=== PATIENT | female | born 1970 | race Caucasian/White ===

== ENCOUNTER 2020-07-22 07:33 | Outpatient (REF) | payer OTHER, SELFPAY ==
[2020-07-22 08:40] LABS: Alanine Aminotransferase 15 U/L (0-31); Albumin Level 3.9 g/dL (3.5-5.0); Alkaline Phosphatase 68 U/L (39-117); Anion Gap 10 (12-20); Aspartate Amino Transferase 12 U/L (5-31); Bilirubin Total 0.4 mg/dL (0.0-1.0); Blood Urea Nitrogen 12 mg/dL (9-16); Calcium 8.7 mg/dL (8.4-10.2); Carbon Dioxide 26 mmol/L (22-29); Chloride 106 mmol/L (96-108); Cholesterol 203 mg/dL; Estimated Glomerular Filt Rate > 60; Glucose Fasting 106 mg/dL (60-99); HDL Cholesterol 54 mg/dL; LDL Cholesterol Calculated 134 mg/dl; Sodium 138 mmol/L (135-145); Total Protein 7.1 g/dL (6.5-8.0); Triglycerides 78 mg/dL
== END 2020-07-22 07:34 | disposition home or self-care (01) ==
LOC: HO.LAB 07:33
PROVIDERS: PCP Internal Medicine; Visit Provider Internal Medicine
DX: E78.00 Pure hypercholesterolemia, unspecified (principal)
CPT/HCPCS: 80053; 80061

== ENCOUNTER → 2020-08-26 10:34 | Outpatient (BNVA) | payer OTHER, SELFPAY | PROVIDERS: PCP Internal Medicine; Referring Provider Internal Medicine; Visit Provider Physician Assistant | DX: Z01.818 Encounter for other preprocedural examination (principal) | CPT/HCPCS: 99212 ==

== ENCOUNTER 2020-09-03 16:17 | Outpatient (REF) | payer OTHER, SELFPAY ==
--- NOTE | 2020-09-03 | MM_ITS ---
EXAMINATION: MM SCREENING DIGITAL BREAST TOMOSYNTHESIS, BILATERAL CLINICAL INFORMATION: Screening. Asymptomatic. The lifetime risk of breast cancer based on the Tyrer-Cuzick Model is 14%. COMPARISON: Mammography: 02/18/2019, 02/14/2018, 01/27/2017 TECHNIQUE: Digital breast tomosynthesis is performed in both the craniocaudal and mediolateral oblique views along with computer-aided detection (CAD). Synthesized 2D images are generated from the tomosynthesis. FINDINGS: There are scattered areas of fibroglandular density (ACR BI-RADS breast composition Category b). There are no significant masses, abnormal calcifications, or other abnormalities. The axilla and skin contours are unremarkable. MM/MM tomosynthesis screening BI IMPRESSION: No mammographic evidence of malignancy. ASSESSMENT: BI-RADS 1: Negative RECOMMENDATION: Routine annual mammography screening. This patient's information was entered into a reminder system with a target due date for their next mammogram.
== END 2020-09-03 16:18 | disposition home or self-care (01) ==
LOC: HO.MAMMO 16:17
PROVIDERS: PCP Internal Medicine; Visit Provider Internal Medicine
DX: Z12.31 Encounter for screening mammogram for malignant neoplasm of breast (principal)
CPT/HCPCS: 77063; 77067

== ENCOUNTER 2020-12-29 09:05 | Day surgery (SDC) | payer OTHER, SELFPAY ==
[2020-12-23 10:14] VITALS: BMI 49.4
--- NOTE | 2020-12-28 09:57 | HO.ANESPROP2 ---
Documented by User: Arti Armenta 12/28/20 09:58 HPI - Anesthesia Eval Consult details Narrative: 50yo F for Colonoscopy PMFSH Active Problems Active Problems: All Active Problems (Updated 12/23/20 @ 10:17 by Es Lambert) Encounter for screening colonoscopy (Acute) Anxiety (Acute) Osteoarthritis of knees, bilateral (Acute) Insomnia (Acute) Constipation by delayed colonic transit (Acute) Dyslipidemia (Acute) Back ache (Acute) Chronic back pain (Acute) Past Medical History Medical History Anxiety Back ache Chronic back pain Constipation by delayed colonic transit Dyslipidemia Hx of heartburn Insomnia Obesity JAKE (obstructive sleep apnea) Osteoarthritis of knees, bilateral Family History Family History Father Medical history unknown Mother Hypertension Daughter In good health Son In good health Brother No problems noted. Sister No problems noted. Surgical History Surgical History History of lumbar discectomy History of tubal ligation Social History Social History Alcohol intake: never Smoking Status: Former smoker Smoking Quit Date: 2016 Use of substances other than those prescribed or required for medical reasons: No Advance Directives: No Advance Directives Information Provided: No Advance Directives on File: No Meds Allergies Allergy/AdvReac Type Severity Reaction Status Date / Time Iodinated Contrast Media Allergy Intermediate RASH,HIVES Verified 12/23/20 10:10 [CONTRAST, IV] varenicline [From CHANTIX] Allergy Intermediate RASH, Verified 12/23/20 10:10 pruritus iopromide [From Ultravist] Allergy Mild HIVES Verified 12/23/20 10:10 barium sulfate Allergy Unknown pruritus Verified 12/23/20 10:10 Exam Exam Date and Time: December 28, 2020 0957 Height,Weight and Vital Signs: Height 5 ft 5 in Weight 134.717 kg Assessment and Plan Assessment Anesthesia Assessment: Chart Reviewed Documented by User: Sujata Moore 12/29/20 10:19 PMFSH Past Medical History Medical History Anxiety Back ache Chronic back pain Constipation by delayed colonic transit Dyslipidemia Hx of heartburn Insomnia Obesity JAKE (obstructive sleep apnea) Osteoarthritis of knees, bilateral Family History Family History Father Medical history unknown Mother Hypertension Daughter In good health Son In good health Brother No problems noted. Sister No problems noted. Surgical History Surgical History History of lumbar discectomy History of tubal ligation Social History Social History Alcohol intake: never Smoking Status: Former smoker Smoking Quit Date: 2016 Use of substances other than those prescribed or required for medical reasons: No Advance Directives: No Advance Directives Information Provided: No Advance Directives on File: No Meds Allergies Allergy/AdvReac Type Severity Reaction Status Date / Time Iodinated Contrast Media Allergy Intermediate RASH,HIVES Verified 12/23/20 10:10 [CONTRAST, IV] varenicline [From CHANTIX] Allergy Intermediate RASH, Verified 12/23/20 10:10 pruritus iopromide [From Ultravist] Allergy Mild HIVES Verified 12/23/20 10:10 barium sulfate Allergy Unknown pruritus Verified 12/23/20 10:10 Exam Airway Mallampati Class: II TM Dist: >3cm Heart: RRR Lungs: CTA
[2020-12-29 10:09] VITALS: BP 145/84; PULSE 65; RESP 18; TEMP 36.5; O2SAT 97
--- NOTE | 2020-12-29 10:23 | PM.OP ---
Brief Operative Note Date of Service: 12/29/20 Pre-op diagnosis: Colon cancer screening + fam hx second degree relative Morbid obesity Harley Post-op diagnosis: other (Polyp, Internal hemorrhoids) Procedure: COLONOSCOPY WITH EXCISIONAL POLYPECTOMY C BX FORCEPS Implants: NON Surgeon: Renata Haile MD Anesthesia: MAC () Estimated blood loss (mL): 5 Pathology: other (TRANSVERSE COLON POLYPS) Condition: stable Disposition: PACU
--- NOTE | 2020-12-29 10:24 | MHC.SHP ---
Pre-Procedural Eval Section B Chief Complaint: screening Details of Present Illness: colon cancer screening No clinical changes from August, + hx in MOTHER's brother Relevant Family History (Specify if Yes): Yes Relevant Social History: None Present Medications: see Short Stay Collaborative assessment Medical History: Significant History (MORBID OBESITY, JAKE--CPAP) History of Previous Operations: Relevant previous surgery/procedure and date(s) (bACK SURGERY--LUMBAR) Allergies: Allergies Allergy/AdvReac Type Severity Reaction Status Date / Time Iodinated Contrast Media Allergy Intermediate RASH,HIVES Verified 12/23/20 10:10 [CONTRAST, IV] varenicline [From CHANTIX] Allergy Intermediate RASH, Verified 12/23/20 10:10 pruritus iopromide [From Ultravist] Allergy Mild HIVES Verified 12/23/20 10:10 barium sulfate Allergy Unknown pruritus Verified 12/23/20 10:10 Review of Systems Sugical H&P ROS: Negative: Constitution, Cardiovascular, Allergic/Immunologic and Gastrointestinal and Yes, Specify: Respiratory (JAKE) Exam Surgical H&P Exam: Normal: HEENT, Normal: Heart, Normal: Lungs and Normal: Abdomen Exam Comment: MORBID OBESITY Plan Diagnosis/Plan: Unchanged I have reviewed the history and physical and performed a pertinent physical examination on my patient. No changes have occurred unless specified.YES
[2020-12-29 10:56] VITALS: BP 106/67; PULSE 80; RESP 16; TEMP 36.9; O2SAT 95
[2020-12-29] MEDS: ondansetron HCL 4 MG/2 ML VIAL IVPUSH (11:06)
[2020-12-29 11:11] VITALS: BP 130/80; PULSE 76; RESP 20; O2SAT 97
--- NOTE | 2020-12-29 12:46 | HO.POSTANES ---
Post Anesthesia Evaluation Post Anesthesia Evaluation Vital Signs: Vital Signs Temp Pulse Resp BP Pulse Ox 12/29/20 11:11 76 20 130/80 97 12/29/20 10:56 98.4 F 80 16 106/67 95 12/29/20 10:09 97.7 F 65 18 145/84 H 97 Anesthesia: Monitored Mental Status: Awake Pain Control: Satisfactory Nausea/Vomiting: None Hydration: Adequate Anesthesia-Related Issues: No Anes. Related Issues
--- NOTE | 2021-01-03 13:30 | W.PM.OPN ---
Operative Note Operative Note Date of Service: 12/29/20 Narrative: Pre-op diagnosis: Colon cancer screening + Fam hx second degree relative(Maternal brother) Morbid obesity Harley Post-op diagnosis: Colon polyp 2-3mm, 1-2+ Internal Hemorrhoids) Procedure: COLONOSCOPY WITH EXCISIONAL POLYPECTOMY COLD BX FORCEPS Implants: NONE Surgeon: Renata Haile MD Anesthesia: MAC () FINDINGS: JAYNA:Sphincter tone adequate. Adult slim scope was introduced with no difficulty advanced thru sigmoid, descending, transverse ascending colon into the cecum. Mild extrinsic pressure was applied to facilitate movement into cecal cap. Appendiceal orifice, ileocecal valve were well seen. PREP: GOOD. Slow withdrawal of scope good rotational views. Area of concern in the transverse colon was endhanced with NBI imaging. Polyp identified and removed with cold biopsy forceps. No additional lesions seen. ARV was clear. 1-2+ Internal Hemorrhoids were noted. Estimated blood loss (mL): 5 Pathology: TRANSVERSE COLON POLYP--Path:Tubular adenoma. Condition: stable Disposition: PAC PLAN: Repeat colon cancer screening in 5 years.
== END 2020-12-29 11:51 | disposition home or self-care (01) ==
PROVIDERS: PCP Internal Medicine; Visit Provider Internal Medicine Gastroenterology
PROC: 0DJD8ZZ Inspection of Lower Intestinal Tract, Via Natural or Artificial Opening Endoscopic (ICD-10-PCS; CPT 45378; principal; 2020-12-29 10:10)
DX: Z12.11 Encounter for screening for malignant neoplasm of colon (principal); D12.3 Benign neoplasm of transverse colon; K64.8 Other hemorrhoids; K59.01 Slow transit constipation; E66.01 Morbid (severe) obesity due to excess calories; Z68.42 Body mass index [BMI] 45.0-49.9, adult; G47.33 Obstructive sleep apnea (adult) (pediatric); F41.9 Anxiety disorder, unspecified; R12 Heartburn; Z79.899 Other long term (current) drug therapy; Z91.041 Radiographic dye allergy status; Z88.8 Allergy status to other drugs, medicaments and biological substances; Z87.891 Personal history of nicotine dependence
CPT/HCPCS: 45380; 88305; J2405

== ENCOUNTER → 2021-01-20 13:31 | Outpatient (BNVA) | payer OTHER, SELFPAY | PROVIDERS: PCP Internal Medicine; Visit Provider Physician Assistant ==

== ENCOUNTER → 2021-02-11 11:28 | Outpatient (BNVA) | payer OTHER, SELFPAY | PROVIDERS: PCP Internal Medicine; Visit Provider Anesthesiology | DX: M17.0 Bilateral primary osteoarthritis of knee (principal); M25.561 Pain in right knee; M25.562 Pain in left knee; G89.29 Other chronic pain; E66.01 Morbid (severe) obesity due to excess calories | CPT/HCPCS: 99202 ==

== ENCOUNTER 2021-04-06 06:08 | Outpatient (REF) | payer OTHER, SELFPAY ==
--- NOTE | ~2021-04-06 | FL_ITS ---
EXAMINATION: XR FLUOROSCOPY WITH IMAGES CLINICAL INFORMATION: Bilateral primary osteoarthritis. COMPARISON: None. TECHNIQUE: Fluoroscopy performed by Kristel Muñoz NP. Fluoroscopy time: 0.4 minutes DAP: 5.76 Gycm2 Images: 4 FINDINGS: There are needles positioned along the medial and lateral cortex of distal femur and medial cortex of tibia for pain management. The tricompartment joint space is maintained normal. There is mild periarticular spurring. The medial and patellofemoral compartment joint space is normal. FL/FL guidance in treatment room IMPRESSION: Mild degenerative changes medial and patellofemoral compartments. Fluoroscopy was provided to Wanda Humphries for pain management.
== END 2021-04-06 06:09 | disposition home or self-care (01) ==
LOC: HO.RADIR 06:08
PROVIDERS: Visit Provider Anesthesiology
DX: M17.0 Bilateral primary osteoarthritis of knee (principal); G89.29 Other chronic pain; Z87.891 Personal history of nicotine dependence
CPT/HCPCS: 64454

== ENCOUNTER → 2021-04-14 09:17 | Outpatient (BNVA) | payer OTHER, SELFPAY | PROVIDERS: PCP Internal Medicine; Visit Provider Anesthesiology | DX: M17.0 Bilateral primary osteoarthritis of knee (principal); M25.561 Pain in right knee; M25.562 Pain in left knee; G89.29 Other chronic pain; E66.01 Morbid (severe) obesity due to excess calories | CPT/HCPCS: 99212 ==

== ENCOUNTER 2021-06-13 16:20 | Emergency (ER) | payer OTHER, SELFPAY ==
--- NOTE | ~2021-06-13 | CT_ITS ---
EXAMINATION: CT ABDOMEN AND PELVIS WITHOUT CONTRAST CLINICAL INFORMATION: Flank pain COMPARISON: 01/28/2018 and previous TECHNIQUE: Multidetector volumetric imaging was performed from the superior aspect of the liver through the pubic symphysis. Sagittal and coronal reformatted images were obtained on the technologist's workstation. This CT examination was performed using dose optimization techniques as appropriate, variously including the following: *Automated exposure control *Adjustment of mA and/or kV according to patient size (this includes techniques or standardized protocols for targeted exams where dose is matched to indication/reason for exam; i.e. extremities or head) *Use of iterative reconstruction technique DLP: 1124 mGy-cm FINDINGS: LUNG BASES: The visualized lung bases are unremarkable. LIVER, GALLBLADDER, AND BILIARY TREE: The liver is normal in size, shape, and attenuation. No focal hepatic lesion or biliary ductal dilatation is present. The gallbladder is contracted, with no evidence of radiopaque gallstones, gallbladder wall thickening, or obvious pericholecystic inflammatory changes. PANCREAS: Unremarkable. SPLEEN: Unremarkable. ADRENAL GLANDS: Unremarkable. KIDNEYS AND URETERS: The kidneys are normal in size, shape, and attenuation. No hydronephrosis, hydroureter, or calculi seen. No perinephric stranding. BLADDER: Unremarkable. GASTROINTESTINAL TRACT: The small and large bowel are unremarkable. The appendix is unremarkable. ABDOMINAL WALL: Small fat-containing umbilical hernia, unchanged. LYMPH NODES: Normal. VASCULAR: Unremarkable. PELVIC VISCERA: Retroflexed uterus. No evidence of adnexal mass. OSSEOUS STRUCTURES: Degenerative disc and facet disease at L5-S1 CT/CT abdomen pelvis wo con IMPRESSION: No urinary tract calculus or hydronephrosis. No acute intra-abdominal process or significant change.
[2021-06-13 16:44] VITALS: BP 153/88; PULSE 78; RESP 18; TEMP 36.7; O2SAT 96; BMI 49.7
--- NOTE | 2021-06-13 17:07 | ED_ITS ---
HPI - General Adult General Chief complaint: General Medical Stated complaint: Flank pain Time Seen by Provider: 06/13/21 20:37 Source: patient Mode of arrival: ambulatory Limitations: no limitations History of Present Illness HPI narrative: 51-year-old female presents with one day history of left lower back pain that radiates to the left abdomen through her groin. States that she feels like this could be a kidney stone however the pain is more intense than prior episodes. She does not report any other symptoms, denies fevers, chills, chest pain or pressure, palpitations, shortness of breath, abdominal distention, diarrhea, constipation, or edema. Onset (ago): day(s) (1) Location: abdomen Radiation: flank Severity: severe Severity scale (1-10): 10 Quality: stabbing and crushing Pain Consistency: constant Relieving factors: none Exacerbating factors: movement Associated symptoms: fever/chills and nausea/vomiting Treatments prior to arrival: none Related Data Previous Rx's Medication Instructions Recorded cyclobenzaprine 10 mg tablet 10 mg PO TID PRN #90 tab 08/08/20 zolpidem 10 mg tablet 10 mg PO BEDTIME PRN 30 Days #30 11/03/20 tab leg brace (Knee Brace Large-XLarge) #1 ea 12/04/20 lorazepam 0.5 mg tablet 0.5 mg PO BEDTIME PRN 30 Days #30 01/27/21 tab oxycodone 5 mg tablet 5 mg PO DAILY PRN 30 Days #20 tab 05/07/21 ibuprofen 600 mg tablet 600 mg PO Q6H PRN #60 tab 06/13/21 Allergies Allergy/AdvReac Type Severity Reaction Status Date / Time barium sulfate Allergy Intermediate pruritus Verified 06/13/21 16:43 Iodinated Contrast Media Allergy Intermediate RASH,HIVES Verified 06/13/21 16:43 [CONTRAST, IV] varenicline [From CHANTIX] Allergy Intermediate RASH, Verified 06/13/21 16:43 pruritus iopromide [From Ultravist] Allergy Mild HIVES Verified 06/13/21 16:43 Review of Systems Review of Systems: Constitutional: Positive subjective Fever, positive Chills ENT/Mouth: No sore throat Eyes: No Eye Pain, No Swelling, No Redness Cardiovascular: No Chest Pain, No SOB Respiratory: No Cough, No Sputum, No Wheezing Gastrointestinal: positive Nausea, no Vomiting, No Diarrhea, positive abdominal pain Genitourinary: No Dysuria, no urinary frequency, no Hematuria, positive left Flank Pain, known hesitancy Musculoskeletal: No joint pain, No Myalgias Skin: No Skin Lesions, No rash Neuro: No Weakness, No Numbness, No Headache Psych: No Anxiety/Panic, No Depression Heme/Lymph: No Bruising, No Lymphadenopathy Endocrine: No Polyuria, No Polydipsia Yes all other systems are reviewed and are negative [facility] Past Medical History Attestation statement: The following information was validated with the patient. Source: old records reviewed Medical History Anxiety Back ache Bilateral primary osteoarthritis of knee Chronic back pain Chronic pain of both knees Constipation by delayed colonic transit Dyslipidemia Hx of heartburn Insomnia Morbid obesity Obesity JAKE (obstructive sleep apnea) Osteoarthritis of knees, bilateral Surgical History History of lumbar discectomy History of tubal ligation Family History Family History Father Medical history unknown Mother Hypertension Daughter In good health Son In good health Brother No problems noted. Sister No problems noted. Social History Social History Alcohol intake: never Patient Tobacco Use Status: Former Tobacco user Tobacco use type: Cigarette Years Smoked: 35 Advance Directives: No Advance Directives Information Provided: No Patient : No Physical Exam Vital Signs: Vital Signs: Last Vital Signs Temp 97.9 F 06/13/21 19:44 Pulse 58 06/13/21 19:44 Resp 16 06/13/21 19:57 BP 146/77 H 06/13/21 19:44 Pulse Ox 99 06/13/21 19:44 Body Mass Index 49.7 Appearance: Alert. Oriented X3. Mild distress. Eyes: Pupils equal, round and reactive to light. Sclera nonicteric. ENT: Pharynx normal. Neck: Normal inspection. Neck supple. CVS: Normal heart rate and rhythm. Pulses normal. Respiratory: No respiratory distress. Breath sounds normal. Abdomen: Soft and diffusely tender, morbidly obese. Positive bilateral CVA tenderness, greater on the left than the right. Skin: Skin warm and dry. Normal skin color. Normal skin turgor. Extremities: No lower extremity edema. Gait well balanced well coordinated. Strength 5/5 to all extremities. Neuro: No motor deficit. No sensory deficit. Cranial nerves 2-12 intact. Course Course Course Narrative: 51-year-old female presents with left-sided flank pain radiating to her lower abdominal quadrant and groin. She does have a history kidney stones, will give Toradol, fluids, Zofran, and CT scan of abdomen and pelvis. Patient does have diffuse tenderness to the left side and bilateral flank pain left side greater than the right side. Urinalysis positive for heme. No other significant abnormal lab values. Workup looks more as if there is a past or current kidney stone. 8:[address] scan of abdomen pelvis is negative for acute findings requiring emergent intervention. Patient will be discharged home with prescription for Motrin as she does have a prescription for oxycodone. Patient was encouraged to follow up with her primary care physician for further workup. Patient verbalized understanding of and agrees plan of care discharge home. Medical Decision Making Differential Diagnosis Differential Diagnosis: Acute abdomen, diverticulosis, kidney stone, UTI Medical Records Medical records reviewed: Yes I reviewed the patient's medical records. Lab Data Lab results reviewed: Yes I reviewed the patient's lab results. Result diagrams: 06/13/21 17:27 06/13/21 18:08 Labs: Lab Results 06/13/21 06/13/21 06/13/21 Range/Units 17:27 18:08 19:51 WBC 10.3 (4.8-10.8) X10*3/uL RBC 4.59 (4.20-5.50) X10*6/uL Hgb 12.8 (12.0-16.0) g/dl Hct 39.3 (37-47) % MCV 85.6 (80-98) fL MCH 27.9 (27.0-33.0) pg MCHC 32.6 (31.0-35.0) g/dl RDW 13.2 (11.0-16.0) % Plt Count 372 (160-400) X10*3/uL MPV 9.2 L (9.4-12.3) fL Immature Gran % (Auto) 0.4 (0.0-0.4) % Neut % (Auto) 63.0 (45-73) % Lymph % (Auto) 26.4 (20-40) % Crockett % (Auto) 8.2 (2-11) % Eos % (Auto) 1.6 (0-4) % Baso % (Auto) 0.4 (0-2) % Lymph # (Auto) 2.7 (1.2-4.9) X10*3/uL Crockett # (Auto) 0.8 (0.1-1.2) X10*3/uL Eos # (Auto) 0.2 (0.0-0.4) X10*3/uL Baso # (Auto) 0.0 (0.0-0.2) X10*3/uL Abs Immat Gran (auto) 0.04 H (0.00-0.03) X10*3/uL Absolute Neuts (auto) 6.5 (2.0-8.3) X10*3/uL Absolute Nucleated RBC 0.000 (0.0-0.012) X10*3/uL Nucleated RBC % (auto) 0.0 (0.0-0.2) /100WBC Sodium 140 (135-145) mmol/L Potassium 4.1 (3.3-5.1) mmol/L Chloride 108 (96-108) mmol/L Carbon Dioxide 25 (22-29) mmol/L Anion Gap 11 L (12-20) BUN 14 (9-16) mg/dL Creatinine 0.81 (0.5-1.4) mg/dL Estim Creat Clear Calc 114.7 Estimated GFR > 60 Random Glucose 87 (60-115) mg/dL Calcium 8.6 (8.4-10.2) mg/dL Urine Color YELLOW Urine Appearance CLEAR Urine pH 6.0 (5.0-8.0) Ur Specific Drain 1.020 (1.005-1.025) Urine Protein NEG (NEG-TRACE) MG/DL Urine Glucose (UA) NEG (NEG) MG/DL Urine Ketones NEG (NEG) MG/DL Urine Blood 1+ H (NEG) Urine Nitrite NEG (NEG) Ur Leukocyte Esterase NEG (NEG) Urine RBC 1-4 (0) /HPF Urine WBC 1-4 (0-4) /HPF Ur Squamous Epith Cells 3+ /LPF Urine Bacteria NONE /LPF Imaging Data CT scan - abdomen: Attestation: I personally reviewed and interpreted this imaging study as follows: Radiologist's impression: FINDINGS: LUNG BASES: The visualized lung bases are unremarkable. LIVER, GALLBLADDER, AND BILIARY TREE: The liver is normal in size, shape, and attenuation. No focal hepatic lesion or biliary ductal dilatation is present. The gallbladder is contracted, with no evidence of radiopaque gallstones, gallbladder wall thickening, or obvious pericholecystic inflammatory changes. PANCREAS: Unremarkable. SPLEEN: Unremarkable. ADRENAL GLANDS: Unremarkable. KIDNEYS AND URETERS: The kidneys are normal in size, shape, and attenuation. No hydronephrosis, hydroureter, or calculi seen. No perinephric stranding. BLADDER: Unremarkable. GASTROINTESTINAL TRACT: The small and large bowel are unremarkable. The appendix is unremarkable. ABDOMINAL WALL: Small fat-containing umbilical hernia, unchanged. LYMPH NODES: Normal. VASCULAR: Unremarkable. PELVIC VISCERA: Retroflexed uterus. No evidence of adnexal mass. OSSEOUS STRUCTURES: Degenerative disc and facet disease at L5-S1 IMPRESSION: No urinary tract calculus or hydronephrosis. No acute intra-abdominal process or significant change. Discharge Plan Discharge Clinical Impression: Acute flank pain Abdominal pain Qualifiers: Abdominal location: lower abdomen, unspecified Qualified Code(s): R10.30 - Lower abdominal pain, unspecified Patient Disposition: Home, Self-Care Instructions: Abdominal Pain (ED), Flank Pain (ED) Additional Instructions: You were evaluated for left flank pain to left lower quadrant abdominal pain. CT scan of abdomen and pelvis are negative for acute findings requiring emergent intervention. Your lab values are normal, your urinalysis is negative for UTI. Please follow-up with your primary care physician for further workup. Thank you for choosing this emergency department for evaluation. Please follow-up with primary care physician as needed. Return to the emergency department for any new, concerning, or worsening symptoms. Prescriptions: New ibuprofen 600 mg tablet 600 mg PO Q6H PRN (Reason: pain) Qty: 60 RF: 0 No Action cyclobenzaprine 10 mg tablet 10 mg PO TID PRN (Reason: muscle spasm) Qty: 90 RF: 6 zolpidem 10 mg tablet 10 mg PO BEDTIME PRN (Reason: sleep) 30 Days Qty: 30 RF: 0 (DME) Knee Brace Large-XLarge Misc See Rx Instructions .ROUTE .MEDSUPPLY Qty: 1 RF: 0 lorazepam 0.5 mg tablet 0.5 mg PO BEDTIME PRN (Reason: anxiety) 30 Days Qty: 30 RF: 0 oxycodone 5 mg tablet 5 mg PO DAILY PRN (Reason: pain) 30 Days Qty: 20 RF: 0 Interventions: ED Discharge Assessment Last Done: 06/13/21 21:15 Discharge Date/Time: 06/13/21 21:16
[2021-06-13] MEDS: ondansetron HCL 4 MG/2 ML VIAL IVPUSH (17:28)
[2021-06-13] MEDS: 0.9 % Sodium Chloride 1,000 ML 999 ML IVCONT (17:29)
[2021-06-13] MEDS: Ketorolac Tromethamine 15 MG/ML VIAL 30 MG IVPUSH (17:29)
[2021-06-13 17:34] LABS: MANUAL DIFF FLAG NO
[2021-06-13 17:42] LABS: Basophils Percent Auto 0.4 % (0-2); Eosinophils Absolute Auto 0.2 X10*3/uL (0.0-0.4); Eosinophils Percent Auto 1.6 % (0-4); Hematocrit 39.3 % (37-47); Hemoglobin 12.8 g/dl (12.0-16.0); Imm Gran Abs Auto 0.04 X10*3/uL (0.00-0.03); Imm Gran Pct Auto 0.4 % (0.0-0.4); Lymphocytes Absolute Auto 2.7 X10*3/uL (1.2-4.9); Lymphocytes Percent Auto 26.4 % (20-40); Mean Corpuscular HGB Conc 32.6 g/dl (31.0-35.0); Mean Corpuscular Hemoglobin 27.9 pg (27.0-33.0); Mean Corpuscular Volume 85.6 fL (80-98); Mean Platelet Volume 9.2 fL (9.4-12.3); Monocytes Absolute Auto 0.8 X10*3/uL (0.1-1.2); Monocytes Percent Auto 8.2 % (2-11); Neutrophils Absolute Auto 6.5 X10*3/uL (2.0-8.3); Platelet Count 372 X10*3/uL (160-400); Red Blood Count 4.59 X10*6/uL (4.20-5.50); Red Cell Distribution Width 13.2 % (11.0-16.0); White Blood Count 10.3 X10*3/uL (4.8-10.8)
[2021-06-13 18:59] LABS: Anion Gap 11 (12-20); Blood Urea Nitrogen 14 mg/dL (9-16); Calcium 8.6 mg/dL (8.4-10.2); Carbon Dioxide 25 mmol/L (22-29); Chloride 108 mmol/L (96-108); Creatinine Clr Calc Pharmacy 114.7; Estimated Glomerular Filt Rate > 60; Glucose Random 87 mg/dL (60-115); Potassium 4.1 mmol/L (3.3-5.1); Sodium 140 mmol/L (135-145)
[2021-06-13 19:44] VITALS: BP 146/77; PULSE 58; RESP 16; TEMP 36.6; O2SAT 99
[2021-06-13 19:52] VITALS: RESP 16
[2021-06-13] MEDS: Morphine Sulfate 4 MG/ML CARTRIDGE IVPUSH (19:52)
[2021-06-13 19:57] VITALS: RESP 16
[2021-06-13 20:03] LABS: Glucose Urine UA NEG (NEG); Leukocyte Esterase Urine NEG (NEG); Nitrite Urine NEG (NEG); UACC Culture Trigger NO; Urine Blood 1+ (NEG); Urine Ketones NEG (NEG); Urine Protein NEG (NEG-TRACE)
[2021-06-13 20:07] LABS: Appearance Urine CLEAR; Color Urine YELLOW
[2021-06-13 20:16] LABS: Squamous Epithelial Cell Urine 3+ /LPF
== END 2021-06-13 21:16 | disposition home or self-care (01) ==
PROVIDERS: Nurse Practitioner Family; Emergency Provider Internal Medicine; PCP Internal Medicine
DX: R10.9 Unspecified abdominal pain (principal); M54.5 Low back pain; Z79.899 Other long term (current) drug therapy; F17.210 Nicotine dependence, cigarettes, uncomplicated; Z71.6 Tobacco abuse counseling
CPT/HCPCS: 36415; 74176; 80048; 81001; 81003; 85025; 96365; 96375; 99284; J1885; J2270; J2405

== ENCOUNTER 2021-06-25 09:41 | Outpatient (REF) | payer OTHER, SELFPAY ==
[2021-06-25 11:21] LABS: Alanine Aminotransferase 16 U/L (0-31); Albumin Level 4.1 g/dL (3.5-5.0); Alkaline Phosphatase 82 U/L (39-117); Anion Gap 11 (12-20); Aspartate Amino Transferase 13 U/L (5-31); Bilirubin Total 0.6 mg/dL (0.0-1.0); Blood Urea Nitrogen 19 mg/dL (9-16); Calcium 9.2 mg/dL (8.4-10.2); Carbon Dioxide 23 mmol/L (22-29); Chloride 110 mmol/L (96-108); Cholesterol 210 mg/dL; Estimated Glomerular Filt Rate > 60; Glucose Fasting 95 mg/dL (60-99); HDL Cholesterol 58 mg/dL; LDL Cholesterol Calculated 140 mg/dl; Potassium 4.4 mmol/L (3.3-5.1); Sodium 140 mmol/L (135-145); Total Protein 7.8 g/dL (6.5-8.0); Triglycerides 63 mg/dL
== END 2021-06-25 09:42 | disposition home or self-care (01) ==
LOC: HO.10HDL 09:41
PROVIDERS: Visit Provider Internal Medicine
DX: E78.5 Hyperlipidemia, unspecified (principal)
CPT/HCPCS: 36415; 80053; 80061

== ENCOUNTER → 2021-09-01 12:20 | Outpatient (BNVA) | payer OTHER, SELFPAY | PROVIDERS: PCP Internal Medicine; Visit Provider Dietitian, Registered | DX: E66.01 Morbid (severe) obesity due to excess calories (principal); Z68.43 Body mass index [BMI] 50.0-59.9, adult | CPT/HCPCS: 97802 ==

== ENCOUNTER 2021-10-11 12:54 | Outpatient (REF) | payer OTHER, SELFPAY ==
--- NOTE | ~2021-10-11 | MM_ITS ---
EXAMINATION: MM SCREENING DIGITAL BREAST TOMOSYNTHESIS, BILATERAL CLINICAL INFORMATION: Screening. Asymptomatic. The lifetime risk of breast cancer based on the Tyrer-Cuzick Model is 10%. COMPARISON: Mammography: 09/03/2020, 02/18/2019, 02/14/2018 TECHNIQUE: Digital breast tomosynthesis is performed in both the craniocaudal and mediolateral oblique views along with computer-aided detection (CAD). Synthesized 2D images are generated from the tomosynthesis. FINDINGS: There are scattered areas of fibroglandular density (ACR BI-RADS breast composition Category b). There are no significant masses, abnormal calcifications, or other abnormalities. Parenchymal pattern is similar to prior studies. There is no developing density or architectural abnormality. The axilla and skin contours are unremarkable. No significant changes. MM/MM tomosynthesis screening BI IMPRESSION: No mammographic evidence of malignancy. ASSESSMENT: BI-RADS 1: Negative RECOMMENDATION: Routine annual mammography screening. This patient's information was entered into a reminder system with a target due date for their next mammogram.
== END 2021-10-11 12:55 | disposition home or self-care (01) ==
LOC: HO.MAMMO 12:54
PROVIDERS: PCP Internal Medicine; Visit Provider Internal Medicine
DX: Z12.31 Encounter for screening mammogram for malignant neoplasm of breast (principal)
CPT/HCPCS: 77063; 77067

== ENCOUNTER → 2021-11-30 10:53 | Outpatient (BNVA) | payer OTHER, SELFPAY | PROVIDERS: PCP Internal Medicine; Visit Provider Dietitian, Registered | DX: E66.01 Morbid (severe) obesity due to excess calories (principal); Z68.43 Body mass index [BMI] 50.0-59.9, adult; Z71.3 Dietary counseling and surveillance | CPT/HCPCS: 97803 ==

== ENCOUNTER 2022-01-03 10:23 | Outpatient (REF) | payer OTHER, SELFPAY ==
[2022-01-03 15:11] LABS: CT PCR NOT DETECTED (Not Detect.); NG PCR NOT DETECTED (Not Detect.)
[2022-01-04 13:03] LABS: BV Int Neg Control Negative (Negative); BV Int Pos Control Positive (Positive)
[2022-01-08 23:46] LABS: HPV 16 RNA NOT DETECTED (NOT DETECTED); HPV mRNA E6/E7 rflx Detected (Not Detected)
== END 2022-01-03 10:24 | disposition home or self-care (01) ==
LOC: HO.LAB 10:23
PROVIDERS: PCP Internal Medicine; Visit Provider Advanced Practice Midwife
DX: Z01.419 Encounter for gynecological examination (general) (routine) without abnormal findings (principal); Z11.51 Encounter for screening for human papillomavirus (HPV); E66.01 Morbid (severe) obesity due to excess calories; Z68.43 Body mass index [BMI] 50.0-59.9, adult; Z20.2 Contact with and (suspected) exposure to infections with a predominantly sexual mode of transmission
CPT/HCPCS: 87480; 87491; 87510; 87591; 87624; 87625; 87660; 88142

== ENCOUNTER 2022-05-11 12:55 | Outpatient (REF) | payer OTHER, SELFPAY ==
[2022-05-13 11:45] LABS: H Pylori Breath Test Negative (Negative)
== END 2022-05-11 12:56 | disposition home or self-care (01) ==
LOC: HO.LNP 12:55
PROVIDERS: PCP Internal Medicine; Visit Provider Physician Assistant
DX: Z01.818 Encounter for other preprocedural examination (principal); E66.01 Morbid (severe) obesity due to excess calories; E78.5 Hyperlipidemia, unspecified; G47.33 Obstructive sleep apnea (adult) (pediatric)
CPT/HCPCS: 83013; 99202; 99211; 99212

== ENCOUNTER → 2022-05-31 14:48 | Outpatient (REF) | payer OTHER, SELFPAY | LOC: HO.SL 14:48 | PROVIDERS: PCP Internal Medicine; Visit Provider Physician Assistant | DX: Z01.818 Encounter for other preprocedural examination (principal); G47.33 Obstructive sleep apnea (adult) (pediatric); E66.01 Morbid (severe) obesity due to excess calories; E78.5 Hyperlipidemia, unspecified | CPT/HCPCS: 95806 ==

== ENCOUNTER 2022-06-01 08:52 | Outpatient (REF) | payer OTHER, SELFPAY ==
--- NOTE | 2022-06-01 09:00 | ECG_ITS ---
Test Reason : morbid obesity Blood Pressure : / mmHG Vent. Rate : 058 BPM Atrial Rate : 058 BPM P-R Int : 136 ms QRS Dur : 086 ms QT Int : 404 ms P-R-T Axes : 060 027 038 degrees QTc Int : 396 ms Sinus bradycardia Otherwise normal ECG When compared with ECG of 23-JAN-2017 20:19, Vent. rate has decreased BY 63 BPM Nonspecific T wave abnormality has replaced inverted T waves in Inferior leads Referred By: Melany Sparks Electronically Signed By:LANA WHELAN
[2022-06-01 09:22] LABS: MANUAL DIFF FLAG NO
[2022-06-01 09:48] LABS: Basophils Percent Auto 0.6 % (0-2); Eosinophils Absolute Auto 0.1 X10*3/uL (0.0-0.4); Eosinophils Percent Auto 1.6 % (0-4); Hematocrit 39.5 % (37.0-47.0); Hemoglobin 13.2 g/dl (12.0-16.0); Imm Gran Abs Auto 0.01 X10*3/uL (0.00-0.03); Imm Gran Pct Auto 0.1 % (0.0-0.4); Lymphocytes Absolute Auto 1.9 X10*3/uL (1.2-4.9); Lymphocytes Percent Auto 28.2 % (20-40); Mean Corpuscular HGB Conc 33.4 g/dl (31.0-35.0); Mean Corpuscular Hemoglobin 28.1 pg (27.0-33.0); Mean Platelet Volume 9.3 fL (9.4-12.3); Monocytes Absolute Auto 0.5 X10*3/uL (0.1-1.2); Monocytes Percent Auto 7.6 % (2-11); Neutrophils Absolute Auto 4.2 x10*3/uL (2.0-8.3); Neutrophils Percent Auto 61.9 % (45-73); Platelet Count 364 X10*3/uL (160-400); Red Cell Distribution Width 13.4 % (11.0-16.0); White Blood Count 6.8 X10*3/uL (4.8-10.8)
[2022-06-01 10:01] LABS: Estimated Average Glucose 108 mg/dL; Hemoglobin A1c % 5.4 %
[2022-06-01 10:04] LABS: Alanine Aminotransferase 14 U/L (0-31); Alkaline Phosphatase 79 U/L (39-117); Anion Gap 16 (12-20); Aspartate Amino Transferase 16 U/L (5-31); Bilirubin Total 0.4 mg/dL (0.0-1.0); Blood Urea Nitrogen 16 mg/dL (9-16); C Reactive Protein 0.82 mg/dL (< or = 0.50); Carbon Dioxide 23 mmol/L (22-29); Chloride 107 mmol/L (96-108); Cholesterol 200 mg/dL; Estimated Glomerular Filt Rate > 60; Glucose Fasting 95 mg/dL (60-99); HDL Cholesterol 53 mg/dL; Iron 81 mcg/dL (30-160); LDL Cholesterol Calculated 132 mg/dl; Percent Iron Saturation 24 % (15-50); Potassium 4.1 mmol/L (3.3-5.1); Sodium 142 mmol/L (135-145); Total Iron Binding Capacity 336 mcg/dL (228-428); Total Protein 7.4 g/dL (6.5-8.0); Triglycerides 75 mg/dL; Unsaturated Iron Binding 255 ug/dL
[2022-06-01 10:32] LABS: Ferritin 48 ng/mL (10-250); TSH reflex Free T4 1.77 uIU/mL (0.32-4.0); Vitamin D 25-OH Total 15.3 ng/mL (>30)
[2022-06-01 10:58] LABS: Folate 13.3 ng/mL (> or = 4.0); Vitamin B12 553 pg/mL (200-900)
[2022-06-01 11:04] LABS: Insulin 18 uU/mL (2-29)
[2022-06-02 13:47] LABS: Calcium (PTHI) 9.2 mg/dL (8.6-10.4); PTHI 68 pg/mL (16-77)
[2022-06-04 12:42] LABS: Zinc 98 mcg/dL (60-130)
[2022-06-05 17:02] LABS: Vitamin A 24 mcg/dL (38-98)
[2022-06-10 06:02] LABS: Vitamin B1 15 nmol/L (8-30)
== END 2022-06-01 08:53 | disposition home or self-care (01) ==
LOC: HO.LAB 08:52
PROVIDERS: PCP Internal Medicine; Visit Provider Physician Assistant
DX: Z01.818 Encounter for other preprocedural examination (principal); E66.01 Morbid (severe) obesity due to excess calories; E78.5 Hyperlipidemia, unspecified; G47.33 Obstructive sleep apnea (adult) (pediatric); G89.29 Other chronic pain; M25.561 Pain in right knee; M25.562 Pain in left knee
CPT/HCPCS: 36415; 80053; 80061; 82306; 82607; 82728; 82746; 83036; 83525; 83540; 83970; 84425; 84443; 84590; 84630; 85025; 86140; 93005

== ENCOUNTER → 2022-06-06 13:52 | Outpatient (BNVA) | payer OTHER, SELFPAY | PROVIDERS: PCP Internal Medicine; Referring Provider Internal Medicine; Visit Provider Physician Assistant | DX: E66.01 Morbid (severe) obesity due to excess calories (principal); Z71.3 Dietary counseling and surveillance; Z79.899 Other long term (current) drug therapy; Z68.42 Body mass index [BMI] 45.0-49.9, adult | CPT/HCPCS: 99212 ==

== ENCOUNTER → 2022-06-07 13:00 | Outpatient (BNVA) | payer OTHER, SELFPAY | PROVIDERS: Visit Provider Counselor Mental Health | DX: F43.20 Adjustment disorder, unspecified (principal); E66.9 Obesity, unspecified; M54.9 Dorsalgia, unspecified; G89.29 Other chronic pain | CPT/HCPCS: 90791 ==

== ENCOUNTER → 2022-06-08 10:32 | Outpatient (BNVA) | payer OTHER, SELFPAY | PROVIDERS: PCP Internal Medicine; Visit Provider Dietitian, Registered | DX: E66.01 Morbid (severe) obesity due to excess calories (principal); Z71.3 Dietary counseling and surveillance | CPT/HCPCS: 97802 ==

== ENCOUNTER 2022-06-29 09:18 | Outpatient (REF) | payer OTHER, SELFPAY ==
--- NOTE | ~2022-06-29 | XR_ITS ---
EXAMINATION: XR CHEST CLINICAL INFORMATION: Bariatric service evaluation. E66.01. COMPARISON: Chest radiographs 09/17/2016, 08/15/2013. TECHNIQUE: 2 views of the chest were obtained. FINDINGS: The lungs are clear. There is no airspace consolidation or effusion. The heart is normal in size. The vascularity is normal. The hilar and mediastinal contours and bony structures are unremarkable. XR/XR chest 2V IMPRESSION: Unremarkable examination.
--- NOTE | ~2022-06-29 | FL_ITS ---
EXAMINATION: XR FLUOROSCOPY UPPER GI WITH AIR CLINICAL INFORMATION: Morbid/severe obesity due to excess calories. COMPARISON: None TECHNIQUE: Routine upper GI air-contrast study was performed. FINDINGS: Following oral administration of thick barium and effervescent granules, there is normal propagation of bolus from the oral cavity through the pharynx, esophagus into stomach without any evidence of obstruction, narrowing or stricture. On placing patient supine and prone lying, the course, caliber and peristalsis in the esophagus, stomach and duodenum is normal. The mucosal pattern of the stomach, duodenal bulb and the sweep is normal. No gastroesophageal reflux or hiatal hernia seen. FLUOROSCOPY TIME: 1.3 minutes DOSE AREA PRODUCT: 47.224 uGy-m2 (microgray-meter squared) FL/FL upper GI w air IMPRESSION: Unremarkable upper GI examination.
--- NOTE | ~2022-06-29 | US_ITS ---
EXAMINATION: US COMPLETE ABDOMEN WITH LIVER ELASTOGRAPHY CLINICAL INFORMATION: Morbid to severe obesity due to excess calories COMPARISON: None. TECHNIQUE: Real-time imaging of the abdominal viscera. Noninvasive ultrasound liver fibrosis assessment is performed using [employer] ElastPQ point quantification shear wave elastography (2D-SWE) with a C5-2 MHz transducer. Multiple elastography samples are obtained. FINDINGS: PANCREAS: Normal. The visualized pancreatic head and body are normal in appearance. The remainder of the pancreas is obscured from visualization by the overlying bowel gas. ABDOMINAL AORTA: The proximal, middle, and distal aortic segments are normal in caliber. INFERIOR VENA CAVA: Visualized portions are normal. LIVER: The liver demonstrates normal size, contour and echogenicity. No focal lesion or intrahepatic biliary duct dilatation. The right lobe measures 16.8 cm in length. The left lobe measures 9.3 cm in length. Portal flow is hepatopedal Shear wave liver elastography median stiffness is 1.52 m/s (reference: normal median stiffness is 1.3 m/s or less). IQR/median stiffness to assess sampling precision is 0.12 (reference: good quality data set is IQR/median stiffness of 0.15 or less). GALLBLADDER: The gallbladder wall thickness measures 0.2 cm. The gallbladder is physiologically distended without evidence of stones, sludge, polyps, wall thickening or pericholecystic fluid. COMMON BILE DUCT: Normal in caliber measuring 0.4 cm in diameter. RIGHT KIDNEY: Normal. No hydronephrosis. No renal calculi or focal parenchymal lesions. The kidney measures 11.5 cm in maximum dimension. LEFT KIDNEY: Normal. No hydronephrosis. No renal calculi or focal parenchymal lesions. The kidney measures 11.2 cm in maximum dimension. SPLEEN: Normal. The spleen measures 10.0 cm in maximum dimension. FREE FLUID: None. US/US abdomen comp w elastography IMPRESSION: 1. Unremarkable complete abdominal ultrasound. 2. Liver elastography: Median liver stiffness 1.5 m/s corresponds to cACLD (ruled out). REFERENCE: Society of Radiologists in Ultrasound Liver Stiffness Thresholds (2019): LIVER STIFFNESS THRESHOLDS: *Liver Stiffness equal or less than 1.3 m/s: High probability of being normal. *Liver Stiffness less than 1.7 m/s: In the absence of other known clinical signs, rules out compensated advanced chronic liver disease. *Liver Stiffness 1.7-2.1 m/s: Suggestive of compensated advanced chronic liver disease but need further test for confirmation. *Liver Stiffness over 2.1 m/s: Rules in compensated advanced chronic liver disease. *Liver Stiffness over 2.4 m/s: Suggestive of clinically significant portal hypertension. QUALITY OF DATA SET: *IQR/Median value equal or less than 0.15 implies a quality data set. *IQR/Median value over 0.15 implies a poor quality data set. SIGNIFICANT CHANGE FROM PRIOR EXAM: Significant change if liver stiffness measurement is 10% or greater from prior exam. OTHER CONSIDERATIONS: The stage of liver fibrosis may be overestimated in the setting of acute hepatitis, liver inflammation, elevated liver function tests, hepatic vascular congestion, obstructive cholestasis, non-fasting state, and infiltrative diseases such as amyloidosis and lymphoma. In some patients with NAFLD, the liver stiffness thresholds for compensated advanced chronic liver disease may be lower. In causes other than viral hepatitis and NAFLD, liver stiffness thresholds are not well established.
== END 2022-06-29 09:19 | disposition home or self-care (01) ==
LOC: HO.US 09:18
PROVIDERS: Visit Provider Physician Assistant
DX: Z01.818 Encounter for other preprocedural examination (principal); E66.01 Morbid (severe) obesity due to excess calories; E78.5 Hyperlipidemia, unspecified; G47.33 Obstructive sleep apnea (adult) (pediatric)
CPT/HCPCS: 71046; 74246; 76705; 76981

== ENCOUNTER → 2022-07-06 09:49 | Outpatient (BNVA) | payer OTHER, SELFPAY | PROVIDERS: PCP Internal Medicine; Visit Provider Physician Assistant | DX: E66.01 Morbid (severe) obesity due to excess calories (principal); Z68.42 Body mass index [BMI] 45.0-49.9, adult | CPT/HCPCS: 99212 ==

== ENCOUNTER → 2022-08-02 09:25 | Outpatient (BNVA) | payer OTHER, SELFPAY | PROVIDERS: PCP Internal Medicine; Referring Provider Internal Medicine; Visit Provider Physician Assistant | DX: E66.01 Morbid (severe) obesity due to excess calories (principal); G47.33 Obstructive sleep apnea (adult) (pediatric); Z68.42 Body mass index [BMI] 45.0-49.9, adult | CPT/HCPCS: 99212 ==

== ENCOUNTER → 2022-08-11 12:47 | Outpatient (BNVA) | payer OTHER, SELFPAY | PROVIDERS: PCP Internal Medicine; Visit Provider Surgery | DX: E66.01 Morbid (severe) obesity due to excess calories (principal); Z68.42 Body mass index [BMI] 45.0-49.9, adult; G47.33 Obstructive sleep apnea (adult) (pediatric); F43.20 Adjustment disorder, unspecified; G89.29 Other chronic pain; M25.561 Pain in right knee; M25.562 Pain in left knee; M17.0 Bilateral primary osteoarthritis of knee; F41.9 Anxiety disorder, unspecified; M54.9 Dorsalgia, unspecified; K59.01 Slow transit constipation | CPT/HCPCS: 99212 ==

== ENCOUNTER 2022-08-16 09:11 | Outpatient (REF) | payer OTHER, SELFPAY ==
[2022-08-16 09:39] LABS: MANUAL DIFF FLAG NO
[2022-08-16 10:13] LABS: Basophils Percent Auto 0.4 % (0-2); Eosinophils Absolute Auto 0.1 X10*3/uL (0.0-0.4); Eosinophils Percent Auto 0.7 % (0-4); Hematocrit 40.2 % (37.0-47.0); Hemoglobin 13.4 g/dl (12.0-16.0); Imm Gran Abs Auto 0.03 X10*3/uL (0.00-0.03); Imm Gran Pct Auto 0.3 % (0.0-0.4); Lymphocytes Absolute Auto 2.4 X10*3/uL (1.2-4.9); Lymphocytes Percent Auto 23.2 % (20-40); Mean Corpuscular HGB Conc 33.3 g/dl (31.0-35.0); Mean Corpuscular Hemoglobin 28.3 pg (27.0-33.0); Mean Corpuscular Volume 84.8 fL (80.0-98.0); Mean Platelet Volume 9.7 fL (9.4-12.3); Monocytes Absolute Auto 0.7 X10*3/uL (0.1-1.2); Monocytes Percent Auto 7.2 % (2-11); Neutrophils Percent Auto 68.2 % (45-73); Platelet Count 364 X10*3/uL (160-400); Red Blood Count 4.74 X10*6/uL (4.20-5.50); White Blood Count 10.3 X10*3/uL (4.8-10.8)
[2022-08-16 10:21] LABS: INTERNATIONAL NORM RATIO 1.2 (0.9-1.1); Prothrombin Time 13.8 SEC (10.0-13.1)
[2022-08-16 10:25] LABS: Partial Thromboplastin Time 31.3 SEC (26.0-36.4)
[2022-08-16 10:45] LABS: Estimated Average Glucose 103 mg/dL; Hemoglobin A1c % 5.2 %
[2022-08-16 10:52] LABS: Alanine Aminotransferase 11 U/L (0-31); Albumin Level 4.2 g/dL (3.5-5.0); Alkaline Phosphatase 85 U/L (39-117); Anion Gap 16 (12-20); Aspartate Amino Transferase 15 U/L (5-31); Bilirubin Total 0.4 mg/dL (0.0-1.0); Blood Urea Nitrogen 12 mg/dL (9-16); C Reactive Protein 3.18 mg/dL (< or = 0.50); Calcium 9.4 mg/dL (8.4-10.2); Carbon Dioxide 22 mmol/L (22-29); Chloride 106 mmol/L (96-108); Cholesterol 208 mg/dL; Estimated Glomerular Filt Rate > 60; Glucose Random 85 mg/dL (60-115); HDL Cholesterol 50 mg/dL; Iron 50 mcg/dL (30-160); LDL Cholesterol Calculated 145 mg/dl; Percent Iron Saturation 16 % (15-50); Sodium 140 mmol/L (135-145); Total Iron Binding Capacity 311 mcg/dL (228-428); Total Protein 7.7 g/dL (6.5-8.0); Triglycerides 68 mg/dL; Unsaturated Iron Binding 261 ug/dL
[2022-08-16 11:02] LABS: Ferritin 74 ng/mL (10-250); TSH reflex Free T4 1.56 uIU/mL (0.32-4.0); Vitamin D 25-OH Total 23.9 ng/mL (>30)
[2022-08-16 11:07] LABS: Vitamin B12 647 pg/mL (200-900)
[2022-08-17 13:22] LABS: Calcium (PTHI) 9.5 mg/dL (8.6-10.4); PTHI 36 pg/mL (16-77)
[2022-08-19 04:56] LABS: Zinc 83 mcg/dL (60-130)
[2022-08-20 16:51] LABS: Vitamin A 21 mcg/dL (38-98)
[2022-08-21 06:42] LABS: Vitamin B1 12 nmol/L (8-30)
== END 2022-08-16 09:12 | disposition home or self-care (01) ==
LOC: HO.LAB 09:11
PROVIDERS: PCP Internal Medicine; Visit Provider Surgery
DX: E66.01 Morbid (severe) obesity due to excess calories (principal); G47.33 Obstructive sleep apnea (adult) (pediatric); M25.561 Pain in right knee; M25.562 Pain in left knee; G89.29 Other chronic pain; E78.5 Hyperlipidemia, unspecified; M54.9 Dorsalgia, unspecified; F41.9 Anxiety disorder, unspecified; F43.20 Adjustment disorder, unspecified
CPT/HCPCS: 36415; 80053; 80061; 82306; 82607; 82728; 83036; 83540; 83970; 84425; 84443; 84590; 84630; 85025; 85610; 85730; 86140

== ENCOUNTER 2022-08-24 08:32 | Inpatient (IN) | payer OTHER, SELFPAY ==
[2022-08-10 11:41] VITALS: BMI 46.2
--- NOTE | 2022-08-23 08:04 | P.CONAN_ITS ---
Documented by User: Arti Armenta NP 08/23/22 08:05 HPI - Anesthesia Eval Consult details Narrative: 52yo F for Gastrectomy Sleeve, Possible Diaphragmatic hernia, Possible Ventral hernia,Possible open PMFSH Active Problems Active Problems: All Active Problems (Updated 08/10/22 @ 11:26 by Jo Ann Lyn RN) Encounter for screening colonoscopy (Acute) Tubular adenoma of colon (Acute) Internal hemorrhoids (Acute) Right foot pain (Acute) Well woman exam with routine gynecological exam (Acute) Potential exposure to STD (Acute) Cervical cancer screening (Acute) Super-super obese (Acute) Pre-op evaluation (Acute) Adjustment disorder (Acute) JAKE (obstructive sleep apnea) (Acute) Morbid obesity (Acute) Chronic pain of both knees (Acute) Bilateral primary osteoarthritis of knee (Acute) Anxiety (Acute) Osteoarthritis of knees, bilateral (Acute) Insomnia (Acute) Constipation by delayed colonic transit (Acute) Dyslipidemia (Acute) Back ache (Acute) Chronic back pain (Acute) Past Medical History Medical History Anxiety Back ache Bilateral primary osteoarthritis of knee Chronic back pain Chronic pain of both knees Constipation by delayed colonic transit Dyslipidemia Hx of heartburn Insomnia Morbid obesity Obesity JAKE (obstructive sleep apnea) Osteoarthritis of knees, bilateral Family History Family History Father Medical history unknown Mother Hypertension Daughter In good health Son In good health Brother No problems noted. Sister No problems noted. Surgical History Surgical History History of lumbar discectomy History of tubal ligation Hx of colonoscopy Social History Social History Household Members Other:: son Housing: House Are you a primary care transitions manager to a significant other at home: No Do you presently have visiting nurse or other home services: Yes ([employer] [facility]) Alcohol intake: never Patient Tobacco Use Status: Former Tobacco user Quit Date: 6 yrs ago Tobacco use type: Cigarette Years Smoked: 35 e-Cigarette/Vaping Use: Never Used Second Hand Smoke Exposure: No Use of substances other than those prescribed or required for medical reasons: No Have you been hit, kicked, punched, or otherwise hurt by someone within the past year? If so, by whom?: No Are you DNR?: No Advance Directives: No Advance Directives Information Provided: Yes (Info mailed) Advance Directives on File: No Recently lost weight without trying: No How much weight loss: 24-33 pounds Eating poorly because of decreased appetite: No Nutrition screen score: 3 Nutrition Risks: No Nutritional Risk Patient : No FDLMP: menopause service: No Current occupational status: disabled Cognitive needs: No Hearing needs: No Vision needs: No Meds Allergies Allergy/AdvReac Type Severity Reaction Status Date / Time barium sulfate Allergy Intermediate pruritus Verified 08/11/22 13:06 Iodinated Contrast Media Allergy Intermediate RASH,HIVES Verified 08/11/22 13:06 [CONTRAST, IV] varenicline [From CHANTIX] Allergy Intermediate RASH, Verified 08/11/22 13:06 pruritus iopromide [From Ultravist] Allergy Mild HIVES Verified 08/11/22 13:06 Active Medications: Current Medications Atorvastatin Calcium (Atorvastatin Calcium 40 Mg Tablet) 40 mg PO DAILY [facility] Cyclobenzaprine HCl (Cyclobenzaprine Hcl 10 Mg Tablet) 10 mg PO TID PRN PRN Reason: muscle spasm Docusate Sodium (Docusate Sodium 100 Mg Capsule) 100 mg PO BID [facility] Lactated Ringer's (Lr) 1,000 mls @ 150 mls/hr IVCONT .Q6H40M [facility] Naproxen (Naproxen 500 Mg Tablet) 500 mg PO BID [facility] Scopolamine (Scopolamine 1.5 Mg Patch.Td.3) 1.5 mg TRANSDERMA PREOP ONE Stop: 08/24/22 12:59 Vitamin D (Cholecalciferol (Vitamin D3) 25 Mcg Tablet) 25 mcg PO DAILY [facility] Home Medications Medication Instructions Recorded Confirmed Last Taken Type diclofenac sodium 1 % topical gel g topical BID PRN Pain 12/31/21 08/02/22 Unknown History meloxicam 15 mg tablet 15 mg PO DAILY 12/31/21 08/10/22 07/31/22 History Exam Exam Date and Time: August 23, 2022 0804 Height,Weight and Vital Signs: Height 5 ft 5 in Weight 126.099 kg Pertinent Lab Results Pertinent Lab Results: Laboratory Tests 08/16/22 09:36 Blood Type A Positive Antibody Screen NEGATIVE Laboratory Tests 08/16/22 08/16/22 09:38 09:38 WBC 10.3 Hgb 13.4 Hct 40.2 Plt Count 364 Sodium 140 Potassium 4.0 Chloride 106 Carbon Dioxide 22 BUN 12 Creatinine 0.68 Assessment and Plan Assessment Anesthesia Assessment: Chart Reviewed Documented by User: Joanna Bauer MD 08/24/22 07:34 [facility] Past Medical History Medical History Anxiety Back ache Bilateral primary osteoarthritis of knee Chronic back pain Chronic pain of both knees Constipation by delayed colonic transit Dyslipidemia Hx of heartburn Insomnia Morbid obesity Obesity JAKE (obstructive sleep apnea) Osteoarthritis of knees, bilateral Family History Family History Father Medical history unknown Mother Hypertension Daughter In good health Son In good health Brother No problems noted. Sister No problems noted. Surgical History Surgical History History of lumbar discectomy History of tubal ligation Hx of colonoscopy History of Problems with Anesthesia: No Social History Social History Household Members Other:: son Housing: House Are you a primary care transitions manager to a significant other at home: No Do you presently have visiting nurse or other home services: Yes ([facility]) Alcohol intake: never Patient Tobacco Use Status: Former Tobacco user Quit Date: 6 yrs ago Tobacco use type: Cigarette Years Smoked: 35 e-Cigarette/Vaping Use: Never Used Second Hand Smoke Exposure: No Use of substances other than those prescribed or required for medical reasons: No Have you been hit, kicked, punched, or otherwise hurt by someone within the past year? If so, by whom?: No Are you DNR?: No Advance Directives: No Advance Directives Information Provided: Yes (Info mailed) Advance Directives on File: No Recently lost weight without trying: No How much weight loss: 24-33 pounds Eating poorly because of decreased appetite: No Nutrition screen score: 3 Nutrition Risks: No Nutritional Risk Patient : No FDLMP: menopause service: No Current occupational status: disabled Cognitive needs: No Hearing needs: No Vision needs: No Meds Allergies Allergy/AdvReac Type Severity Reaction Status Date / Time barium sulfate Allergy Intermediate pruritus Verified 08/11/22 13:06 Iodinated Contrast Media Allergy Intermediate RASH,HIVES Verified 08/11/22 13:06 [CONTRAST, IV] varenicline [From CHANTIX] Allergy Intermediate RASH, Verified 08/11/22 13:06 pruritus iopromide [From Ultravist] Allergy Mild HIVES Verified 08/11/22 13:06 Home Medications Medication Instructions Recorded Confirmed Last Taken Type diclofenac sodium 1 % topical gel g topical BID PRN Pain 12/31/21 08/02/22 Unknown History meloxicam 15 mg tablet 15 mg PO DAILY 12/31/21 08/10/22 07/31/22 History Exam Airway Mallampati Class: II TM Dist: >3cm Neck ROM: Full Loose/Missing/Broken Teeth: No Heart: RRR Lungs: CTA Assessment and Plan Assessment Anesthesia Assessment: Anesthesia Plan Discussed Final Anesthetic Review History of Problems with Anesthesia: No NPO: Yes ASA Class: III Final Preanesthetic Review: Meds/Allgs Chart Reviewed, Consent Obtained/Reviewed and Anes Risks/Benef Reviewed Patient Risk: Intermediate Procedure Risk: Intermediate Anesthetic Plan Anesthetic Plan: GA Disposition: Standard PACU
[2022-08-23 13:15] LABS: COVID-19 Test Negative (Negative)
[2022-08-24] VITALS (12 sets, daily range): BP systolic 110–164; BP diastolic 58–86; PULSE 53–84; RESP 10–18; TEMP 36.1–37.2; O2SAT 95–100
[2022-08-24] MEDS: Lactated Ringers 1,000 ML 100 ML IVCONT (06:39)
[2022-08-24] MEDS: Scopolamine 1.5 MG PATCH.TD.3 TRANSDERMA (06:40)
--- NOTE | 2022-08-24 06:47 | MHC.SHP ---
Pre-Procedural Eval Section A Date of Service: 08/24/22 The patient is an INPATIENT: Yes The History & Physical has been completed within 30 days and I have reviewed it.: Yes Section B Chief Complaint: Morbid (severe) obesity due to excess calories Allergies: Allergies Allergy/AdvReac Type Severity Reaction Status Date / Time barium sulfate Allergy Intermediate pruritus Verified 08/11/22 13:06 Iodinated Contrast Media Allergy Intermediate RASH,HIVES Verified 08/11/22 13:06 [CONTRAST, IV] varenicline [From CHANTIX] Allergy Intermediate RASH, Verified 08/11/22 13:06 pruritus iopromide [From Ultravist] Allergy Mild HIVES Verified 08/11/22 13:06 Plan I have reviewed the history and physical and performed a pertinent physical examination on my patient. No changes have occurred unless specified.
--- NOTE | 2022-08-24 06:56 | P.OP_ITS ---
Operative Note Operative Note Date of Service: 08/24/22 Narrative: Preop diagnosis: [Morbid obesity, obstructive sleep apnea, dyslipidemia, osteoarthritis of both knees] Postop diagnosis: [Same] Procedure: [Laparoscopic sleeve gastrectomy, intraoperative upper endoscopy, gastropexy] Surgeon: Dusty Alfredo MD Assist: [Cesar Marcial PA-C] Anesthesia: [GET, local: Ropivicaine, 0.5%] Estimated blood loss: [3cc] Specimen: [Portion of stomach with fundus] Intraoperative findings: [Grossly normal liver, gallbladder, stomach] Indications: [The patient is a 52-year-old woman with a lifelong struggle with obesity and the of above noted comorbidities. After reviewing options, the patient demonstrated healthy lifestyle changes with diet and increased activity resulting in a weight loss from her presenting weight of 304 lb/BMI 50.6 down to 276 lb/BMI 45.9 at her last office visit. In discussing options including medical weight loss/management verses bariatric options of GBP & sleeve gastrectomy surgery, the patient wanted to proceed with a laparoscopic sleeve gastrectomy, with intraoperative endoscopy. I reviewed the inherent risks of this procedure which include, but are not limited to: Bleeding that could require another operation or blood transfusion; the inherent risks of transfusion reaction infectious disease from blood transfusions; the risk of staple line leaks that could cause sepsis, multi-system organ failure and ; the risk of mesenteric or deep vein thrombosis of the lower extremities that could cause a fatal pulmonary embolism was reviewed; the risk of GERD that could require conversion to gastric bypass was discussed; the risk of recurrent hiatal hernia, especially in the setting of weight regain was reviewed. The risk of weight regain if maladaptive eating and sedentary behavior continue was discussed. The importance of proper diet and increased activity to augment surgical weight loss and the fact that no operation would result in weight loss of poor dietary decisions and sedentary behavior are resumed were discussed at length and apparently understood. The patient had the option of having a crowning inspector present and declined this option.] Procedure: The patient was identified in the preoperative holding area by myself and again in the operating suite by myself and the team. Patient was placed supine on the operating table. Safety straps were utilized and a footboard utilized. The patient was induced in general endotracheal anesthesia administered with excellent effect. An appropriate time-out was performed. The patient's abdomen was then widely prepped and draped in the usual manner for surgery using chlorhexidine. Antibiotics per protocol were administered by Anesthesia. After infiltrating preemptive local in the skin and subcutaneous tissues in the epigastrium approximately 10cm from the xiphoid and the midline of the epigastrium, a stab incision was made sharply in the left subcostal abdomen and the Veress needle inserted without incident. An appropriate drop test was performed then a pneumoperitoneum of 15 mmHg was obtained using carbon dioxide. Opening pressures were 7 mmHg. Next, a 5 mm 0 degree scope over a 5 mm Optiview trocar was used to access the abdomen via the epigastric incision in the midline. Once the abdomen was entered, the the trocar obturator was removed and the laparoscope was used to confirm there was no injury from the Veress needle nor trocar insertion injury to the bowel or mesentery, then the scope was switched to a 5 mm 45 degree laparoscope. Next, using preemptive local, additional 5 mm trocars were placed under direct laparoscopic vision on the pat ient's left abdomen, then right and the 5 mm midline trocar upsized to a 12 mm to accommodate the stapler. The patient was then positioned in reverse Trendelenburg and the liver retractor deployed through the right lateral 5 mm trocar and secured. A 40 [place] ViSiGi bougie was inserted by Anesthesia per os and advanced to the stomach to decompress. It was then withdrawn to the GE junction all under direct laparoscopic vision. Dissection was begun along the greater curvature using the 5 mm [place] LigaSure for hemostasis and continued to the left brenda of the diaphragm. Dissection was then carried towards the pylorus to 3-4 cm from the pylorus and retro gastric adhesions lysed. The gastroesophageal fat pad was carefully mobilized taking care to avoid injury to the esophagus and stomach and dissection carried towards the short gastrics taking care to avoid injury to the spleen and splenic artery. The diaphragmatic hiatus was carefully examined for a hernia. Next, the 40 Fr ViSiGi bougie was advanced by anesthesia under direct vision and laparoscopic guidance and positioned in the antrum approximately 3 cm from the pylorus using laparoscopic graspers to serve as a guide for a stapled sleeve gastrectomy. Stapling was performed with Savvify-AZALEA stapler with a purple 45 and then orange 45 and 60 loads. The bougie served as a guide to maintain the same sleeve caliber to avoid stricture & sleeve distortion. The 10 mm clip machine strap buckler was used to apply additional clips to the staple line. Care was taken to be sure that the sleeve laid flat and was without stricture. Once the sleeve was complete, the portion of stomach was placed in the lower abdomen to be sent for permanent section. The staple line, gastrocolic omentum, spleen and short gastric areas were all inspected for hemostasis which was found to be good. The ViSiGi bougie used for a leak test by reducing the reverse Trendelenburg and instilling sterile saline. Next, the bougie was withdrawn under laparoscopic vision used to suction the esophagus and hypopharynx and then discarded. Next, I broke scrub perform an on-table upper endoscopy to assess the sleeve and the esophagus and stomach. The patient was returned to neutral position and the Olympus 160 gastroscope was advanced taking care to preserve the endotracheal tube. The esophagus was intubated without incident. Minimal air was insufflate d and the scope advanced into the newly formed sleeve. The staple line was inspected for hemostasis and the morphology of the sleeve appeared straight with a uniform diameter. Intraoperatively, there was no evidence of staple line leak seen during laparoscopy as air was insufflated via endoscope. The scope was then used to aspirate the air from the sleeve withdrawn and removed. I then rescrubbed to return to the operative field and again inspected the field for hemostasis. The patient was again placed in reverse Trendelenburg. A gastropexy was performed using 2-0 Polysorb suture to secure the sleeve gastrectomy to the gastrocolic omentum. After final assessment for hemostasis, the patient was returned to neutral position, a Roger used to withdraw the stomach which was sent for permanent section. The fascia of the 12 mm midline was closed using an 0 Polysorb on a suture Passer under direct laparoscopic vision. The abdomen was then deflated and all trocars removed. The suture was then tied and the skin closed with 4-0 Monocryl subcuticular sutures. The abdomen was then washed and dried, benzoin and Steri-Strips applied followed by Band-Aids. The patient tolerated the procedure well was then extubated the recover in stable condition. All sponge needle and instrument counts were correct x2. At the patient's request, I contacted her son, Eugene at [phone] to michela rise him of the operation. His questions seemed to be satisfactorily answered.]
[2022-08-24] MEDS: ceFAZolin Sodium/Dextrose,Iso 2 GM/50 ML PIGGYBACK IV ×2 (07:43→13:57)
--- NOTE | 2022-08-24 09:52 | PHA.MEDREC ---
Pharmacy Consult ? Medication Reconciliation Pharmacy has completed the medication reconciliation.
--- NOTE | 2022-08-24 10:28 | PM.DS ---
DS: Providers Provider Date of Service: 08/25/22 Date of admission: 08/24/22 08:32 Primary care physician: Radha Sloan MD DS: Summary Hospital Course Hospital Course: ADMITTING DIAGNOSIS: morbid obesity, anxietgy, low back pain,OA, HLD, JAKE, GERD ? DISCHARGE DIAGNOSIS: same, s/p laparoscopic sleeve gastrectomy ? PAST SURGICAL HISTORY: lumbar discectomy, tubal ligation ? PROCEDURE: upper endoscopy, laparoscopic sleeve gastrectomy ? DISCHARGE SUMMARY: ? History of Present Illness: ? The patient is a??52 year-old woman with a BMI of?50.6 kg/m2 and associated co-morbidities as described above. The patient had extensive work-up,lost??28 lbs preoperatively and was electively scheduled for laparoscopic, possible open sleeve gastrectomy and gastropexy. Risks and complications of the surgery were discussed with the patient in advance, particularly the possibility of , pulmonary embolism, anastomotic leak, bleeding, bowel injury, GERD, cardiac, renal or pulmonary complications. The patient understood all the risks and was in agreement with the surgical plan. ? Hospital Course: ? The patient underwent an uneventful laparoscopic sleeve gastrectomy with gastropexy on the day of admission. Postoperatively, the patient was transferred to the surgical floor. The patient received IV Acetaminophen and IV dilaudid for pain control. Patient was started on bariatric phase 1 diet POD #0. On postoperative day one, the patient was feeling well without nausea, vomiting, fevers, or tachycardia. The patient had some mild incisional pain and the abdomen was soft. ? On the morning of postoperative day one, the patient was continued on 1 ounce of water or ice every half hour. During the day, the patient did fairly well, having some incisional pain, but able to ambulate adequately and to tolerate liquids well. ? Since the patient is doing well, we decided that the patient was ready to be discharged. The patient was given instructions to follow-up with me next week and to call my office for any fever over 101, persistent abdominal pain, nausea, vomiting, GERD, symptoms of DVT such as calf tenderness, or leg swelling, or pulmonary embolism such as chest pain or shortness of breath. The patient was also instructed to drink 40-60 ounces of liquids per day using the 1-ounce cups. The patient had been given prescriptions for Tylenol for pain, Zofran prn for nausea, and pantoprazole and carafate previously. The patient was encouraged to ambulate and use the incentive spirometer. The patient was allowed to shower, but no baths, and encouraged to stay active at home. All of these instructions were given to the patient personally. All questions were answered and the patient understood all instructions, the instructions were also given to the patient in print. Time Spent with Patient Time attestation: Total time spent providing and/or coordinating discharge services: Discharge coordination time: Less than 30 minutes Quality: Safe Use of Opioids Does Pt have an Active Cancer Diagnosis on the Problem List?: No Quality: Stroke Does the patient have a stroke diagnosis?: No Physical Exam Vital Signs: Vital Signs: Last Vital Signs Temp 97.5 F 08/24/22 06:32 Pulse 74 08/24/22 06:32 Resp 18 08/24/22 06:32 BP 144/58 H 08/24/22 06:32 Pulse Ox 98 08/24/22 06:32 O2 Del Method 08/24/22 06:32 BMI result Body Mass Index 46.2 DS: Data Data Completed and Pending Pending studies at discharge: Pending at discharge 08/24/22 09:44 Surgical [PTH] Routine Labs on day of discharge: Laboratory Results - last 24 hr 08/23/22 12:50 COVID-19 ([facility]) Negative COVID-19 Clin Com See Note Discharge Plan Discharge Anticipated Discharge Date/Time: 08/25/22 10:00 Patient Disposition: Home, Self-Care Discharge Diagnosis: s/p laparoscopic sleeve gastrectomy Referrals: Radha Howard MD [Primary Care Provider] - 1 Week Dusty Alfredo MD [Physician] - 1 Week Discharge Medications: Continued cyclobenzaprine 10 mg tablet 10 mg PO TID PRN (Reason: muscle spasm) Qty: 90 6RF rosuvastatin 10 mg tablet 10 mg PO DAILY 90 Days Qty: 90 1RF lorazepam 0.5 mg tablet 0.5 mg PO BEDTIME PRN (Reason: anxiety) 30 Days Qty: 30 0RF topiramate 25 mg tablet 25 mg PO DAILY 90 Days Qty: 90 1RF diclofenac sodium 1 % gel 1 g topical BID PRN (Reason: Pain) (DME) Pro Comfort Tens Electrode Pad See Rx Instructions .Route Qty: 2 2RF Rx Instructions: As directed docusate sodium [Colace] 100 mg capsule 100 mg PO BID Qty: 60 5RF Fiber Gummies 2 gram tablet,chewable 2 g PO BID Qty: 60 5RF ondansetron HCl 4 mg tablet 4 mg PO Q6H PRN (Reason: nausea and vomiting) Qty: 20 0RF pantoprazole 40 mg tablet,delayed release (DR/EC) 40 mg PO DAILY 90 Days Qty: 90 0RF sucralfate 100 mg/mL suspension 1 g PO BID 30 Days Qty: 414 0RF acetaminophen 500 mg/15 mL liquid 500 mg PO Q6H Qty: 237 0RF Discontinued oxycodone 5 mg tablet 5 mg PO DAILY PRN (Reason: pain) 30 Days Qty: 20 0RF meloxicam 15 mg tablet 15 mg PO DAILY cholecalciferol (vitamin D3) 25 mcg (1,000 unit) capsule 25 mcg PO DAILY Qty: 30 4RF polyethylene glycol 3350 [Miralax] 17 gram powder in packet See Rx Instructions PO DAILY Qty: 14 0RF Rx Instructions: Take 7 packets 2 days before surgery and 7 packets 1 day before surgery. Mix each packet with 8 oz's of water before surgery. Discharge Orders: Discharge Order (Routine); Ordered 08/25/22 Ordered By: Dusty Alfredo Diet: Bariatric diet Activity on Discharge: No heavy lifting Stand Alone Forms: Patient Portal Discharge page Care Plan Goals: weight loss Health Concerns: morbid obesity Plan of Treatment: No tub baths, sex or returning to work until discussed at first post op appointment. No exercise, alcohol, tobacco or illegal drug use. Continue to use incentive spirometer hourly while awake. Walk in home for 5- 10 minutes every 2 hours during the first week. Follow all instructions in the bariatric handbook and call with any questions.Discharge Instructions 1. Please call your doctor or come back to the emergency room should any new symptoms arise. 2. You will receive a courtesy call from [facility] 24-48 hours after discharge. 3. Activity: abstain from alcohol, practice limited stair climbing, no bending, no driving, no exercise, no illicit substances, no lifting, no sex, no tub bath, no work. 4. Diet: continue as discussed with Dr. Alfredo. 5. Dressing Change/Wound Care: Your incision is covered by clear bandages and guaze underneath. If the area is tender, you may apply an ice pack for short intervals (no more than 20 minutes on, followed by at least 20 minutes off). Do not apply heat. Do not use creams, lotions, or topical antibiotics unless instructed to do so by your surgeon. These can cause infection or allergic reaction. 6. Call your doctor if: - Your temperature exceeds 101.5 F - You experience excessive pain or swelling - You have an unexpected reaction to medication - You have excessive bleeding - You experience continued vomiting/nausea - Your incision begins to separate - Your incision shows signs of infection such as increased redness, swelling, excessive pain, heat, or drainage (light blood or clear fluid is normal) 7. General instructions: No lifting greater than 5 lbs for the next 4 weeks. No driving within 24 hours of taking narcotic pain medications. If you do not move your bowels in the next 2 days, please take milk of magnesia over the counter. Please follow the post op diet and do not advance your diet until you are seen in the office in about 2 weeks. Please walk around your home every hour or two to prevent blood clots from forming in your legs. You do not need to wake from sleeping to walk. Please sleep in a bed or couch to prevent kinking at the hips and knees. Please take your incentive spirometer (your lung longshore equipment operator) home with you and use it for the next few days to prevent pneumonias. You may shower, no hot tubs, baths or swimming pools. Please call the office with any questions or concerns such as increasing abdominal pain, fever, chills, shortness of breath, chest pain, leg pain or swelling, or redness or drainage from your incisions. Please stay on stage 3 diet which includes sugar free clear liquids such as ice pops and jello and broth and crystal light. Avoid all carbonation. Please drink 3 protein shakes with at least 25-30 grams of protein daily or 3 of the Celebrate 4:1 shakes which can be purchased in our office. The Celebrate shakes have all of the bariatric vitamins you need if you consume these shakes. If you are drinking other protein shakes, you will need to purchase the Celebrate multivitamins and calcium that we provide in the office (they will provide all the vitamins you need). Please make sure you are consuming at least 40-60 ounces of water in addition to your 3 protein shakes daily. Do not hesitate to contact the office with any questions at . The patient's medical history has been reviewed and they are considered low risk for post op DVT and therefore DVT prophylaxis is not considered necessary. Travel after surgery was reviewed. The patient has not disclosed any travel plans during the first 30 days after surgery and they have been advised that within the first 30 days after surgery any bus, plane, train or car travel over 2 hours in duration is contraindicated due to the possibility of developing blood clots from immobility. Any travel, needs to include periods of ambulation of 10 minutes in duration every 2 hours.? The patient was instructed to discuss any plans for travel during this period with their bariatric surgeon. Assessment: stable s/p laparoscopic sleeve gastrectomy
[2022-08-24 11:03] LABS: Hematocrit 38.9 % (37.0-47.0); Hemoglobin 12.8 g/dl (12.0-16.0)
[2022-08-24 11:21] LABS: Anion Gap 19 (12-20); Blood Urea Nitrogen 14 mg/dL (9-16); Carbon Dioxide 20 mmol/L (22-29); Chloride 104 mmol/L (96-108); Creatinine Clr Calc Pharmacy 118.7; Estimated Glomerular Filt Rate > 60; Glucose Random 122 mg/dL (60-115); Potassium 4.2 mmol/L (3.3-5.1); Sodium 139 mmol/L (135-145)
[2022-08-24] MEDS: Famotidine/PF 20 MG/2 ML VIAL IVPUSH ×2 (11:34→20:42)
--- NOTE | 2022-08-24 13:13 | PM.PNGS ---
Subjective Subjective Date of Service: 08/24/22 Patient reports: no new complaints and tolerating liquids well Interval history: The patient is seen on [place]. She is awake, tolerating sips of water and denies any nausea or vomiting. She denies any significant pain but is not been out of bed yet to void. She otherwise denies chest pain or trouble breathing. Overall, she is comfortable in reports she is pleased. Physical Exam Vital Signs: Vital Signs: Last Vital Signs Temp 97.0 F 08/24/22 12:20 Pulse 64 08/24/22 12:20 Resp 15 08/24/22 12:20 BP 129/68 08/24/22 12:20 Pulse Ox 98 08/24/22 12:20 O2 Del Method 08/24/22 12:20 O2 Flow Rate 1.0 08/24/22 12:20 BMI result Body Mass Index 46.2 [address]dominal binder is in place She appears comfortable and asked appropriate questions Objective Data Active Medications Albuterol Sulfate (Albuterol Sulfate (0.083%) 2.5 Mg/3 Ml Vial.Neb) 2.5 mg INHALE ONCE PRN PRN Reason: Wheezing Atorvastatin Calcium (Atorvastatin Calcium 40 Mg Tablet) 40 mg PO DAILY [facility] Last Admin: 08/24/22 12:24 Dose: Not Given Documented By: YI Non-Admin Reason: Off Unit: Surgery Cyclobenzaprine HCl (Cyclobenzaprine Hcl 10 Mg Tablet) 10 mg PO TID PRN PRN Reason: muscle spasm Docusate Sodium (Docusate Sodium 100 Mg Capsule) 100 mg PO BID [facility] Last Admin: 08/24/22 12:25 Dose: Not Given Documented By: YI Non-Admin Reason: Off Unit: Surgery Famotidine (Famotidine/Pf 20 Mg/2 Ml Vial) 20 mg IVPUSH BID [facility] Last Admin: 08/24/22 11:34 Dose: 20 mg Documented By: BRANDEN Fentanyl (Fentanyl Citrate/Pf 100 Mcg/2 Ml Vial) 50 mcg IVPUSH Q5M PRN; Protocol PRN Reason: Pain, Severe (Pain Scale 7-10) Fentanyl (Fentanyl Citrate/Pf 100 Mcg/2 Ml Vial) 25 mcg IVPUSH Q5M PRN; Protocol PRN Reason: Pain, Moderate (Pain Scale 4-6 Hydromorphone HCl (Hydromorphone Hcl 0.5 Mg/0.5 Ml Syringe) 0.25 mg IVPUSH Q5M PRN; Protocol PRN Reason: Pain, Severe (Pain Scale 7-10) Hydromorphone HCl (Hydromorphone Hcl 0.5 Mg/0.5 Ml Syringe) 0.25 mg IVPUSH Q4H PRN; Protocol PRN Reason: Pain, Moderate (Pain Scale 4-6 Promethazine HCl 6.25 mg/ (Sodium Chloride) 50.25 mls @ 201 mls/hr IV ONCE PRN PRN Reason: Nausea and Vomiting Lactated Ringer's (Lr) 1,000 mls @ 125 mls/hr IVCONT .Q8H [facility] Cefazolin Sodium/Dextrose (Ancef) 2 gm in 50 mls @ 100 mls/hr IV POSTOP ONE Stop: 08/24/22 14:29 Acetaminophen (Ofirmev) 1,000 mg in 100 mls @ 16.7 mls/hr IV .Q6H [facility] Lorazepam (Lorazepam 0.5 Mg Tablet) 0.5 mg PO BEDTIME PRN PRN Reason: anxiety Metoclopramide HCl (Metoclopramide Hcl 10 Mg/2 Ml Vial) 10 mg IVPUSH Q6H PRN PRN Reason: Nausea Naproxen (Naproxen 500 Mg Tablet) 500 mg PO BID [facility] Last Admin: 08/24/22 12:23 Dose: Not Given Documented By: YI Non-Admin Reason: Off Unit: Surgery Ondansetron HCl (Ondansetron Hcl 4 Mg/2 Ml Vial) 4 mg IVPUSH ONCE PRN PRN Reason: Nausea and Vomiting Ondansetron HCl (Ondansetron Hcl 4 Mg/2 Ml Vial) 4 mg IVPUSH Q8H [facility] Oxycodone HCl (Oxycodone Hcl Immed Release 5 Mg Tablet) 5 mg PO ONCE PRN PRN Reason: Pain, Severe (Pain Scale 7-10) Sodium Chloride (0.9 % Sodium Chloride Flush 3 Ml Syringe) 3 ml IVFLUSH QSHIFT [facility] Topiramate (Topiramate 25 Mg Tablet) 25 mg PO DAILY [facility] Vitamin D (Cholecalciferol (Vitamin D3) 25 Mcg Tablet) 25 mcg PO DAILY [facility] Last Admin: 08/24/22 12:23 Dose: Not Given Documented By: YI Non-Admin Reason: Off Unit: Surgery Labs CBC & Chem 7: 08/24/22 10:56 08/24/22 10:56 Labs: Laboratory Results - last 24 hr 08/23/22 08/24/22 12:50 10:56 Anion Gap 19 Estim Creat Clear Calc 118.7 Estimated GFR > 60 Random Glucose 122 H Calcium 9.0 COVID-19 ([facility]) Negative COVID-19 Clin Com See Note Procedures Date of Service Date of Service: 08/24/22 Progress Note: A&P Assessment and plan (1) S/P laparoscopic sleeve gastrectomy: Status: Acute (2) JAKE (obstructive sleep apnea): Status: Acute (3) Morbid obesity: Status: Acute (4) Bilateral primary osteoarthritis of knee: Status: Acute (5) Anxiety: Status: Acute (6) Osteoarthritis of knees, bilateral: Status: Acute (7) Dyslipidemia: Status: Acute Plan See orders. The importance of following postoperative guidance from the nursing staff to minimize risks of DVT and dehydration were reviewed. Trend labs. Patient's questions seemed to be satisfactorily answered. Time Spent With Patient Time: Total time spent is greater than 50% in coordination of care (as documented) at patient's floor/unit and/or counseling patient: Quality Stroke Does the patient have a stroke diagnosis?: No VTE Prior VTE?: No VTE Risk Level:: Surgical - moderate VTE Device Contraindication: N/A - Device Ordered VTE Drug Contraindication: Treatment Not Indicated
[2022-08-24] MEDS: Lactated Ringers 1,000 ML 125 ML IVCONT ×2 (14:00→20:42)
[2022-08-24] MEDS: Acetaminophen 1,000 MG/100 ML PIGGYBACK 16.7 MG IV ×2 (14:53→19:50)
[2022-08-24] MEDS: ondansetron HCL 4 MG/2 ML VIAL IVPUSH (19:50)
[2022-08-24] MEDS: NaPROXEN 500 MG TABLET PO (20:42)
[2022-08-25] MEDS: Acetaminophen 1,000 MG/100 ML PIGGYBACK 16.7 MG IV ×2 (01:08→06:21)
[2022-08-25] MEDS: ondansetron HCL 4 MG/2 ML VIAL IVPUSH (03:28)
[2022-08-25] MEDS: Lactated Ringers 1,000 ML 125 ML IVCONT (03:28)
[2022-08-25 03:46] VITALS: BP 132/69; PULSE 80; RESP 18; TEMP 36.2; O2SAT 97
[2022-08-25 05:44] LABS: MANUAL DIFF FLAG NO
[2022-08-25 05:46] LABS: Basophils Percent Auto 0.2 % (0-2); Eosinophils Percent Auto 0.2 % (0-4); Hematocrit 34.1 % (37.0-47.0); Hemoglobin 11.3 g/dl (12.0-16.0); Imm Gran Abs Auto 0.06 X10*3/uL (0.00-0.03); Imm Gran Pct Auto 0.5 % (0.0-0.4); Lymphocytes Absolute Auto 2.2 X10*3/uL (1.2-4.9); Lymphocytes Percent Auto 17.3 % (20-40); Mean Corpuscular HGB Conc 33.1 g/dl (31.0-35.0); Mean Corpuscular Hemoglobin 28.4 pg (27.0-33.0); Mean Corpuscular Volume 85.7 fL (80.0-98.0); Mean Platelet Volume 10.3 fL (9.4-12.3); Neutrophils Absolute Auto 9.5 x10*3/uL (2.0-8.3); Neutrophils Percent Auto 73.8 % (45-73); Platelet Count 292 X10*3/uL (160-400); Red Blood Count 3.98 X10*6/uL (4.20-5.50); Red Cell Distribution Width 13.2 % (11.0-16.0); White Blood Count 12.8 X10*3/uL (4.8-10.8)
[2022-08-25 06:10] LABS: Anion Gap 14 (12-20); Blood Urea Nitrogen 11 mg/dL (9-16); Calcium 8.9 mg/dL (8.4-10.2); Carbon Dioxide 24 mmol/L (22-29); Chloride 106 mmol/L (96-108); Creatinine Clr Calc Pharmacy 131.2; Estimated Glomerular Filt Rate > 60; Glucose Random 82 mg/dL (60-115); Potassium 4.3 mmol/L (3.3-5.1); Sodium 140 mmol/L (135-145)
[2022-08-25] MEDS: Famotidine/PF 20 MG/2 ML VIAL IVPUSH (07:01)
--- NOTE | 2022-08-25 07:06 | PM.PNGS ---
Subjective Subjective Date of Service: 08/25/22 Patient reports: no new complaints, feels better and tolerating liquids well Interval history: The patient is seated out of bed and has been up walking to the bathroom. She denies any dysphagia, regurgitation, odynophagia, nausea, vomiting or pain. She also denies any interval change such as chest pain difficulty breathing or shortness of breath. She is anxious to go home. She is meeting hydration criteria regarding bariatric phase 1 diet Physical Exam Vital Signs: Vital Signs: Last Vital Signs Temp 97.2 F 08/25/22 03:46 Pulse 80 08/25/22 03:46 Resp 18 08/25/22 03:46 BP 132/69 08/25/22 03:46 Pulse Ox 97 08/25/22 03:46 O2 Del Method 08/25/22 06:49 O2 Flow Rate 1.0 08/24/22 12:20 BMI result Body Mass Index 46.2 Appropriate incisional tenderness is noted in the abdomen Abdominal binder is left in place Objective Data Active Medications Albuterol Sulfate (Albuterol Sulfate (0.083%) 2.5 Mg/3 Ml Vial.Neb) 2.5 mg INHALE ONCE PRN PRN Reason: Wheezing Atorvastatin Calcium (Atorvastatin Calcium 40 Mg Tablet) 40 mg PO DAILY [facility] Last Admin: 08/24/22 12:24 Dose: Not Given Documented By: YI Non-Admin Reason: Off Unit: Surgery Cyclobenzaprine HCl (Cyclobenzaprine Hcl 10 Mg Tablet) 10 mg PO TID PRN PRN Reason: muscle spasm Docusate Sodium (Docusate Sodium 100 Mg Capsule) 100 mg PO BID [facility] Last Admin: 08/24/22 20:51 Dose: Not Given Documented By: FRED Non-Admin Reason: Patient Refused Famotidine (Famotidine/Pf 20 Mg/2 Ml Vial) 20 mg IVPUSH BID [facility] Last Admin: 08/24/22 20:42 Dose: 20 mg Documented By: FRED Fentanyl (Fentanyl Citrate/Pf 100 Mcg/2 Ml Vial) 50 mcg IVPUSH Q5M PRN; Protocol PRN Reason: Pain, Severe (Pain Scale 7-10) Fentanyl (Fentanyl Citrate/Pf 100 Mcg/2 Ml Vial) 25 mcg IVPUSH Q5M PRN; Protocol PRN Reason: Pain, Moderate (Pain Scale 4-6 Hydromorphone HCl (Hydromorphone Hcl 0.5 Mg/0.5 Ml Syringe) 0.25 mg IVPUSH Q5M PRN; Protocol PRN Reason: Pain, Severe (Pain Scale 7-10) Hydromorphone HCl (Hydromorphone Hcl 0.5 Mg/0.5 Ml Syringe) 0.25 mg IVPUSH Q4H PRN; Protocol PRN Reason: Pain, Moderate (Pain Scale 4-6 Promethazine HCl 6.25 mg/ (Sodium Chloride) 50.25 mls @ 201 mls/hr IV ONCE PRN PRN Reason: Nausea and Vomiting Lactated Ringer's (Lr) 1,000 mls @ 125 mls/hr IVCONT .Q8H [facility] Last Admin: 08/25/22 03:28 Dose: 125 mls/hr Documented By: FRED Acetaminophen (Ofirmev) 1,000 mg in 100 mls @ 16.7 mls/hr IV .Q6H [facility] Last Admin: 08/25/22 06:21 Dose: 16.7 mls/hr Documented By: FRED Lorazepam (Lorazepam 0.5 Mg Tablet) 0.5 mg PO BEDTIME PRN PRN Reason: anxiety Metoclopramide HCl (Metoclopramide Hcl 10 Mg/2 Ml Vial) 10 mg IVPUSH Q6H PRN PRN Reason: Nausea Naproxen (Naproxen 500 Mg Tablet) 500 mg PO BID [facility] Last Admin: 08/24/22 20:42 Dose: 500 mg Documented By: FRED Ondansetron HCl (Ondansetron Hcl 4 Mg/2 Ml Vial) 4 mg IVPUSH ONCE PRN PRN Reason: Nausea and Vomiting Ondansetron HCl (Ondansetron Hcl 4 Mg/2 Ml Vial) 4 mg IVPUSH Q8H [facility] Last Admin: 08/25/22 03:28 Dose: 4 mg Documented By: FRED Oxycodone HCl (Oxycodone Hcl Immed Release 5 Mg Tablet) 5 mg PO ONCE PRN PRN Reason: Pain, Severe (Pain Scale 7-10) Sodium Chloride (0.9 % Sodium Chloride Flush 3 Ml Syringe) 3 ml IVFLUSH QSHIFT [facility] Last Admin: 08/25/22 06:36 Dose: Not Given Documented By: YI Non-Admin Reason: IV Running Topiramate (Topiramate 25 Mg Tablet) 25 mg PO DAILY [facility] Vitamin D (Cholecalciferol (Vitamin D3) 25 Mcg Tablet) 25 mcg PO DAILY [facility] Last Admin: 08/24/22 12:23 Dose: Not Given Documented By: YI Non-Admin Reason: Off Unit: Surgery Labs CBC & Chem 7: 08/25/22 05:16 08/25/22 05:16 Labs: Laboratory Results - last 24 hr 08/24/22 08/25/22 08/25/22 10:56 05:16 05:16 MCV 85.7 MCH 28.4 MCHC 33.1 RDW 13.2 Plt Count 292 MPV 10.3 Immature Gran % (Auto) 0.5 H Neut % (Auto) 73.8 H Lymph % (Auto) 17.3 L Crosby % (Auto) 8.0 Eos % (Auto) 0.2 Baso % (Auto) 0.2 Lymph # (Auto) 2.2 Crosby # (Auto) 1.0 Eos # (Auto) 0.0 Baso # (Auto) 0.0 Abs Immat Gran (auto) 0.06 H Absolute Neuts (auto) 9.5 H Absolute Nucleated RBC 0.000 Nucleated RBC % (auto) 0.0 Anion Gap 19 14 Estim Creat Clear Calc 118.7 131.2 Estimated GFR > 60 > 60 Random Glucose 122 H 82 Calcium 9.0 8.9 Procedures Date of Service Date of Service: 08/25/22 Progress Note: A&P Assessment and plan (1) S/P laparoscopic sleeve gastrectomy: Status: Acute (2) JAKE (obstructive sleep apnea): Status: Acute (3) Morbid obesity: Status: Acute (4) Chronic pain of both knees: Status: Acute (5) Anxiety: Status: Acute (6) Dyslipidemia: Status: Acute Plan Can advanced to bariatric phase 2 Patient is meeting discharge criteria. Diet advancement instructions were provided by the PA. Instructions regarding diet and activity reviewed. Follow-up in Bariatric Clinic within a week, sooner if there are concerns or problems. Time Spent With Patient Time: Total time spent is greater than 50% in coordination of care (as documented) at patient's floor/unit and/or counseling patient: Quality Stroke Does the patient have a stroke diagnosis?: No VTE Prior VTE?: No VTE Risk Level:: Surgical - moderate VTE Device Contraindication: N/A - Device Ordered VTE Drug Contraindication: Treatment Not Indicated
[2022-08-25 07:41] VITALS: BP 129/67; PULSE 55; RESP 18; TEMP 36.3; O2SAT 100
--- NOTE | 2022-08-25 09:30 | MHC.CM.PN ---
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 PT DISCHARGED TODAY HOME W/RESUMP OF H[employer] HRS, FOR TRANSPORT.
--- NOTE | 2022-08-25 13:51 | HO.POSTANES ---
Post Anesthesia Evaluation Post Anesthesia Evaluation Vital Signs: Vital Signs Temp Pulse Resp BP Pulse Ox O2 Del Method 08/25/22 07:41 97.3 F 55 18 129/67 100 Room Air 08/25/22 06:49 Room Air 08/25/22 03:46 97.2 F 80 18 132/69 97 Room Air Anesthesia: General Endotracheal-GETA Mental Status: Awake Pain Control: Satisfactory Nausea/Vomiting: None Hydration: Adequate Anesthesia-Related Issues: No Anes. Related Issues
== END 2022-08-25 09:05 | disposition home or self-care (01) | DRG 403 ==
LOC: HO.SSSA 08:33 → HO.S3 12:04
PROVIDERS: Physician Assistant Surgical; Admitting Provider Surgery; PCP Internal Medicine; Visit Provider Surgery
PROC: 0DB64Z3 Excision of Stomach, Percutaneous Endoscopic Approach, Vertical (ICD-10-PCS; CPT 43845; principal; 2022-08-24 07:30)
DX: E66.01 Morbid (severe) obesity due to excess calories (principal); E78.5 Hyperlipidemia, unspecified; F41.9 Anxiety disorder, unspecified; G47.33 Obstructive sleep apnea (adult) (pediatric); M17.0 Bilateral primary osteoarthritis of knee; Z20.822 Contact with and (suspected) exposure to COVID-19; Z68.42 Body mass index [BMI] 45.0-49.9, adult; Z87.891 Personal history of nicotine dependence; Z91.041 Radiographic dye allergy status; Z88.1 Allergy status to other antibiotic agents; Z79.899 Other long term (current) drug therapy
CPT/HCPCS: 36415; 80048; 85014; 85018; 85025; 86850; 86900; 86901; 87635; 88307; 88342; C9088; J0131; J0690; J1100; J1170; J2250; J2405; J2795; J3010

== ENCOUNTER → 2022-10-27 14:44 | Outpatient (BNVA) | payer OTHER, SELFPAY | PROVIDERS: PCP Internal Medicine; Visit Provider Physician Assistant | DX: Z13.89 Encounter for screening for other disorder (principal) ==

== ENCOUNTER 2022-11-02 09:46 | Outpatient (REF) | payer OTHER, SELFPAY ==
--- NOTE | ~2022-11-02 | MM_ITS ---
EXAMINATION: MM SCREENING DIGITAL BREAST TOMOSYNTHESIS, BILATERAL CLINICAL INFORMATION: Screening. Asymptomatic. The lifetime risk of breast cancer based on the Tyrer-Cuzick Model is 10.2%. COMPARISON: Mammography: 10/11/2021 and studies dating back to 01/04/2016. TECHNIQUE: Digital breast tomosynthesis is performed in both the craniocaudal and mediolateral oblique views along with computer-aided detection (CAD). Synthesized 2D images are generated from the tomosynthesis. FINDINGS: There are scattered areas of fibroglandular density (ACR BI-RADS breast composition Category b). There is a stable parenchymal pattern of the left breast with no new abnormal dominant mass or suspicious grouping of microcalcifications. About the upper outer aspect of the right breast on mediolateral oblique projection there is an approximately 8 mm asymmetric density approximately 5 cm from the nipple. On craniocaudal view there are 2 regions of asymmetric density one being approximately 8 cm from the nipple and the other being approximately 5 cm from the nipple. Spot compression films of these regions are recommended. MM/MM tomosynthesis screening BI IMPRESSION: Right breast densities for further evaluation. ASSESSMENT: BI-RADS 0: Incomplete - Need Additional Imaging Evaluation RECOMMENDATION: 1. Additional views of the right breast. 2. Targeted ultrasound if warranted after review of the additional views. 3. Radiology department staff will contact the patient for additional imaging. This patient's information was entered into a reminder system with a target due date for their next mammogram.
== END 2022-11-02 09:47 | disposition home or self-care (01) ==
LOC: HO.MAMMO 09:46
PROVIDERS: PCP Internal Medicine; Visit Provider Internal Medicine
DX: Z12.31 Encounter for screening mammogram for malignant neoplasm of breast (principal)
CPT/HCPCS: 77063; 77067

== ENCOUNTER 2022-11-07 10:12 | Outpatient (REF) | payer OTHER, SELFPAY ==
--- NOTE | ~2022-11-07 | MM_ITS ---
EXAMINATION: MM DIAGNOSTIC DIGITAL BREAST TOMOSYNTHESIS, RIGHT CLINICAL INFORMATION: Recall from screening for question of asymmetric densities upper outer right breast. COMPARISON: Mammography: 11/02/2022 and prior exams dating back to 09/22/2014. TECHNIQUE: Digital breast tomosynthesis is performed. 2D images are generated from the tomosynthesis. The following views are obtained: Spot CC x2, spot MLO. FINDINGS: There are scattered areas of fibroglandular density (ACR BI-RADS breast composition Category b). The additional views show fibroglandular densities with distribution similar to prior exams. There is no developing density or interval mass or architectural abnormality. Results are discussed with the patient at time of visit. MM/MM tomosynthesis added views R IMPRESSION: Additional views show no significant changes from multiple prior studies. ASSESSMENT: BI-RADS 2: Benign RECOMMENDATION: Routine annual mammography screening. This patient's information was entered into a reminder system with a target due date for their next mammogram.
== END 2022-11-07 10:13 | disposition home or self-care (01) ==
LOC: HO.MAMMO 10:12
PROVIDERS: PCP Internal Medicine; Visit Provider Internal Medicine
DX: R92.2 Inconclusive mammogram (principal)
CPT/HCPCS: 77061; 77065

== ENCOUNTER → 2022-11-24 09:46 | Outpatient (BNVA) | payer OTHER, SELFPAY | PROVIDERS: PCP Internal Medicine; Visit Provider Physician Assistant | DX: Z98.84 Bariatric surgery status (principal) | CPT/HCPCS: 99212 ==

== ENCOUNTER 2022-12-01 09:47 | Outpatient (REF) | payer OTHER, SELFPAY ==
[2022-12-01 12:48] LABS: Alanine Aminotransferase 13 U/L (0-31); Albumin Level 3.9 g/dL (3.5-5.0); Alkaline Phosphatase 75 U/L (39-117); Anion Gap 15 (12-20); Aspartate Amino Transferase 15 U/L (5-31); Bilirubin Total 0.7 mg/dL (0.0-1.0); Blood Urea Nitrogen 17 mg/dL (9-16); Calcium 9.3 mg/dL (8.4-10.2); Carbon Dioxide 26 mmol/L (22-29); Chloride 107 mmol/L (96-108); Cholesterol 221 mg/dL; Estimated Glomerular Filt Rate > 60; Glucose Fasting 80 mg/dL (60-99); HDL Cholesterol 56 mg/dL; LDL Cholesterol Calculated 151 mg/dl; Potassium 4.5 mmol/L (3.3-5.1); Sodium 143 mmol/L (135-145); Total Protein 7.3 g/dL (6.5-8.0); Triglycerides 72 mg/dL
[2022-12-01 12:50] LABS: Vitamin D 25-OH Total 51.5 ng/mL (>30)
== END 2022-12-01 09:48 | disposition home or self-care (01) ==
LOC: HO.10HDL 09:47
PROVIDERS: Visit Provider Internal Medicine
DX: Z00.00 Encounter for general adult medical examination without abnormal findings (principal); E55.9 Vitamin D deficiency, unspecified; E78.5 Hyperlipidemia, unspecified
CPT/HCPCS: 36415; 80053; 80061; 82306

== ENCOUNTER → 2023-01-05 09:14 | Outpatient (BNVA) | payer OTHER, SELFPAY | PROVIDERS: PCP Internal Medicine; Visit Provider Physician Assistant ==

== ENCOUNTER 2023-01-09 09:18 | Outpatient (REF) | payer OTHER, SELFPAY ==
[2023-01-09 14:04] LABS: CT PCR NOT DETECTED (Not Detect.); NG PCR NOT DETECTED (Not Detect.)
[2023-01-10 11:16] LABS: BV Int Neg Control Negative (Negative); BV Int Pos Control Positive (Positive)
[2023-01-12 07:09] LABS: HPV 16 RNA NOT DETECTED (NOT DETECTED); HPV mRNA E6/E7 rflx Detected (Not Detected)
== END 2023-01-09 09:19 | disposition home or self-care (01) ==
LOC: HO.LNP 09:18
PROVIDERS: PCP Internal Medicine; Visit Provider Advanced Practice Midwife
DX: Z01.419 Encounter for gynecological examination (general) (routine) without abnormal findings (principal); E66.9 Obesity, unspecified; M54.9 Dorsalgia, unspecified; Z20.2 Contact with and (suspected) exposure to infections with a predominantly sexual mode of transmission
CPT/HCPCS: 0353U; 87480; 87510; 87624; 87625; 87660; 88142

== ENCOUNTER → 2023-01-11 09:51 | Outpatient (BNVA) | payer OTHER, SELFPAY | PROVIDERS: PCP Internal Medicine; Visit Provider Physician Assistant | DX: E66.9 Obesity, unspecified (principal); Z98.84 Bariatric surgery status; Z68.35 Body mass index [BMI] 35.0-35.9, adult | CPT/HCPCS: 99212 ==

== ENCOUNTER 2023-02-02 10:53 | Emergency (ER) | payer OTHER, SELFPAY ==
[2023-02-02 11:01] VITALS: BP 126/78; PULSE 65; RESP 19; TEMP 36.6; O2SAT 98; BMI 35.1
--- NOTE | 2023-02-02 11:27 | ED.GENADULT ---
HPI - General Adult General Chief complaint: General Medical Stated complaint: face swelling Time Seen by Provider: 02/02/23 11:11 Source: patient and RN notes reviewed Mode of arrival: ambulatory Limitations: no limitations History of Present Illness HPI narrative: This is a 52-year-old female, with a past medical history of sleeve gastrectomy, presents emergency department today with complaints of scalp itchiness x 2 days facial swelling since this morning. Patient reports that she dyed her hair 2 days ago with a new chemical hair dye. She noticed some itchiness and irritation to her scalp after dying her hair the same day. She woke up yesterday morning and her scalp was extremely itchy and noticed her hair was falling out and crusty . Patient reports that she washed her hair yesterday but her hair remains crusty . She reports she has never experienced these symptoms before. Denies any fevers, chills, difficulty swallowing, difficulty breathing, chest pain, or shortness of breath. Denies taking any medications at home to treat her symptoms. No other complaints or concerns at this time. MD complaint: Scalp irritation, facial swelling Onset (ago): day(s) Location: head Radiation: non-radiation Pain Consistency: constant Relieving factors: none Exacerbating factors: none Associated symptoms: denies other symptoms Treatments prior to arrival: none Related Data Previous Rx's Medication Instructions Recorded cyclobenzaprine 10 mg tablet 10 mg PO TID PRN muscle spasm #90 11/12/21 tabs lorazepam 0.5 mg tablet 0.5 mg PO BEDTIME PRN anxiety 30 12/14/22 days #30 tabs oxycodone 5 mg tablet 5 mg PO DAILY PRN pain 30 days #20 12/14/22 tabs metronidazole 0.75 % (37.5 mg/5 1 appful vaginal BEDTIME 5 days 01/10/23 gram) vaginal gel #70 grams diphenhydramine HCl 25 mg capsule 25 mg PO TID PRN allergic reaction 02/02/23 (Benadryl) #30 caps Allergies Allergy/AdvReac Type Severity Reaction Status Date / Time barium sulfate Allergy Intermediate pruritus Verified 02/02/23 11:01 Iodinated Contrast Media Allergy Intermediate RASH,HIVES Verified 02/02/23 11:01 [CONTRAST, IV] varenicline [From CHANTIX] Allergy Intermediate RASH, Verified 02/02/23 11:01 pruritus iopromide [From Ultravist] Allergy Mild HIVES Verified 02/02/23 11:01 Review of Systems Review of Systems: Constitutional: No Weight loss, No Fever, No Chills ENT/Mouth: No Ear Pain, No Nasal Congestion, No Sinus Pain, No Hoarseness, No sore throat, No Rhinorrhea, No Swallowing Difficulty Cardiovascular: No Chest Pain, No SOB Respiratory: No Cough, No Sputum, No Wheezing Gastrointestinal: No Nausea, No Vomiting, No Diarrhea, No Constipation, No Abdominal pain Genitourinary: No Dysuria, No Urinary Frequency, No Hematuria, No Urinary Incontinence/retention, No Urgency, No Flank Pain Musculoskeletal: No joint pain, No Myalgias, No Joint Swelling Skin: +rash, +pruritus No Skin Lesions Neuro: No Weakness, No Numbness, No Paresthesias PMFSH Past Medical History Attestation statement: The following information was validated with the patient. Medical History Anxiety Back ache Bilateral primary osteoarthritis of knee Chronic back pain Chronic pain of both knees Constipation by delayed colonic transit Dyslipidemia Hx of heartburn Insomnia Morbid obesity Obesity JAKE (obstructive sleep apnea) Osteoarthritis of knees, bilateral Surgical History History of lumbar discectomy History of tubal ligation Hx of colonoscopy S/P laparoscopic sleeve gastrectomy Family History Family History Father Medical history unknown Mother Hypertension Daughter In good health Son In good health Brother No problems noted. Sister No problems noted. 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 No acute distress. HEENT: Normal inspection, airway patent, no tonsillar hypertrophy, no uvular swelling. CVS: Normal heart rate and rhythm. Pulses normal. S1S2 regular. Respiratory: No respiratory distress, lungs clear to auscultation bilaterally, no wheezes, rhonchi or rales. Skin: Frontal scalp overlying the crown of head with diffuse macular, erythematous rash with crusting, does not extend to the occiput. No drainage, warmth, fluctuance. Hair over this region is hardened. Forehead is mildly edematous, no fluctuance, erythema, drainage, nontender to palpation. Extremities: Normal inspection Neuro: Oriented X 3. No motor deficit. No sensory deficit. Medical Decision Making Medical Decision Making MDM Narrative: 52 y/o F presents today for evaluation of scalp irritation and facial swelling s/p using hair dye 2 days ago. On examination, patient's vital signs are stable, airway is patent, with no pharyngeal edema or submandibular swelling. Patient is handling secretions well without drooling or dysphonia. Patient's scalp with contact irritant and some mild edema noted to her forehead. Discussed with patient that this is likely a irritant dermatitis secondary to using boxed hair dye. Advised patient to take benadryl, use a gentle shampoo (like baby shampoo), and to watch carefully for signs of infection. Offered short course of prednisone, patient declines at this time. Advised with red flag warnings on when to return, patient understands and agrees with plan. Differential Diagnosis Differential Diagnoses: The differential diagnosis associated with the presentation includes contact dermatitis, folliculitis, cellulitis, abscess Admission/Observation Consideration of admission/observation: Escalation of care including admission/observation considered External Record Review External record reviewed: Inpatient record, Office record, Outpatient record, Prior outpatient labs, Prior outpatient radiology, Primary care record and Outside ED record Discharge Plan Discharge Clinical Impression: Irritant contact dermatitis, Facial swelling Patient Disposition: Home, Self-Care Instructions: Contact Dermatitis (ED) Additional Instructions: Do not use this hair dye in the future as this is likely what caused your symptoms. Apply cold compress to your forehead multiple times a day as this can help reduce the swelling. Take benadryl as directed as needed for itching. Watch for any worsening symptoms including but not limited to increased swelling, redness, fevers, chills, difficulty breathing, etc. Return for re-evaluation if any of these occur. Follow up with your primary care physician. Prescriptions: New diphenhydramine HCl [Benadryl] 25 mg capsule 25 mg PO TID PRN (Reason: allergic reaction) Qty: 30 0RF No Action cyclobenzaprine 10 mg tablet 10 mg PO TID PRN (Reason: muscle spasm) Qty: 90 6RF lorazepam 0.5 mg tablet 0.5 mg PO BEDTIME PRN (Reason: anxiety) 30 Days Qty: 30 0RF oxycodone 5 mg tablet 5 mg PO DAILY PRN (Reason: pain) 30 Days Qty: 20 0RF Rx Instructions: Partial Fill upon patient request. metronidazole 0.75 % (37.5mg/5 gram) gel 1 appful vaginal BEDTIME 5 Days Qty: 70 0RF
== END 2023-02-02 11:55 | disposition home or self-care (01) ==
PROVIDERS: Emergency Provider Emergency Medicine; PCP Internal Medicine
DX: L24.5 Irritant contact dermatitis due to other chemical products (principal)
CPT/HCPCS: 99282; 99283

== ENCOUNTER 2023-02-03 14:52 | Emergency (ER) | payer OTHER, SELFPAY ==
[2023-02-03 14:57] VITALS: BP 125/84; PULSE 63; RESP 18; TEMP 36.8; O2SAT 96; BMI 35.1
--- NOTE | 2023-02-03 14:59 | ED_ITS ---
HPI - General Adult General Chief complaint: Skin/Abscess/Foreign Body <Kenny Ramsay - Last Filed: 02/03/23 15:00> Stated complaint: Allergic Rx Hair Dye 2 Days Ago <Kenny Ramsay - Last Filed: 02/03/23 15:00> Time Seen by Provider: 02/03/23 15:07 <Kenny Ramsay - Last Filed: 02/03/23 15:00> History of Present Illness HPI narrative: Patient was seen here yesterday for some localized swelling itching and rash after applying a hair dye and was treated for contact dermatitis with Benadryl at home She is taking Benadryl 25 mg every 8 hours, and it has not gotten rid of the rash and she thinks that it might even be a little worse in terms of spreading further down her forehead She denies feeling dizzy she has not fainted or feeling faint she has no shortness of breath no difficulty breathing or swallowing denies any swelling in her throat or mouth, and is eating and drinking normally <PRAVEEN Nieves - Last Filed: 02/03/23 16:30> Related Data Home medications: Previous Rx's Medication Instructions Recorded cyclobenzaprine 10 mg tablet 10 mg PO TID PRN muscle spasm #90 11/12/21 tabs lorazepam 0.5 mg tablet 0.5 mg PO BEDTIME PRN anxiety 30 12/14/22 days #30 tabs oxycodone 5 mg tablet 5 mg PO DAILY PRN pain 30 days #20 12/14/22 tabs metronidazole 0.75 % (37.5 mg/5 1 appful vaginal BEDTIME 5 days 01/10/23 gram) vaginal gel #70 grams diphenhydramine HCl 25 mg capsule 25 mg PO TID PRN allergic reaction 02/02/23 (Benadryl) #30 caps cetirizine 10 mg tablet 10 mg PO DAILY PRN allergy 02/03/23 symptoms/rash #14 tabs prednisone 20 mg tablet 60 mg PO DAILY 2 days #6 tabs 02/03/23 <Kenny Ramsay - Last Filed: 02/03/23 15:00> Allergies/adverse reactions: Allergies Allergy/AdvReac Type Severity Reaction Status Date / Time barium sulfate Allergy Intermediate pruritus Verified 02/02/23 11:01 Iodinated Contrast Media Allergy Intermediate RASH,HIVES Verified 02/02/23 11:01 [CONTRAST, IV] varenicline [From CHANTIX] Allergy Intermediate RASH, Verified 02/02/23 11:01 pruritus iopromide [From Ultravist] Allergy Mild HIVES Verified 02/02/23 11:01 <Kenny Ramsay - Last Filed: 02/03/23 15:00> PMFSH Past Medical History Source: nursing notes reviewed <PRAVEEN Nieves - Last Filed: 02/03/23 16:30> Medical History: Medical History Anxiety Back ache Bilateral primary osteoarthritis of knee Chronic back pain Chronic pain of both knees Constipation by delayed colonic transit Dyslipidemia Hx of heartburn Insomnia Morbid obesity Obesity JAKE (obstructive sleep apnea) Osteoarthritis of knees, bilateral <Kenny Ramsay - Last Filed: 02/03/23 15:00> Surgical History: Surgical History History of lumbar discectomy History of tubal ligation Hx of colonoscopy S/P laparoscopic sleeve gastrectomy <Kenny Ramsay - Last Filed: 02/03/23 15:00> Family History Family History: Family History Father Medical history unknown Mother Hypertension Daughter In good health Son In good health Brother No problems noted. Sister No problems noted. 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) Alcohol intake: never Patient Tobacco Use Status: Former Tobacco user Quit Date: 6 yrs ago Tobacco use type: Cigarette Years Smoked: 35 e-Cigarette/Vaping Use: Never Used Second Hand Smoke Exposure: No Advance Directives: No Advance Directives Information Provided: No service: No Current occupational status: disabled Cognitive needs: No Hearing needs: No Vision needs: No <Kenny Ramsay - Last Filed: 02/03/23 15:00> Physical Exam ED Vital Signs: Vital Signs - 24 hr 02/03/23 14:57 Temperature 98.3 F Pulse Rate 63 Respiratory Rate 18 Blood Pressure 125/84 Pulse Oximetry 96 Oxygen Delivery Method Room Air BMI result Body Mass Index 35.1 <Kenny Ramasy - Last Filed: 02/03/23 15:00> Vital Signs - 24 hr 02/03/23 14:57 Temperature 98.3 F Pulse Rate 63 Respiratory Rate 18 Blood Pressure 125/84 Pulse Oximetry 96 Oxygen Delivery Method Room Air BMI result Body Mass Index 35.1 <PRAVEEN Nieves - Last Filed: 02/03/23 16:30> General appearance no distress, cooperative The facial exam there is puffiness below the eyes and some puffiness on the forehead, it is not red it is not warm there is no blistering, no hives Eyes no redness or discharge pupils equal round reactive light extraocular motions are intact The nose is not congested The pharynx there is no swelling of lips tongue or uvula no drooling no trismus the voice is normal no redness swelling or exudate Neck is supple no stridor Chest is clear to auscultation with full symmetric equal breath sounds no wheezing Extremities full range of motion x4 Skin no other rash except around forehead and face <PRAVEEN Nieves - Last Filed: 02/03/23 16:30> Course Course Course Narrative: 52-year-old female your presents for evaluation of allergic reaction to hair dye. She was seen here yesterday and to return if she has any facial swelling. The patient reports mild swelling around her hairline. She has been using Benadryl without improvement. She was not given prednisone. Denies any swelling to the mouth or throat <Kenny Ramsay - Last Filed: 02/03/23 15:00> 52-year-old female your presents for evaluation of allergic reaction to hair dye. She was seen here yesterday and to return if she has any facial swelling. The patient reports mild swelling around her hairline. She has been using Benadryl without improvement. She was not given prednisone. Denies any swelling to the mouth or throat Patient with puffiness of forehead and around orbits likely from contact dermatitis of a hair dye has been taking Benadryl 25 mg 3 times a day without improvement, and without worsening We are changing to 24 hour antihistamine and 3 days of steroid and well- appearing patient without impairment of breathing or swallowing no for swelling in the mouth no dizziness or fainting is discharged <PRAVEEN Nieves - Last Filed: 02/03/23 16:30> Discharge Plan Discharge Clinical Impression: Contact dermatitis <Kenny Ramsay - Last Filed: 02/03/23 15:00> Patient Disposition: Home, Self-Care <Kenny Ramsay - Last Filed: 02/03/23 15:00> Additional Instructions: There is no sign of any dangerous or worrisome reaction As Benadryl 25 mg 3 times a day has not been helpful we are escalating to Zyrtec tablet once a day and if not sufficient you can take Zyrtec safely twice a day for several days Prednisone will also help Follow with primary doctor if needed Return any time for any worse condition or concerns <Kenny Ramsay - Last Filed: 02/03/23 15:00> Prescriptions: New cetirizine 10 mg tablet 10 mg PO DAILY PRN (Reason: allergy symptoms/rash) Qty: 14 0RF prednisone 20 mg tablet 60 mg PO DAILY 2 Days Qty: 6 0RF No Action cyclobenzaprine 10 mg tablet 10 mg PO TID PRN (Reason: muscle spasm) Qty: 90 6RF lorazepam 0.5 mg tablet 0.5 mg PO BEDTIME PRN (Reason: anxiety) 30 Days Qty: 30 0RF oxycodone 5 mg tablet 5 mg PO DAILY PRN (Reason: pain) 30 Days Qty: 20 0RF Rx Instructions: Partial Fill upon patient request. metronidazole 0.75 % (37.5mg/5 gram) gel 1 appful vaginal BEDTIME 5 Days Qty: 70 0RF diphenhydramine HCl [Benadryl] 25 mg capsule 25 mg PO TID PRN (Reason: allergic reaction) Qty: 30 0RF <Kenny Ramsay - Last Filed: 02/03/23 15:00>
[2023-02-03] MEDS: Loratadine 10 MG TABLET PO (16:27)
[2023-02-03] MEDS: predniSONE 10 MG TABLET PO (16:27)
== END 2023-02-03 16:36 | disposition home or self-care (01) ==
PROVIDERS: Emergency Provider Emergency Medicine Emergency Medical Services; PCP Internal Medicine
DX: L25.9 Unspecified contact dermatitis, unspecified cause (principal)
CPT/HCPCS: 99282; 99283

== ENCOUNTER → 2023-03-01 10:16 | Outpatient (BNVA) | payer OTHER, SELFPAY | PROVIDERS: PCP Internal Medicine; Visit Provider Physician Assistant | DX: E66.9 Obesity, unspecified (principal); Z68.33 Body mass index [BMI] 33.0-33.9, adult; L57.4 Cutis laxa senilis; Z98.84 Bariatric surgery status | CPT/HCPCS: 99212 ==

== ENCOUNTER 2023-03-06 09:09 | Outpatient (REF) | payer OTHER, SELFPAY ==
[2023-03-06 10:46] LABS: MANUAL DIFF FLAG NO
[2023-03-06 10:52] LABS: Basophils Percent Auto 0.5 % (0-2); Eosinophils Absolute Auto 0.2 X10*3/uL (0.0-0.4); Eosinophils Percent Auto 1.7 % (0-4); Hematocrit 39.7 % (37.0-47.0); Hemoglobin 13.1 g/dl (12.0-16.0); Imm Gran Abs Auto 0.03 X10*3/uL (0.00-0.03); Imm Gran Pct Auto 0.3 % (0.0-0.4); Lymphocytes Absolute Auto 2.2 X10*3/uL (1.2-4.9); Lymphocytes Percent Auto 25.1 % (20-40); Mean Corpuscular Volume 87.8 fL (80.0-98.0); Monocytes Absolute Auto 0.5 X10*3/uL (0.1-1.2); Monocytes Percent Auto 6.1 % (2-11); Neutrophils Absolute Auto 5.9 x10*3/uL (2.0-8.3); Neutrophils Percent Auto 66.3 % (45-73); Platelet Count 365 X10*3/uL (160-400); Red Blood Count 4.52 X10*6/uL (4.20-5.50); White Blood Count 8.8 X10*3/uL (4.8-10.8)
[2023-03-06 11:06] LABS: Estimated Average Glucose 94 mg/dL; Hemoglobin A1c % 4.9 %
[2023-03-06 11:31] LABS: C Reactive Protein 0.87 mg/dL (< or = 0.50); Iron 80 mcg/dL (30-160); Percent Iron Saturation 33 % (15-50); Total Iron Binding Capacity 244 mcg/dL (228-428); Unsaturated Iron Binding 164 ug/dL
[2023-03-06 12:03] LABS: Ferritin 63 ng/mL (10-250); Folate 18.1 ng/mL (> or = 4.0); Insulin 6 uU/mL (2-29); TSH reflex Free T4 1.19 uIU/mL (0.32-4.0); Vitamin B12 889 pg/mL (200-900)
[2023-03-07 18:54] LABS: Calcium (PTHI) 9.2 mg/dL (8.6-10.4); PTHI 38 pg/mL (16-77)
[2023-03-10 22:39] LABS: Zinc 71 mcg/dL (60-130)
[2023-03-12 04:29] LABS: Vitamin B1 17 nmol/L (8-30)
[2023-03-14 10:08] LABS: Vitamin A 26 mcg/dL (38-98)
== END 2023-03-06 09:10 | disposition home or self-care (01) ==
LOC: HO.10HDL 09:09
PROVIDERS: Visit Provider Physician Assistant
DX: E66.9 Obesity, unspecified (principal); Z98.84 Bariatric surgery status
CPT/HCPCS: 36415; 82607; 82728; 82746; 83036; 83525; 83540; 83970; 84425; 84443; 84590; 84630; 85025; 86140

== ENCOUNTER 2023-05-18 09:55 | Outpatient (AMB) | payer OTHER, SELFPAY ==
--- NOTE | 2023-05-18 09:58 | MHC.OFFVISWM ---
Intake VS Expanded 05/18/23 10:11 Height 5 ft 5 in Weight 199 lb BMI 33.1 BP 130/70 Blood Pressure Location Rt brachial Blood Pressure Position Sitting Pulse 63 Pulse Source Pulse Oximeter Temp 97.2 F Temperature Source Tympanic Pulse Oximetry 98 Oxygen Delivery Method Room Air Body Fat 77.0 Body Fat Percentage 38.7 Free Fat Mass 122.0 Muscle Mass 115.8 Visceral Mass 10.0 Water Mass 86.6 BMR 1,668 Intake Visit Reasons: (OV) PO LSG 08/24/22 Allergies barium sulfate Allergy (Intermediate, Verified 05/18/23 10:13) pruritus Iodinated Contrast Media [CONTRAST, IV] Allergy (Intermediate, Verified 05/18/23 10:13) RASH,HIVES varenicline [From CHANTIX] Allergy (Intermediate, Verified 05/18/23 10:13) RASH, pruritus iopromide [From Ultravist] Allergy (Mild, Verified 05/18/23 10:13) HIVES Medication List - Last Reconciled 05/18/23 by PRAVEEN Taylor-Eliel calcium citrate-vitamin D3 315 mg-5 mcg (200 unit) (Calcium Citrate + D) 1 tab PO BID cyclobenzaprine 10 mg PO TID PRN lorazepam 0.5 mg PO BEDTIME PRN 30 days multivitamin 1 tab PO DAILY oxycodone 5 mg PO DAILY PRN 30 days vitamin A palmitate 3,000 mcg PO DAILY HPI HPI Comments History of Present Illness Details Pt is now 9 mos s/p LSG and continues to have exacerbation sof her chronic pain. No complications from surgery. 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 Arleen plan: 9am - shake 12 pm - cc 4 pm - 2 oz protein and 1 oz veg 7pm -shake snacks on salty foods, peanusts and pretzel sticks Exercise = gym 4d/ week - treadmill for 200 calories and 2 machines for UE. PFSH Medical History Anxiety Back ache Bilateral primary osteoarthritis of knee Chronic back pain Chronic pain of both knees Constipation by delayed colonic transit Dyslipidemia Hx of heartburn Insomnia Morbid obesity Obesity JAKE (obstructive sleep apnea) Osteoarthritis of knees, bilateral Surgical History History of lumbar discectomy History of tubal ligation Hx of colonoscopy S/P laparoscopic sleeve gastrectomy Family History Father Medical history unknown Mother Hypertension Daughter In good health Son In good health Brother No problems noted. Sister No problems noted. Social History Household Members Other:: son Housing: House Are you a primary animal caretaker to a significant other at home: No Do you presently have visiting nurse or other home services: Yes ([facility]) Alcohol intake: never Patient Tobacco Use Status: Former Tobacco user Quit Date: 6 yrs ago Tobacco use type: Cigarette Years Smoked: 35 e-Cigarette/Vaping Use: Never Used Second Hand Smoke Exposure: No service: No Current occupational status: disabled Cognitive needs: No Hearing needs: No Vision needs: No Female Reproductive History Menstrual Age of Menarche: 14 Physical Exam Vital Signs: Last Vital Signs Temp 97.2 F 05/18/23 10:11 Pulse 63 05/18/23 10:11 BP 130/70 05/18/23 10:11 Pulse Ox 98 05/18/23 10:11 Oxygen Delivery Method Room Air 05/18/23 10:11 BMI result Body Mass Index 33.1 Assessment & Plan Assessment & Plan (1) Class 1 obesity with body mass index (BMI) of 33.0 to 33.9 in adult: Code(s): E66.9 - Obesity, unspecified; Z68.33 - Body mass index [BMI] 33.0-33.9, adult Plan: Goal is to increase weight loss to 2 lbs per week, needs to stop snacking on salty foods and increase exercise intensity. 9am - shake 12pm - Ostrim stick or cc 4pm- 20z each of protien and veg 7pm- shake Wants to know if she can have shakes only - not hungry - told no. need to learn how to eat healthy meals Exercise - increase to TBP videos4 d/ week for core strenght and treadmill for 400 basia - speed 3.5 and incline 2- 9 Text me if not progressing as above. Next appt at 12 mos with labs. Patient is obese and is not considered stable at this time. I spent 30 minutes in total with patient reviewing/updating records, examining the patient and counseling the patient on weight management as detailed above. (2) S/P laparoscopic sleeve gastrectomy: Code(s): Z98.84 - Bariatric surgery status Coding Level of Care Code Est Pt Level 4 (18280) Diagnoses Class 1 obesity with body mass index (BMI) of 33.0 to 33.9 in adult E66.9; Z68.33 S/P laparoscopic sleeve gastrectomy Z98.84
[2023-05-18 10:11] VITALS: BP 130/70; PULSE 63; TEMP 36.2; O2SAT 98; BMI 33.1
== END 2023-05-18 10:32 | disposition home or self-care (01) ==
PROVIDERS: PCP Internal Medicine; Visit Provider Physician Assistant
DX: E66.9 Obesity, unspecified (principal); Z68.33 Body mass index [BMI] 33.0-33.9, adult; Z98.84 Bariatric surgery status
CPT/HCPCS: 99214

== ENCOUNTER → 2023-05-18 09:55 | Outpatient (BNVA) | payer OTHER, SELFPAY | PROVIDERS: PCP Internal Medicine; Visit Provider Physician Assistant | DX: E66.9 Obesity, unspecified (principal); Z68.33 Body mass index [BMI] 33.0-33.9, adult; Z98.84 Bariatric surgery status | CPT/HCPCS: 99212 ==

== ENCOUNTER 2023-08-24 09:23 | Outpatient (AMB) | payer OTHER, SELFPAY ==
--- NOTE | 2023-08-24 09:34 | A.OFFVIS_ITS ---
Intake VS Expanded 08/24/23 09:37 BP 129/77 Blood Pressure Location Rt brachial Blood Pressure Position Sitting Pulse 61 Pulse Source Pulse Oximeter Temp 97.0 F Temperature Source Tympanic Pulse Oximetry 98 Oxygen Delivery Method Room Air Height 5 ft 5 in Weight 189 lb 12.8 oz BMI 31.6 Body Fat % 38.8 Body Fat Mass 73.6 Fat Free Mass 116.0 Visceral Fat Rating 9.0 Body Water % 43.5 Body Water Mass 82.4 Muscle Mass/Score 110.0 Basal Metabolic Rate/Score 1,588 Intake Visit Reasons: (OV) PO LSG 08/24/22 Allergies barium sulfate Allergy (Intermediate, Verified 08/24/23 09:36) pruritus Iodinated Contrast Media [CONTRAST, IV] Allergy (Intermediate, Verified 08/24/23 09:36) RASH,HIVES varenicline [From CHANTIX] Allergy (Intermediate, Verified 08/24/23 09:36) RASH, pruritus iopromide [From Ultravist] Allergy (Mild, Verified 08/24/23 09:36) HIVES Medication List - Last Reconciled 08/24/23 by Melany Sparks PA-C calcium citrate-vitamin D3 315 mg-5 mcg (200 unit) (Calcium Citrate + D) 1 tab PO BID cyclobenzaprine 10 mg PO TID PRN lorazepam 0.5 mg PO BEDTIME PRN 30 days multivitamin 1 tab PO DAILY oxycodone 5 mg PO DAILY PRN 30 days HPI HPI Comments History of Present Illness Details 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 Walks in the morning 11 am - shake 2pm - cc 5 pm- 3oz protien and 2ozveg 7pm- shake Exercise - Walks 4 miles in am every M- F, over 90 minutes. [address] / walk. Post op complications: none JAKE: resoved DM: never HTN: resolved Hyperlipidemia: none GERD: 0. Satisfaction with present condition - satisfied Patient states that her excess skin on abdomen gers red, pruritic with a rash that breaks the skin due to overhnaging skin. She keeps area clean and dry, but it continues to return. It makes it painful for her to do any exercise and must decrease her exercise frequency until it heals up . It also effects the clothes that she wears and how she dresses, must move the excess skin above her pant line to put them on - making it difficult to find clothes that fit well. [facility] Medical History Anxiety Back ache Bilateral primary osteoarthritis of knee Chronic back pain Chronic pain of both knees Constipation by delayed colonic transit Dyslipidemia Hx of heartburn Insomnia Morbid obesity Obesity JAKE (obstructive sleep apnea) Osteoarthritis of knees, bilateral Surgical History History of lumbar discectomy History of tubal ligation Hx of colonoscopy S/P laparoscopic sleeve gastrectomy Family History Father Medical history unknown Mother Hypertension Daughter In good health Son In good health Brother No problems noted. Sister No problems noted. 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) Alcohol intake: never Patient Tobacco Use Status: Former Tobacco user Quit Date: 6 yrs ago Tobacco use type: Cigarette Years Smoked: 35 e-Cigarette/Vaping Use: Never Used Second Hand Smoke Exposure: No service: No Current occupational status: disabled Cognitive needs: No Hearing needs: No Vision needs: No Female Reproductive History Menstrual Age of Menarche: 14 Physical Exam Const General: cooperative, healthy appearing and comfortable GI Inspection: Yes Abdominal panniculus present (grade 2-3) and Yes scar (all well healed) Palpation (GI): Soft to palpation, nontender, no guarding, no hernias and no masses Assessment & Plan Assessment & Plan (1) Obesity: Code(s): E66.9 - Obesity, unspecified Plan: Excellent weight loss so far, 1 year post op and feeling really well. meal plan - loves the shakes, sometimes too full for the cottage cheese 11am - shake 2-3 pm -shake 6-7 pm- same dinner Exercise - continue her wallking schedule. On bad weather days will do the same walk [employer] [place] or [employer] 3 mile videos. try Jayashree Penaloza abd workouts 3d/ week to start and stop if it hurts her back. Next appt with me in 3 months. Patient is obese and is not considered stable at this time. I spent 30 minutes in total with patient reviewing/updating records, examining the patient and counseling the patient on weight management as detailed above. (2) S/P laparoscopic sleeve gastrectomy: Code(s): Z98.84 - Bariatric surgery status (3) Panniculitis: Code(s): M79.3 - Panniculitis, unspecified Plan: We discussed keeping skin away form skin while exercising by using cotton gauze or paper towels. Making sure to wash or shower immediately after exercising and dry area well, may use behavioral science chair. Clotirimazole cream ordered to use bid prn for rash or pruritus. Patient will start using clotrimazole cream in are under pannus bid. Orders: Orders Insulin Today E66.9 - Obesity, unspecified, Z98.84 - Bariatric surgery status Lipid Panel Today E66.9 - Obesity, unspecified, Z98.84 - Bariatric surgery status Vitamin B12 and Folate Today E66.9 - Obesity, unspecified, Z98.84 - Bariatric surgery status Zinc Today E66.9 - Obesity, unspecified, Z98.84 - Bariatric surgery status Comprehensive Met. Panel Today E66.9 - Obesity, unspecified, Z98.84 - Bariatric surgery status C Reactive Protein Today E66.9 - Obesity, unspecified, Z98.84 - Bariatric surgery status Vitamin D 25-OH Total Today E66.9 - Obesity, unspecified, Z98.84 - Bariatric surgery status Hemoglobin A1c Today E66.9 - Obesity, unspecified, Z98.84 - Bariatric surgery status IRON PROFILE Today E66.9 - Obesity, unspecified, Z98.84 - Bariatric surgery status Complete Blood Count Auto Diff Today E66.9 - Obesity, unspecified, Z98.84 - Bariatric surgery status Vitamin B1 Today E66.9 - Obesity, unspecified, Z98.84 - Bariatric surgery status Vitamin A Today E66.9 - Obesity, unspecified, Z98.84 - Bariatric surgery status Ferritin Today E66.9 - Obesity, unspecified, Z98.84 - Bariatric surgery status PTHI Today E66.9 - Obesity, unspecified, Z98.84 - Bariatric surgery status TSH reflex Free T4 Today E66.9 - Obesity, unspecified, Z98.84 - Bariatric surgery status Medications: New clotrimazole 1% 1 appl topical BID 90 grams 3RF Coding Level of Care Code Est Pt Level 4 (64709) Diagnoses Obesity E66.9 S/P laparoscopic sleeve gastrectomy Z98.84 Panniculitis M79.3
[2023-08-24 09:37] VITALS: BP 129/77; PULSE 61; TEMP 36.1; O2SAT 98; BMI 31.6
== END 2023-08-24 10:07 | disposition home or self-care (01) ==
PROVIDERS: PCP Internal Medicine; Visit Provider Physician Assistant
DX: E66.9 Obesity, unspecified (principal); Z68.31 Body mass index [BMI] 31.0-31.9, adult; Z90.3 Acquired absence of stomach [part of]; Z98.84 Bariatric surgery status
CPT/HCPCS: 99214

== ENCOUNTER 2023-08-24 09:23 | Outpatient (REF) | payer OTHER, SELFPAY ==
[2023-08-24 10:25] LABS: MANUAL DIFF FLAG NO
[2023-08-24 10:53] LABS: Basophils Percent Auto 0.5 % (0-2); Eosinophils Absolute Auto 0.1 X10*3/uL (0.0-0.4); Eosinophils Percent Auto 1.7 % (0-4); Hematocrit 40.6 % (37.0-47.0); Hemoglobin 13.3 g/dl (12.0-16.0); Imm Gran Abs Auto 0.02 X10*3/uL (0.00-0.03); Imm Gran Pct Auto 0.2 % (0.0-0.4); Lymphocytes Absolute Auto 1.8 X10*3/uL (1.2-4.9); Lymphocytes Percent Auto 21.4 % (20-40); Mean Corpuscular HGB Conc 32.8 g/dl (31.0-35.0); Mean Corpuscular Hemoglobin 28.5 pg (27.0-33.0); Mean Corpuscular Volume 87.1 fL (80.0-98.0); Mean Platelet Volume 9.5 fL (9.4-12.3); Monocytes Absolute Auto 0.5 X10*3/uL (0.1-1.2); Monocytes Percent Auto 5.7 % (2-11); Neutrophils Absolute Auto 5.9 x10*3/uL (2.0-8.3); Neutrophils Percent Auto 70.5 % (45-73); Platelet Count 340 X10*3/uL (160-400); Red Blood Count 4.66 X10*6/uL (4.20-5.50); Red Cell Distribution Width 13.2 % (11.0-16.0); White Blood Count 8.4 X10*3/uL (4.8-10.8)
[2023-08-24 10:55] LABS: Estimated Average Glucose 97 mg/dL
[2023-08-24 11:23] LABS: Alanine Aminotransferase 15 U/L (0-31); Albumin Level 4.2 g/dL (3.5-5.0); Alkaline Phosphatase 92 U/L (39-117); Anion Gap 11 (12-20); Aspartate Amino Transferase 17 U/L (5-31); Bilirubin Total 0.5 mg/dL (0.0-1.0); Blood Urea Nitrogen 13 mg/dL (9-16); C Reactive Protein 0.89 mg/dL (< or = 0.50); Calcium 9.6 mg/dL (8.4-10.2); Carbon Dioxide 29 mmol/L (22-29); Chloride 105 mmol/L (96-108); Cholesterol 231 mg/dL (<200); Estimated Glomerular Filt Rate > 60; Glucose Random 88 mg/dL (60-115); HDL Cholesterol 82 mg/dL (>40); Iron 74 mcg/dL (30-160); LDL Cholesterol Calculated 137 mg/dL (<100); Percent Iron Saturation 28 % (15-50); Potassium 4.3 mmol/L (3.3-5.1); Sodium 141 mmol/L (135-145); Total Iron Binding Capacity 262 mcg/dL (228-428); Total Protein 8.1 g/dL (6.5-8.0); Triglycerides 61 mg/dL (<150); Unsaturated Iron Binding 188 ug/dL
[2023-08-24 11:48] LABS: Folate 14.1 ng/mL (> or = 4.0); Vitamin B12 1394 pg/mL (200-900)
[2023-08-24 11:52] LABS: Ferritin 80 ng/mL (10-250); Insulin 5 uU/mL (2-29); TSH reflex Free T4 1.27 uIU/mL (0.32-4.0)
[2023-08-28 12:19] LABS: Zinc 120 mcg/dL (60-130)
[2023-08-28 17:17] LABS: Calcium (PTHI) 9.5 mg/dL (8.6-10.4); PTHI 22 pg/mL (16-77)
[2023-08-30 12:59] LABS: Vitamin B1 52 nmol/L (8-30)
[2023-08-31 01:03] LABS: Vitamin A 33 mcg/dL (38-98)
== END 2023-08-24 09:24 | disposition home or self-care (01) ==
LOC: HO.LAB 09:23
PROVIDERS: PCP Internal Medicine; Visit Provider Physician Assistant
DX: E66.9 Obesity, unspecified (principal); M79.3 Panniculitis, unspecified; Z98.84 Bariatric surgery status
CPT/HCPCS: 36415; 80053; 80061; 82306; 82607; 82728; 82746; 83036; 83525; 83540; 83970; 84425; 84443; 84590; 84630; 85025; 86140; 99212

== ENCOUNTER 2023-09-28 09:56 | Outpatient (AMB) | payer OTHER, SELFPAY ==
[2023-09-28 09:59] VITALS: BP 104/70; BMI 32.6
--- NOTE | 2023-09-28 09:59 | A.OFFPC_ITS ---
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 Accompanied by: Self / Same As Patient Allergies barium sulfate Allergy (Intermediate, Verified 09/28/23 10:19) pruritus Iodinated Contrast Media [CONTRAST, IV] Allergy (Intermediate, Verified 09/28/23 10:19) RASH,HIVES varenicline [From CHANTIX] Allergy (Intermediate, Verified 09/28/23 10:19) RASH, pruritus iopromide [From Ultravist] Allergy (Mild, Verified 09/28/23 10:19) HIVES Medication List - Last Reconciled 09/28/23 by Radha Sloan MD calcium citrate-vitamin D3 315 mg-5 mcg (200 unit) (Calcium Citrate + D) 1 tab PO BID clotrimazole 1% 1 appl topical BID cyclobenzaprine 10 mg PO TID PRN lorazepam 0.5 mg PO BEDTIME PRN 30 days multivitamin 1 tab PO DAILY oxycodone 5 mg PO DAILY PRN 30 days vitamin A palmitate 3,000 mcg PO DAILY Tobacco use date assessed: 03/14/23 Dental Screening Dental Screen Date: 09/28/23 Did you have a dental visit in the last 12 months?: Yes Did you have a dental problem in the last 6 months where you did not have access to dental care?: No Was dental information given to patient?: Patient has dentist HPI HPI Comments History of Present Illness Details This is a 53-year-old female that comes for her physical exam. Last mammogram was 2022. Last Pap smear was 2022. Last colonoscopy was 2020. No chest pain or shortness of breath. [facility] Medical History (Updated 09/28/23 @ 10:37 by Radha Sloan MD) Super-super obese Morbid obesity Chronic pain of both knees Bilateral primary osteoarthritis of knee Obesity JAKE (obstructive sleep apnea) Hx of heartburn Anxiety Osteoarthritis of knees, bilateral Insomnia Constipation by delayed colonic transit Dyslipidemia Back ache Chronic back pain Surgical History S/P laparoscopic sleeve gastrectomy Hx of colonoscopy History of lumbar discectomy History of tubal ligation Family History (Updated 09/28/23 @ 10:23 by Radha Sloan MD) Father Diabetes Mother No problems noted. Daughter In good health Son In good health Brother No problems noted. Sister No problems noted. 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 Pradeep Wyatt, Collette Lezama, Miguel Tierney and colleagues, with an educational bita from [employer]. Review of Systems Const All systems reviewed & are unremarkable except as noted in HPI and below Eyes Reports no additional complaints, Denies change in vision and Denies other visual disturbances Card Denies chest pain at rest, Denies chest pain with activity, Denies edema, Denies irregular heart rhythm, Denies claudication, Denies dyspnea, Denies dyspnea on exertion, Denies orthopnea, Denies paroxysmal nocturnal dyspnea and Denies slow heart rate Resp Denies cough, Denies dyspnea and Denies dyspnea on exertion GI Denies abdominal pain, Denies change in bowel habits, Denies excessive flatus, Denies nausea and Denies vomiting Denies urinary incontinence, Denies urinary hesitancy and Denies urinary urgency Musc Denies abnormal gait, Denies atrophy, Denies deformity and Denies limited range of motion Skin/Breast Denies bleeding lesions, Denies changing lesions and Denies rash Neuro Denies abnormal gait, Denies behavioral changes, Denies confusion and Denies lack of coordination Psych Denies behavioral changes and Denies confusion Physical exam (Primary Care) Vital Signs: Last Vital Signs BP 104/70 12/14/23 09:59 BMI result Body Mass Index 32.6 Tobacco/Smoking Status: Tobacco use Status Tobacco use date assessed 03/14/23 09/28/23 10:06 Patient Tobacco Use Status Former Tobacco user 09/28/23 10:06 Tobacco use type Cigarette 09/28/23 10:06 e-Cigarette/Vaping Use Never Used 09/28/23 10:06 Thrive Assessment: Date of Thrive Assessment Date Thrive assessed 03/14/23 09/28/23 10:06 Const General: No confusion Orientation/consciousness: patient oriented x3 and No confusion HENMT Head: Yes normal to inspection, Yes normocephalic and Yes atraumatic Ears: external ears normal Eyes General: appearance normal, both eyes and all related structures Eyelids: Yes eyelids normal Conjunctivae: conjunctivae normal Neck Neck: Yes normal visual inspection and Yes supple Resp Effort & Inspection: normal respiratory effort Auscultation: clear to auscultation bilaterally Cardio Jugular venous distension: no JVD Rate: regular rate Rhythm: regular rhythm Heart sounds: S1 normal heart sound present and S2 normal heart sound present GI Inspection: Yes normal to inspection Palpation (GI): Soft to palpation and nontender Auscultation: normal bowel sounds Skin General skin exam: no rashes or lesions noted Neuro General: patient oriented x3, no focal motor deficits and No confusion Extrem General: Yes full ROM Psych Appearance: grossly normal Office Procedures Flu Questionnaire Does the patient have a severe egg allergy?: No Immunizations flu vacc [id number] 6mos up(PF) 60 mcg(15 mcgx4)/0.5 mL IM syringe Performing Provider: Radha Sloan MD [facility] Documented (not given) by: CARLITO Beckham on 09/28/23 10:09 Reason Not Given: Patient Refused Assessment and Plan Assessment & Plan (1) Physical exam: Code(s): Z00.00 - Encounter for general adult medical examination without abnormal findings Plan: Repeat in a year. Orders: Orders XR knee RT 2V Today M25.561 - Pain in right knee Influenza [id number] Immunization Today Z23 - Encounter for immunization XR knee LT 2V Today M25.562 - Pain in left knee Referrals Orthopedics Referral M25.561 - Pain in right knee, M25.562 - Pain in left knee Medications: New triamcinolone acetonide 0.1% 1 appl topical DAILY 2 weeks 15 grams 0RF Refilled oxycodone Partial Fill upon patient request. 5 mg PO DAILY 30 days PRN 20 tabs 0RF pain lorazepam 0.5 mg PO BEDTIME 30 days PRN 30 tabs 0RF anxiety Coding Level of Care Code Est Pt Prev Care 40-64y(06011) Diagnoses Physical exam Z00.00 Time Spent (min) 32
== END 2023-09-28 10:30 | disposition home or self-care (01) ==
PROVIDERS: Visit Provider Internal Medicine
DX: Z00.00 Encounter for general adult medical examination without abnormal findings (principal)
CPT/HCPCS: 99396

== ENCOUNTER 2023-10-30 09:34 | Outpatient (REF) | payer OTHER, SELFPAY ==
--- NOTE | ~2023-10-30 | XR_ITS ---
STUDY: Standing knees, bilateral knees INDICATION: Knee pain COMPARISON: 04/06/2020 technique: AP standing knees and 2 views each knee FINDINGS: On standing knee view, left knee joint is higher than the right. Tricompartment spurring. Bilateral moderate medial knee and patellofemoral narrowings. No fracture, dislocation or joint effusions. XR/XR knee LT 2V IMPRESSION: Bilateral knee osteoarthritis. No acute bony pathology.
--- NOTE | ~2023-10-30 | XR_ITS ---
STUDY: Standing knees, bilateral knees INDICATION: Knee pain COMPARISON: 04/06/2020 technique: AP standing knees and 2 views each knee FINDINGS: On standing knee view, left knee joint is higher than the right. Tricompartment spurring. Bilateral moderate medial knee and patellofemoral narrowings. No fracture, dislocation or joint effusions. XR/XR knee RT 2V IMPRESSION: Bilateral knee osteoarthritis. No acute bony pathology.
--- NOTE | ~2023-10-30 | XR_ITS ---
STUDY: Standing knees, bilateral knees INDICATION: Knee pain COMPARISON: 04/06/2020 technique: AP standing knees and 2 views each knee FINDINGS: On standing knee view, left knee joint is higher than the right. Tricompartment spurring. Bilateral moderate medial knee and patellofemoral narrowings. No fracture, dislocation or joint effusions. XR/XR knee standing BI IMPRESSION: Bilateral knee osteoarthritis. No acute bony pathology.
== END 2023-10-30 09:35 | disposition home or self-care (01) ==
LOC: HO.HOSX 09:34
PROVIDERS: Visit Provider Physician Assistant
DX: M17.0 Bilateral primary osteoarthritis of knee (principal)
CPT/HCPCS: 20610; 73560; 73565; 99202; J1040

== ENCOUNTER 2023-10-30 12:41 | Outpatient (AMB) | payer OTHER, SELFPAY ==
--- NOTE | 2023-10-30 13:27 | MHC.OFFVIS ---
Intake Intake Visit Reasons: New Pt - Bilateral knee OA Allergies barium sulfate Allergy (Intermediate, Verified 09/28/23 10:19) pruritus Iodinated Contrast Media [CONTRAST, IV] Allergy (Intermediate, Verified 09/28/23 10:19) RASH,HIVES varenicline [From CHANTIX] Allergy (Intermediate, Verified 09/28/23 10:19) RASH, pruritus iopromide [From Ultravist] Allergy (Mild, Verified 09/28/23 10:19) HIVES HPI New Pt - Bilateral knee OA HPI Details 53-year-old female who presents in the office today, as a new patient, for an evaluation of bilateral knee pain. The patient states she was having cortisone injections at [facility]. She confirms having relief from the injections. She would like to continue to have cortisone injections. She denies a history of increased pain after her injections. Patient denies a medical history of diabetes mellitus. [facility] Medical History (Updated 10/30/23 @ 13:30 by Sadie Swanson) Super-super obese Morbid obesity Chronic pain of both knees Bilateral primary osteoarthritis of knee Obesity JAKE (obstructive sleep apnea) Hx of heartburn Anxiety Osteoarthritis of knees, bilateral Insomnia Constipation by delayed colonic transit Dyslipidemia Back ache Chronic back pain Surgical History S/P laparoscopic sleeve gastrectomy Hx of colonoscopy History of lumbar discectomy History of tubal ligation Family History (Updated 09/28/23 @ 10:23 by Radha Sloan MD) Father Diabetes Mother No problems noted. Daughter In good health Son In good health Brother No problems noted. Sister No problems noted. 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) Alcohol intake: never Comment: Uses cane when having back pain Patient Tobacco Use Status: Former Tobacco user Quit Date: 6 yrs ago Tobacco use type: Cigarette Years Smoked: 35 e-Cigarette/Vaping Use: Never Used Second Hand Smoke Exposure: No service: No Current occupational status: disabled Cognitive needs: No Hearing needs: No Vision needs: No Female Reproductive History Menstrual Age of Menarche: 14 Review of Systems Const All systems reviewed & are unremarkable except as noted in HPI and below Physical Exam Const General: cooperative and no acute distress Orientation/consciousness: patient oriented x3 Resp Effort & Inspection: normal respiratory effort and able to speak in complete sentences Cardio Peripheral pulses: Peripheral pulses 2+ throughout Skin General skin exam: no rashes or lesions noted Neuro General: patient oriented x3 Extrem Other: Bilateral knees: Normal to inspection. No ecchymosis, erythema, or joint effusion. No tenderness to palpation to the medial or lateral joint lines. Full knee extension and flexion. Crepitus felt with ROM. NVI. Office Procedures Joint Injection/Drain Joint Injection/Drain Primary Site: right knee Secondary Site: left knee Prep: site was prepped using aseptic technique, ethochloride spray was applied and injection warnings given Injected: 80 mg of, DepoMedrol, with 8 mL of (2% plain lido ) and in the joint Approach Used: anterolateral Procedure: The patient tolerated the procedure well, but had some pain with the injection and there was some relief with the local anesthesia Coding 25261 - Large joint Procedure code (CPT) selection complete Assessment & Plan Assessment & Plan (1) Osteoarthritis of right knee: Code(s): M17.11 - Unilateral primary osteoarthritis, right knee Qualifiers: Osteoarthritis type: unspecified Qualified Code(s): M17.11 - Unilateral primary osteoarthritis, right knee (2) Osteoarthritis of left knee: Code(s): M17.12 - Unilateral primary osteoarthritis, left knee Qualifiers: Osteoarthritis type: unspecified Qualified Code(s): M17.12 - Unilateral primary osteoarthritis, left knee Plan Ms. Romero is a 53-year-old female who presents in the office today, as a new patient, for an evaluation of bilateral knee pain. The patient states she was having cortisone injections at [facility]. She confirms having relief from the injections. She would like to continue to have cortisone injections. She denies a history of increased pain after her injections. Patient denies a medical history of diabetes mellitus. The patient was offered a cortisone injection in the bilateral knees with 80 mg of DepoMedrol. The patient was explained the risk, benefits, and alternatives to receiving this injection. After receiving consent for the injection, the patient had the procedure done while in office today. The patient tolerated the procedure well with no complications. Follow up will be PRN, or sooner if needed. X-rays of the bilateral knees which were obtained while in the office today and were reviewed by me, Kalina Rodriguez PA-C, revealed bilateral knee osteoarthritis. Orders: Orders XR knee RT 2V Today M25.569 - Pain in unspecified knee XR knee standing BI Today M25.569 - Pain in unspecified knee XR knee LT 2V Today M25.569 - Pain in unspecified knee Patient Instructions: Scribed for Kalina Rodriguez PA-C by Sadie wSanson manager of medical, on 10/30/2023 at 12:43 pm, EST. Coding Level of Care Code New Pt Level 4 (20491) Diagnoses Osteoarthritis of right knee, unspecified osteoarthritis type M17.11 Osteoarthritis type: unspecified Osteoarthritis of left knee, unspecified osteoarthritis type M17.12 Osteoarthritis type: unspecified CPT Codes Coding - 60977 Large joint: 01283 - Large joint ([id number])
== END 2023-10-30 14:57 | disposition home or self-care (01) ==
PROVIDERS: PCP Internal Medicine; Visit Provider Physician Assistant
DX: M17.0 Bilateral primary osteoarthritis of knee (principal)
CPT/HCPCS: 20610; 99204

== ENCOUNTER 2023-11-13 11:41 | Outpatient (REF) | payer OTHER, SELFPAY | END 2023-11-13 11:42 | disposition home or self-care (01) | LOC: HO.MAMMO 11:41 | PROVIDERS: PCP Internal Medicine; Visit Provider Internal Medicine | DX: Z12.31 Encounter for screening mammogram for malignant neoplasm of breast (principal) | CPT/HCPCS: 77063; 77067 ==

== ENCOUNTER → 2023-11-13 12:15 | Outpatient (BNV) | payer OTHER, SELFPAY | PROVIDERS: PCP Internal Medicine; Visit Provider Radiology Diagnostic Radiology | DX: Z12.31 Encounter for screening mammogram for malignant neoplasm of breast (principal) | CPT/HCPCS: 77063; 77067 ==

== ENCOUNTER 2023-11-20 09:12 | Outpatient (AMB) | payer OTHER, SELFPAY ==
--- NOTE | 2023-11-20 09:15 | A.OFFVIS_ITS ---
Intake VS Expanded 11/20/23 09:24 BP 129/71 Blood Pressure Location Rt brachial Blood Pressure Position Sitting Pulse 58 Pulse Source Pulse Oximeter Temp 97.2 F Temperature Source Temporal Artery Scan Pulse Oximetry 99 Oxygen Delivery Method Room Air Height 5 ft 5 in Weight 194 lb 3.2 oz BMI 32.3 Body Fat % 40.1 Body Fat Mass 77.8 Fat Free Mass 116.2 Visceral Fat Rating 10.0 Body Water % 42.6 Body Water Mass 82.6 Muscle Mass/Score 110.2 Basal Metabolic Rate/Score 1,597 Intake Visit Reasons: (OV) PO LSG 08/24/22 Allergies barium sulfate Allergy (Intermediate, Verified 11/20/23 09:22) pruritus Iodinated Contrast Media [CONTRAST, IV] Allergy (Intermediate, Verified 11/20/23:22) RASH,HIVES varenicline [From CHANTIX] Allergy (Intermediate, Verified 11/20/23:22) RASH, pruritus iopromide [From Ultravist] Allergy (Mild, Verified 11/20/23 09:22) HIVES Medication List - Last Reconciled 11/20/23 by PRAVEEN Taylor-Eliel calcium citrate-vitamin D3 315 mg-5 mcg (200 unit) (Calcium Citrate + D) 1 tab P O BID clotrimazole 1% 1 appl topical BID cyclobenzaprine 10 mg PO TID PRN lorazepam 0.5 mg PO BEDTIME PRN 30 days multivitamin 1 tab PO DAILY oxycodone 5 mg PO DAILY PRN 30 days triamcinolone acetonide 0.1% 1 appl topical DAILY 2 weeks vitamin A palmitate 3,000 mcg PO DAILY HPI HPI Comments History of Present Illness Details 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 TBWL is 110 lbs or 36.2%. Has not lost weight since 3 monhts - not exercisng. Got cortisone injections - didn't help with pain. 9am - protein shake (30 grms) 1pm - shake (30 grms) 4pm - 2 oz protein and more than 8 oz ve getables Snacks on salty pretzels - wwith her shakes only PFSH Medical History (Updated 10/30/23 @ 13:30 by Sadie Swanson) Super-super obese Morbid obesity Chronic pain of both knees Bilateral primary osteoarthritis of knee Obesity JAKE (obstructive sleep apnea) Hx of heartburn Anxiety Osteoarthritis of knees, bilateral Insomnia Constipation by delayed colonic transit Dyslipidemia Back ache Chronic back pain Surgical History S/P laparoscopic sleeve gastrectomy Hx of colonoscopy History of lumbar discectomy History of tubal ligation Family History Father Diabetes Mother No problems noted. Daughter In good health Son In good health Brother No problems noted. Sister No problems noted. Social History Household Members Other:: son Housing: House Are you a primary healthcare manager to a significant other at home: No Do you presently have visiting nurse or other home services: Yes ([facility]) Alcohol intake: never Comment: Uses cane when having back pain Patient Tobacco Use Status: Former Tobacco user Quit Date: 6 yrs ago Tobacco use type: Cigarette Years Smoked: 35 e-Cigarette/Vaping Use: Never Used Second Hand Smoke Exposure: No service: No Current occupational status: disabled Cognitive needs: No Hearing needs: No Vision needs: No Female Reproductive History Menstrual Age of Menarche: 14 Physical Exam Vital Signs: Last Vital Signs Temp 97.2 F 11/20/23 09:24 Pulse 58 11/20/23 09:24 BP 129/71 11/20/23 09:24 Pulse Ox 99 11/20/23 09:24 Oxygen Delivery Method Room Air 11/20/23 09:24 BMI result Body Mass Index 32.3 Assessment & Plan Assessment & Plan (1) Obesity: Code(s): E66.9 - Obesity, unspecified Plan: Inadequate weight loss - needs to get below BMI of 30 at least. Home cardio videos with weights 4 d/week 3 days of walking - 3-4 milke 19 minute pace -->300 calories Needs to increase her protein intake and stop regular pretzels. shake shake meal of 2 oz/ 4oz Will add 10 grams protien pretzels with shake. Goal of 20 lbs lost over next 3 months. Next appt in 3 months with me. Patient is obese and is not considered stable at this time. I spent 25 minutes in total with patient reviewing/updating records, examining the patient and counseling the patient on weight management as detailed above. Coding Level of Care Code Est Pt Level 4 (11375) Diagnoses Obesity E66.9
[2023-11-20 09:24] VITALS: BP 129/71; PULSE 58; TEMP 36.2; O2SAT 99; BMI 32.3
== END 2023-11-20 09:52 | disposition home or self-care (01) ==
PROVIDERS: PCP Internal Medicine; Visit Provider Physician Assistant
DX: E66.9 Obesity, unspecified (principal); Z68.32 Body mass index [BMI] 32.0-32.9, adult; Z90.3 Acquired absence of stomach [part of]; Z98.84 Bariatric surgery status
CPT/HCPCS: 99213

== ENCOUNTER → 2023-11-20 09:12 | Outpatient (BNVA) | payer OTHER, SELFPAY | PROVIDERS: PCP Internal Medicine; Visit Provider Physician Assistant | DX: E66.9 Obesity, unspecified (principal); Z68.32 Body mass index [BMI] 32.0-32.9, adult; Z98.84 Bariatric surgery status | CPT/HCPCS: 99212 ==

== ENCOUNTER 2024-01-31 10:40 | Outpatient (AMB) | payer OTHER, SELFPAY ==
--- NOTE | 2024-01-31 10:44 | A.OFFVIS_ITS ---
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 Information Interpreted: non-clinical & clinical Lube Attendant: Lube Attendant Present (Tomásyn) Allergies barium sulfate Allergy (Intermediate, Verified 01/31/24 10:46) pruritus Iodinated Contrast Media [CONTRAST, IV] Allergy (Intermediate, Verified 01/31/24 10:46) RASH,HIVES varenicline [From CHANTIX] Allergy (Intermediate, Verified 01/31/24 10:46) RASH, pruritus iopromide [From Ultravist] Allergy (Mild, Verified 01/31/24 10:46) HIVES Medication List - Last Reconciled 01/31/24 by Renata De La Rosa CNM calcium citrate-vitamin D3 315 mg-5 mcg (200 unit) (Calcium Citrate + D) 1 tab PO BID clotrimazole 1% 1 appl topical BID cyclobenzaprine 10 mg PO TID PRN lorazepam 0.5 mg PO BEDTIME PRN 30 days multivitamin 1 tab PO DAILY oxycodone 5 mg PO DAILY PRN 30 days triamcinolone acetonide 0.1% 1 appl topical DAILY 2 weeks vitamin A palmitate 3,000 mcg PO DAILY Is last menstrual period known: No HPI 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 She has no concerns about STDs. She is postmenopausal. She has had her mammograms. She is up-to-date on her colonoscopies she had a polyp that was removed so she is getting 1 every 3 years. She had bariatric surgery and has lost up to 108 lb so far her son had surgery 8 months ago and has lost even more. She is very happy about that because he had diabetes and lots of other issues and his blood sugars and now down from 500s to 90s. She walks 5-6 miles every day today there walking at [employer] and she is going to return here to finish her walk after this. She is still working on weight loss. She is awaiting more weight loss so that they can remove the excess skin her pannus. she has a gym in her basement. Her only obgyn specialist concern is decreased libido and vaginal dryness though it has not all the time. [facility] Medical History (Updated 10/30/23 @ 13:30 by Sadie Swanson) Super-super obese Morbid obesity Chronic pain of both knees Bilateral primary osteoarthritis of knee Obesity JAKE (obstructive sleep apnea) Hx of heartburn Anxiety Osteoarthritis of knees, bilateral Insomnia Constipation by delayed colonic transit Dyslipidemia Back ache Chronic back pain Surgical History S/P laparoscopic sleeve gastrectomy Hx of colonoscopy History of lumbar discectomy History of tubal ligation Family History (Updated 01/31/24 @ 10:48 by CARLITO Cruz) Father Diabetes Mother No problems noted. Daughter In good health Son In good health Brother No problems noted. Sister No problems noted. Maternal Grandmother Colon cancer Maternal Uncle Stomach cancer Paternal Aunt Breast cancer Social History Household Members Other:: son Housing: House Are you a primary medicare biller to a significant other at home: No Do you presently have visiting nurse or other home services: Yes ([facility]) Alcohol intake: never Comment: Uses cane when having back pain Patient Tobacco Use Status: Former Tobacco user Quit Date: 6 yrs ago Tobacco use type: Cigarette Years Smoked: 35 e-Cigarette/Vaping Use: Never Used Second Hand Smoke Exposure: No service: No Current occupational status: disabled Cognitive needs: No Hearing needs: No Vision needs: No Female Reproductive History Menstrual Age of Menarche: 14 control method: other (tubal ligation) Total pregnancies: 4 Full term: 4 Number of Living Children: 4 Date of last pap smear: 01/09/23 (+HPV) History of abnormal pap smear: Yes (2021 +HPV) Date of Mammogram: 11/13/23 Physical Exam Const Other: Some excess skin from lost weight noted. General: healthy appearing, comfortable, no acute distress, well developed and alert Nutritional Appearance: average body habitus Orientation/consciousness: patient oriented x3 Limitations: no limitations HEENT Head: Yes normocephalic Neck Neck: Yes normal visual inspection Chest Chest palpation & inspection: normal inspection of the chest Breast/axilla inspection: normal inspection of the breasts and normal inspection of the axillae Breast/axilla palpation: normal palpation of the breasts and normal palpation of the axillae Resp Effort & Inspection: normal respiratory effort GI Inspection: Yes normal to inspection, No Abdominal wall edema and No distended Palpation (GI): Soft to palpation and nontender Other: Vagina pink and moist cervix multiparous pink clear no lesions normal scant discharge. Cervix mobile nontender uterus small anteverted mobile nontender good tone with Kegel. General: Yes bladder normal to palpation External Female Exam: normal external appearance and normal appearance of the urethra Speculum Exam - Vagina: normal appearance of the vagina, normal palpation and normal vaginal discharge Speculum Exam - Cervix: normal appearance of the cervix, normal palpation and nontender Bimanual exam- vagina & uterus: normal bimanual exam, normal palpation, uterine size normal, bladder normal to palpation, consistency normal, normal palpation, uterine mobility normal, uterine shape normal, No Cervical tenderness present, non-tender and no cervical motion tenderness Bimanual Exam- Adnexa, other: normal adnexae, no masses, normal and No adnexal tenderness Neuro General: patient oriented x3 Results Reviewed Results Reviewed: Name: Urszula Romero Age/Sex: 52/F Attending: Renata De La Rosa CNM : 1970 Submitted by: Renata De La Rosa CNM Copies to: Radha Howard MD MR #: [id number] Status: DEP REF Collected: 01/09/23 Location: [facility] Received: 01/09/23 Interpretation Satisfactory for evaluation. Negative for intraepithelial lesion or malignancy. Inflammation with associated cellular changes. Coccobacilli consistent with shift in vaginal kalyani. HPV mRNA E6/E7: DETECTED This assay detects E6/E7 viral messenger RNA (mRNA) from 14 high-risk HPV types (16, 18, 31, 33, 35, 39, 45, 51, 52, 56, 58, 59, 66, 68) HPV Type 16 RNA: Not Detected HPV Type 18/45 RNA: Not Detected HPV testing performed by [facility], [place], [place]. See reference laboratory portion of the EMR for entire report. This case was reviewed intradepartmentally. Clinical Information LMP: Unknown Previous PAP test: 01/03/22, WNL Material Received ThinPrep-Cervical Copies To Renata De La Rosa CNM [address] [place] [address] [address]. [address] [place] [address] Radha Howard MD [address] [place] [address] [address]. [address] [place] [address] Patient: Urszula Romero Age/Sex: 52/F MR#: [id number] Page 1 of 2 Name: Urszula Romero Age/Sex: 51/F Attending: Renata De La Rosa CNM : 1970 Submitted by: Renata De La Rosa CNM Copies to: Radha Howard MD MR #: [id number] Status: DEP REF Collected: 01/03/22 Location: [facility] Received: 01/04/22 Interpretation General Category: Negative for intraepithelial lesion/malignancy. Adequacy: Endocervical component present. Acid-wash performed. Interpretation: Mild inflammation and blood with associated cellular changes. HPV mRNA E6/E7: DETECTED This assay detects E6/E7 viral messenger RNA (mRNA) from 14 high-risk HPV types (16, 18, 31, 33, 35, 39, 45, 51, 52, 56, 58, 59, 66, 68) HPV Type 16 RNA: Not Detected HPV Type 18/45 RNA: Not Detected HPV testing performed by [facility], [place], [place]. See reference laboratory portion of the EMR for entire report. Clinical Information LMP:09/2021 Previous PAP test:2015, Unknown findings Material Received ThinPrep-Cervical Copies To Renata De La Rosa CNM [address] [place] [address] [address]. [address] [place] [address] Radha Howard MD [address] [place] [address] [address]. [address] [place] [address] Electronically Signed By: Riley Del Valle MD 01/21/22 1018 The Pap Test is a screening procedure with the inherent possibility of both false negative and false positive results. Results should be Patient: Urszula Romero Age/Sex: 51/F MR#: [id number] Page 1 of 2 Assessment & Plan Assessment & Plan (1) Class 1 obesity with body mass index (BMI) of 33.0 to 33.9 in adult: Code(s): E66.9 - Obesity, unspecified; Z68.33 - Body mass index [BMI] 33.0-33.9, adult (2) Well woman exam with routine gynecological exam: Code(s): Z01.419 - Encounter for gynecological examination (general) (routine) without abnormal findings (3) Cervical cancer screening: Comment: 01/03/22 pap= neg, w pos hpv; 01/09/23 pap negative, HPV pos; repeat in 1 year per ascap. Code(s): Z12.4 - Encounter for screening for malignant neoplasm of cervix (4) Well woman exam with routine gynecological exam: Code(s): Z01.419 - Encounter for gynecological examination (general) (routine) without abnormal findings Plan -----Discussed in this visit the following: healthy balanced diet, regular and consistent exercise, getting recommended health screens, doing the best she can for her particular health concerns, kegel exercises, pap smear screening and followup recommendations, mammography screening and SBE, normal changes in cycles in her life stage--- . See her HPI section for details she is up-to-date on all of her health screens discussed postmenopausal changes and vaginal dryness and decreased libido and ways to deal with them. She is making sure she gets a vitamins and calcium and definitely weight-bearing exercise and is going to be doing weightlifting in her gym for her legs and walks 5-6 miles a day so she is keeping up with her activity as well. Pap smear was done we will await the results. I asked her to call in if she does not hear from us within the next 4 weeks to be sure that she gets the results of her Pap reviewed the natural progression of HPV and we will await the Pap and HPV results. Coding Level of Care Code Est Pt Prev Care 40-64y(59340) Diagnoses Class 1 obesity with body mass index (BMI) of 33.0 to 33.9 in adult E66.9; Z68.33 Well woman exam with routine gynecological exam Z01.419 Cervical cancer screening Z12.4
[2024-01-31 10:45] VITALS: BP 124/76; BMI 33.3
== END 2024-01-31 11:21 | disposition home or self-care (01) ==
PROVIDERS: PCP Internal Medicine; Visit Provider Advanced Practice Midwife
DX: Z01.419 Encounter for gynecological examination (general) (routine) without abnormal findings (principal); E66.9 Obesity, unspecified; Z68.33 Body mass index [BMI] 33.0-33.9, adult; Z12.4 Encounter for screening for malignant neoplasm of cervix
CPT/HCPCS: 99396

== ENCOUNTER 2024-01-31 10:40 | Outpatient (REF) | payer OTHER, SELFPAY ==
[2024-02-08 09:03] LABS: HPV mRNA E6/E7 rflx Not Detected (Not Detected)
== END 2024-01-31 10:41 | disposition home or self-care (01) ==
LOC: HO.LNP 10:40
PROVIDERS: PCP Internal Medicine; Visit Provider Advanced Practice Midwife
DX: Z01.419 Encounter for gynecological examination (general) (routine) without abnormal findings (principal); Z11.51 Encounter for screening for human papillomavirus (HPV)
CPT/HCPCS: 87624; 88142; 99396

== ENCOUNTER 2024-02-19 09:19 | Outpatient (REF) | payer OTHER, SELFPAY ==
[2024-02-19 10:11] LABS: MANUAL DIFF FLAG NO
[2024-02-19 10:42] LABS: Basophils Percent Auto 0.6 % (0-2); Eosinophils Absolute Auto 0.1 X10*3/uL (0.0-0.4); Eosinophils Percent Auto 1.4 % (0-4); Hematocrit 37.9 % (37.0-47.0); Hemoglobin 12.1 g/dl (12.0-16.0); Imm Gran Abs Auto 0.01 X10*3/uL (0.00-0.03); Imm Gran Pct Auto 0.2 % (0.0-0.4); Lymphocytes Absolute Auto 2.1 X10*3/uL (1.2-4.9); Lymphocytes Percent Auto 33.2 % (20-40); Mean Corpuscular HGB Conc 31.9 g/dl (31.0-35.0); Mean Corpuscular Hemoglobin 28.6 pg (27.0-33.0); Mean Corpuscular Volume 89.6 fL (80.0-98.0); Mean Platelet Volume 9.1 fL (9.4-12.3); Monocytes Absolute Auto 0.4 X10*3/uL (0.1-1.2); Monocytes Percent Auto 6.3 % (2-11); Neutrophils Absolute Auto 3.7 x10*3/uL (2.0-8.3); Neutrophils Percent Auto 58.3 % (45-73); Platelet Count 331 X10*3/uL (160-400); Red Blood Count 4.23 X10*6/uL (4.20-5.50); White Blood Count 6.4 X10*3/uL (4.8-10.8)
[2024-02-19 10:48] LABS: Estimated Average Glucose 100 mg/dL; Hemoglobin A1c % 5.1 % (<6.0)
[2024-02-19 11:28] LABS: Anion Gap 11 (12-20); Blood Urea Nitrogen 18 mg/dL (9-16); C Reactive Protein 0.24 mg/dL (< or = 0.50); Calcium 9.6 mg/dL (8.4-10.2); Carbon Dioxide 26 mmol/L (22-29); Chloride 108 mmol/L (96-108); Cholesterol 216 mg/dL (<200); Estimated Glomerular Filt Rate > 60; Glucose Random 88 mg/dL (60-115); HDL Cholesterol 73 mg/dL (>40); Iron 90 mcg/dL (30-160); LDL Cholesterol Calculated 132 mg/dL (<100); Percent Iron Saturation 33 % (15-50); Potassium 4.3 mmol/L (3.3-5.1); Sodium 141 mmol/L (135-145); Total Iron Binding Capacity 269 mcg/dL (228-428); Triglycerides 59 mg/dL (<150); Unsaturated Iron Binding 179 ug/dL
[2024-02-19 11:38] LABS: Ferritin 70 ng/mL (10-250); TSH reflex Free T4 1.08 uIU/mL (0.32-4.0); Vitamin D 25-OH Total 42.8 ng/mL (>30)
[2024-02-19 11:42] LABS: Vitamin B12 768 pg/mL (200-900)
[2024-02-19 12:07] LABS: Insulin 7 uU/mL (2-29)
[2024-02-22 05:58] LABS: Zinc 68 mcg/dL (60-130)
[2024-02-23 15:33] LABS: Vitamin B1 20 nmol/L (8-30)
[2024-02-23 16:18] LABS: Vitamin A 32 mcg/dL (38-98)
== END 2024-02-19 09:20 | disposition home or self-care (01) ==
LOC: HO.LAB 09:19
PROVIDERS: PCP Internal Medicine; Visit Provider Physician Assistant Surgical
DX: E78.5 Hyperlipidemia, unspecified (principal); E66.9 Obesity, unspecified; Z98.84 Bariatric surgery status
CPT/HCPCS: 36415; 80048; 80061; 82306; 82607; 82728; 82746; 83036; 83525; 83540; 84425; 84443; 84590; 84630; 85025; 86140; 99212

== ENCOUNTER 2024-02-19 09:19 | Outpatient (AMB) | payer OTHER, SELFPAY ==
--- NOTE | 2024-02-19 09:24 | MHC.OFFVISWM ---
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 Allergies barium sulfate Allergy (Intermediate, Verified 01/31/24 10:46) pruritus Iodinated Contrast Media [CONTRAST, IV] Allergy (Intermediate, Verified 01/31/24 10:46) RASH,HIVES varenicline [From CHANTIX] Allergy (Intermediate, Verified 01/31/24 10:46) RASH, pruritus iopromide [From Ultravist] Allergy (Mild, Verified 01/31/24 10:46) HIVES Medication List - Last Reconciled 02/19/24 by PRAVEEN Sanders calcium citrate-vitamin D3 315 mg-5 mcg (200 unit) (Calcium Citrate + D) 1 tab PO BID clotrimazole 1% 1 appl topical BID cyclobenzaprine 10 mg PO TID PRN lorazepam 0.5 mg PO BEDTIME PRN 30 days multivitamin 1 tab PO DAILY oxycodone 5 mg PO DAILY PRN 30 days triamcinolone acetonide 0.1% 1 appl topical DAILY 2 weeks vitamin A palmitate 3,000 mcg PO DAILY HPI Comments Details: This?a?53?yo female who is s/p LSG without hiatal hernia repair on?09/03/[address] Alfredo. Presents for 18 month post op visit. Weight today is 201.2 pounds, with a BMI of 33.5. There has been a 103 pound weight loss,(initial weight 304.2 pounds) since starting the program on 05/11/2022 reflecting a 33.8 % total body weight loss and a weight loss of 76 pounds since surgery (operative weight 277.2 pounds) reflecting a 27.4 % TBWL since surgery. No complaints of nausea, emesis, abdominal pain or reflux. Reports infrequent but normal bowel movements every 1-2 days and uses stool softeners regularly. Reports that she is craving salty and crunchy things. Present meal plan includes: RTD premier protein shake another shake meal 3 oz protein and 3 oz veg 32 oz diet iced tea ? Exercise routine includes: walking outside 4 days per week. 200-300 calories home video 2 x per week. Any post op complications: none JAKE: resolved DM: never HTN: resolved Hyperlipidemia: improved GERD:?0-5 scale ??0 = no symptoms ??1 = symptoms noticeable but not bothersome 2 =symptoms bothersome but not daily ? 3 = symptoms bothersome and daily 4 = symptoms affect daily activities 5 = symptoms are incapacitating, unable to do daily activities ? How bad is the heartburn: 0 ? Heartburn while lying down: 0 ? Heartburn when standing up: 0 ? Heartburn after meals: 0 ? Does heartburn change your diet: 0 ? Does heartburn wake you up from sleep: 0 ? Do you have difficulty swallowin ? Do you have pain with swallowin ? If you take medicine for your reflux, does this affect your daily life: 0 Satisfaction with present condition - satisfied or not satisfied: satisfied [facility] Medical History Super-super obese Morbid obesity Chronic pain of both knees Bilateral primary osteoarthritis of knee Obesity JAKE (obstructive sleep apnea) Hx of heartburn Anxiety Osteoarthritis of knees, bilateral Insomnia Constipation by delayed colonic transit Dyslipidemia Back ache Chronic back pain Surgical History S/P laparoscopic sleeve gastrectomy Hx of colonoscopy History of lumbar discectomy History of tubal ligation Family History (Updated 01/31/24 @ 10:48 by CARLITO Cruz) Father Diabetes Mother No problems noted. Daughter In good health Son In good health Brother No problems noted. Sister No problems noted. Maternal Grandmother Colon cancer Maternal Uncle Stomach cancer Paternal Aunt Breast cancer Social History Household Members Other:: son Housing: House Are you a primary director career services to a significant other at home: No Do you presently have visiting nurse or other home services: Yes ([facility]) Alcohol intake: never Comment: Uses cane when having back pain Patient Tobacco Use Status: Former Tobacco user Quit Date: 6 yrs ago Tobacco use type: Cigarette Years Smoked: 35 e-Cigarette/Vaping Use: Never Used Second Hand Smoke Exposure: No service: No Current occupational status: disabled Cognitive needs: No Hearing needs: No Vision needs: No Female Reproductive History Menstrual Age of Menarche: 14 Physical Exam Const General: cooperative and no acute distress Orientation/consciousness: patient oriented x3 Resp Effort & Inspection: normal respiratory effort Auscultation: clear to auscultation bilaterally Cardio Rate: regular rate Rhythm: regular rhythm GI Inspection: Yes normal to inspection and Yes incision (well healed) Palpation (GI): Soft to palpation and no masses Neuro General: patient oriented x3 Assessment & Plan Assessment & Plan (1) S/P laparoscopic sleeve gastrectomy: Code(s): Z98.84 - Bariatric surgery status Category: Surgical Plan: Change meal plans slightly: Ready to drink Premier protein Quest protein chips Meal 3 oz protein 3 oz vegetables Discussed the critical element of exercise. She does have a weight machine at home and stationary bike. Encouraged her to use her stationary bike every day with a goal of burning 300 calories per day. She may additionally incorporate her weight training once she gets the cable fixed. Check 18 month postop labs. Encouraged to text weekly. We will have her return to the office in 2 months with a goal of 16 lb weight loss. Orders: Orders Insulin Today E78.5 - Hyperlipidemia, unspecified, Z98.84 - Bariatric surgery status Complete Blood Count Auto Diff Today E78.5 - Hyperlipidemia, unspecified, Z98.84 - Bariatric surgery status Lipid Panel Today E78.5 - Hyperlipidemia, unspecified, Z98.84 - Bariatric surgery status IRON PROFILE Today E78.5 - Hyperlipidemia, unspecified, Z98.84 - Bariatric surgery status Vitamin B12 and Folate Today E78.5 - Hyperlipidemia, unspecified, Z98.84 - Bariatric surgery status Zinc Today E78.5 - Hyperlipidemia, unspecified, Z98.84 - Bariatric surgery status Vitamin B1 Today E78.5 - Hyperlipidemia, unspecified, Z98.84 - Bariatric surgery status Vitamin A Today E78.5 - Hyperlipidemia, unspecified, Z98.84 - Bariatric surgery status TSH reflex Free T4 Today E78.5 - Hyperlipidemia, unspecified, Z98.84 - Bariatric surgery status Ferritin Today E78.5 - Hyperlipidemia, unspecified, Z98.84 - Bariatric surgery status Vitamin D 25-OH Total Today E78.5 - Hyperlipidemia, unspecified, Z98.84 - Bariatric surgery status Basic Metabolic Panel Today E78.5 - Hyperlipidemia, unspecified, Z98.84 - Bariatric surgery status Hemoglobin A1c Today E78.5 - Hyperlipidemia, unspecified, Z98.84 - Bariatric surgery status C Reactive Protein Today E78.5 - Hyperlipidemia, unspecified, Z98.84 - Bariatric surgery status
[2024-02-19 09:33] VITALS: BP 122/57; PULSE 59; TEMP 36.2; O2SAT 100; BMI 33.5
== END 2024-02-19 09:59 | disposition home or self-care (01) ==
PROVIDERS: PCP Internal Medicine; Visit Provider Physician Assistant Surgical
DX: E66.9 Obesity, unspecified (principal); Z68.33 Body mass index [BMI] 33.0-33.9, adult; Z90.3 Acquired absence of stomach [part of]; Z98.84 Bariatric surgery status
CPT/HCPCS: 99214

== ENCOUNTER 2024-04-01 09:38 | Outpatient (AMB) | payer OTHER, SELFPAY ==
--- NOTE | 2024-04-01 09:42 | A.OFFPC_ITS ---
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 Accompanied by: Self / Same As Patient Allergies barium sulfate Allergy (Intermediate, Verified 04/01/24 09:59) pruritus Iodinated Contrast Media [CONTRAST, IV] Allergy (Intermediate, Verified 04/01/24 09:59) RASH,HIVES varenicline [From CHANTIX] Allergy (Intermediate, Verified 04/01/24 09:59) RASH, pruritus iopromide [From Ultravist] Allergy (Mild, Verified 04/01/24 09:59) HIVES Medication List - Last Reconciled 04/01/24 by Radha Sloan MD calcium citrate-vitamin D3 315 mg-5 mcg (200 unit) (Calcium Citrate + D) 1 tab PO BID clotrimazole 1% 1 appl topical BID cyclobenzaprine 10 mg PO TID PRN lorazepam 0.5 mg PO BEDTIME PRN 30 days multivitamin 1 tab PO DAILY oxycodone 5 mg PO DAILY PRN 30 days triamcinolone acetonide 0.1% 1 appl topical DAILY 2 weeks vitamin A palmitate 3,000 mcg PO DAILY Tobacco use date assessed: 04/01/24 Dental Screening Dental Screen Date: 04/01/24 Did you have a dental visit in the last 12 months?: Yes Did you have a dental problem in the last 6 months where you did not have access to dental care?: No Was dental information given to patient?: Patient has dentist HPI HPI Comments History of Present Illness Details This is a 53-year-old female with chronic back pain, anxiety, dyslipidemia and obesity that comes today complaining of left hip pain that has been present for few weeks. Has full active range of motion. On opiates for her chronic low back pain. On benzodiazepines for her anxiety and she is aware can cause addiction, sedation and memory loss. She does have elevated blood pressure but has a [place] risk score of 0.7% chance of having a heart attack or stroke in the next 10 years. No need for statins. I advise low-cholesterol diet. She has obese with a BMI of 33.6 and is enroll in weight management after her weight loss surgery. I will start her on Wegovy. [facility] Medical History (Updated 04/01/24 @ 10:18 by Radha Sloan MD) Super-super obese Morbid obesity Chronic pain of both knees Bilateral primary osteoarthritis of knee Obesity JAKE (obstructive sleep apnea) Hx of heartburn Anxiety Osteoarthritis of knees, bilateral Insomnia Constipation by delayed colonic transit Dyslipidemia Back ache Chronic back pain Surgical History S/P laparoscopic sleeve gastrectomy Hx of colonoscopy History of lumbar discectomy History of tubal ligation Family History Father Diabetes Mother No problems noted. Daughter In good health Son In good health Brother No problems noted. Sister No problems noted. Maternal Grandmother Colon cancer Maternal Uncle Stomach cancer Paternal Aunt Breast cancer Social History Household Members Other:: son Housing: House Are you a primary director of career services to a significant other at home: No Do you presently have visiting nurse or other home services: Yes ([facility]) Alcohol intake: never Comment: Uses cane when having back pain Patient Tobacco Use Status: Former Tobacco user Tobacco use type: Cigarette Years Smoked: 35 e-Cigarette/Vaping Use: Never Used Second Hand Smoke Exposure: No service: No Current occupational status: disabled Cognitive needs: No Hearing needs: No Vision needs: No Female Reproductive History Menstrual Age of Menarche: 14 Questionnaire PHQ-9 Over the last 2 weeks, how often have you been bothered by any of the following problems? 1. Little interest or pleasure in doing things: not at all 2. Feeling down, depressed, or hopeless: not at all 3. Trouble falling or staying asleep, or sleeping too much: not at all 4. Feeling tired or having little energy: not at all 5. Poor appetite or overeating: not at all 6. Feeling bad about yourself - or that you are a failure or have let yourself or your family down: not at all 7. Trouble concentrating on things, such as reading the newspaper or watching television: not at all 8. Moving or speaking so slowly that other people could have noticed. Or the opposite - being so fidgety or restless that you have been moving around a lot m ore than usual: not at all 9. Thoughts that you would be better off or of hurting yourself in some way: not at all Total score: 0 Depression Screening Interpretation: Negative Depression Screening Done: Yes 49769 - PHQ-9 Billing: Yes Source: Developed by Drs. Pradeep Wyatt, Collette Lezama, Miguel Tierney and colleagues, with an educational bita from [employer]. Thrive Questionnaire Date Thrive assessed: 04/01/24 I am a: Patient What is your living situation today?: I have a steady place to live Within the past 12 months, did the food you bought not last and you didn't have the money to get more?: Never true Within the past 12 months, did you worry whether your food would run out before you got money to buy more?: Never true Do you have trouble paying for medicines?: No Do you have trouble getting transportation to medical appointments?: No Do you have trouble paying your heating and electricity bill?: No Do you have trouble taking care of your child, family member or friend?: No Do you have trouble with day-to-day activities such as bathing, preparing meals, shopping, managing finances, etc.?: No Are you currently unemployed and looking for a job?: No Are you interested in more education?: No Please select the resources that you would like help with: None Currently or been in a relationship where the following occur: no concerns reported THRIVE Score: 0 AUDIT C Alcohol Use Questionnaire (AUDIT-C) 1. How often do you have a drink containing alcohol?: Never Total Score: 0 ZENIA-7 AMB Questionnaire ZENIA-7 Date ZENIA - 7 assessed: 04/01/24 Feeling nervous, anxious, or on edge: 1 = Several days Not being able to stop or control worryin = Not at all Worrying too much about different things: 1 = Several days Trouble relaxin = Several days Being so restless that it is hard to sit still: 0 = Not at all Becoming easily annoyed or irritable: 0 = Not at all Feeling afraid as if something awful might happen: 0 = Not at all Total ZENIA-7 score (0-4 normal; 5-9 mild; 10-14 moderate; 15-21 severe): 3 Source: Developed by Drs. Pradeep Wyatt, Collette Lezama, Miguel Tierney and colleagues, with an educational bita from [employer]. ZENIA-7 Assessment Billing ZENIA-7 Assessment Tool: ZENIA-7 Assessment 77752 Review of Systems Const All systems reviewed & are unremarkable except as noted in HPI and below Card Denies chest pain at rest, Denies chest pain with activity, Denies edema, Denies irregular heart rhythm, Denies claudication, Denies dyspnea, Denies dyspnea on exertion, Denies orthopnea, Denies paroxysmal nocturnal dyspnea and Denies slow heart rate Resp Denies cough, Denies dyspnea and Denies dyspnea on exertion GI Denies abdominal pain, Denies change in bowel habits, Denies excessive flatus, Denies nausea and Denies vomiting Denies urinary incontinence, Denies urinary hesitancy and Denies urinary urgency Physical exam (Primary Care) Vital Signs: Last Vital Signs BP 110/70 04/01/24 09:43 BMI result Body Mass Index 33.6 BMI Assessment/Plan discussion: High BMI High, discussed plan: lifestyle, weight reduction, dietary and physical activity Tobacco/Smoking Status: Tobacco use Status Tobacco use date assessed 04/01/24 04/01/24 09:51 Patient Tobacco Use Status Former Tobacco user 04/01/24 09:49 Tobacco use type Cigarette 04/01/24 09:49 e-Cigarette/Vaping Use Never Used 04/01/24 09:49 PHQ-9: PHQ-9 Score PHQ-9: Total score 0 04/01/24 09:49 Depression Screening Interpretation: Negative Thrive Assessment: Date of Thrive Assessment Date Thrive assessed 04/01/24 04/01/24 09:49 Currently or been in a relationship where the following occur: no concerns reported Resp Effort & Inspection: normal respiratory effort Auscultation: clear to auscultation bilaterally Cardio Jugular venous distension: no JVD Rate: regular rate Rhythm: regular rhythm Heart sounds: S1 normal heart sound present and S2 normal heart sound present Extrem General: Yes full ROM Psych Appearance: grossly normal Assessment and Plan Assessment & Plan (1) Left hip pain: Code(s): M25.552 - Pain in left hip Plan: X-ray ordered. (2) Class 1 obesity with body mass index (BMI) of 33.0 to 33.9 in adult: Code(s): E66.9 - Obesity, unspecified; Z68.33 - Body mass index [BMI] 33.0-33.9, adult Qualifiers: Obesity type: due to excess calories Serious obesity comorbidity presence: without serious comorbidity Qualified Code(s): E66.09 - Other obesity due to excess calories; Z68.33 - Body mass index [BMI] 33.0-33.9, adult Plan: Start WEgovy. Continue weight management. BMI goal is less than 30. (3) Anxiety: Code(s): F41.9 - Anxiety disorder, unspecified Plan: Continue benzodiazepines as needed. (4) Dyslipidemia: Code(s): E78.5 - Hyperlipidemia, unspecified Plan: Continue low-cholesterol diet. No need for statins. (5) Chronic back pain: Code(s): M54.9 - Dorsalgia, unspecified; G89.29 - Other chronic pain Qualifiers: Back pain location: low back pain Back pain laterality: midline Sciatica presence: without sciatica Qualified Code(s): M54.50 - Low back pain, unspecified; G89.29 - Other chronic pain Plan: Continue opiates as needed for severe pain. Orders: Orders XR hip LT min 2V Today M25.552 - Pain in left hip Medications: New semaglutide (weight loss) (Wegovy) administer weeks 1 through 4 of therapy 0.25 mg (0.5 mL) subcut QWEEK 4 weeks 2 mL 0RF E66.9 - Obesity, unspecified Coding Level of Care Code Est Pt Level 4 (53630) Complex EM visit Add On G2211 Diagnoses Left hip pain M25.552 Class 1 obesity due to excess calories without serious comorbidity with body mass index (BMI) of 33.0 to 33.9 in adult E66.09; Z68.33 Obesity type: due to excess calories Serious obesity comorbidity presence: without serious comorbidity Anxiety F41.9 Dyslipidemia E78.5 Chronic midline low back pain without sciatica M54.50; G89.29 Back pain location: low back pain Back pain laterality: midline Sciatica presence: without sciatica Additional Codes ZENIA-7 Assessment Billing - ZENIA-7 Assessment Tool: ZENIA-7 Assessment 21001 ([id number]) Time Spent (min) 24
[2024-04-01 09:43] VITALS: BP 110/70; BMI 33.6
== END 2024-04-01 10:09 | disposition home or self-care (01) ==
PROVIDERS: PCP Internal Medicine; Visit Provider Internal Medicine
DX: M25.552 Pain in left hip (principal); E66.09 Other obesity due to excess calories; Z68.33 Body mass index [BMI] 33.0-33.9, adult; F41.9 Anxiety disorder, unspecified; E78.5 Hyperlipidemia, unspecified; M54.50 Low back pain, unspecified; G89.29 Other chronic pain
CPT/HCPCS: 99214; G2211

== ENCOUNTER 2024-04-12 09:03 | Outpatient (AMB) | payer OTHER, SELFPAY ==
--- NOTE | 2024-04-12 09:13 | A.OFFVIS_ITS ---
Intake Visit Reasons: Inj- b/l knee last inj: 10/30/23 Intake Note: Urszula is a 53 year old female who presents today for a repeat injections for both of her knees, her last injections were on 10/30/23. Allergies barium sulfate Allergy (Intermediate, Verified 04/01/24 09:59) pruritus Iodinated Contrast Media [CONTRAST, IV] Allergy (Intermediate, Verified 04/01/24 09:59) RASH,HIVES varenicline [From CHANTIX] Allergy (Intermediate, Verified 04/01/24 09:59) RASH, pruritus iopromide [From Ultravist] Allergy (Mild, Verified 04/01/24 09:59) HIVES HPI HPI Inj- b/l knee last inj: 10/30/23: Details: 53-year-old female who presents in the office today for a follow-up of bilateral knee osteoarthritis. I last saw the patient in the office on 10/30/2023 when she received cortisone injections in the bilateral knees. ? ? While in the office today, the patient reports she will be going on a trip to the [facility]. ? PFS Medical History Super-super obese Morbid obesity Chronic pain of both knees Bilateral primary osteoarthritis of knee Obesity JAKE (obstructive sleep apnea) Hx of heartburn Anxiety Osteoarthritis of knees, bilateral Insomnia Constipation by delayed colonic transit Dyslipidemia Back ache Chronic back pain Surgical History S/P laparoscopic sleeve gastrectomy Hx of colonoscopy History of lumbar discectomy History of tubal ligation Family History Father Diabetes Mother No problems noted. Daughter In good health Son In good health Brother No problems noted. Sister No problems noted. Maternal Grandmother Colon cancer Maternal Uncle Stomach cancer Paternal Aunt Breast cancer Social History Household Members Other:: son Housing: House Are you a primary childcare provider to a significant other at home: No Do you presently have visiting nurse or other home services: Yes ([employer]) Alcohol intake: never Comment: Uses cane when having back pain Patient Tobacco Use Status: Former Tobacco user Tobacco use type: Cigarette Years Smoked: 35 e-Cigarette/Vaping Use: Never Used Second Hand Smoke Exposure: No service: No Current occupational status: disabled Cognitive needs: No Hearing needs: No Vision needs: No Female Reproductive History Menstrual Age of Menarche: 14 Review of Systems Const All systems reviewed & are unremarkable except as noted in HPI and below Physical Exam Const General: cooperative, healthy appearing and no acute distress Resp Effort & Inspection: normal respiratory effort and able to speak in complete sentences Cardio Rate: regular rate Peripheral pulses: Peripheral pulses 2+ throughout GI Palpation (GI): Soft to palpation Skin Lesions: no lesions Rashes: no rashes Extrem Other: Bilateral knees: Normal to inspection. No ecchymosis, erythema, or joint effusion. No tenderness to palpation to the medial or lateral joint lines. Full knee extension and flexion. Crepitus felt with ROM. NVI. Office Procedures Joint Injection/Drain Joint Injection/Drain Primary Site: right knee Secondary Site: left knee Prep: site was prepped using aseptic technique, ethochloride spray was applied and injection warnings given Injected: 80 mg of, DepoMedrol, with 8 mL of (2% plain lido) and in the joint Approach Used: anterolateral Procedure: The patient tolerated the procedure well, but had some pain with the injection and there was some relief with the local anesthesia Coding 86738 - Large joint Procedure code (CPT) selection complete Assessment & Plan Assessment & Plan (1) Osteoarthritis of right knee: Code(s): M17.11 - Unilateral primary osteoarthritis, right knee Category: Medical Qualifiers: Osteoarthritis type: unspecified Qualified Code(s): M17.11 - Unilateral primary osteoarthritis, right knee (2) Osteoarthritis of left knee: Code(s): M17.12 - Unilateral primary osteoarthritis, left knee Category: Medical Qualifiers: Osteoarthritis type: unspecified Qualified Code(s): M17.12 - Unilateral primary osteoarthritis, left knee Plan Ms. Romero is a 53-year-old female who presents in the office today for a follow- up of bilateral knee osteoarthritis. I last saw the patient in the office on 10/30/2023 when she received cortisone injections in the bilateral knees. ? While in the office today, the patient reports she will be going on a trip to the [facility]. ?? ? The patient was offered a cortisone injection in the bilateral knees with 80 mg of DepoMedrol. The patient was explained the risk, benefits, and alternatives to receiving this injection. After receiving consent for the injection, the patient had the procedure done while in the office today. The patient tolerated the procedure well with no complications. ? ? Follow-up will be PRN, or sooner if needed.? Patient Instructions: Scribed by Sadie Swanson medical support specialist, for Kalina Rodriguez PA-C on 04/12/2024 at 9:07 am, EST.? Coding Level of Care Code Est Pt Level 3 (87588) Diagnoses Osteoarthritis of right knee, unspecified osteoarthritis type M17.11 Osteoarthritis type: unspecified Osteoarthritis of left knee, unspecified osteoarthritis type M17.12 Osteoarthritis type: unspecified CPT Codes Coding - 99695 Large joint: 53960 - Large joint ([id number])
== END 2024-04-12 09:16 | disposition home or self-care (01) ==
PROVIDERS: PCP Internal Medicine; Visit Provider Physician Assistant
DX: M17.0 Bilateral primary osteoarthritis of knee (principal)
CPT/HCPCS: 20610

== ENCOUNTER → 2024-04-12 09:03 | Outpatient (BNVA) | payer OTHER, SELFPAY | PROVIDERS: PCP Internal Medicine; Visit Provider Physician Assistant | DX: M17.0 Bilateral primary osteoarthritis of knee (principal) | CPT/HCPCS: 20610; J1010 ==

== ENCOUNTER 2024-04-22 10:25 | Outpatient (AMB) | payer OTHER, SELFPAY ==
[2024-04-22 09:10] VITALS: BMI 32.8
--- NOTE | 2024-04-22 09:10 | A.OFFVIS_ITS ---
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 Required: No Allergies barium sulfate Allergy (Intermediate, Verified 04/01/24 09:59) pruritus Iodinated Contrast Media [CONTRAST, IV] Allergy (Intermediate, Verified 04/01/24 09:59) RASH,HIVES varenicline [From CHANTIX] Allergy (Intermediate, Verified 04/01/24 09:59) RASH, pruritus iopromide [From Ultravist] Allergy (Mild, Verified 04/01/24 09:59) HIVES Medication List - Last Reconciled 04/22/24 by PRAVEEN Sanders calcium citrate-vitamin D3 315 mg-5 mcg (200 unit) (Calcium Citrate + D) 1 tab PO BID clotrimazole 1% 1 appl topical BID cyclobenzaprine 10 mg PO TID PRN lorazepam 0.5 mg PO BEDTIME PRN 30 days multivitamin 1 tab PO DAILY oxycodone 5 mg PO DAILY PRN 30 days semaglutide (weight loss) (Wegovy) 0.25 mg (0.5 mL) subcut QWEEK 4 weeks triamcinolone acetonide 0.1% 1 appl topical DAILY 2 weeks vitamin A palmitate 3,000 mcg PO DAILY HPI Comments Details: This?a?53?yo female who is s/p LSG without hiatal hernia repair on?09/03/[address] Alfredo. Presents for 1year 8 month post op visit. Weight today is 197 pounds, with a BMI of 32.8. There has been a 107.2 pound weight loss,(initial weight 304.2 pounds) since starting the program on 05/11/2022 reflecting a 35.2 % total body weight loss and a weight loss of 80.2 pounds since surgery (operative weight 277.2 pounds) reflecting a 28.9 % TBWL since surgery. No complaints of nausea, emesis, abdominal pain or reflux. Reports infrequent but normal bowel movements every 1-2 days and uses stool softeners regularly. Reports that she is craving salty and crunchy things. She states she was having trouble losing weight and she spoke with her PCP and was prescribed Wegovy and lost 4 pounds. She did not do anything else differently. Present meal plan includes: RTD premier protein shake, 10-12 pm another shake, 2-4 pm meal at 5 pm 3 oz protein and 3 oz veg watered down 80 oz diet iced tea ? Exercise routine includes: walking outside 7 days per week. 45 minutes. not tracking calories has treadmill at home PFSH Medical History Super-super obese Morbid obesity Chronic pain of both knees Bilateral primary osteoarthritis of knee Obesity JAKE (obstructive sleep apnea) Hx of heartburn Anxiety Osteoarthritis of knees, bilateral Insomnia Constipation by delayed colonic transit Dyslipidemia Back ache Chronic back pain Surgical History S/P laparoscopic sleeve gastrectomy Hx of colonoscopy History of lumbar discectomy History of tubal ligation Family History Father Diabetes Mother No problems noted. Daughter In good health Son In good health Brother No problems noted. Sister No problems noted. Maternal Grandmother Colon cancer Maternal Uncle Stomach cancer Paternal Aunt Breast cancer Social History Household Members Other:: son Housing: House Are you a primary med care manager to a significant other at home: No Do you presently have visiting nurse or other home services: Yes ([employer]) Alcohol intake: never Comment: Uses cane when having back pain Patient Tobacco Use Status: Former Tobacco user Tobacco use type: Cigarette Years Smoked: 35 e-Cigarette/Vaping Use: Never Used Second Hand Smoke Exposure: No service: No Current occupational status: disabled Cognitive needs: No Hearing needs: No Vision needs: No Female Reproductive History Menstrual Age of Menarche: 14 Telehealth Telehealth Telehealth Platform: Telephone Location of provider rendering services: practice address Location of patient: address on file Patient Identification confirmed using: Name, : Yes Telehealth method: voice only Patient verbally consented to treatment: Yes Patient verbally consented to billing insurance company: Yes Patient informed of any privacy concerns related to visit: Yes Minutes spent on Phone/Video with Pt.: 12 Assessment & Plan Assessment & Plan (1) Obesity: Code(s): E66.9 - Obesity, unspecified Category: Medical Plan: Patient started Wegovy through her primary care physician without are knowledge or advice. She feels as though this has helped her. She is able to recall her meal plan exactly. I did make the suggestion to decrease her initial shake to 75%, 8 oz of shake mixed with 4 oz of unsweetened almond milk, or apply this to her 2nd shake. Additionally, she has not tracking her calories while walking outside. We discussed the [employer] michela as a tool to identify calories burned with a goal of 300 per day. We will arrange for follow-up when she returns from vacation in May. She was encouraged to text weekly with her weights and with any questions or concerns.
== END 2024-04-22 12:09 | disposition home or self-care (01) ==
LOC: HO.HBS 10:25
PROVIDERS: PCP Internal Medicine; Visit Provider Physician Assistant Surgical
DX: E66.9 Obesity, unspecified (principal)
CPT/HCPCS: 99213

== ENCOUNTER → 2024-04-22 10:25 | Outpatient (BNVA) | payer OTHER, SELFPAY | PROVIDERS: PCP Internal Medicine; Visit Provider Physician Assistant Surgical | DX: E66.9 Obesity, unspecified (principal); Z98.84 Bariatric surgery status; E78.5 Hyperlipidemia, unspecified ==

== ENCOUNTER 2024-07-12 11:17 | Outpatient (AMB) | payer OTHER, SELFPAY ==
--- NOTE | 2024-07-12 11:20 | MHC.OFFVISWM ---
VS Expanded 07/12/24 11:29 BP 108/67 Blood Pressure Location Rt brachial Blood Pressure Position Sitting Pulse 75 Pulse Source Pulse Oximeter Temp 97.0 F Temperature Source Tympanic Pulse Oximetry 99 Oxygen Delivery Method Room Air Height 5 ft 5 in Weight 186 lb 6.4 oz BMI 31.0 Body Fat % 41.2 Body Fat Mass 76.8 Fat Free Mass 109.6 Visceral Fat Rating 10.0 Body Water % 41.8 Body Water Mass 77.8 Muscle Mass/Score 104.0 Basal Metabolic Rate/Score 1,514 Intake Visit Reasons: (OV) PO LSG 08/24/22 Relationship Counselor Required: No Allergies barium sulfate Allergy (Intermediate, Verified 04/01/24 09:59) pruritus Iodinated Contrast Media [CONTRAST, IV] Allergy (Intermediate, Verified 04/01/24 09:59) RASH,HIVES varenicline [From CHANTIX] Allergy (Intermediate, Verified 04/01/24 09:59) RASH, pruritus iopromide [From Ultravist] Allergy (Mild, Verified 04/01/24 09:59) HIVES Medication List - Last Reconciled 07/12/24 by PRAVEEN Sanders calcium citrate-vitamin D3 315 mg-5 mcg (200 unit) (Calcium Citrate + D) 1 tab PO BID clotrimazole 1% 1 appl topical BID cyclobenzaprine 10 mg PO TID PRN lorazepam 0.5 mg PO BEDTIME PRN 30 days multivitamin 1 tab PO DAILY oxycodone 5 mg PO DAILY PRN 30 days semaglutide (weight loss) (Wegovy) 1 mg (0.5 mL) subcut Q7D 4 weeks semaglutide (weight loss) (Wegovy) 1.7 mg (0.75 mL) subcut QWEEK 4 weeks triamcinolone acetonide 0.1% 1 appl topical DAILY 2 weeks vitamin A palmitate 3,000 mcg PO DAILY HPI Comments Details: This?a?53?yo female who is s/p LSG without hiatal hernia repair on?09/03/[address] Alfredo. Presents for 1 year 10 month post op visit. Weight today is 186.4 pounds, with a BMI of 31. There has been a 117.8 pound weight loss,(initial weight 304.2 pounds) since starting the program on 05/11/2022 reflecting a 38.7 % total body weight loss and a weight loss of 90.8 pounds since surgery (operative weight 277.2 pounds) reflecting a 32.7 % TBWL since surgery. No complaints of nausea, emesis, abdominal pain or reflux. Reports infrequent but normal bowel movements every 1-2 days and uses stool softeners regularly. Reports that she is craving salty and crunchy things. She states she was having trouble losing weight and she spoke with her PCP and was prescribed Wegovy and lost 4 pounds. She did not do anything else differently. Given her extensive weight loss of greater than 100 lb since initiating the program, she has developed additional excess skin of the abdomen. This has caused a sensation of burning and itching which causes her great discomfort additionally, she has used the prescriptive clotrimazole cream that I had sent in for her with improvement of the rash however she has recurrence of the rash 2-3 times per month. We discussed the possibility of medically necessary skin removal surgery. We will continue to encourage weight loss to a healthy BMI and then if this continues to be a problem as I suspect that it will, we will submit to her insurance company for possible medically necessary skin removal surgery Present meal plan includes: RTD premier protein shake, 10-12 pm 1/2 another shake w 6 oz unsweetened almond milk, 2-4 pm meal at 5 pm 3 oz protein and 3 oz veg watered down 64-80 oz diet iced tea ? Exercise routine includes: walking outside 5-7 days per week. 300-500 calories stationary bike 2 x per week, 200 basia [facility] Medical History Super-super obese Morbid obesity Chronic pain of both knees Bilateral primary osteoarthritis of knee Obesity JAKE (obstructive sleep apnea) Hx of heartburn Anxiety Osteoarthritis of knees, bilateral Insomnia Constipation by delayed colonic transit Dyslipidemia Back ache Chronic back pain Surgical History S/P laparoscopic sleeve gastrectomy Hx of colonoscopy History of lumbar discectomy History of tubal ligation Family History Father Diabetes Mother No problems noted. Daughter In good health Son In good health Brother No problems noted. Sister No problems noted. Maternal Grandmother Colon cancer Maternal Uncle Stomach cancer Paternal Aunt Breast cancer Social History Household Members Other:: son Housing: House Are you a primary urgent care nurse practitioner to a significant other at home: No Do you presently have visiting nurse or other home services: Yes ([employer]) Alcohol intake: never Comment: Uses cane when having back pain Patient Tobacco Use Status: Former Tobacco user Tobacco use type: Cigarette Years Smoked: 35 e-Cigarette/Vaping Use: Never Used Second Hand Smoke Exposure: No service: No Current occupational status: disabled Cognitive needs: No Hearing needs: No Vision needs: No Female Reproductive History Menstrual Age of Menarche: 14 Physical Exam Skin Other: Pannus grade 2-3 with evidence of previous erythema without active dermatitis. Assessment & Plan Assessment & Plan (1) Obesity: Code(s): E66.9 - Obesity, unspecified Category: Medical Plan: Patient will continue her current meal plan as she is very satisfied with this. His encouraged to increase exercise to a goal of 2000 calories per week as she is able. We will have her return to the office in approximately 2 months for a 2 year postop follow-up we will check labs at that time. Additionally, given her excess skin, as she achieves a healthy weight, consideration for submission for medically necessary skin removal surgery. Additionally, continue p.r.n. clotrimazole
[2024-07-12 11:29] VITALS: BP 108/67; PULSE 75; TEMP 36.1; O2SAT 99; BMI 31.0
== END 2024-07-12 11:49 | disposition home or self-care (01) ==
PROVIDERS: PCP Internal Medicine; Visit Provider Physician Assistant Surgical
DX: E66.9 Obesity, unspecified (principal); Z68.31 Body mass index [BMI] 31.0-31.9, adult
CPT/HCPCS: 99213

== ENCOUNTER → 2024-07-12 11:17 | Outpatient (BNVA) | payer OTHER, SELFPAY | PROVIDERS: PCP Internal Medicine; Visit Provider Physician Assistant Surgical | DX: E66.9 Obesity, unspecified (principal); Z68.31 Body mass index [BMI] 31.0-31.9, adult; Z98.84 Bariatric surgery status | CPT/HCPCS: 99212 ==

== ENCOUNTER 2024-07-16 09:38 | Outpatient (AMB) | payer OTHER, SELFPAY ==
--- NOTE | 2024-07-16 09:55 | MHC.OFFVIS ---
Intake Visit Reasons: Inj-b/l knee last inj 04/12/24 Intake Note: Urszula is a 54 year old female who presents today for bilateral knee injections (80) Allergies barium sulfate Allergy (Intermediate, Verified 04/01/24 09:59) pruritus Iodinated Contrast Media [CONTRAST, IV] Allergy (Intermediate, Verified 04/01/24 09:59) RASH,HIVES varenicline [From CHANTIX] Allergy (Intermediate, Verified 04/01/24 09:59) RASH, pruritus iopromide [From Ultravist] Allergy (Mild, Verified 04/01/24 09:59) HIVES HPI HPI Inj-b/l knee last inj 04/12/24: Details: 54-year-old female who presents in the office today for a follow-up of bilateral knee osteoarthritis. I last saw the patient on 04/12/24 when she received a cortisone injection in the bilateral knees. While in the office today, the patient reports her last cortisone injection gave her relief. She would like to have a repeat injection today. [facility] Medical History Super-super obese Morbid obesity Chronic pain of both knees Bilateral primary osteoarthritis of knee Obesity JAKE (obstructive sleep apnea) Hx of heartburn Anxiety Osteoarthritis of knees, bilateral Insomnia Constipation by delayed colonic transit Dyslipidemia Back ache Chronic back pain Surgical History S/P laparoscopic sleeve gastrectomy Hx of colonoscopy History of lumbar discectomy History of tubal ligation Family History Father Diabetes Mother No problems noted. Daughter In good health Son In good health Brother No problems noted. Sister No problems noted. 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[employer]) Alcohol intake: never Comment: Uses cane when having back pain Patient Tobacco Use Status: Former Tobacco user Tobacco use type: Cigarette Years Smoked: 35 e-Cigarette/Vaping Use: Never Used Second Hand Smoke Exposure: No service: No Current occupational status: disabled Cognitive needs: No Hearing needs: No Vision needs: No Female Reproductive History Menstrual Age of Menarche: 14 Review of Systems Const All systems reviewed & are unremarkable except as noted in HPI and below Physical Exam Const General: cooperative, healthy appearing and no acute distress Resp Effort & Inspection: normal respiratory effort and able to speak in complete sentences Cardio Rate: regular rate Peripheral pulses: Peripheral pulses 2+ throughout GI Palpation (GI): Soft to palpation Skin Lesions: no lesions Rashes: no rashes Extrem Other: Bilateral knees: Normal to inspection. No ecchymosis, erythema, or joint effusion. No tenderness to palpation to the medial or lateral joint lines. Full knee extension and flexion. Crepitus felt with ROM. NVI. Office Procedures Joint Injection/Aspiration Joint Injection/Aspiration Primary Site: right knee Secondary Site: left knee Prep: site was prepped using aseptic technique, ethochloride spray was applied and injection warnings given Injected: 80 mg of, DepoMedrol, with 8 mL of (2% plain lido ) and in the joint Approach Used: anterolateral Procedure: The patient tolerated the procedure well, but had some pain with the injection and there was some relief with the local anesthesia Coding 47407 - Large joint Procedure code (CPT) selection complete Assessment & Plan Assessment & Plan (1) Osteoarthritis of right knee: Code(s): M17.11 - Unilateral primary osteoarthritis, right knee Category: Medical Qualifiers: Osteoarthritis type: unspecified Qualified Code(s): M17.11 - Unilateral primary osteoarthritis, right knee (2) Osteoarthritis of left knee: Code(s): M17.12 - Unilateral primary osteoarthritis, left knee Category: Medical Qualifiers: Osteoarthritis type: unspecified Qualified Code(s): M17.12 - Unilateral primary osteoarthritis, left knee Plan Ms. Romero is a 54-year-old female who presents in the office today for a follow-up of bilateral knee osteoarthritis. I last saw the patient on 04/12/24 when she received a cortisone injection in the bilateral knees. While in the office today, the patient reports her last cortisone injection gave her relief. She would like to have a repeat injection today. The patient was offered a cortisone injection in the bilateral knees with 80 mg of Depo-Medrol. The patient was explained the risks, benefits, and alternatives to receiving this injection. After receiving consent for the injection, the patient had the procedure done while in the office today. The patient tolerated the procedure well with no complications. Follow-up will be PRN, or sooner if needed. Patient Instructions: Scribed by Lee Ann Thomson medical collections specialist, for Kalina Jennifer JOSEPH on 07/16/24 at 9:59 am EST. Coding Level of Care Code Est Pt Level 3 (65474) Diagnoses Osteoarthritis of right knee, unspecified osteoarthritis type M17.11 Osteoarthritis type: unspecified Osteoarthritis of left knee, unspecified osteoarthritis type M17.12 Osteoarthritis type: unspecified CPT Codes Coding - 37177 Large joint: 90825 - Large joint ([id number])
== END 2024-07-16 10:16 | disposition home or self-care (01) ==
PROVIDERS: PCP Internal Medicine; Visit Provider Physician Assistant
DX: M17.0 Bilateral primary osteoarthritis of knee (principal)
CPT/HCPCS: 20610

== ENCOUNTER → 2024-07-16 09:38 | Outpatient (BNVA) | payer OTHER, SELFPAY | PROVIDERS: PCP Internal Medicine; Visit Provider Physician Assistant | DX: M17.0 Bilateral primary osteoarthritis of knee (principal) | CPT/HCPCS: 20610; J1010 ==

== ENCOUNTER 2024-10-17 15:34 | Outpatient (AMB) | payer OTHER, SELFPAY ==
--- NOTE | 2024-10-17 15:58 | A.OFFVIS_ITS ---
VS Expanded 10/17/24 16:04 BP 119/71 Blood Pressure Location Rt brachial Blood Pressure Position Sitting Pulse 60 Pulse Source Pulse Oximeter Temp 98.1 F Temperature Source Temporal Artery Scan Pulse Oximetry 100 Oxygen Delivery Method Room Air Height 5 ft 5 in Weight 181 lb BMI 30.1 Body Fat % 38.7 Body Fat Mass 70.2 Fat Free Mass 110.8 Visceral Fat Rating 9.0 Body Water % 43.6 Body Water Mass 79.0 Muscle Mass/Score 105.4 Basal Metabolic Rate/Score 1,519 Intake Visit Reasons: (OV) PO LSG 08/24/22 Allergies barium sulfate Allergy (Intermediate, Verified 10/17/24 16:08) pruritus Iodinated Contrast Media [CONTRAST, IV] Allergy (Intermediate, Verified 10/17/24 16:08) RASH,HIVES varenicline [From CHANTIX] Allergy (Intermediate, Verified 10/17/24 16:08) RASH, pruritus iopromide [From Ultravist] Allergy (Mild, Verified 10/17/24 16:08) HIVES HPI Comments Details: This?a?54?yo female who is s/p LSG without hiatal hernia repair on?09/03/[address] Alfredo. Presents for 2 year 2 month post op visit. Weight today is 181 pounds, with a BMI of 30.1. There has been a 123.2 pound weight loss,(initial weight 304.2 pounds) since starting the program on 05/11/2022 reflecting a 40.4 % total body weight loss and a weight loss of 96.2 pounds since surgery (operative weight 277.2 pounds) reflecting a 34.7 % TBWL since surgery. No complaints of nausea, emesis, abdominal pain or reflux. Reports constipation. Reports that she is craving salty and crunchy things. She states she was having trouble losing weight and she spoke with her PCP and was prescribed Wegovy. Given her extensive weight loss of greater than 100 lb since initiating the program, she has developed additional excess skin of the abdomen. This has caused a sensation of burning and itching which causes her great discomfort additionally, she has used the prescriptive clotrimazole cream that I had sent in for her with improvement of the rash however she has recurrence of the rash 2-3 times per month. We discussed the possibility of medically necessary skin removal surgery. We will continue to encourage weight loss to a healthy BMI and then if this continues to be a problem as I suspect that it will, we will submit to her insurance company for possible medically necessary skin removal surgery Present meal plan includes: RTD premier protein shake, 10-12 pm 1/2 another shake w 6 oz unsweetened almond milk, 2-4 pm meal at 5 pm 3 oz protein and 3 oz veg watered down 64-80 oz diet iced tea ? Exercise routine includes: none in the last month due to knee pain prior walking outside 5-7 days per week. 300-500 calories stationary bike 2 x per week, 200 basia Any post op complications: None JAKE: Resolved DM: Never HTN: Resolved Hyperlipidemia: Never GERD:?0-5 scale ??0 = no symptoms ??1 = symptoms noticeable but not bothersome 2 =symptoms bothersome but not daily ? 3 = symptoms bothersome and daily 4 = symptoms affect daily activities 5 = symptoms are incapacitating, unable to do daily activities ? How bad is the heartburn: 0 ? Heartburn while lying down: 0 ? Heartburn when standing up: 0 ? Heartburn after meals: 0 ? Does heartburn change your diet: 0 ? Does heartburn wake you up from sleep: 0 ? Do you have difficulty swallowin ? Do you have pain with swallowin ? If you take medicine for your reflux, does this affect your daily life: 0 Satisfaction with present condition - satisfied or not satisfied: satisfied [facility] Medical History Super-super obese Morbid obesity Chronic pain of both knees Bilateral primary osteoarthritis of knee Obesity JAKE (obstructive sleep apnea) Hx of heartburn Anxiety Osteoarthritis of knees, bilateral Insomnia Constipation by delayed colonic transit Dyslipidemia Back ache Chronic back pain Surgical History S/P laparoscopic sleeve gastrectomy Hx of colonoscopy History of lumbar discectomy History of tubal ligation Family History Father Diabetes Mother No problems noted. Daughter In good health Son In good health Brother No problems noted. Sister No problems noted. 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) Alcohol intake: never Comment: Uses cane when having back pain Patient Tobacco Use Status: Former Tobacco user Tobacco use type: Cigarette Years Smoked: 35 e-Cigarette/Vaping Use: Never Used Second Hand Smoke Exposure: No service: No Current occupational status: disabled Cognitive needs: No Hearing needs: No Vision needs: No Female Reproductive History Menstrual Age of Menarche: 14 Physical Exam Const General: cooperative and no acute distress Orientation/consciousness: patient oriented x3 Resp Effort & Inspection: normal respiratory effort Auscultation: clear to auscultation bilaterally Cardio Rate: regular rate Rhythm: regular rhythm GI Inspection: Yes normal to inspection and Yes incision (well healed) Palpation (GI): Soft to palpation and no masses Neuro General: patient oriented x3 Assessment & Plan Assessment & Plan (1) S/P laparoscopic sleeve gastrectomy: Code(s): Z98.84 - Bariatric surgery status Category: Surgical Plan: Patient does admit to some snacking and lack of exercise. These are the reasons why she has not lost the weight. Discussed the importance of exercise. Gave her a discount paper to the [facility] so she may swim. She is following up with Orthopedics regarding her chronic bilateral knee pain that is not effectively treated with injections. She is going to inquire about possible knee replacement surgery. In the meantime, she will continue her meal plan as listed above. Start swimming at the [facility]. Return to clinic 2 months. We will additionally check 2 year follow-up labs Orders: Orders Complete Blood Count Auto Diff Today E66.9 - Obesity, unspecified, Z98.84 - Bariatric surgery status Lipid Panel Today E66.9 - Obesity, unspecified, Z98.84 - Bariatric surgery status Comprehensive Met. Panel Today E66.9 - Obesity, unspecified, Z98.84 - Bariatric surgery status Zinc Today E66.9 - Obesity, unspecified, Z98.84 - Bariatric surgery status Vitamin A Today E66.9 - Obesity, unspecified, Z98.84 - Bariatric surgery status Ferritin Today E66.9 - Obesity, unspecified, Z98.84 - Bariatric surgery status Vitamin D 25-OH Total Today E66.9 - Obesity, unspecified, Z98.84 - Bariatric surgery status Insulin Today E66.9 - Obesity, unspecified, Z98.84 - Bariatric surgery status Hemoglobin A1c Today E66.9 - Obesity, unspecified, Z98.84 - Bariatric surgery status IRON PROFILE Today E66.9 - Obesity, unspecified, Z98.84 - Bariatric surgery status Vitamin B12 and Folate Today E66.9 - Obesity, unspecified, Z98.84 - Bariatric surgery status C Reactive Protein Today E66.9 - Obesity, unspecified, Z98.84 - Bariatric surgery status Vitamin B1 Today E66.9 - Obesity, unspecified, Z98.84 - Bariatric surgery status TSH reflex Free T4 Today E66.9 - Obesity, unspecified, Z98.84 - Bariatric surgery status Medications: New bisacodyl (Dulcolax (bisacodyl)) 10 mg NH DAILY PRN 12 ea 0RF constipation sennosides (senna) 17.2 mg (2 x 8.6 mg) PO BEDTIME 90 tabs 2RF constipation Refilled triamcinolone acetonide 0.1% 1 appl topical DAILY 2 weeks 15 grams 0RF clotrimazole 1% 1 appl topical BID 90 grams 3RF
[2024-10-17 16:04] VITALS: BP 119/71; PULSE 60; TEMP 36.7; O2SAT 100; BMI 30.1
== END 2024-10-17 17:01 | disposition home or self-care (01) ==
PROVIDERS: PCP Internal Medicine; Visit Provider Physician Assistant Surgical
DX: E66.811 Obesity, class 1 (principal); Z68.30 Body mass index [BMI] 30.0-30.9, adult; Z90.3 Acquired absence of stomach [part of]; Z98.84 Bariatric surgery status
CPT/HCPCS: 99213; G2211

== ENCOUNTER → 2024-10-17 15:34 | Outpatient (BNVA) | payer OTHER, SELFPAY | PROVIDERS: PCP Internal Medicine; Visit Provider Physician Assistant Surgical | DX: E66.9 Obesity, unspecified (principal); Z98.84 Bariatric surgery status; Z68.30 Body mass index [BMI] 30.0-30.9, adult | CPT/HCPCS: 99212 ==

== ENCOUNTER 2024-10-22 09:20 | Outpatient (REF) | payer OTHER, SELFPAY ==
[2024-10-22 09:34] LABS: MANUAL DIFF FLAG NO
[2024-10-22 10:43] LABS: Basophils Percent Auto 0.7 % (0-2); Eosinophils Absolute Auto 0.1 X10*3/uL (0.0-0.4); Eosinophils Percent Auto 1.4 % (0-4); Hematocrit 38.5 % (37.0-47.0); Hemoglobin 12.6 g/dl (12.0-16.0); Imm Gran Abs Auto 0.02 X10*3/uL (0.00-0.03); Imm Gran Pct Auto 0.3 % (0.0-0.4); Lymphocytes Absolute Auto 2.1 X10*3/uL (1.2-4.9); Lymphocytes Percent Auto 36.6 % (20-40); Mean Corpuscular HGB Conc 32.7 g/dl (31.0-35.0); Mean Corpuscular Hemoglobin 28.8 pg (27.0-33.0); Mean Corpuscular Volume 88.1 fL (80.0-98.0); Mean Platelet Volume 9.6 fL (9.4-12.3); Monocytes Absolute Auto 0.4 X10*3/uL (0.1-1.2); Monocytes Percent Auto 7.6 % (2-11); Neutrophils Absolute Auto 3.1 x10*3/uL (2.0-8.3); Neutrophils Percent Auto 53.4 % (45-73); Platelet Count 367 X10*3/uL (160-400); Red Blood Count 4.37 X10*6/uL (4.20-5.50); Red Cell Distribution Width 12.9 % (11.0-16.0); White Blood Count 5.8 X10*3/uL (4.8-10.8)
[2024-10-22 10:54] LABS: Estimated Average Glucose 97 mg/dL; Hemoglobin A1C 97.7895 umol/L; Total Hemoglobin (HGBA1C) 3184.4433 umol/L
[2024-10-22 11:38] LABS: Alanine Aminotransferase 13 U/L (0-31); Albumin Level 3.9 g/dL (3.5-5.0); Alkaline Phosphatase 70 U/L (39-117); Anion Gap 8 (12-20); Aspartate Amino Transferase 18 U/L (5-31); Bilirubin Total 0.4 mg/dL (0.0-1.0); Blood Urea Nitrogen 16 mg/dL (9-16); C Reactive Protein 0.16 mg/dL (< or = 0.50); Calcium 9.2 mg/dL (8.4-10.2); Carbon Dioxide 26 mmol/L (22-29); Chloride 112 mmol/L (96-108); Cholesterol 209 mg/dL (<200); Estimated Glomerular Filt Rate > 60; Glucose Random 80 mg/dL (60-115); HDL Cholesterol 69 mg/dL (>40); Iron 81 mcg/dL (30-160); LDL Cholesterol Calculated 128 mg/dL (<100); Percent Iron Saturation 33 % (15-50); Potassium 3.7 mmol/L (3.3-5.1); Sodium 142 mmol/L (135-145); Total Iron Binding Capacity 244 mcg/dL (228-428); Total Protein 7.4 g/dL (6.5-8.0); Triglycerides 62 mg/dL (<150); Unsaturated Iron Binding 163 ug/dL
[2024-10-22 11:43] LABS: Ferritin 106 ng/mL (10-250); Vitamin D 25-OH Total 38.9 ng/mL (>30)
[2024-10-22 11:49] LABS: Folate 16.1 ng/mL (> or = 4.0); Vitamin B12 583 pg/mL (200-900)
[2024-10-22 12:44] LABS: Insulin 5 uU/mL (2-29)
[2024-10-25 03:34] LABS: Zinc 71 mcg/dL (60-130)
[2024-10-25 17:33] LABS: Vitamin A 45 mcg/dL (38-98)
[2024-10-27 15:29] LABS: Vitamin B1 13 nmol/L (8-30)
== END 2024-10-22 09:21 | disposition home or self-care (01) ==
LOC: HO.LAB 09:20
PROVIDERS: PCP Internal Medicine; Visit Provider Physician Assistant Surgical
DX: Z00.00 Encounter for general adult medical examination without abnormal findings (principal); F33.0 Major depressive disorder, recurrent, mild; F41.1 Generalized anxiety disorder; I10 Essential (primary) hypertension; Z98.84 Bariatric surgery status; M17.0 Bilateral primary osteoarthritis of knee
CPT/HCPCS: 20610; 36415; 80053; 80061; 82306; 82607; 82728; 82746; 83036; 83525; 83540; 84425; 84443; 84590; 84630; 85025; 86140; 96127; 99212; 99396; J1010; J2003

== ENCOUNTER 2024-10-22 09:38 | Outpatient (AMB) | payer OTHER, SELFPAY ==
--- NOTE | 2024-10-22 09:55 | MHC.OFFVIS ---
Intake Visit Reasons: B/L knee injections, last inj 07/16/24 Intake Note: Urszula is a 54 year old female who presents today for a repeat of her bilateral knee injections, last inj 07/16/24. Patient reports her last injection gave her about 2 months of relief. Allergies barium sulfate Allergy (Intermediate, Verified 10/17/24 16:08) pruritus Iodinated Contrast Media [CONTRAST, IV] Allergy (Intermediate, Verified 10/17/24 16:08) RASH,HIVES varenicline [From CHANTIX] Allergy (Intermediate, Verified 10/17/24 16:08) RASH, pruritus iopromide [From Ultravist] Allergy (Mild, Verified 10/17/24 16:08) HIVES HPI HPI B/L knee injections, last inj 07/16/24: Details: Ms. Romero is a 54-year-old female who presents to the office today for bilateral knee cortisone injections. Her last injections were on 07/16/2024. Patient reports that she had about 2 months of relief with this. She would like to repeat injections today. [facility] Medical History Super-super obese Morbid obesity Chronic pain of both knees Bilateral primary osteoarthritis of knee Obesity JAKE (obstructive sleep apnea) Hx of heartburn Anxiety Osteoarthritis of knees, bilateral Insomnia Constipation by delayed colonic transit Dyslipidemia Back ache Chronic back pain Surgical History S/P laparoscopic sleeve gastrectomy Hx of colonoscopy History of lumbar discectomy History of tubal ligation Family History Father Diabetes Mother No problems noted. Daughter In good health Son In good health Brother No problems noted. Sister No problems noted. 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) Alcohol intake: never Comment: Uses cane when having back pain Patient Tobacco Use Status: Former Tobacco user Tobacco use type: Cigarette Years Smoked: 35 e-Cigarette/Vaping Use: Never Used Second Hand Smoke Exposure: No service: No Current occupational status: disabled Cognitive needs: No Hearing needs: No Vision needs: No Female Reproductive History Menstrual Age of Menarche: 14 Review of Systems Const All systems reviewed & are unremarkable except as noted in HPI and below Physical Exam Const General: cooperative, healthy appearing and no acute distress Resp Effort & Inspection: normal respiratory effort and able to speak in complete sentences Cardio Rate: regular rate Peripheral pulses: Peripheral pulses 2+ throughout GI Palpation (GI): Soft to palpation Skin Lesions: no lesions Rashes: no rashes Extrem Other: Bilateral knees: Normal to inspection. No ecchymosis, erythema, or joint effusion. No tenderness to palpation to the medial or lateral joint lines. Full knee extension and flexion. Crepitus felt with ROM. NVI. Office Procedures AMB Joint Injection/Aspiration Joint Injection/Aspiration Primary Site: right knee Secondary Site: left knee Prep: site was prepped using aseptic technique, ethochloride spray was applied and injection warnings given Injected: 80 mg of, DepoMedrol, with 8 mL of (2% plain lido ) and in the joint Approach Used: anterolateral Procedure: The patient tolerated the procedure well, but had some pain with the injection and there was some relief with the local anesthesia Coding 99083 - Large joint Procedure code (CPT) selection complete Assessment & Plan Assessment & Plan (1) Osteoarthritis of knees, bilateral: Code(s): M17.0 - Bilateral primary osteoarthritis of knee Category: Medical Qualifiers: Osteoarthritis type: primary Qualified Code(s): M17.0 - Bilateral primary osteoarthritis of knee Plan The patient was offered a cortisone injection in bilateral knees with 80 mg of DepoMedrol. The patient was explained the risks, benefits, and alternatives to receiving this injection. After receiving consent for the injection, the patient had the procedure done while in the office today. The patient tolerated the procedure well with no complications. We did discuss the role of gel injections while in the office today. If the patient does not experience good relief with this injection the next step would be to petition the insurance company for coverage. Follow-up will be p.r.n., or sooner if needed Coding Level of Care Code Est Pt Level 3 (76942) Diagnoses Primary osteoarthritis of both knees M17.0 Osteoarthritis type: primary CPT Codes Coding - Large joint: 24186 - Large joint ([id number])
== END 2024-10-22 10:13 | disposition home or self-care (01) ==
PROVIDERS: PCP Internal Medicine; Visit Provider Physician Assistant
DX: M17.0 Bilateral primary osteoarthritis of knee (principal)
CPT/HCPCS: 20610; 99213

== ENCOUNTER 2024-10-22 14:45 | Outpatient (AMB) | payer OTHER, SELFPAY ==
--- NOTE | 2024-10-22 14:47 | A.OFFPC_ITS ---
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 Accompanied by: Self / Same As Patient Allergies barium sulfate Allergy (Intermediate, Verified 10/22/24 15:14) pruritus Iodinated Contrast Media [CONTRAST, IV] Allergy (Intermediate, Verified 10/22/24 15:14) RASH,HIVES varenicline [From CHANTIX] Allergy (Intermediate, Verified 10/22/24 15:14) RASH, pruritus iopromide [From Ultravist] Allergy (Mild, Verified 10/22/24 15:14) HIVES Medication List - Last Reconciled 10/22/24 by Radha Sloan MD bisacodyl (Dulcolax (bisacodyl)) [address] DAILY PRN calcium citrate-vitamin D3 315 mg-5 mcg (200 unit) (Calcium Citrate + D) 1 tab PO BID clotrimazole 1% 1 appl topical BID cyclobenzaprine 10 mg PO TID PRN lorazepam 0.5 mg PO BEDTIME PRN 30 days multivitamin 1 tab PO DAILY oxycodone 5 mg PO DAILY PRN 30 days semaglutide (weight loss) (Wegovy) 1 mg (0.5 mL) subcut Q7D 4 weeks semaglutide (weight loss) (Wegovy) 1.7 mg (0.75 mL) subcut QWEEK 4 weeks sennosides (senna) 17.2 mg (2 x 8.6 mg) PO BEDTIME triamcinolone acetonide 0.1% 1 appl topical DAILY 2 weeks vitamin A palmitate 3,000 mcg PO DAILY Tobacco use date assessed: 10/22/24 Dental Screening Dental Screen Date: 10/22/24 Did you have a dental visit in the last 12 months?: Yes Did you have a dental problem in the last 6 months where you did not have access to dental care?: No Was dental information given to patient?: Patient has dentist HPI HPI Comments History of Present Illness Details The patient is a 54-year-old female presenting with a routine physical examination. She reports a past medical history significant for lumbar dis cectomy in 1996, gastric sleeve surgery, and management of mild depression with a PHQ-9 score of 4, indicating very mild symptoms. The patient experiences chronic back pain, for which she has previously received injections that provide temporary relief for one week. No recent imaging studies for this issue were conducted during this visit. The patient's treatment history includes the management of diabetes in her father and essential hypertension, the latter being controlled with ongoing medication management. She reported stopping smoking eight years ago and does not consume alcohol. There is an interest in increasing the dosage of her medication for better control of her hypertension, from a current dose of 1.7 mg to 2.4 mg, although coverage issues by insurance have been a matter of discussion. She signed pain management contract. [facility] Medical History (Updated 10/22/24 @ 19:49 by Radha Sloan MD) Super-super obese Morbid obesity Chronic pain of both knees Bilateral primary osteoarthritis of knee Obesity JAKE (obstructive sleep apnea) Hx of heartburn Anxiety Osteoarthritis of knees, bilateral Insomnia Constipation by delayed colonic transit Dyslipidemia Back ache Chronic back pain Surgical History S/P laparoscopic sleeve gastrectomy Hx of colonoscopy History of lumbar discectomy History of tubal ligation Family History Father Diabetes Mother No problems noted. Daughter In good health Son In good health Brother No problems noted. Sister No problems noted. Maternal Grandmother Colon cancer Maternal Uncle Stomach cancer Paternal Aunt Breast cancer Social History Household Members Other:: son Housing: House Are you a primary pet care worker to a significant other at home: No Do you presently have visiting nurse or other home services: Yes ([facility]) Alcohol intake: never Comment: Uses cane when having back pain Patient Tobacco Use Status: Former Tobacco user Tobacco use type: Cigarette Years Smoked: 35 e-Cigarette/Vaping Use: Never Used Second Hand Smoke Exposure: No service: No Current occupational status: disabled Cognitive needs: No Hearing needs: No Vision needs: No Female Reproductive History Menstrual Age of Menarche: 14 Questionnaire PHQ-9 Over the last 2 weeks, how often have you been bothered by any of the following problems? 1. Little interest or pleasure in doing things: not at all 2. Feeling down, depressed, or hopeless: not at all 3. Trouble falling or staying asleep, or sleeping too much: several days 4. Feeling tired or having little energy: more than half the days 5. Poor appetite or overeating: not at all 6. Feeling bad about yourself - or that you are a failure or have let yourself or your family down: not at all 7. Trouble concentrating on things, such as reading the newspaper or watching television: not at all 8. Moving or speaking so slowly that other people could have noticed. Or the opposite - being so fidgety or restless that you have been moving around a lot more than usual: several days 9. Thoughts that you would be better off or of hurting yourself in some way: not at all Total score: 4 Depression Screening Interpretation: Positive Depression Screening Follow-up: Existing condition and Follow-up Visit Requested Depression Screening Done: Yes 61785 - PHQ-9 Billing: Yes Source: Developed by Drs. Pradeep Wyatt, Collette Lezama, Miguel Tierney and colleagues, with an educational bita from [employer]. Thrive Questionnaire Date Thrive assessed: 10/22/24 I am a: Patient What is your living situation today?: I have a steady place to live Within the past 12 months, did the food you bought not last and you didn't have the money to get more?: Often true Within the past 12 months, did you worry whether your food would run out before you got money to buy more?: Often true Do you have trouble paying for medicines?: No Do you have trouble getting transportation to medical appointments?: No Do you have trouble paying your heating and electricity bill?: No Do you have trouble taking care of your child, family member or friend?: No Do you have trouble with day-to-day activities such as bathing, preparing meals, shopping, managing finances, etc.?: Yes Are you currently unemployed and looking for a job?: No Are you interested in more education?: No Please select the resources that you would like help with: None Currently or been in a relationship where the following occur: No concerns reported THRIVE Score: 2 AUDIT C Alcohol Use Questionnaire (AUDIT-C) 1. How often do you have a drink containing alcohol?: Never Total Score: 0 Score Reviewed/Action Taken: No ZENIA-7 AMB Questionnaire ZENIA-7 Date ZENIA - 7 assessed: 10/22/24 Feeling nervous, anxious, or on edge: 1 = Several days Not being able to stop or control worryin = Several days Worrying too much about different things: 1 = Several days Trouble relaxin = Several days Being so restless that it is hard to sit still: 1 = Several days Becoming easily annoyed or irritable: 1 = Several days Feeling afraid as if something awful might happen: 0 = Not at all Total ZENIA-7 score (0-4 normal; 5-9 mild; 10-14 moderate; 15-21 severe): 6 Source: Developed by Drs. Pradeep Wyatt, Collette Lezama, Miguel Tierney and colleagues, with an educational bita from [employer]. ZENIA-7 Assessment Billing ZENIA-7 Assessment Tool: ZENIA-7 Assessment 09410 Review of Systems Const All systems reviewed & are unremarkable except as noted in HPI and below Card Denies chest pain at rest, Denies chest pain with activity, Denies edema, Denies irregular heart rhythm, Denies claudication, Denies dyspnea, Denies dyspnea on exertion, Denies orthopnea, Denies paroxysmal nocturnal dyspnea and Denies slow heart rate Resp Denies cough, Denies dyspnea and Denies dyspnea on exertion GI Denies abdominal pain, Denies change in bowel habits, Denies excessive flatus, Denies nausea and Denies vomiting Physical exam (Primary Care) Vital Signs: Last Vital Signs BP 118/72 10/22/24 14:48 BMI result Body Mass Index 30.1 BMI Assessment/Plan discussion: High BMI High, discussed plan: lifestyle, weight reduction, dietary and physical activity Tobacco/Smoking Status: Tobacco use Status Tobacco use date assessed 10/22/24 10/22/24 14:56 Patient Tobacco Use Status Former Tobacco user 10/22/24 14:51 Tobacco use type Cigarette 10/22/24 14:51 e-Cigarette/Vaping Use Never Used 10/22/24 14:51 PHQ-9: PHQ-9 Score PHQ-9: Total score 4 10/22/24 15:21 Depression Screening Interpretation: Positive Depression Screening Follow-up: Existing condition and Follow-up Visit Requested Thrive Assessment: Date of Thrive Assessment Date Thrive assessed 10/22/24 10/22/24 14:51 Currently or been in a relationship where the following occur: No concerns reported HENMT Head: Yes normal to inspection, Yes normocephalic and Yes atraumatic Ears: external ears normal Eyes General: appearance normal, both eyes and all related structures Eyelids: Yes eyelids normal Conjunctivae: conjunctivae normal Neck Neck: Yes normal visual inspection and Yes supple Resp Effort & Inspection: normal respiratory effort Auscultation: clear to auscultation bilaterally Cardio Jugular venous distension: no JVD Rate: regular rate Rhythm: regular rhythm Heart sounds: S1 normal heart sound present and S2 normal heart sound present GI Inspection: Yes normal to inspection Palpation (GI): Soft to palpation and nontender Auscultation: normal bowel sounds Skin General skin exam: no rashes or lesions noted Neuro General: no focal motor deficits Extrem General: Yes full ROM Psych Appearance: grossly normal Coding Level of Care Code Est Pt Level 3 (66783) Est Pt Prev Care 40-64y(23419) Diagnoses Physical exam Z00.00 Mild recurrent major depression F33.0 ZENIA (generalized anxiety disorder) F41.1 Additional Codes ZENIA-7 Assessment Billing - ZENIA-7 Assessment Tool: ZENIA-7 Assessment 96437 ([id number]) PHQ-9 - 03024 - PHQ-9 Billing: Yes ([id number]) Time Spent (min) 33 Assessment & Plan Assessment & Plan (1) Physical exam: Code(s): Z00.00 - Encounter for general adult medical examination without abnormal findings Category: Medical (2) Mild recurrent major depression: Code(s): F33.0 - Major depressive disorder, recurrent, mild Category: Medical (3) ZENIA (generalized anxiety disorder): Code(s): F41.1 - Generalized anxiety disorder Category: Medical Plan - Wegovy1. 7 mg to 2.4 mg as per patient's desire, pending insurance coverage: - Continue current analgesic regimen for back pain and evaluate the utility of other therapeutic interventions if needed. - Maintain regular intake of prescribed medications: lorazepam, cyclobenzaprine, oxycodone, and supplements. - Review pain management agreement as a periodic requirement due to oxycodone usage. - Address mild depression and initiate referral for psychological therapy. Patient was informed and verbally consented to the use of an ambient scribe for clinic note documentation during this visit. I discussed the mild depression score of PHQ-9 with the patient, emphasizing the mild nature of her symptoms. We explored options for therapy over pharmacological intervention, respecting her preference to consult with a mental health professional first. Concerning her medication for hypertension, we acknowledged the desire to increase the dosage to 2.4 mg and addressed potential insurance coverage issues. The patient was informed of her blood work results showing improved cholesterol levels, and we reviewed her health maintenance and screening test schedule. We also discussed her back pain management history and agreed to continue current pain management strategies, including analgesics and potential future injections. Orders: Referrals Counseling Referral F33.0 - Major depressive disorder, recurrent, mild, F41.1 - Generalized anxiety disorder Medications: New semaglutide (weight loss) (Wegovy) 2.4 mg (0.75 mL) subcut QWEEK 3 mL 0RF 4 weeks E66.9 - Obesity, unspecified, E78.5 - Hyperlipidemia, unspecified Refilled lorazepam 0.5 mg PO BEDTIME PRN 30 tabs 0RF anxiety 30 days Patient Instructions: - Continue hypertension medication as prescribed. - Use lorazepam only as needed for anxiety. - Follow the scheduled mammogram appointment. - Adhere to current pain management prescriptions and agreements. - Follow up with a mental health professional for therapy sessions.
[2024-10-22 14:48] VITALS: BP 118/72; BMI 30.1
== END 2024-10-22 15:29 | disposition home or self-care (01) ==
PROVIDERS: PCP Internal Medicine; Visit Provider Internal Medicine
DX: Z00.00 Encounter for general adult medical examination without abnormal findings (principal); F33.0 Major depressive disorder, recurrent, mild; F41.1 Generalized anxiety disorder

== ENCOUNTER 2024-11-18 11:29 | Outpatient (REF) | payer OTHER, SELFPAY ==
--- OUTSIDE RECORDS SUMMARY | 2024-11-18 12:47 | XMS_ITS | Clinical Summary ---
Author Organization [employer] Address [address] [place] [address] Care Team Providers Care Vendette Name Role Phone Unavailable Primary Care Provider Unavailabl e Allergies Active Allergy Reactions Criticality Noted Date Comments Varenicline Hives 04/05/2023 Green Dye Anaphylaxis High 04/05/2023 All kinds of dye Medications LORazepam (Ativan) 0.5 MG tablet TAKE 1 TABLET BY MOUTH AT BEDTIME NEEDED FOR ANXIETY FOR 30 DAYS 3 Active oxyCODONE (Roxicodone) 5 MG immediate release tablet TAKE 1 TABLET BY MOUTH DAILY NEEDED FOR PAIN FOR 30 DAYS. 4 Active beta carotene (vitamin A) 3 MG (54172 UT) capsule Take by mouth Once per day. 4 Active Wegovy 0.25 MG/0.5ML solution auto-injector INJECT 0.25 MG (0.5 ML) SUBCUTANEOUSLY EVERY WEEK FOR 4 WEEKS WEEKS 1 THROUGH 4 OF THERAPY 4 Active chlorhexidine (Peridex) 0.12 % solution Swish 15 mL morning and night for 1 minute. Spit, do not swallow. Do not eat or drink for 30 minutes following use. 473 mL 4 Active Active Problems Problem Noted Date Diagnosed Date Advanced periodontitis 03/28/2024 Acute gingival inflammation 03/28/2024 Gingival bleeding 03/28/2024 Dental caries 03/28/2024 Dental calculus 03/28/2024 Social History Tobacco Use Types Packs/Day Years Used Date Smoking Tobacco: Former Cigarettes Smokeless Tobacco: Never Tobacco Cessation:Counseling Given: Not Answered Comments Unknown Sex and Gender Information Value Date Recorded Sex Assigned at Female 08/15/2022 10:17 AM EDT Legal Sex Female 10:17 AM EDT Gender Identity Female 08/15/2022 10:17 AM EDT Sexual Orientation Straight 08/15/2022 10 :17 AM EDT Last Filed Vital Signs Vital Sign Reading Time Taken Comments Blood Pressure 130/78 05/23/2024 8:59 AM EDT Pulse 74 03/28/2024 10:54 AM EDT Temperature - - Respiratory Rate - - Oxygen Saturation - - Inhaled Oxygen Concentration - - Weight - - Height - - Body Mass Index - - Plan of Treatment Upcoming Encounters Date Type Department Care Team (Late st Contact Info) Description 12/12/2024 11:00 AM EST Office Visit [facility] [address] [place] [address] Brenda Martin Health Maintenance Due Date Last Done Comments CT Colonography 1970 Colonoscopy 1970 Colorectal Cancer Screening 1970 Depression Screening 1970 FIT DNA/Cologuard 1970 FIT 1970 FOBT 1970 HIV Screening 1970 SDOH Screening 1970 Sigmoidoscopy 1970 Alcohol/Substance Use Screening 1982 Hepatitis C Screening 1988 DTaP/Tdap/Td Vaccines (1 - Tdap) 1989 Hepatitis B Vaccines (1 of 3 - 19+ 3-dose series) 1989 Pap Smear 1991 Cervical Cancer Screening 2000 HPV/Cotest 2000 Mammogram 2010 Pneumococcal Vaccine: 50+ Years (1 of 1 - PCV) 2020 Zoster Vaccines (1 of 2) 2020 Dental Oral Exam 09/28/2024 03/28/2024, , 10/26/2021, Additional history exists Dental Prophylaxis 09/28/2024 03/28/2024, 0 04/24/2023, 04/05/2023, Additional history exists Dental X-Ray: Bitewings 03/29/2025 03/28/20 24, 04/11/2023, 04/05/2023, Additional history exists Tobacco Screening 05/23/2025 05/23/2024 Dental X-Ray: Full Mouth 04/12/2026 04/11/2023, 05/17 RSV Patients and Patients Aged 60 years or older (1 - 1-dose 75+ series) 2045 COVID-19 Vaccine Completed 08/09/2024, 12/2021, 09/23/2021, Additional history exists Influenza Vaccine Completed 08/09/2024, , 10/29/2021, Additional history exists HIB Vaccines Aged Out No longer eligi ble based on patient's age to complete this topic HPV Vaccines Aged Out No longer eligi ble based on patient's age to complete this topic Hepatitis A Vaccines Aged Out No long er eligible based on patient's age to complete this topic IPV Vaccines Aged Out No longer eligi ble based on patient's age to complete this topic Meningococcal Vaccine Aged Out No anusha dottie eligible based on patient's age to complete this topic Pneumococcal Vaccine: Pediatrics (0 to 5 Years) and At-Risk Patients (6 to 49) Years) Aged Out No longer eligible based on patient's age to complete this topic RSV under 20 months Aged Out No longe r eligible based on patient's age to complete this topic Rotavirus Vaccines Aged Out No longer eligible based on patient's age to complete this topic Procedures Procedure Name Priority Date/Time Associated Diagnosis Comments Full PROPHYLAXIS - ADULT Routine 024 11:00 AM EDT Advanced periodontitis Acute gingival inflammation Gingival bleeding Dental calculus BITEWINGS - 4 RADIOGRAPHIC IMAGES Routine 03/28/2024 11:00 AM EDT Advanced periodontitis Acute gingival inflammation Gingival bleeding Dental caries Dental calculus PERIODIC ORAL EVALUATION - ESTABLISHED PATIENT Routine 03/28/2024 11:00 AM EDT DIAGNOSTIC - DIAGNOSTIC IMAGING - INTRAORAL - COMPREHENSIVE SERIES OF RADIOGRAPHIC IMAGES Routine 04/11/2023 8:00 AM EDT from Last 3 Months or Most Recently Relevant to Health Maintenance Insurance [facility] MEDICAID STAND ADULT
--- OUTSIDE RECORDS SUMMARY | 2024-11-18 12:47 | XMS_ITS | Encounter Summary ---
Author Organization [facility] Address [address] [place] [address] Care Team Providers Care Tumbler Operator Name Role Phone Unavailable Primary Care Provider Unavailabl e Encounter Details Date Type Department Care Team (Late st Contact Info) Description 05/08/2023 Abstract [facility] [address] [place] [address] Homer Carvalhoaris [address] [place] [address] Social History Tobacco Use Types Packs/Day Years Used Date Smoking Tobacco: Never Assessed Comments Unknown Sex and Gender Information Value Date Recorded Sex Assigned at Female 08/15/2022 10:17 AM EDT Legal Sex Female 10:17 AM EDT Gender Identity Female 08/15/2022 10:17 AM EDT Sexual Orientation Straight 08/15/2022 10 :17 AM EDT COVID-19 Exposure Response Date Recorded In the last 10 days, have yo u been in contact with someone who was confirmed or suspected to have Coronavirus/COVID-19? No / Unsure 04/24/2023 7:48 AM EDT documented as of this encounter Plan of Treatment Upcoming Encounters Date Type Department Care Team (Late st Contact Info) Description 12/12/2024 11:00 AM EST Office Visit [facility] [address] [place] [address] Brenda Martin documented as of this encounter Visit Diagnoses Not on filedocumented in this encounter
--- OUTSIDE RECORDS SUMMARY | 2024-11-18 12:47 | XMS_ITS | Encounter Summary ---
Author Organization [facility] Address [address] [place] [address] Care Team Providers Care Geological Specialist Name Role Phone Unavailable Primary Care Provider Unavailabl e Encounter Details Date Type Department Care Team (Latest Contact Info) Description 07/02/2019 Abstract [facility] CONVERSIONS Dental, Provider, DDS Social History Tobacco Use Types Packs/Day Years Used Date Smoking Tobacco: Never Assessed Comments Unknown Sex and Gender Information Value Date Recorded Sex Assigned at Female 08/15/2022 10:17 AM EDT Legal Sex Female 10:17 AM EDT Gender Identity Female 08/15/2022 10:17 AM EDT Sexual Orientation Straight 08/15/2022 10 :17 AM EDT documented as of this encounter Plan of Treatment Upcoming Encounters Date Type Department Care Team (Late st Contact Info) Description 12/12/2024 11:00 AM EST Office Visit [facility] [address] [place] [address] Brenda Martin documented as of this encounter Visit Diagnoses Not on filedocumented in this encounter
== END 2024-11-18 11:30 | disposition home or self-care (01) ==
LOC: HO.MAMMO 11:29
PROVIDERS: PCP Internal Medicine; Visit Provider Internal Medicine
DX: Z12.31 Encounter for screening mammogram for malignant neoplasm of breast (principal)
CPT/HCPCS: 77063; 77067

== ENCOUNTER → 2024-11-18 11:45 | Outpatient (BNV) | payer OTHER, SELFPAY | PROVIDERS: PCP Internal Medicine; Visit Provider Internal Medicine | DX: Z12.31 Encounter for screening mammogram for malignant neoplasm of breast (principal) | CPT/HCPCS: 77063; 77067 ==

== ENCOUNTER 2024-11-28 18:59 | Emergency (ER) | payer OTHER, SELFPAY ==
--- NOTE | 2024-11-28 19:34 | ED_ITS ---
HPI - General Adult General Chief complaint: Ear Problems Stated complaint: ear pain Time Seen by Provider: 11/28/24 19:50 Source: patient, RN notes reviewed and old records reviewed Mode of arrival: ambulatory Limitations: no limitations History of Present Illness ED Provider: Renée HPI narrative: Patient is a 54-year-old female presenting with 3 days of left ear pain. States that she used a camera to look in her ear and could see a piece of Q-tip. Denies drainage. Denies fevers. MD complaint: left ear pain Onset (ago): day(s) Related Data Home Medications ?Medication ?Instructions ?Recorded ?Confirmed calcium 315 mg (as 1 tab PO BID 05/18/23 10/22/24 citrate)-vitamin D3 5 mcg (200 unit) tablet (Calcium Citrate + D) multivitamin 1 tab PO DAILY 05/18/23 10/22/24 Previous Rx's ?Medication ?Instructions ?Recorded vitamin A palmitate 3,000 mcg 3,000 mcg PO DAILY #30 caps 09/04/23 (10,000 unit) capsule cyclobenzaprine 10 mg tablet 10 mg PO TID PRN muscle spasm #90 10/01/23 tabs semaglutide (weight loss) 1 mg/0.5 1 mg (0.5 mL) subcut Q7D 4 weeks 05/04/24 mL subcutaneous pen injector #2 mL (Wegovy) semaglutide (weight loss) 1.7 1.7 mg (0.75 mL) subcut QWEEK 4 09/19/24 mg/0.75 mL subcutaneous pen weeks #3 mL injector (Wegovy) bisacodyl 10 mg rectal suppository 10 mg KS DAILY PRN constipation 10/17/24 (Dulcolax (bisacodyl)) #12 ea clotrimazole 1 % topical cream 1 appl topical BID #90 grams 10/17/24 sennosides 8.6 mg tablet (senna) 17.2 mg (2 x 8.6 mg) PO BEDTIME 10/17/24 constipation #90 tabs triamcinolone acetonide 0.1 % 1 appl topical DAILY 2 weeks #15 10/17/24 topical cream grams lorazepam 0.5 mg tablet 0.5 mg PO BEDTIME PRN anxiety 30 10/22/24 days #30 tabs semaglutide (weight loss) 2.4 2.4 mg (0.75 mL) subcut QWEEK 4 10/22/24 mg/0.75 mL subcutaneous pen weeks #3 mL injector (Wegovy) tirzepatide (weight loss) 2.5 2.5 mg (0.5 mL) subcut QWEEK 4 10/30/24 mg/0.5 mL subcutaneous pen weeks #2 mL injector (Zepbound) oxycodone 5 mg tablet 5 mg PO DAILY PRN pain 30 days #20 11/06/24 tabs Allergies Allergy/AdvReac Type Severity Reaction Status Date / Time barium sulfate Allergy Intermediate pruritus Verified 11/28/24 19:36 Iodinated Contrast Media Allergy Intermediate RASH,HIVES Verified 11/28/24 19:36 [CONTRAST, IV] varenicline [From CHANTIX] Allergy Intermediate RASH, Verified 11/28/24 19:36 pruritus iopromide [From Ultravist] Allergy Mild HIVES Verified 11/28/24 19:36 Review of Systems Review of Systems: As per HPI Yes all other systems are reviewed and are negative Constitutional: Constitutional: Reports as per HPI PMFSH Past Medical History Medical History Super-super obese Morbid obesity Chronic pain of both knees Bilateral primary osteoarthritis of knee Obesity JAKE (obstructive sleep apnea) Hx of heartburn Anxiety Osteoarthritis of knees, bilateral Insomnia Constipation by delayed colonic transit Dyslipidemia Back ache Chronic back pain Surgical History S/P laparoscopic sleeve gastrectomy Hx of colonoscopy History of lumbar discectomy History of tubal ligation Family History Family History Father Diabetes Mother No problems noted. Daughter In good health Son In good health Brother No problems noted. Sister No problems noted. 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) Alcohol intake: never Comment: Uses cane when having back pain Patient Tobacco Use Status: Former Tobacco user Tobacco use type: Cigarette Years Smoked: 35 e-Cigarette/Vaping Use: Never Used Second Hand Smoke Exposure: No Advance Directives: No Advance Directives Information Provided: No Do you have a plan to hurt others: No Plan service: No Current occupational status: disabled Cognitive needs: No Hearing needs: No Vision needs: No Physical Exam ED Vital Signs: Vital Signs - 24 hr 11/28/24 19:35 11/28/24 19:57 Temperature 97.9 F 97.9 F Pulse Rate 67 67 Respiratory Rate 16 16 Blood Pressure 142/86 H 142/86 H Pulse Oximetry 100 100 Oxygen Delivery Method Room Air Room Air BMI result Body Mass Index 29.8 Vital signs have been reviewed and appear to be correct. Blood pressure normal. Heart rate normal. Respiratory rate normal. Temperature normal. Oxygen saturation normal. Const General: cooperative, healthy appearing and no acute distress Orientation/consciousness: oriented to person, oriented to place, oriented to time and patient oriented x3 Limitations: no limitations HENMT Head: Yes normocephalic and Yes atraumatic Ears: external ears normal and Abnormal EAC present foreign body on the left General nose exam: Normal external nose present Face and sinus: Yes face symmetric Mouth: oropharynx normal and moist mucous membranes Throat: Yes uvula midline Eyes Pupils: Equal, round and reactive pupils present Neck Neck: Yes normal visual inspection and Yes supple Resp Effort & Inspection: normal respiratory effort and able to speak in complete sentences Auscultation: clear to auscultation bilaterally Cardio Rate: regular rate Rhythm: regular rhythm Heart sounds: S1 normal heart sound present and S2 normal heart sound present GI Palpation (GI): Soft to palpation and nontender Auscultation: normoactive bowel sounds General: Yes no CVA tenderness Back/Spine/Pelvis Back: no CVA tenderness Skin General skin exam: elasticity normal and turgor normal Neuro General: oriented to person, oriented to place, oriented to time, patient oriented x3, moves all extremities, no focal motor deficits and CN's II-XI intact bilaterally Cranial nerves: Yes Equal, round and reactive pupils present Cognition (Neuro): normal cognition Extrem General: Yes full ROM, Yes no pedal edema and Yes no calf tenderness Psych Mental Status: mental status grossly normal Affect: normal affect Thought process: Normal thought process present Procedures Foreign Body Removal Time Out Performed: yes Site: left and ear Description of foreign body: other (cotton from Qtip) Sedation/Analgesia: none Technique: removal with forceps (alligator) Confirmed by:: direct visualization Complications: none Post-procedure exam: awake, alert Medical Decision Making Medical Decision Making [facility] Narrative: Patient is a 54-year-old female presenting with 3 days of left ear pain. States that she used a camera to look in her ear and could see a piece of Q-tip. On exam patient is awake, A+Ox3, VS WNL, afebrile, normal neurological exam without focal deficits, physical exam findings as above. Given reported symptoms and physical exam findings, initial differential includes but is not limited to foreign body ear, AOM, otitis externa, cerumen impaction. FB removed as per procedure note. Patient tolerated well, TM normal. Advised patient to refrain from using Q-tips to clean her ears. Follow up with PCP as needed. Patient verbalized understanding of and agreement with plan. Differential Diagnosis Differential Diagnoses: The differential diagnosis associated with the presentation includes as per [facility] External Record Review External record reviewed: Inpatient record, Office record and Outpatient record Discharge Plan Discharge Clinical Impression: Foreign body in ear Patient Disposition: Home, Self-Care Instructions: Ear Foreign Body (ED) Additional Instructions: You were evaluated in the emergency department today for left ear pain. You were noted to have a foreign body (cotton) in your ear which was removed in the emergency department. You should refrain from using Q-tips inside your ear canals. Follow up with your primary care provider as needed. Return to the emergency department with worsening pain, drainage from ear, fever or any other new or concerning symptoms. Prescriptions: No Action vitamin A palmitate 3,000 mcg (10,000 unit) capsule 3,000 mcg PO DAILY Qty: 30 6RF cyclobenzaprine 10 mg tablet 10 mg PO TID PRN (Reason: muscle spasm) Qty: 90 6RF Wegovy 1 mg/0.5 mL pen injector 1 mg subcut Q7D 28 Days Qty: 2 0RF Wegovy 1.7 mg/0.75 mL pen injector 1.7 mg subcut QWEEK 28 Days Qty: 3 0RF Rx Instructions: administer weeks 13 through 16 of therapy Zepbound 2.5 mg/0.5 mL pen injector 2.5 mg subcut QWEEK 28 Days Qty: 2 0RF Rx Instructions: for 4 weeks oxycodone 5 mg tablet 5 mg PO DAILY PRN (Reason: pain) 30 Days Qty: 20 0RF Rx Instructions: Partial Fill upon patient request. multivitamin Tablet 1 tab PO DAILY calcium citrate-vitamin D3 [Calcium Citrate + D] 315 mg-5 mcg (200 unit) tablet 1 tab PO BID sennosides [senna] 8.6 mg tablet 17.2 mg PO BEDTIME Qty: 90 2RF bisacodyl [Dulcolax (bisacodyl)] 10 mg suppository 10 mg KS DAILY PRN (Reason: constipation) Qty: 12 0RF triamcinolone acetonide 0.1 % cream 1 appl topical DAILY 14 Days Qty: 15 0RF clotrimazole 1 % cream 1 appl topical BID Qty: 90 3RF lorazepam 0.5 mg tablet 0.5 mg PO BEDTIME PRN (Reason: anxiety) 30 Days Qty: 30 0RF Wegovy 2.4 mg/0.75 mL pen injector 2.4 mg subcut QWEEK 28 Days Qty: 3 0RF Interventions: ED Discharge Assessment Last Done: 11/28/24 19:57 Discharge Date/Time: 11/28/24 20:00 Print Language: Palestinian
[2024-11-28 19:35] VITALS: BP 142/86; PULSE 67; RESP 16; TEMP 36.6; O2SAT 100; BMI 29.8
--- OUTSIDE RECORDS SUMMARY | 2024-11-28 19:51 | XMS_ITS | Encounter Summary ---
Author Organization [employer] [facility] Address [address] [place] [address] Care Team Providers Care Scrap Piler Name Role Phone Unavailable Primary Care Provider Unavailabl e Encounter Details Date Type Department Care Team (Latest Contact Info) Description 07/02/2019 Abstract [facility] CONVERSIONS Dental, Provider, DDS Social History [...] Description 12/12/2024 11:00 AM EST Office Visit [facility] ADULT DENTAL [address] [place] [address] Brenda Martin documented as of this encounter Visit Diagnoses Not on filedocumented in this encounter
--- OUTSIDE RECORDS SUMMARY | 2024-11-28 19:51 | XMS_ITS | Clinical Summary ---
Author Organization [employer] Address [address] [place] [address] Care Team Providers Care Middle School Teacher Name Role Phone Unavailable Primary Care Provider [...] Active beta carotene (vitamin A) 3 MG (68302 UT) capsule Take by mouth Once per [...] Description 12/12/2024 11:00 AM EST Office Visit [facility] ADULT DENTAL [address] [place] [address] Brenda Martin Health Maintenance Due Date Last [...] ESTABLISHED PATIENT Routine 03/28/2024 11:00 AM EDT INTRAORAL - COMPLETE SERIES OF RADIOGRAPHIC IMAGES Routine 04/11/2023 8:00 AM EDT from Last 3 Months or Most Recently Relevant to Health Maintenance Insurance [facility] MEDICAID STAND ADULT
--- NOTE | 2024-11-28 19:55 | PC.NURSE ---
Pt eval by FAITH D/C from triage.
[2024-11-28 19:57] VITALS: BP 142/86; PULSE 67; RESP 16; TEMP 36.6; O2SAT 100
== END 2024-11-28 20:00 | disposition home or self-care (01) ==
PROVIDERS: Emergency Provider Emergency Medicine; PCP Internal Medicine
DX: H92.02 Otalgia, left ear (principal); T16.2XXA Foreign body in left ear, initial encounter; W44.8XXA Other foreign body entering into or through a natural orifice, initial encounter; Y93.9 Activity, unspecified; Y92.9 Unspecified place or not applicable; Y99.8 Other external cause status; Z79.899 Other long term (current) drug therapy
CPT/HCPCS: 69200; 99282; 99284

== ENCOUNTER 2025-02-12 11:17 | Outpatient (REF) | payer OTHER, SELFPAY ==
--- OUTSIDE RECORDS SUMMARY | 2025-02-12 15:48 | XMS_ITS | Encounter Summary ---
Author Organization [employer] Address [address] [facility] [address]t [place] [address] Care Team Providers Care Sitecore Developer Name Role Phone Unavailable Primary Care Provider Unavailabl e Encounter Details Date Type Department Care Team (Late st Contact Info) Description 05/08/2023 Abstract [facility] ADULT DENTAL [address] [place] [address] Homer Carvalhoaris [address] [place] [address] Social History Tobacco Use Types Packs/Day Years [...]
--- OUTSIDE RECORDS SUMMARY | 2025-02-12 15:48 | XMS_ITS | Encounter Summary ---
Author Organization [employer] [facility] Address [address] [facility] [address]t [place] [address] Care Team Providers Care Marine Consultant Name Role Phone Unavailable Primary Care Provider [...]
--- OUTSIDE RECORDS SUMMARY | 2025-02-12 15:49 | XMS_ITS | Clinical Summary ---
Author Organization [employer] Address [address] [facility] 7t [place] [address] Care Team Providers Care Medical Assembler Name Role Phone Unavailable Primary Care Provider [...] Active beta carotene (vitamin A) 3 MG (81650 UT) capsule Take by mouth Once per [...] Type Department Care Team Description 12/16/2024 Refill [facility] ADULT DENTAL [address] [place] [address] Rolando Vincent DDS from Last 3 Months [...] Most Recently Relevant to Health Maintenance [facility]
--- OUTSIDE RECORDS SUMMARY | 2025-02-12 15:49 | XMS_ITS | Encounter Summary ---
Author Organization [employer] Address [address] [facility] [address] [place] [address] Care Team Providers Care School Program Director Name Role Phone Unavailable Primary Care Provider Unavailabl e Reason for Visit * Reason Comments Med Refill Encounter Details Date Type Department Care Team (Late st Contact Info) Description 12/16/2024 Refill [facility] ADULT DENTAL [address] [place], [place] [phone] Rolando Vincent DDS [address] [place], [place] [phone] Social History Tobacco Use Types Packs/Day Years [...]
[2025-02-18 14:11] LABS: HPV Genotype 16 Negative (Negative); HPV Genotype 18 Negative (Negative); HPV High Risk Negative (Negative)
== END 2025-02-12 11:18 | disposition home or self-care (01) ==
LOC: HO.LNP 11:17
PROVIDERS: PCP Internal Medicine; Visit Provider Advanced Practice Midwife
DX: Z01.419 Encounter for gynecological examination (general) (routine) without abnormal findings (principal); Z78.0 Asymptomatic menopausal state; Z11.51 Encounter for screening for human papillomavirus (HPV)
CPT/HCPCS: 87626; 88175; 99396; 99459

== ENCOUNTER 2025-02-12 11:17 | Outpatient (AMB) | payer OTHER, SELFPAY ==
--- NOTE | 2025-02-12 11:17 | MHC.OFFVIS ---
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 Thermoplastic Technician: Thermoplastic Technician Present (Jacinda) Accompanied by: Self / Same As Patient Allergies barium sulfate Allergy (Intermediate, Verified 02/12/25 11:40) pruritus Iodinated Contrast Media [CONTRAST, IV] Allergy (Intermediate, Verified 02/12/25 11:40) RASH,HIVES varenicline [From CHANTIX] Allergy (Intermediate, Verified 02/12/25 11:40) RASH, pruritus iopromide [From Ultravist] Allergy (Mild, Verified 02/12/25 11:40) HIVES Medication List - Last Reconciled 02/12/25 by Renata De La Rosa CNM bisacodyl (Dulcolax (bisacodyl)) 10 mg AR DAILY PRN calcium citrate-vitamin D3 315 mg-5 mcg (200 unit) (Calcium Citrate + D) 1 tab PO BID clotrimazole 1% 1 appl topical BID cyclobenzaprine 10 mg PO TID PRN lorazepam 0.5 mg PO BEDTIME PRN 30 days multivitamin 1 tab PO DAILY oxycodone 5 mg PO DAILY PRN 30 days sennosides (senna) 17.2 mg (2 x 8.6 mg) PO BEDTIME tirzepatide (weight loss) (Zepbound) 2.5 mg (0.5 mL) subcut QWEEK 4 weeks tirzepatide (weight loss) (Zepbound) 7.5 mg (0.5 mL) subcut QWEEK 4 weeks triamcinolone acetonide 0.1% 1 appl topical DAILY 2 weeks vitamin A palmitate 3,000 mcg PO DAILY Post menopausal: Yes Patient : No HPI HPI 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 She feels she is doing well she is not having any water softener servicer concerns at all she is up-to-date on her mammograms. She had missed a few years when she did not have a Pap smear and then in 2022 Pap was negative with positive HPV and then in 2023 was negative with negative HPV. She is for years and has no concerns about STDs. Her only issue is that she does note that she has decreased interest in sex and she just does not have the urge she is not so much complaining of vaginal dryness but no urge. She is not interested in any kind of hormonal treatment because she does not want to deal with any side effects. She has lost a tremendous amount of weight, 1st through gastric bypass and then she was on Wegovy but it was discontinued by her insurance and not approved and now she is on Zepbound. She is actually having less it effects with the Zepbound she is also walking and eating well and doing exercises and abdominal exercises. She is very much hoping that her excess flesh and skin on her arms can be dealt with she has lost 130 lb overall 100 after the gastric bypass and another 30 with the additional medication now by losing the weight she has resolved her high blood pressure and her high cholesterol as well.. Her son also went through the process and has lost 200 lb. [facility] Medical History Super-super obese Morbid obesity Chronic pain of both knees Bilateral primary osteoarthritis of knee Obesity JAKE (obstructive sleep apnea) Hx of heartburn Anxiety Osteoarthritis of knees, bilateral Insomnia Constipation by delayed colonic transit Dyslipidemia Back ache Chronic back pain Surgical History S/P laparoscopic sleeve gastrectomy Hx of colonoscopy History of lumbar discectomy History of tubal ligation Family History Father Diabetes Mother No problems noted. Daughter In good health Son In good health Brother No problems noted. Sister No problems noted. 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) Alcohol intake: never Comment: Uses cane when having back pain Patient Tobacco Use Status: Former Tobacco user Tobacco use type: Cigarette Years Smoked: 35 e-Cigarette/Vaping Use: Never Used Second Hand Smoke Exposure: No service: No Current occupational status: disabled Cognitive needs: No Hearing needs: No Vision needs: No Female Reproductive History Menstrual Age of Menarche: 14 control method: none Total pregnancies: 4 Full term: 4 Date of last pap smear: 01/31/24 (negative) History of abnormal pap smear: Yes (+hpv) Date of Mammogram: 11/18/24 (bi rad) Physical Exam Vital Signs: Last Vital Signs BP 104/72 02/12/25 11:42 BMI result Body Mass Index 29.0 Const General: healthy appearing, comfortable, no acute distress, well developed and alert Nutritional Appearance: average body habitus Orientation/consciousness: patient oriented x3 Limitations: no limitations HEENT Head: Yes normocephalic Neck Neck: Yes normal visual inspection Chest Chest palpation & inspection: normal inspection of the chest Breast/axilla inspection: normal inspection of the breasts and normal inspection of the axillae Breast/axilla palpation: normal palpation of the breasts and normal palpation of the axillae Resp Effort & Inspection: normal respiratory effort Cardio Other: Evidence of past weight loss. GI Inspection: Yes normal to inspection, No Abdominal wall edema and No distended Palpation (GI): Soft to palpation and nontender Other: External exam within normal limits vagina pink and moist with clear mucus in vagina somewhat yellowish in thick near cervix. Cervix multiparous long thick closed mobile nontender uterus small anteverted mobile nontender easy to feel with reduced body mass.. Adnexa nontender good tone with Kegel. General: Yes bladder normal to palpation External Female Exam: normal external appearance and normal appearance of the urethra Speculum Exam - Vagina: normal appearance of the vagina, normal palpation and normal vaginal discharge Speculum Exam - Cervix: normal appearance of the cervix, normal palpation and nontender Bimanual exam- vagina & uterus: normal bimanual exam, normal palpation, uterine size normal, bladder normal to palpation, consistency normal, normal palpation, uterine mobility normal, uterine shape normal, No Cervical tenderness present, non-tender and no cervical motion tenderness Bimanual Exam- Adnexa, other: normal adnexae, no masses, normal and No adnexal tenderness Neuro General: patient oriented x3 Results Reviewed Results Reviewed: Name: Urszula Romero Age/Sex: 53/F Attending: Renata De La Rosa CNM : 1970 Submitted by: Renata De La Rosa CNM Copies to: Radha Howard MD MR #: [id number] Status: DEP REF Collected: 01/31/24 [facility] Received: 02/02/24 Interpretation Satisfactory for evaluation; endocervical component present. Negative for squamous intraepithelial lesion or malignancy. Reactive cellular changes. HPV mRNA E6/E7: Not detected This assay detects E6/E7 viral messenger RNA (mRNA) from 14 high-risk HPV types (16, 18, 31, 33, 35, 39, 45, 51, 52, 56, 58, 59, 66, 68) HPV testing performed by [facility], [place], [place]. See reference laboratory portion of the EMR for entire report. Clinical Information LMP: No menses Previous PAP test: 01/09/23, HPV+ Material Received ThinPrep-Cervical Copies To Renata De La Rosa CNM [address] [place] [address] [address]. [address] [place] [address] Radha Howard MD [address] [place] [address] [address]. [address] [place] [address] Electronically Signed By: Cindy Carcamo MD 02/20/24 8661 The Pap Test is a screening procedure with the inherent possibility of both false negative and false positive results. Results should be interpreted in the context of historic and current clinical findings. Reliability of the Pap Test is enhanced by performing the test on a regular repetitive basis. Patient: Urszula Romero Age/Sex: 53/F MR#: [id number] Page 1 of 1 PAP OF 01/05 EQUALS NEGATIVE -WITH POSITIVE HPV. Assessment & Plan Assessment & Plan (1) Well woman exam with routine gynecological exam: Code(s): Z01.419 - Encounter for gynecological examination (general) (routine) without abnormal findings Category: Medical (2) Cervical cancer screening: Comment: 01/03/22 pap= neg, w pos hpv; 01/09/23 pap negative, HPV pos; repeat in 1 year per ascap; 01/31/24 pap is neg w neg hpv. Code(s): Z12.4 - Encounter for screening for malignant neoplasm of cervix Category: Medical (3) Well woman exam with routine gynecological exam: Code(s): Z01.419 - Encounter for gynecological examination (general) (routine) without abnormal findings Category: Medical (4) Postmenopausal: Code(s): Z78.0 - Asymptomatic menopausal state Category: Medical (5) Overweight (BMI 25.0-29.9): Comment: Due gastric surgery and her efforts and use of medications has lost 130 lb. Code(s): E66.3 - Overweight Category: Medical Plan -----Discussed in this visit the following: healthy balanced diet, regular and consistent exercise, getting recommended health screens, doing the best she can for her particular health concerns, kegel exercises, pap smear screening and followup recommendations, mammography screening and SBE, normal changes in cycles in her life stage--- . She is keeping up with her mammograms and with herself care. She is not interested in speaking with anyone else about going on hormone therapy for her decreased libido. Suggested taking advantage of any times when she does feel a little bit more libido, which occasionally she does experience. She has no concerns at all about STIs. I congratulated her on all of her hard work to achieve her improved health and weight loss. Given that she tells me she had missed a few Pap smears in the past before the Pap smear with a positive HPV in 2022 followed by the -1 in 2023 I have repeated the Pap today out of an abundance of caution. Coding Level of Care Code Est Pt Prev Care 40-64y(37061) Diagnoses Well woman exam with routine gynecological exam Z01.419 Cervical cancer screening Z12.4 Postmenopausal Z78.0 Overweight (BMI 25.0-29.9) E66.3
[2025-02-12 11:42] VITALS: BP 104/72; BMI 29.0
--- OUTSIDE RECORDS SUMMARY | 2025-02-12 12:53 | XMS_ITS | Encounter Summary ---
Author Organization [employer] Address [address] [place] [address] Care Team Providers Care State Game Protector Name Role Phone Unavailable Primary Care Provider Unavailabl e Reason for Visit * Reason Comments Med Refill Encounter Details Date Type Department Care Team (Late st Contact Info) Description 12/16/2024 Refill [facility] ADULT DENTAL [address] [place], [place] [id number] Rolando Vincent DDS [address] [place], [place] [id number] Social History Tobacco Use Types Packs/Day Years Used Date Smoking Tobacco: Former Cigarettes Smokeless Tobacco: Never Comments Unknown Sex and Gender Information Value Date Recorded Sex Assigned at Female 08/15/2022 10:17 AM EDT Legal Sex Female 10:17 AM EDT Gender Identity Female 08/15/2022 10:17 AM EDT Sexual Orientation Straight 08/15/2022 10 :17 AM EDT documented as of this encounter Miscellaneous Notes * Telephone Encounter - Nilesh Rockwell DMD - 12/17/2024 7:57 AM EST Approving, but needs appt for additional refills. documented in this encounter Plan of Treatment Not on file documented as of this encounter Visit Diagnoses Not on filedocumented in this encounter
--- OUTSIDE RECORDS SUMMARY | 2025-02-12 12:53 | XMS_ITS | Encounter Summary ---
Author Organization [employer] [facility] Address [address] [place] [address] Care Team Providers Care Louver Mortiser Operator Name Role Phone Unavailable Primary Care Provider Unavailabl e Encounter Details Date Type Department Care Team (Latest Contact Info) Description 07/02/2019 Abstract [facility] CONVERSIONS Dental, Provider, DDS Social History Tobacco Use Types Packs/Day Years Used Date Smoking Tobacco: Never Assessed Comments Unknown Sex and Gender Information Value Date Recorded Sex Assigned at Female 08/15/2022 10:17 AM EDT Legal Sex Female 10:17 AM EDT Gender Identity Female 08/15/2022 10:17 AM EDT Sexual Orientation Straight 08/15/2022 10 :17 AM EDT documented as of this encounter Plan of Treatment Not on file documented as of this encounter Visit Diagnoses Not on filedocumented in this encounter
--- OUTSIDE RECORDS SUMMARY | 2025-02-12 12:53 | XMS_ITS | Clinical Summary ---
Author Organization [employer] Address [address] [facility] 7t [place] [address] Care Team Providers Care Tattoo Designer Name Role Phone Unavailable Primary Care Provider [...] Active beta carotene (vitamin A) 3 MG (70270 UT) capsule Take by mouth Once per day. 4 Active Wegovy 0.25 MG/0.5ML solution auto-injector INJECT 0.25 MG (0.5 ML) SUBCUTANEOUSLY EVERY WEEK FOR 4 WEEKS WEEKS 1 THROUGH 4 OF THERAPY 4 Active chlorhexidine (Peridex) 0.12 % solution SWISH 15 ML MORNING AND NIGHT FOR 1 MINUTE. SPIT, DO NOT SWALLOW. DO NOT EAT OR DRINK FOR 30 MINUTES FOLLOWING USE. 473 mL 5 Active Active Problems Problem Noted Date Diagnosed Date Advanced periodontitis 03/28/2024 Acute gingival inflammation 03/28/2024 Gingival bleeding 03/28/2024 Dental caries 03/28/2024 Dental calculus 03/28/2024 Encounters Date Type Department Care Team Description 12/16/2024 Refill [facility] ADULT DENTAL [address] [place] [address] Rolando Vincent DDS from Last 3 Months Social History Tobacco Use Types Packs/Day Years [...] Mass Index - - Plan of Treatment Health Maintenance Due Date Last Done Comments [...] Most Recently Relevant to Health Maintenance [facility]
--- OUTSIDE RECORDS SUMMARY | 2025-02-12 12:53 | XMS_ITS | Encounter Summary ---
Author Organization [employer] Address [address] [facility] 7t [place] [address] Care Team Providers Care Circular Gang Saw Operator Name Role Phone Unavailable Primary Care Provider Unavailabl e Encounter Details Date Type Department Care Team (Late st Contact Info) Description 05/08/2023 Abstract [facility] ADULT DENTAL [address] [place] [address] Homer Carvalhoaris [address] [place] [address] Social History Tobacco Use Types Packs/Day Years [...]
== END 2025-02-12 14:27 | disposition home or self-care (01) ==
LOC: HO.HWSM 11:17
PROVIDERS: PCP Internal Medicine; Visit Provider Advanced Practice Midwife
DX: Z01.419 Encounter for gynecological examination (general) (routine) without abnormal findings (principal); Z78.0 Asymptomatic menopausal state; E66.3 Overweight
CPT/HCPCS: 99396; 99459

== ENCOUNTER 2025-02-13 14:47 | Outpatient (AMB) | payer OTHER, SELFPAY ==
--- NOTE | 2025-02-13 14:59 | A.OFFVIS_ITS ---
VS Expanded 02/13/25 15:12 BP 118/69 Blood Pressure Location Rt brachial Blood Pressure Position Sitting Pulse 60 Pulse Source Pulse Oximeter Temp 97.0 F Temperature Source Temporal Artery Scan Pulse Oximetry 100 Oxygen Delivery Method Room Air Height 5 ft 5 in Weight 169 lb 6.4 oz BMI 28.2 Body Fat % 35.9 Body Fat Mass 60.8 Fat Free Mass 108.4 Visceral Fat Rating 8.0 Body Water % 45.4 Body Water Mass 77.0 Muscle Mass/Score 103.0 Basal Metabolic Rate/Score 1,474 Intake Visit Reasons: (OV) PO LSG 08/24/22 Allergies barium sulfate Allergy (Intermediate, Verified 02/12/25 11:40) pruritus Iodinated Contrast Media [CONTRAST, IV] Allergy (Intermediate, Verified 02/12/25 11:40) RASH,HIVES varenicline [From CHANTIX] Allergy (Intermediate, Verified 02/12/25 11:40) RASH, pruritus iopromide [From Ultravist] Allergy (Mild, Verified 02/12/25 11:40) HIVES HPI Comments Details: This?a?54?yo female who is s/p LSG without hiatal hernia repair on?09/03/[address] Alfredo. Presents for 2 year 6 month post op visit. Weight today is 169.4 pounds, with a BMI of 28.2. There has been a 134.8 pound weight loss,(initial weight 304.2 pounds) since starting the program on 05/11/2022 reflecting a 44.3 % total body weight loss and a weight loss of 107.8 pounds since surgery (operative weight 277.2 pounds) reflecting a 38.8 % TBWL since surgery. No complaints of nausea, emesis, abdominal pain or reflux. Reports constipation. Reports that she is craving salty and crunchy things. She states she was having trouble losing weight and she spoke with her PCP and was prescribed Wegovy. Given her extensive weight loss of greater than 100 lb since initiating the program, she has developed additional excess skin of the abdomen. This has caused a sensation of burning and itching which causes her great discomfort additionally, she has used the prescriptive clotrimazole cream that I had sent in for her with improvement of the rash however she has recurrence of the rash 2-3 times per month. We discussed the possibility of medically necessary skin removal surgery. We will continue to encourage weight loss to a healthy BMI and then if this continues to be a problem as I suspect that it will, we will submit to her insurance company for possible medically necessary skin removal surgery. She states that since last visit, she has had several episodes of rash underneath the abdominal skin. She has had between 1 and 2 episodes per month over the last several months. They all improve with the use of the antifungal cream topically however she has recurrence, especially with increased exercise and increased sweating. She also has difficulty with clothes fitting properly due to the excess skin. She has had a negative impact on her activities of daily living such that she needs to have increased hygiene practices. She would shower twice a day and half to wash underneath the abdominal pannus at least once or twice a day depending on her level of activity that day. Present meal plan includes: RTD premier protein shake, 10-12 pm 1/2 another shake w 6 oz unsweetened almond milk, 2-4 pm meal at 5 pm 3 oz protein and 3 oz veg watered down 64-80 oz diet iced tea ? Exercise routine includes: walking outside 7 days per week. 500 calories PFSH Medical History Super-super obese Morbid obesity Chronic pain of both knees Bilateral primary osteoarthritis of knee Obesity JAKE (obstructive sleep apnea) Hx of heartburn Anxiety Osteoarthritis of knees, bilateral Insomnia Constipation by delayed colonic transit Dyslipidemia Back ache Chronic back pain Surgical History S/P laparoscopic sleeve gastrectomy Hx of colonoscopy History of lumbar discectomy History of tubal ligation Family History Father Diabetes Mother No problems noted. Daughter In good health Son In good health Brother No problems noted. Sister No problems noted. 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) Alcohol intake: never Comment: Uses cane when having back pain Patient Tobacco Use Status: Former Tobacco user Tobacco use type: Cigarette Years Smoked: 35 e-Cigarette/Vaping Use: Never Used Second Hand Smoke Exposure: No service: No Current occupational status: disabled Cognitive needs: No Hearing needs: No Vision needs: No Female Reproductive History Menstrual Age of Menarche: 14 Physical Exam Vital Signs: Last Vital Signs Temp 97.0 F 02/13/25 15:12 Pulse 60 02/13/25 15:12 BP 118/69 02/13/25 15:12 Pulse Ox 100 02/13/25 15:12 Oxygen Delivery Method Room Air 02/13/25 15:12 BMI result Body Mass Index 28.2 Const General: healthy appearing and no acute distress Resp Effort & Inspection: normal respiratory effort Auscultation: clear to auscultation bilaterally Cardio Rate: regular rate Rhythm: regular rhythm GI Auscultation: normal bowel sounds Skin Other: Pannus grade 2/3 of the abdomen without active dermatitis Extrem General: Yes normal to inspection Assessment & Plan Assessment & Plan (1) S/P laparoscopic sleeve gastrectomy: Code(s): Z98.84 - Bariatric surgery status Category: Surgical Plan: RTD premier protein shake, 10-12 pm 4 oz of shake w 6 oz unsweetened almond milk, 2-4 pm meal at 5 pm 3 oz protein and 3 oz veg Continue exercise as much as she is able. Plan for approximate 8-10 lb weight loss by her next visit. Encouraged to send weight is weekly and text with any questions or concerns (2) Excess skin: Code(s): L98.7 - Excessive and redundant skin and subcutaneous tissue Category: Medical Plan: Patient has lost over 130 lb, greater than 44% total body weight loss. As a result she has had excessive skin, especially abdominal pannus. This has caused negative impact on her ADLs as listed above as well as recurrent skin infections. These have improved with the use of topical antifungals however only to recur. She will continue with the meal plan and exercise plan. We will submit for insurance approval of medically necessary skin removal surgery at her next appointment.
[2025-02-13 15:12] VITALS: BP 118/69; PULSE 60; TEMP 36.1; O2SAT 100; BMI 28.2
--- OUTSIDE RECORDS SUMMARY | 2025-02-13 16:46 | XMS_ITS | Encounter Summary ---
Author Organization [employer] Address [address] [facility] [address]t [place] [address] Care Team Providers Care Last Model Maker Name Role Phone Unavailable Primary Care Provider Unavailabl e Encounter Details Date Type Department Care Team (Late st Contact Info) Description 05/08/2023 Abstract [facility] ADULT DENTAL [address] [place] [address] Homer Carvalhoaris [address] [place] [address] Social History Tobacco Use Types Packs/Day Years [...]
--- OUTSIDE RECORDS SUMMARY | 2025-02-13 16:46 | XMS_ITS | Encounter Summary ---
Author Organization [employer] [facility] Address [address] [facility] [address]t [place] [address] Care Team Providers Care Web Services Developer Name Role Phone Unavailable Primary Care [...]
--- OUTSIDE RECORDS SUMMARY | 2025-02-13 16:46 | XMS_ITS | Encounter Summary ---
Author Organization [employer] Address [address] [facility] 7t [place] [address] Care Team Providers Care Data Operations Manager Name Role Phone Unavailable Primary Care Provider Unavailabl e Reason for Visit * Reason Comments Med Refill Encounter Details Date Type Department Care Team (Late st Contact Info) Description 12/16/2024 Refill [facility] ADULT DENTAL [address] [place], [place] [phone] Rolando Vincent DDS [address] [place], [place] [phone] Social History Tobacco Use Types Packs/Day Years [...]
--- OUTSIDE RECORDS SUMMARY | 2025-02-13 16:46 | XMS_ITS | Clinical Summary ---
Author Organization [employer] Address [address] [facility] 7t [place] [address] Care Team Providers Care Welding Teacher Name Role Phone Unavailable Primary Care [...] Active beta carotene (vitamin A) 3 MG (94048 UT) capsule Take by mouth Once per [...] Type Department Care Team Description 12/16/2024 Refill [facility] ADULT DENTAL [address] [place] [address] Rolando Vincent DDS from Last 3 Months [...] Most Recently Relevant to Health Maintenance Insurance [facility] ST[facility]
== END 2025-02-13 16:31 | disposition home or self-care (01) ==
LOC: HO.HBS 14:48
PROVIDERS: PCP Internal Medicine; Visit Provider Physician Assistant Surgical
DX: L98.7 Excessive and redundant skin and subcutaneous tissue (principal); Z98.84 Bariatric surgery status
CPT/HCPCS: 99213

== ENCOUNTER → 2025-02-13 14:47 | Outpatient (BNVA) | payer OTHER, SELFPAY | PROVIDERS: PCP Internal Medicine; Visit Provider Physician Assistant Surgical | DX: L98.7 Excessive and redundant skin and subcutaneous tissue (principal); Z98.84 Bariatric surgery status | CPT/HCPCS: 99212 ==

== ENCOUNTER 2025-02-20 11:17 | Outpatient (AMB) | payer OTHER, SELFPAY ==
--- NOTE | 2025-02-20 11:20 | MHC.OFFVIS ---
Vital Signs 02/20/25 11:27 Height 5 ft 5 in Weight 169 lb BMI 28.1 Intake Visit Reasons: B/L knee Euflexxa Gel Injection #1 Intake Note: Urszula is a 54 year old female who presents today for her bilateral knee euflexxa gel injections #1. Allergies barium sulfate Allergy (Intermediate, Verified 02/20/25 11:27) pruritus Iodinated Contrast Media [CONTRAST, IV] Allergy (Intermediate, Verified 02/20/25 11:27) RASH,HIVES varenicline [From CHANTIX] Allergy (Intermediate, Verified 02/20/25 11:27) RASH, pruritus iopromide [From Ultravist] Allergy (Mild, Verified 02/20/25 11:27) HIVES HPI HPI B/L knee Euflexxa Gel Injection #1: Details: Ms. Romero is a 54-year-old female who presents to the office today for bilateral knee Euflexxa injections #1. [facility] Medical History Super-super obese Morbid obesity Chronic pain of both knees Bilateral primary osteoarthritis of knee Obesity JAKE (obstructive sleep apnea) Hx of heartburn Anxiety Osteoarthritis of knees, bilateral Insomnia Constipation by delayed colonic transit Dyslipidemia Back ache Chronic back pain Surgical History S/P laparoscopic sleeve gastrectomy Hx of colonoscopy History of lumbar discectomy History of tubal ligation Family History Father Diabetes Mother No problems noted. Daughter In good health Son In good health Brother No problems noted. Sister No problems noted. 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) Alcohol intake: never Comment: Uses cane when having back pain Patient Tobacco Use Status: Former Tobacco user Tobacco use type: Cigarette Years Smoked: 35 e-Cigarette/Vaping Use: Never Used Second Hand Smoke Exposure: No service: No Current occupational status: disabled Cognitive needs: No Hearing needs: No Vision needs: No Female Reproductive History Menstrual Age of Menarche: 14 Review of Systems Const All systems reviewed & are unremarkable except as noted in HPI and below Physical Exam Vital Signs: BMI result Body Mass Index 28.1 Const General: cooperative, healthy appearing and no acute distress Resp Effort & Inspection: normal respiratory effort and able to speak in complete sentences Extrem Other: Bilateral knees: Normal to inspection. No ecchymosis, erythema, or joint effusion. No tenderness to palpation to the medial or lateral joint lines. Full knee extension and flexion. Crepitus felt with ROM. NVI. Office Procedures AMB Joint Injection/Aspiration Joint Injection/Aspiration Primary Site: right knee Secondary Site: left knee Prep: site was prepped using aseptic technique, ethochloride spray was applied and injection warnings given Injected: other (Euflexxa #1) Approach Used: anterolateral Procedure: The patient tolerated the procedure well, but had some pain with the injection and there was some relief with the local anesthesia Coding 35519 - Bilateral Large Joint Procedure code (CPT) selection complete Assessment & Plan Assessment & Plan (1) Osteoarthritis of right knee: Code(s): M17.11 - Unilateral primary osteoarthritis, right knee Category: Medical Qualifiers: Osteoarthritis type: unspecified Qualified Code(s): M17.11 - Unilateral primary osteoarthritis, right knee (2) Osteoarthritis of left knee: Code(s): M17.12 - Unilateral primary osteoarthritis, left knee Category: Medical Qualifiers: Osteoarthritis type: unspecified Qualified Code(s): M17.12 - Unilateral primary osteoarthritis, left knee Plan The patient was offered bilateral knee Euflexxa #1. The patient was explained the risks, benefits, and alternatives to receiving this injection. After receiving consent for the injection, the patient had the procedure done while in the office today. The patient tolerated the procedure well with no complications. Follow-up will be in 1 week for Euflexxa #2, or sooner if needed Coding Level of Care Code Procedure Only Diagnoses Osteoarthritis of right knee, unspecified osteoarthritis type M17.11 Osteoarthritis type: unspecified Osteoarthritis of left knee, unspecified osteoarthritis type M17.12 Osteoarthritis type: unspecified CPT Codes Coding - 39724 - Bilateral Large Joint: 12284 - Bilateral Large Joint ([id number])
[2025-02-20 11:27] VITALS: BMI 28.1
--- OUTSIDE RECORDS SUMMARY | 2025-02-20 12:49 | XMS_ITS | Clinical Summary ---
Author Organization [employer] Address [address] [facility] [address]t [place] [address] Care Team Providers Care Cocoa Bean Roaster Helper Name Role Phone Unavailable Primary Care Provider [...] Active beta carotene (vitamin A) 3 MG (72342 UT) capsule Take by mouth Once per [...] Type Department Care Team Description 12/16/2024 Refill [facility] ADULT DENTAL [address] [place] [address] Rolando Vincent DDS from Last 3 Months [...] Most Recently Relevant to Health Maintenance [facility]
--- OUTSIDE RECORDS SUMMARY | 2025-02-20 12:49 | XMS_ITS | Encounter Summary ---
Author Organization [employer] [facility] Address [address] [facility] 7t [place] [address] Care Team Providers Care Aerobics Instructor Name Role Phone Unavailable Primary Care Provider [...]
--- OUTSIDE RECORDS SUMMARY | 2025-02-20 12:49 | XMS_ITS | Encounter Summary ---
Author Organization [employer] Address [address] [facility] 7t [place] [address] Care Team Providers Care Shallot Cleaner Name Role Phone Unavailable Primary Care Provider Unavailabl e Reason for Visit * Reason Comments Med Refill Encounter Details Date Type Department Care Team (Late st Contact Info) Description 12/16/2024 Refill [facility] ADULT DENTAL [address] [place], [place] [phone] Rolando Vincent DDS [address] [place], [place] [phone] Social History Tobacco Use Types Packs/Day Years [...]
--- OUTSIDE RECORDS SUMMARY | 2025-02-20 12:49 | XMS_ITS | Encounter Summary ---
Author Organization [employer] Address [address] [facility] [address]t [place] [address] Care Team Providers Care River Boat Captain Name Role Phone Unavailable Primary Care Provider Unavailabl e Encounter Details Date Type Department Care Team (Late st Contact Info) Description 05/08/[address] [facility] ADULT DENTAL [address] [place] [address] Homer Carvalhoaris [address] [place] [address] Social History Tobacco Use Types Packs/Day Years [...]
== END 2025-02-20 11:40 | disposition home or self-care (01) ==
LOC: HO.HOS 11:18
PROVIDERS: PCP Internal Medicine; Visit Provider Physician Assistant
DX: M17.0 Bilateral primary osteoarthritis of knee (principal)
CPT/HCPCS: 20610

== ENCOUNTER → 2025-02-20 11:17 | Outpatient (BNVA) | payer OTHER, SELFPAY | PROVIDERS: PCP Internal Medicine; Visit Provider Physician Assistant | DX: M17.0 Bilateral primary osteoarthritis of knee (principal) | CPT/HCPCS: 20610; J7323 ==

== ENCOUNTER 2025-02-27 10:58 | Outpatient (AMB) | payer OTHER, SELFPAY ==
--- NOTE | 2025-02-27 11:27 | MHC.OFFVIS ---
Vital Signs 02/27/25 11:31 Height 5 ft 5 in Weight 169 lb BMI 28.1 Intake Visit Reasons: B/L knee Euflexxa Gel Injection #2 Intake Note: Urszula is a 54 year old female who presents today for her bilateral knee euflexxa gel injections #2. Patient reports she hasn't noticed a change yet in her pain yet. Allergies barium sulfate Allergy (Intermediate, Verified 02/27/25 11:31) pruritus Iodinated Contrast Media [CONTRAST, IV] Allergy (Intermediate, Verified 02/27/25 11:31) RASH,HIVES varenicline [From CHANTIX] Allergy (Intermediate, Verified 02/27/25 11:31) RASH, pruritus iopromide [From Ultravist] Allergy (Mild, Verified 02/27/25 11:31) HIVES HPI HPI B/L knee Euflexxa Gel Injection #2: Details: Ms. Romero is a 54-year-old female who presents to the office today for bilateral knee Euflexxa injections #2. [facility] Medical History Super-super obese Morbid obesity Chronic pain of both knees Bilateral primary osteoarthritis of knee Obesity JAKE (obstructive sleep apnea) Hx of heartburn Anxiety Osteoarthritis of knees, bilateral Insomnia Constipation by delayed colonic transit Dyslipidemia Back ache Chronic back pain Surgical History S/P laparoscopic sleeve gastrectomy Hx of colonoscopy History of lumbar discectomy History of tubal ligation Family History Father Diabetes Mother No problems noted. Daughter In good health Son In good health Brother No problems noted. Sister No problems noted. 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) Alcohol intake: never Comment: Uses cane when having back pain Patient Tobacco Use Status: Former Tobacco user Tobacco use type: Cigarette Years Smoked: 35 e-Cigarette/Vaping Use: Never Used Second Hand Smoke Exposure: No service: No Current occupational status: disabled Cognitive needs: No Hearing needs: No Vision needs: No Female Reproductive History Menstrual Age of Menarche: 14 Review of Systems Const All systems reviewed & are unremarkable except as noted in HPI and below Physical Exam Vital Signs: BMI result Body Mass Index 28.1 Const General: cooperative, healthy appearing and no acute distress Resp Effort & Inspection: normal respiratory effort and able to speak in complete sentences Extrem Other: Bilateral knees: Normal to inspection. No ecchymosis, erythema, or joint effusion. No tenderness to palpation to the medial or lateral joint lines. Full knee extension and flexion. Crepitus felt with ROM. NVI. Office Procedures AMB Joint Injection/Aspiration Joint Injection/Aspiration Primary Site: right knee Secondary Site: left knee Prep: site was prepped using aseptic technique, ethochloride spray was applied and injection warnings given Injected: in the joint and other (Euflexxa #2) Approach Used: anterolateral Procedure: The patient tolerated the procedure well, but had some pain with the injection and there was some relief with the local anesthesia Coding 06897 - Bilateral Large Joint Procedure code (CPT) selection complete Assessment & Plan Assessment & Plan (1) Osteoarthritis of knees, bilateral: Code(s): M17.0 - Bilateral primary osteoarthritis of knee Category: Medical Qualifiers: Osteoarthritis type: primary Qualified Code(s): M17.0 - Bilateral primary osteoarthritis of knee Plan The patient was offered Euflexxa #2 injections in bilateral knees. The patient was explained the risks, benefits, and alternatives to receiving this injection. After receiving consent for the injection, the patient had the procedure done while in the office today. The patient tolerated the procedure well with no complications. Follow-up will be 1 week for the last Euflexxa injection series, or sooner if needed Coding Level of Care Code Procedure Only Diagnoses Primary osteoarthritis of both knees M17.0 Osteoarthritis type: primary CPT Codes Coding - 48846 - Bilateral Large Joint: 86760 - Bilateral Large Joint ([id number])
[2025-02-27 11:31] VITALS: BMI 28.1
--- OUTSIDE RECORDS SUMMARY | 2025-02-27 12:10 | XMS_ITS | Encounter Summary ---
Author Organization [employer] [facility] Address [address] [facility] [address] [place] [address] Care Team Providers Care Piggery Worker Name Role Phone Unavailable Primary Care Provider [...]
--- OUTSIDE RECORDS SUMMARY | 2025-02-27 12:10 | XMS_ITS | Clinical Summary ---
Author Organization [employer] Address [address] [place] [address] Care Team Providers Care Employee Benefits Coordinator Name Role Phone Unavailable Primary Care Provider [...] Active beta carotene (vitamin A) 3 MG (48600 UT) capsule Take by mouth Once per [...] Type Department Care Team Description 12/16/2024 Refill [facility] ADULT DENTAL [address] [facility] [place] [address] Rolando Vincent DDS from Last 3 Months [...] patient's age to complete this topic Meningococcal B Vaccine Aged Out No l onger eligible based on patient's age to complete [...] Most Recently Relevant to Health Maintenance Insurance [facility] STAND ADULT
--- OUTSIDE RECORDS SUMMARY | 2025-02-27 12:10 | XMS_ITS | Encounter Summary ---
Author Organization [employer] Address [address] [place] [address] Care Team Providers Care Asset Availability Leader Name Role Phone Unavailable Primary Care Provider Unavailabl e Reason for Visit * Reason Comments Med Refill Encounter Details Date Type Department Care Team (Late st Contact Info) Description 12/16/2024 Refill C ADULT DENTAL [address] [place], [place] [phone] Rolando Vincent DDS [address] [place], [place] [phone] Social History Tobacco Use Types Packs/Day Years [...]
--- OUTSIDE RECORDS SUMMARY | 2025-02-27 12:10 | XMS_ITS | Encounter Summary ---
Author Organization [employer] Address [address] [facility] [address] [place] [address] Care Team Providers Care Oracle Ebs Architect Name Role Phone Unavailable Primary Care Provider Unavailabl e Encounter Details Date Type Department Care Team (Late st Contact Info) Description 05/08/2023 Abstract [facility] ADULT DENTAL [address] [place] [address] Homer Carvalhoaris [address] [place] [address] Social History Tobacco Use Types Packs/Day Years [...]
== END 2025-02-27 11:51 | disposition home or self-care (01) ==
LOC: HO.HOS 10:59
PROVIDERS: PCP Internal Medicine; Visit Provider Physician Assistant
DX: M17.0 Bilateral primary osteoarthritis of knee (principal)
CPT/HCPCS: 20610

== ENCOUNTER → 2025-02-27 10:58 | Outpatient (BNVA) | payer OTHER, SELFPAY | PROVIDERS: PCP Internal Medicine; Visit Provider Physician Assistant | DX: M17.0 Bilateral primary osteoarthritis of knee (principal) | CPT/HCPCS: 20610; J7323 ==

== ENCOUNTER 2025-03-06 10:57 | Outpatient (AMB) | payer OTHER, SELFPAY ==
--- NOTE | 2025-03-06 11:03 | MHC.OFFVIS ---
Vital Signs 03/06/25 11:07 Height 5 ft 5 in Weight 169 lb BMI 28.1 Intake Visit Reasons: B/L knee Euflexxa Gel Injection #3 Intake Note: Urszula is a 54 year old female who presents today for her bilateral knee euflexxa gel injections #3. Allergies barium sulfate Allergy (Intermediate, Verified 03/06/25 11:07) pruritus Iodinated Contrast Media [CONTRAST, IV] Allergy (Intermediate, Verified 03/06/25 11:07) RASH,HIVES varenicline [From CHANTIX] Allergy (Intermediate, Verified 03/06/25 11:07) RASH, pruritus iopromide [From Ultravist] Allergy (Mild, Verified 03/06/25 11:07) HIVES HPI HPI B/L knee Euflexxa Gel Injection #3: Details: Ms. Romero is a 54-year-old female who presents to the office today for Euflexxa #3 injections in bilateral knees. [facility] Medical History Super-super obese Morbid obesity Chronic pain of both knees Bilateral primary osteoarthritis of knee Obesity JAKE (obstructive sleep apnea) Hx of heartburn Anxiety Osteoarthritis of knees, bilateral Insomnia Constipation by delayed colonic transit Dyslipidemia Back ache Chronic back pain Surgical History S/P laparoscopic sleeve gastrectomy Hx of colonoscopy History of lumbar discectomy History of tubal ligation Family History Father Diabetes Mother No problems noted. Daughter In good health Son In good health Brother No problems noted. Sister No problems noted. 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) Alcohol intake: never Comment: Uses cane when having back pain Patient Tobacco Use Status: Former Tobacco user Tobacco use type: Cigarette Years Smoked: 35 e-Cigarette/Vaping Use: Never Used Second Hand Smoke Exposure: No service: No Current occupational status: disabled Cognitive needs: No Hearing needs: No Vision needs: No Female Reproductive History Menstrual Age of Menarche: 14 Review of Systems Const All systems reviewed & are unremarkable except as noted in HPI and below Physical Exam Const General: cooperative, healthy appearing and no acute distress Resp Effort & Inspection: normal respiratory effort and able to speak in complete sentences Extrem Other: Bilateral knees: Normal to inspection. No ecchymosis, erythema, or joint effusion. No tenderness to palpation to the medial or lateral joint lines. Full knee extension and flexion. Crepitus felt with ROM. NVI. Office Procedures AMB Joint Injection/Aspiration Joint Injection/Aspiration Primary Site: other (Euflexxa #3 right knee ) Secondary Site: other (Euflexxa #3 left knee ) Prep: site was prepped using aseptic technique, ethochloride spray was applied and injection warnings given Injected: in the joint Approach Used: anterolateral Procedure: The patient tolerated the procedure well, but had some pain with the injection and there was some relief with the local anesthesia Coding 98287 - Bilateral Large Joint Procedure code (CPT) selection complete Assessment & Plan Assessment & Plan (1) Osteoarthritis of knees, bilateral: Code(s): M17.0 - Bilateral primary osteoarthritis of knee Category: Medical Qualifiers: Osteoarthritis type: primary Qualified Code(s): M17.0 - Bilateral primary osteoarthritis of knee Plan The patient was offered Euflexxa #3 injections in bilateral knees. The patient was explained the risks, benefits, and alternatives to receiving this injection. After receiving consent for the injection, the patient had the procedure done while in the office today. The patient tolerated the procedure well with no complications. Follow up will be PRN, sooner if needed. Coding Level of Care Code Procedure Only Diagnoses Primary osteoarthritis of both knees M17.0 Osteoarthritis type: primary CPT Codes Coding - 18994 - Bilateral Large Joint: 23184 - Bilateral Large Joint ([id number])
[2025-03-06 11:07] VITALS: BMI 28.1
--- OUTSIDE RECORDS SUMMARY | 2025-03-06 11:39 | XMS_ITS | Encounter Summary ---
Author Organization [employer] Address [address] [facility] [address] [place] [address] Care Team Providers Care Chain Saw Mechanic Name Role Phone Unavailable Primary Care Provider Unavailabl e Reason for Visit * Reason Comments Med Refill Encounter Details Date Type Department Care Team (Late st Contact Info) Description 12/16/2024 Refill C ADULT DENTAL [address] [place], [place] [phone] Rolando Vincent DDS [address] [place], [place] [phone] Social History Tobacco Use Types Packs/Day Years [...]
--- OUTSIDE RECORDS SUMMARY | 2025-03-06 11:39 | XMS_ITS | Clinical Summary ---
Author Organization [employer] Address [address] [facility] [address] [place] [address] Care Team Providers Care Utility Worker Forge Name Role Phone Unavailable Primary Care Provider [...] Active beta carotene (vitamin A) 3 MG (59990 UT) capsule Take by mouth Once per [...] Type Department Care Team Description 12/16/2024 Refill [facility] ADULT DENTAL [address] [facility] [place] [address] Rolando Vincent DDS from Last 3 Months [...] Screening 1970 SDOH Screening 1970 Sigmoidoscopy 1970 Disability Screening 1970 Alcohol/Substance Use Screening 1982 Hepatitis C [...] Most Recently Relevant to Health Maintenance [facility]
--- OUTSIDE RECORDS SUMMARY | 2025-03-06 11:39 | XMS_ITS | Encounter Summary ---
Author Organization [employer] [facility] Address [address] [place] [address] Care Team Providers Care Senior Counsel Name Role Phone Unavailable Primary Care Provider [...]
--- OUTSIDE RECORDS SUMMARY | 2025-03-06 11:39 | XMS_ITS | Encounter Summary ---
Author Organization [employer] Address [address] [facility] [place] [address] Care Team Providers Care Pewter Fabricator Name Role Phone Unavailable Primary Care Provider Unavailabl e Encounter Details Date Type Department Care Team (Late st Contact Info) Description 05/08/2023 Abstract [facility] ADULT DENTAL [address] [place] [address] Homer Carvalhoaris [address] [place] [address] Social History Tobacco Use Types Packs/Day Years [...]
== END 2025-03-06 11:10 | disposition home or self-care (01) ==
LOC: HO.HOS 10:58
PROVIDERS: PCP Internal Medicine; Visit Provider Physician Assistant
DX: M17.0 Bilateral primary osteoarthritis of knee (principal)
CPT/HCPCS: 20610

== ENCOUNTER → 2025-03-06 10:57 | Outpatient (BNVA) | payer OTHER, SELFPAY | PROVIDERS: PCP Internal Medicine; Visit Provider Physician Assistant | DX: M17.0 Bilateral primary osteoarthritis of knee (principal) | CPT/HCPCS: 20610; J7323 ==

== ENCOUNTER 2025-03-28 09:14 | Outpatient (AMB) | payer OTHER, SELFPAY ==
--- NOTE | 2025-03-28 09:28 | MHC.OFFVISWM ---
VS Expanded 03/28/25 09:31 BP 119/71 Blood Pressure Location Rt brachial Blood Pressure Position Sitting Pulse 59 Pulse Source Pulse Oximeter Temp 97.6 F Temperature Source Temporal Artery Scan Pulse Oximetry 100 Oxygen Delivery Method Room Air Height 5 ft 5 in Weight 165 lb 12.8 oz BMI 27.6 Body Fat % 35.2 Body Fat Mass 58.4 Fat Free Mass 107.4 Visceral Fat Rating 8.0 Body Water % 46.0 Body Water Mass 76.2 Muscle Mass/Score 101.8 Basal Metabolic Rate/Score 1,456 Intake Visit Reasons: (OV) PO LSG 08/24/22 Allergies barium sulfate Allergy (Intermediate, Verified 03/28/25 09:34) pruritus Iodinated Contrast Media [CONTRAST, IV] Allergy (Intermediate, Verified 03/28/25 09:34) RASH,HIVES varenicline [From CHANTIX] Allergy (Intermediate, Verified 03/28/25 09:34) RASH, pruritus iopromide [From Ultravist] Allergy (Mild, Verified 03/28/25 09:34) HIVES Medication List - Last Reconciled 03/28/25 by PRAVEEN Sanders bisacodyl (Dulcolax (bisacodyl)) 10 mg MA DAILY PRN calcium citrate-vitamin D3 315 mg-5 mcg (200 unit) (Calcium Citrate + D) 1 tab PO BID clotrimazole 1% 1 appl topical BID cyclobenzaprine 10 mg PO TID PRN lorazepam 0.5 mg PO BEDTIME PRN 30 days multivitamin 1 tab PO DAILY oxycodone 5 mg PO DAILY PRN 30 days sennosides (senna) 17.2 mg (2 x 8.6 mg) PO BEDTIME tirzepatide (weight loss) (Zepbound) 2.5 mg (0.5 mL) subcut QWEEK 4 weeks tirzepatide (weight loss) (Zepbound) 7.5 mg (0.5 mL) subcut QWEEK 4 weeks triamcinolone acetonide 0.1% 1 appl topical DAILY 2 weeks vitamin A palmitate 3,000 mcg PO DAILY HPI Comments Details: This?a?54?yo female who is s/p LSG without hiatal hernia repair on?09/03/[address] Alfredo. Presents for 2 year 7 month post op visit. Weight today is 165.8 pounds, with a BMI of 27.6. There has been a 138.4 pound weight loss,(initial weight 304.2 pounds) since starting the program on 05/11/2022 reflecting a 45.4 % total body weight loss and a weight loss of 111.4 pounds since surgery (operative weight 277.2 pounds) reflecting a 40.1 % TBWL since surgery. No complaints of nausea, emesis, abdominal pain or reflux. Reports constipation. Reports that she is craving salty and crunchy things. She states she was having trouble losing weight and she spoke with her PCP and was prescribed Wegovy. She has arthritis and recently had gel injections to her knees by Orthopedics. Some improvement. Given her extensive weight loss of greater than 100 lb since initiating the program, she has developed additional excess skin of the abdomen. This has caused a sensation of burning and itching which causes her great discomfort additionally, she has used the prescriptive clotrimazole cream that I had sent in for her with improvement of the rash however she has recurrence of the rash 2-3 times per month. We discussed the possibility of medically necessary skin removal surgery. We will continue to encourage weight loss to a healthy BMI and then if this continues to be a problem as I suspect that it will, we will submit to her insurance company for possible medically necessary skin removal surgery. She states that since last visit, she has had several episodes of rash underneath the abdominal skin. She has had between 3-4 episodes per month over the last several months. They all improve with the use of the antifungal cream topically however she has recurrence, especially with increased exercise and increased sweating. She also has difficulty with clothes fitting properly due to the excess skin. She has had a negative impact on her activities of daily living such that she needs to have increased hygiene practices. She would shower twice a day and half to wash underneath the abdominal pannus at least once or twice a day depending on her level of activity that day. Present meal plan includes: RTD premier protein shake, 10-12 pm 4 oz of shake w 6 oz unsweetened almond milk, 2-4 pm meal at 5 pm 3 oz protein and 3 oz veg watered down 64-80 oz diet iced tea ? Exercise routine includes: walking outside 7 days per week. weight machine in basement [facility] Medical History Super-super obese Morbid obesity Chronic pain of both knees Bilateral primary osteoarthritis of knee Obesity JAKE (obstructive sleep apnea) Hx of heartburn Anxiety Osteoarthritis of knees, bilateral Insomnia Constipation by delayed colonic transit Dyslipidemia Back ache Chronic back pain Surgical History S/P laparoscopic sleeve gastrectomy Hx of colonoscopy History of lumbar discectomy History of tubal ligation Family History Father Diabetes Mother No problems noted. Daughter In good health Son In good health Brother No problems noted. Sister No problems noted. 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) Alcohol intake: never Comment: Uses cane when having back pain Patient Tobacco Use Status: Former Tobacco user Tobacco use type: Cigarette Years Smoked: 35 e-Cigarette/Vaping Use: Never Used Second Hand Smoke Exposure: No service: No Current occupational status: disabled Cognitive needs: No Hearing needs: No Vision needs: No Female Reproductive History Menstrual Age of Menarche: 14 Physical Exam Vital Signs: Last Vital Signs Temp 97.6 F 03/28/25 09:31 Pulse 59 03/28/25 09:31 BP 119/71 03/28/25 09:31 Pulse Ox 100 03/28/25 09:31 Oxygen Delivery Method Room Air 03/28/25 09:31 BMI result Body Mass Index 27.6 Skin Other: Grade 2/Iii abdominal pannus with evidence of chronic dermatomal irritation Assessment & Plan Assessment & Plan (1) Excess skin: Code(s): L98.7 - Excessive and redundant skin and subcutaneous tissue Category: Medical Plan: Patient has lost 138.4 lb, greater than 44% total body weight loss. As a result she has had excessive skin, especially abdominal pannus. This has caused negative impact on her ADLs as listed above as well as recurrent skin infections. These have improved with the use of topical antifungals however only to recur. She has had between 2 and 4 episodes per month over the last several months despite recommended medical treatment. We will submit for insurance approval of medically necessary skin removal surgery. (2) S/P laparoscopic sleeve gastrectomy: Code(s): Z98.84 - Bariatric surgery status Category: Surgical Plan: Patient is following the meal plan however her exercise is somewhat limited given arthritis. I gave her discount paperwork to the [facility] so that she may walk in the pool as well as trial recumbent stationary bike. We will have her return to the clinic in August for her 3 year postop follow-up.
[2025-03-28 09:31] VITALS: BP 119/71; PULSE 59; TEMP 36.4; O2SAT 100; BMI 27.6
== END 2025-03-28 10:00 | disposition home or self-care (01) ==
LOC: HO.HBS 09:15
PROVIDERS: PCP Internal Medicine; Visit Provider Physician Assistant Surgical
DX: L98.7 Excessive and redundant skin and subcutaneous tissue (principal); Z98.84 Bariatric surgery status
CPT/HCPCS: 99213; G2211

== ENCOUNTER → 2025-03-28 09:14 | Outpatient (BNVA) | payer OTHER, SELFPAY | PROVIDERS: PCP Internal Medicine; Visit Provider Physician Assistant Surgical | DX: L98.7 Excessive and redundant skin and subcutaneous tissue (principal); Z68.27 Body mass index [BMI] 27.0-27.9, adult; E66.3 Overweight | CPT/HCPCS: 99212 ==

== ENCOUNTER 2025-04-22 09:57 | Outpatient (AMB) | payer OTHER, SELFPAY ==
--- NOTE | 2025-04-22 10:04 | A.OFFPC_ITS ---
Vital Signs 04/22/25 10:10 Height 5 ft 5 in Weight 163 lb BMI 27.1 BP 112/70 Blood Pressure Location Lt brachial Position Sitting Intake Visit Reasons: depression,chronic pain Crew Foreman Required: No Accompanied by: Self / Same As Patient Allergies barium sulfate Allergy (Intermediate, Verified 04/22/25 10:19) pruritus Iodinated Contrast Media (CONTRAST, IV) Allergy (Intermediate, Verified 04/22/25 10:19) RASH,HIVES varenicline (From CHANTIX) Allergy (Intermediate, Verified 04/22/25 10:19) RASH, pruritus iopromide (From Ultravist) Allergy (Mild, Verified 04/22/25 10:19) HIVES Medication List - Last Reconciled 04/22/25 by Radha Sloan MD bisacodyl (Dulcolax (bisacodyl)) 10 mg LA DAILY PRN calcium citrate-vitamin D3 315 mg-5 mcg (200 unit) (Calcium Citrate + D) 1 tab PO BID clotrimazole 1% 1 appl topical BID cyclobenzaprine 10 mg PO TID PRN lorazepam 0.5 mg PO BEDTIME PRN 30 days multivitamin 1 tab PO DAILY oxycodone 5 mg PO DAILY PRN 30 days sennosides (senna) 17.2 mg (2 x 8.6 mg) PO BEDTIME tirzepatide (weight loss) (Zepbound) 2.5 mg (0.5 mL) subcut QWEEK 4 weeks tirzepatide (weight loss) (Zepbound) 7.5 mg (0.5 mL) subcut QWEEK 4 weeks triamcinolone acetonide 0.1% 1 appl topical DAILY 2 weeks vitamin A palmitate 3,000 mcg PO DAILY Tobacco use date assessed: 10/22/24 Dental Screening Dental Screen Date: 10/22/24 HPI HPI Comments History of Present Illness Details The patient is a 54-year-old female presenting for a follow-up of chronic knee and back pain. She reports ongoing knee pain, primarily affecting both knees, with a diagnosis of knee osteoarthritis. The pain has been persistent despite treatments, including gel injections, which have not provided relief. The patient has been experiencing chronic back pain, which is part of her ongoing chronic pain management. She is currently on a regimen that includes medications such as oxycodone for pain management, and lorazepam for anxiety, which she takes as needed. In terms of her weight management, the patient started a medication regimen in November, which has resulted in a weight reduction from 179 pounds to 163 pounds by April. Her BMI has decreased from 30.1 in October to 27.1 in April, indicating an improvement though still classified as overweight. The patient has a history of elevated cholesterol, which was noted during a previous visit but did not require medication at that time. She has a history of constipation for which she takes Senna. [facility] Medical History Super-super obese Morbid obesity Chronic pain of both knees Bilateral primary osteoarthritis of knee Obesity JAKE (obstructive sleep apnea) Hx of heartburn Anxiety Osteoarthritis of knees, bilateral Insomnia Constipation by delayed colonic transit Dyslipidemia Back ache Chronic back pain Surgical History S/P laparoscopic sleeve gastrectomy Hx of colonoscopy History of lumbar discectomy History of tubal ligation Family History Father Diabetes Mother No problems noted. Daughter In good health Son In good health Brother No problems noted. Sister No problems noted. Maternal Grandmother Colon cancer Maternal Uncle Stomach cancer Paternal Aunt Breast cancer Social History Household Members Other:: son Housing: House Are you a primary landcare officer to a significant other at home: No Do you presently have visiting nurse or other home services: Yes ([facility]) Alcohol intake: never Comment: Uses cane when having back pain Patient Tobacco Use Status: Former Tobacco user Tobacco use type: Cigarette Years Smoked: 35 e-Cigarette/Vaping Use: Never Used Second Hand Smoke Exposure: No service: No Current occupational status: disabled Cognitive needs: No Hearing needs: No Vision needs: No Female Reproductive History Menstrual Age of Menarche: 14 Questionnaire Thrive Questionnaire Date Thrive assessed: 10/22/24 I am a: Patient What is your living situation today?: I have a steady place to live Within the past 12 months, did the food you bought not last and you didn't have the money to get more?: Often true Within the past 12 months, did you worry whether your food would run out before you got money to buy more?: Often true Do you have trouble paying for medicines?: No Do you have trouble getting transportation to medical appointments?: No Do you have trouble paying your heating and electricity bill?: No Do you have trouble taking care of your child, family member or friend?: No Do you have trouble with day-to-day activities such as bathing, preparing meals, shopping, managing finances, etc.?: Yes Are you currently unemployed and looking for a job?: No Are you interested in more education?: No Please select the resources that you would like help with: None Currently or been in a relationship where the following occur: No concerns reported THRIVE Score: 2 AUDIT C Alcohol Use Questionnaire (AUDIT-C) 1. How often do you have a drink containing alcohol?: Never 3. How often do you have six or more drinks on one occasion?: Never Total Score: 0 Score Reviewed/Action Taken: No ZENIA-7 AMB Questionnaire ZENIA-7 Date ZENIA - 7 assessed: 10/22/24 Source: Developed by Drs. Pradeep Wyatt, Collette Lezama, Miguel Tierney and colleagues, with an educational bita from [employer]. Review of Systems Const All systems reviewed & are unremarkable except as noted in HPI and below Card Denies chest pain at rest, Denies chest pain with activity, Denies edema, Denies irregular heart rhythm, Denies claudication, Denies dyspnea, Denies dyspnea on exertion, Denies orthopnea, Denies paroxysmal nocturnal dyspnea and Denies slow heart rate Resp Denies cough, Denies dyspnea and Denies dyspnea on exertion Musc Denies abnormal gait Neuro Denies abnormal gait, Denies behavioral changes and Denies lack of coordination Psych Denies behavioral changes Physical exam (Primary Care) Vital Signs: Last Vital Signs BP 112/70 04/22/25 10:10 BMI result Body Mass Index 27.1 Tobacco/Smoking Status: Tobacco use Status Tobacco use date assessed 10/22/24 04/22/25 10:05 Patient Tobacco Use Status Former Tobacco user 04/22/25 10:05 Tobacco use type Cigarette 04/22/25 10:05 e-Cigarette/Vaping Use Never Used 04/22/25 10:05 Thrive Assessment: Date of Thrive Assessment Date Thrive assessed 10/22/24 04/22/25 10:05 Currently or been in a relationship where the following occur: No concerns reported Resp Effort & Inspection: normal respiratory effort Auscultation: clear to auscultation bilaterally Cardio Jugular venous distension: no JVD Rate: regular rate Rhythm: regular rhythm Heart sounds: S1 normal heart sound present and S2 normal heart sound present GI Inspection: Yes normal to inspection Palpation (GI): Soft to palpation and nontender Auscultation: normal bowel sounds Extrem General: Yes full ROM Coding Level of Care Code Est Pt Level 4 (06445) Complex EM visit Add On G2211 Diagnoses Mild recurrent major depression F33.0 ZENIA (generalized anxiety disorder) F41.1 Dyslipidemia E78.5 Overweight (BMI 25.0-29.9) E66.3 Bilateral primary osteoarthritis of knee M17.0 Time Spent (min) 22 Assessment & Plan Assessment & Plan (1) Mild recurrent major depression: Code(s): F33.0 - Major depressive disorder, recurrent, mild Category: Medical (2) ZENIA (generalized anxiety disorder): Code(s): F41.1 - Generalized anxiety disorder Category: Medical (3) Dyslipidemia: Code(s): E78.5 - Hyperlipidemia, unspecified Category: Medical (4) Overweight (BMI 25.0-29.9): Comment: Due gastric surgery and her efforts and use of medications has lost 130 lb. Code(s): E66.3 - Overweight Category: Medical (5) Bilateral primary osteoarthritis of knee: Code(s): M17.0 - Bilateral primary osteoarthritis of knee Category: Medical Plan The patient will continue with her current pain management regimen, including the use of oxycodone as needed for knee pain and lorazepam for anxiety. Given the lack of relief from gel injections, further evaluation of her knee osteoarthritis is warranted, and the possibility of obtaining a walker for mobility assistance will be explored. The patient's weight management plan appears effective, with a significant reduction in weight and BMI since November. The medication regimen will be continued, and a repeat blood work is scheduled for September to monitor cholesterol levels and other parameters. The patient will be provided with a shower chair to assist with daily activities, enhancing her safety and comfort at home. Patient was informed and verbally consented to the use of an ambient scribe for clinic note documentation during this visit. Orders: Orders Lipid Panel 6 Months E78.5 - Hyperlipidemia, unspecified Vitamin D 25-OH Total 6 Months E55.9 - Vitamin D deficiency, unspecified Comprehensive [place]. Panel Fast 6 Months E78.5 - Hyperlipidemia, unspecified Medications: New olopatadine 0.2% (Pataday Once Daily Relief) 1 drp ophthalmic (eye) DAILY PRN 2.5 mL 0RF itching 30 days tirzepatide (weight loss) (Zepbound) 10 mg (0.5 mL) subcut QWEEK 2 mL 0RF 4 weeks E66.9 - Obesity, unspecified fluocinolone acetonide oil 0.01% (DermOtic Oil) 5 drps otic (ears) BID 20 mL 1RF 7 days walker As directed 1 ea 0RF M17.0 - Bilateral primary osteoarthritis of knee [shower chair] As directed 1 ea 0RF M17.0 - Bilateral primary osteoarthritis of knee Discontinued tirzepatide (weight loss) (Zepbound) Discontinued Reason: Patient Completed Course 7.5 mg (0.5 mL) subcut QWEEK 4 weeks 2 mL 0RF
[2025-04-22 10:10] VITALS: BP 112/70; BMI 27.1
--- OUTSIDE RECORDS SUMMARY | 2025-04-22 10:41 | XMS_ITS | Encounter Summary ---
Author Organization [facility] [employer] Address [address] [place] [address] Care Team Providers Care Local Hazmat Driver Name Role Phone Unavailable Primary Care Provider Unavailabl e Reason for Visit * Reason Comments Med Refill Encounter Details Date Type Department Care Team (Late st Contact Info) Description 04/02/2025 Refill [facility] D[facility] [address] [place] [address] Nilesh Rockwell DMD [address] [place] [address] Social History Tobacco Use Types Packs/Day Years [...] Telephone Encounter - Nilesh Rockwell DMD - 04/04/2025 7:54 AM EDT Approving, but needs appt for additional refills. documented in this encounter Plan of Treatment Not on file documented as of this encounter Visit Diagnoses Not on filedocumented in this encounter
== END 2025-04-22 10:32 | disposition home or self-care (01) ==
LOC: HO.HMCH 09:58
PROVIDERS: PCP Internal Medicine; Visit Provider Internal Medicine
DX: F33.0 Major depressive disorder, recurrent, mild (principal); F41.1 Generalized anxiety disorder; E78.5 Hyperlipidemia, unspecified; E66.3 Overweight; M17.0 Bilateral primary osteoarthritis of knee

== ENCOUNTER → 2025-04-22 09:57 | Outpatient (BNVA) | payer OTHER, SELFPAY | PROVIDERS: PCP Internal Medicine; Visit Provider Internal Medicine | DX: F33.0 Major depressive disorder, recurrent, mild (principal); F41.1 Generalized anxiety disorder; E78.5 Hyperlipidemia, unspecified; E66.3 Overweight; M17.0 Bilateral primary osteoarthritis of knee | CPT/HCPCS: 99212 ==

== ENCOUNTER 2025-06-09 08:56 | Outpatient (AMB) | payer OTHER, SELFPAY ==
--- OUTSIDE RECORDS SUMMARY | 2025-06-09 09:32 | XMS_ITS | Encounter Summary ---
Author Organization [facility] Address [address] [place] [address] Care Team Providers Care Senior Lead Project Manager Name Role Phone Unavailable Primary Care Provider Unavailabl e Reason for Visit * Reason Comments Med Refill Encounter Details Date Type Department Care Team (Late st Contact Info) Description 04/02/2025 Refill [facility] ADULT D[facility] [address] [place] [address] Nilesh Rockwell DMD [address] [place] [address] Social History Tobacco Use Types Packs/Day Years [...]
[2025-06-09 11:04] VITALS: BMI 26.5
--- NOTE | 2025-06-09 11:04 | MHC.OFFVISWM ---
VS Expanded 06/09/25 11:04 Height 5 ft 5 in Weight 159 lb BMI 26.5 Intake Visit Reasons: TV Pre Op Panniculectomy 06/24/25 Allergies barium sulfate Allergy (Intermediate, Verified 06/09/25 11:05) pruritus Iodinated Contrast Media (CONTRAST, IV) Allergy (Intermediate, Verified 06/09/25 11:05) RASH,HIVES varenicline (From CHANTIX) Allergy (Intermediate, Verified 06/09/25 11:05) RASH, pruritus iopromide (From Ultravist) Allergy (Mild, Verified 06/09/25 11:05) HIVES Medication List - Last Reconciled 06/09/25 by Gualberto Bahena MD bisacodyl (Dulcolax (bisacodyl)) 10 mg ME DAILY PRN calcium citrate-vitamin D3 315 mg-5 mcg (200 unit) (Calcium Citrate + D) 1 tab PO BID clotrimazole 1% 1 appl topical BID cyclobenzaprine 10 mg PO TID PRN fluocinolone acetonide oil 0.01% (DermOtic Oil) 5 drps otic (ears) BID 7 days lorazepam 0.5 mg PO BEDTIME PRN 30 days multivitamin 1 tab PO DAILY olopatadine 0.2% (Pataday Once Daily Relief) 1 drp ophthalmic (eye) DAILY PRN 30 days oxycodone 5 mg PO DAILY PRN 30 days sennosides (senna) 17.2 mg (2 x 8.6 mg) PO BEDTIME [shower chair As directed] tirzepatide (weight loss) (Zepbound) 10 mg (0.5 mL) subcut QWEEK 4 weeks triamcinolone acetonide 0.1% 1 appl topical DAILY 2 weeks vitamin A palmitate 3,000 mcg PO DAILY walker As directed HPI HPI TV Pre Op Panniculectomy 06/24/25: Details: Start time: 11.03am, End time: 11.33am ?I spent 25 minutes speaking with the patient on the phone plus an additional 5 minutes reviewing and updating records for a total of 30 minutes HPI Comments Details: Overall weight loss: 145lbs, or 47.7% TBWL Is doing 1.5 premade Premier protein shakes and one meal Exercise: walking outside, swimming [facility] Medical History (Updated 06/09/25 @ 11:13 by Gualberto Bahena MD) Constipation Super-super obese Morbid obesity Chronic pain of both knees Bilateral primary osteoarthritis of knee Obesity JAKE (obstructive sleep apnea) Hx of heartburn Anxiety Osteoarthritis of knees, bilateral Insomnia Constipation by delayed colonic transit Dyslipidemia Back ache Chronic back pain Surgical History S/P laparoscopic sleeve gastrectomy Hx of colonoscopy History of lumbar discectomy History of tubal ligation Family History Father Diabetes Mother No problems noted. Daughter In good health Son In good health Brother No problems noted. Sister No problems noted. Maternal Grandmother Colon cancer Maternal Uncle Stomach cancer Paternal Aunt Breast cancer Social History Household Members Other:: son Housing: House Are you a primary personal care aide to a significant other at home: No Do you presently have visiting nurse or other home services: Yes ([employer]) Alcohol intake: never Comment: Uses cane when having back pain Patient Tobacco Use Status: Former Tobacco user Tobacco use type: Cigarette Years Smoked: 35 e-Cigarette/Vaping Use: Never Used Second Hand Smoke Exposure: No service: No Current occupational status: disabled Cognitive needs: No Hearing needs: No Vision needs: No Female Reproductive History Menstrual Age of Menarche: 14 Telehealth Telehealth Telehealth Platform: Telephone Location of provider rendering services: practice address Location of patient: address on file Patient Identification confirmed using: Name, : Yes Telehealth method: voice only Patient verbally consented to treatment: Yes Patient verbally consented to billing insurance company: Yes Patient informed of any privacy concerns related to visit: Yes Minutes spent on Phone/Video with Pt.: 30 Assessment & Plan Assessment & Plan (1) Excess skin: Code(s): L98.7 - Excessive and redundant skin and subcutaneous tissue Category: Medical Plan: 1. Plan for panniculectomy. Risks of infection, bleeding, asymmetry, wound dehiscence and blood clots were discussed with the patient. 2. You will have a drain the abdomen that may stay a few weeks before it may be removed 3. You will need to be doing sponge baths the first 1-2 weeks. No showers. You need to have help at home to get you up and limit your activities as much as possible for at least the 4-6 weeks after surgery 4. We will arrange for a visiting nurse to come at home to help you with dressing changes and send me pictures of the procedures. We will send at your home supplies for the dressing changes. 5. Change nutritional plan to one premade PREMIER protein (buy at [employer] or [employer]) shake (mix 4oz of Premier mixed with 4oz low fat unsweetened almond milk each) at 9am-11am, one protein bar (Fit Crunch or Barebell protein bar, buy at [employer], or [employer]) at 12pm-2pm, another premade PREMIER protein shake (mix 4oz of Premier mixed with 4oz low fat unsweetened almond milk each) at 3pm-5pm, dinner at 6pm (4 forks of protein and 4 forks of salad/vegetables) and one more [employer] Crunch or Barebell protein bar at 8pm-10pm. This will improve weight loss and healing after surgery. 6. Continue all vitamins 7. Stop Cyclobezaprine and the Zepbound as of 06/17/25 (last pill or injection that josie) 8. Do blood work not fasting any day between Monday06/16/25 and Monday06/20/25 and flower buncher or picker the antibiotic prescription from your pharmacy 9. Risks and complications were discussed the possibility of bleeding that may require transfusion, loss of the umbilicus, wound dehiscence or infection, dog ears , flap asymmetry. We also discussed the importance of strict avoidance of weight lifting. 10. Avoid aspirin, motrin, ibuprofen, Excedrin, Meloxicam, Aleve, Advil, Naproxyn. Only Tylenol Orders: Orders Partial Thromboplastin Time Today K91.2 - Postsurgical malabsorption, not elsewhere classified, Z90.3 - Acquired absence of stomach [part of] Type and Screen Today K91.2 - Postsurgical malabsorption, not elsewhere classified, Z90.3 - Acquired absence of stomach [part of] Comprehensive Met. Panel Today K91.2 - Postsurgical malabsorption, not elsewhere classified, Z90.3 - Acquired absence of stomach [part of] Complete Blood Count Auto Diff Today K91.2 - Postsurgical malabsorption, not elsewhere classified, Z90.3 - Acquired absence of stomach [part of] Prothrombin Time INR Today K91.2 - Postsurgical malabsorption, not elsewhere classified, Z90.3 - Acquired absence of stomach [part of] Medications: New docusate sodium (Colace) 100 mg PO DAILY 90 caps 0RF K59.00 - Constipation, unspecified, M79.3 - Panniculitis, unspecified cephalexin 500 mg PO Q12H 60 caps 2RF M79.3 - Panniculitis, unspecified ondansetron 4 mg PO Q12H 20 tabs 0RF nausea and vomiting R11.0 - Nausea
== END 2025-06-09 11:34 | disposition home or self-care (01) ==
LOC: HO.HBS 08:56
PROVIDERS: PCP Internal Medicine; Visit Provider Surgery
DX: L98.7 Excessive and redundant skin and subcutaneous tissue (principal)
CPT/HCPCS: 99214

== ENCOUNTER 2025-06-24 07:43 | Day surgery (SDC) | payer OTHER, SELFPAY ==
--- OUTSIDE RECORDS SUMMARY | 2025-05-22 09:53 | XMS_ITS | Encounter Summary ---
Author Organization [facility] Address [address] [place] [address] Care Team Providers Care Jail Manager Name Role Phone Unavailable Primary Care Provider Unavailabl e Reason for Visit * Reason Comments Med Refill Encounter Details Date Type Department Care Team (Late st Contact Info) Description 04/02/2025 Refill [facility] [address] [place] [address] Nilesh Rockwell DMD [address] [place] [address] Social History Tobacco Use Types Packs/Day Years [...]
[2025-06-17 13:10] VITALS: BMI 26.5
[2025-06-18 09:44] LABS: MANUAL DIFF FLAG NO
[2025-06-18 10:11] LABS: Hematocrit 36.9 % (37.0-47.0); Hemoglobin 12.2 g/dl (12.0-16.0); Imm Gran Abs Auto 0.01 X10*3/uL (0.00-0.03); Imm Gran Pct Auto 0.2 % (0.0-0.4); Lymphocytes Absolute Auto 1.9 X10*3/uL (1.2-4.9); Mean Corpuscular HGB Conc 33.1 g/dl (31.0-35.0); Mean Corpuscular Hemoglobin 28.6 pg (27.0-33.0); Mean Corpuscular Volume 86.6 fL (80.0-98.0); NRBC Abs Auto 0.000 X10*3/uL (0.0-0.012); NRBC Pct Auto 0.0 /100WBC (0.0-0.2); Platelet Count 302 X10*3/uL (160-400); Red Blood Count 4.26 X10*6/uL (4.20-5.50); White Blood Count 5.8 X10*3/uL (4.8-10.8)
[2025-06-18 10:16] LABS: INTERNATIONAL NORM RATIO 1.0 (0.9-1.1); Prothrombin Time 11.4 SEC (10.9-12.4)
[2025-06-18 10:19] LABS: Partial Thromboplastin Time 30.6 SEC (26.7-34.1)
[2025-06-18 10:49] LABS: Alanine Aminotransferase 13 U/L (0-31); Albumin Level 4.2 g/dL (3.5-5.0); Alkaline Phosphatase 58 U/L (39-117); Anion Gap 8 (12-20); Aspartate Amino Transferase 17 U/L (5-31); Blood Urea Nitrogen 15 mg/dL (9-16); Calcium 9.2 mg/dL (8.4-10.2); Carbon Dioxide 26 mmol/L (22-29); Chloride 111 mmol/L (96-108); Creatinine Clr Calc Pharmacy 95.8; Estimated Glomerular Filt Rate > 60; Potassium 4.0 mmol/L (3.3-5.1); Sodium 141 mmol/L (135-145); Total Protein 7.2 g/dL (6.5-8.0)
[2025-06-24] VITALS (14 sets, daily range): BP systolic 90–129; BP diastolic 38–69; PULSE 61–107; RESP 12–18; TEMP 36.4–36.7; O2SAT 97–100
[2025-06-24] MEDS: Aprepitant 32 MG/4.4 ML VIAL IVPUSH (08:58)
--- NOTE | 2025-06-24 10:00 | HO.ANESPROP2 ---
Documented by User: Arti Armenta NP 06/23/25 08:09 HPI - Anesthesia Eval Consult details Narrative: 55yo F for Panniculectomy Anesthesia Pre-Procedure Meds Is the patient on any of the following meds?: GLP1/DPP4 PMFSH Active Problems Active Problems: All Active Problems Constipation (Acute) Excess skin (Acute) Overweight (BMI 25.0-29.9) (Acute) Postmenopausal (Acute) Physical exam (Acute) ZENIA (generalized anxiety disorder) (Acute) Mild recurrent major depression (Acute) Obesity (BMI 30-39.9) (Acute) Left hip pain (Acute) Osteoarthritis of left knee (Acute) Osteoarthritis of right knee (Acute) Right knee pain (Acute) Left knee pain (Acute) Panniculitis (Acute) Allergic rhinitis (Acute) Class 1 obesity with body mass index (BMI) of 33.0 to 33.9 in adult (Acute) Skin laxity (Acute) Well woman exam with routine gynecological exam (Acute) Physical exam (Acute) Adjustment disorder (Acute) Pre-op evaluation (Acute) Cervical cancer screening (Acute) Potential exposure to STD (Acute) Well woman exam with routine gynecological exam (Acute) Right foot pain (Acute) Internal hemorrhoids (Acute) Tubular adenoma of colon (Acute) Obesity (Acute) Back ache (Acute) Encounter for screening colonoscopy (Acute) S/P laparoscopic sleeve gastrectomy (Acute) JAKE (obstructive sleep apnea) (Acute) Chronic pain of both knees (Acute) Bilateral primary osteoarthritis of knee (Acute) Anxiety (Acute) Osteoarthritis of knees, bilateral (Acute) Insomnia (Acute) Constipation by delayed colonic transit (Acute) Dyslipidemia (Acute) Chronic back pain (Acute) Past Medical History Medical History Depression Heartburn Chronic pain of both knees Bilateral primary osteoarthritis of knee JAKE (obstructive sleep apnea) Anxiety Osteoarthritis of knees, bilateral Insomnia Constipation by delayed colonic transit Dyslipidemia Chronic back pain Family History Family History Father Diabetes Mother No problems noted. Daughter In good health Son In good health Brother No problems noted. Sister No problems noted. 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 If so, by whom?: No Spiritual Healthcare Practices: no Congregational Healthcare Practices: no Cultural Healthcare Practices: no Are you DNR?: No Advance Directives on File: No FDLMP: n/a Poor oral hygiene: No service: No Current occupational status: disabled Cognitive needs: No Hearing needs: No Vision needs: No Meds Allergies Allergy/AdvReac Type Severity Reaction Status Date / Time barium sulfate Allergy Intermediate pruritus Verified 06/09/25 11:05 Iodinated Contrast Media Allergy Intermediate RASH,HIVES Verified 06/09/25 11:05 (CONTRAST, IV) varenicline (From CHANTIX) Allergy Intermediate RASH, Verified 06/09/25 11:05 pruritus iopromide (From Ultravist) Allergy Mild HIVES Verified 06/09/25 11:05 Home Medications ?Medication ?Instructions ?Recorded ?Confirmed ?Last Taken ?Type calcium 315 mg (as 1 tab PO BID 05/18/23 06/13/25 Unknown History citrate)-vitamin D3 5 mcg (200 unit) tablet (Calcium Citrate + D) multivitamin 1 tab PO DAILY 05/18/23 06/13/25 Unknown History Exam Height,Weight and Vital Signs: Height 5 ft 5 in Weight 72.121 kg Pertinent Lab Results Pertinent Lab Results: Laboratory Tests 06/18/25 06/18/25 09:33 09:42 WBC 5.8 RBC 4.26 Hgb 12.2 Hct 36.9 L MCV 86.6 MCH 28.6 MCHC 33.1 RDW 13.3 Plt Count 302 MPV 9.3 L Immature Gran % (Auto) 0.2 Neut % (Auto) 59.0 Lymph % (Auto) 32.3 Jackson % (Auto) 7.0 Eos % (Auto) 1.0 Baso % (Auto) 0.5 Lymph # (Auto) 1.9 Jackson # (Auto) 0.4 Eos # (Auto) 0.1 Baso # (Auto) 0.0 Abs Immat Gran (auto) 0.01 Absolute Neuts (auto) 3.4 Absolute Nucleated RBC 0.000 Nucleated RBC % (auto) 0.0 PT 11.4 INR 1.0 APTT 30.6 Sodium 141 Potassium 4.0 Chloride 111 H Carbon Dioxide 26 Anion Gap 8 L BUN 15 Creatinine 0.66 Estim Creat Clear Calc 95.8 Estimated GFR > 60 Random Glucose 81 Calcium 9.2 Total Bilirubin 0.5 AST 17 ALT 13 Alkaline Phosphatase 58 Total Protein 7.2 Albumin 4.2 Blood Type A Positive Antibody Screen NEGATIVE Assessment and Plan Assessment Anesthesia Assessment: Chart Reviewed Final Anesthetic Review History of Problems with Anesthesia: No Documented by User: Bianka Copeland DO 06/24/25 10:02 HPI - Anesthesia Eval Anesthesia Pre-Procedure Meds Is the patient on any of the following meds?: GLP1/DPP4 PMFSH Past Medical History Medical History Depression Heartburn Chronic pain of both knees Bilateral primary osteoarthritis of knee JAKE (obstructive sleep apnea) Anxiety Osteoarthritis of knees, bilateral Insomnia Constipation by delayed colonic transit Dyslipidemia Chronic back pain Family History Family History Father Diabetes Mother No problems noted. Daughter In good health Son In good health Brother No problems noted. Sister No problems noted. 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 If so, by whom?: No Spiritual Healthcare Practices: no Congregational Healthcare Practices: no Cultural Healthcare Practices: no Are you DNR?: No Advance Directives on File: No FDLMP: n/a Poor oral hygiene: No service: No Current occupational status: disabled Cognitive needs: No Hearing needs: No Vision needs: No Meds Allergies Allergy/AdvReac Type Severity Reaction Status Date / Time barium sulfate Allergy Intermediate pruritus Verified 06/09/25 11:05 Iodinated Contrast Media Allergy Intermediate RASH,HIVES Verified 06/09/25 11:05 (CONTRAST, IV) varenicline (From CHANTIX) Allergy Intermediate RASH, Verified 06/09/25 11:05 pruritus iopromide (From Ultravist) Allergy Mild HIVES Verified 06/09/25 11:05 Home Medications ?Medication ?Instructions ?Recorded ?Confirmed ?Last Taken ?Type calcium 315 mg (as 1 tab PO BID 05/18/23 06/13/25 Unknown History citrate)-vitamin D3 5 mcg (200 unit) tablet (Calcium Citrate + D) multivitamin 1 tab PO DAILY 05/18/23 06/13/25 Unknown History Exam Exam Date and Time: 06/24/25 1000 Height,Weight and Vital Signs: Height 5 ft 5 in Weight 72.121 kg Vital Signs Temperature 98.0 F 06/24/25 08:52 Pulse Rate 61 06/24/25 08:52 Respiratory Rate 12 06/24/25 08:52 Blood Pressure 106/52 L 06/24/25 08:52 Pulse Oximetry 100 06/24/25 08:52 Oxygen Delivery Method Room Air 06/24/25 08:52 Temperature 98.0 F 06/24/25 08:52 Pulse Rate 61 06/24/25 08:52 Respiratory Rate 12 06/24/25 08:52 Blood Pressure 106/52 L 06/24/25 08:52 Pulse Oximetry 100 06/24/25 08:52 Oxygen Delivery Method Room Air 06/24/25 08:52 Airway Mallampati Class: II TM Dist: >3cm Neck ROM: Full Loose/Missing/Broken Teeth: No (patient denies any loose or broken teeth) Heart: S1S2 Lungs: CTAB Assessment and Plan Assessment Anesthesia Assessment: Anesthesia Plan Discussed and Chart Reviewed Final Anesthetic Review Family History of Problems with Anesthesia: No History of Problems with Anesthesia: No NPO: Yes ASA Class: II Final Preanesthetic Review: No Changes in Pt Med Stat, Meds/Allgs Chart Reviewed, Consent Obtained/Reviewed and Anes Risks/Benef Reviewed Patient Risk: Low Procedure Risk: Low Anesthetic Plan Anesthetic Plan: GA and Agree w/ Assess. and Plan Disposition: Standard PACU
--- NOTE | 2025-06-24 10:17 | P.HPSUR_ITS ---
Pre-Procedural Eval Section A - 24 Hr Update-Section A only Date of Service: 06/24/25 The patient is an INPATIENT: No The patient has been examined within 24 hours of the surgical procedure. The History & Physical has been completed within 30 days and I have reviewed it.: Yes Section B - Complete if H&P > 30 days Chief Complaint: Excessive and redundant skin and subcutaneous Relevant Family History (Specify if Yes): No Relevant Social History: None Present Medications: None Medical History: No relevant PMH History of Previous Operations: Relevant previous surgery/procedure and date(s) (Laparoscopic sleeve gastrectomy) Allergies: Allergies Allergy/AdvReac Type Severity Reaction Status Date / Time barium sulfate Allergy Intermediate pruritus Verified 06/09/25 11:05 Iodinated Contrast Media Allergy Intermediate RASH,HIVES Verified 06/09/25 11:05 (CONTRAST, IV) varenicline (From CHANTIX) Allergy Intermediate RASH, Verified 06/09/25 11:05 pruritus iopromide (From Ultravist) Allergy Mild HIVES Verified 06/09/25 11:05 Review of Systems Sugical H&P ROS: Negative: Constitution, Cardiovascular, Respiratory, Neurological, Psychiatric, Hem-Onc, Allergic/Immunologic, Gastrointestinal, Lyudmila tourinary, Musculoskeletal, Integumentary, Endocrine and Eyes/Ears/Nose/Throat Exam Surgical H&P Exam: Normal: HEENT, Normal: Heart, Normal: Lungs, Normal: Extremities, Normal: Abdomen, Normal: Skin and Normal: Neurological Plan Diagnosis/Plan: Unchanged I have reviewed the history and physical and performed a pertinent physical examination on my patient. No changes have occurred unless specified. Time Spent With Patient Time: Total time managing care of this patient today ____ minutes.
--- NOTE | 2025-06-24 10:20 | P.BOP_ITS ---
Brief Operative Note Date of Service: 06/24/25 Pre-op diagnosis: Excess skin Post-op diagnosis: same Procedure: PROCEDURE: Panniculectomy with umbilical transposition and bilateral subcutaneous fat flaps INDICATION: This a 55 year old female who underwent laparoscopic sleeve gastrectomy on 09/03/2022. She had an excellent result achieving a BMI of 26.5 kg/m2 with a total weight loss of 145lbs, or 47.7% of her TBWL. As a result, she has developed panniculitis which has not resolved despite continuous use of clotrimazole ointment as well as skin irritation. On exam she has extreme skin laxity due to massive weight loss, with the abdominal pannus completely hanging 4cm below the pubis. Panniculectomy was recommended. We discussed the two options for the panniculectomy of using a combined vertical and horizontal incisions or just a horizontal (bikini) incision. It was my recommendation to do only horizontal incision based on her body habitus and skin laxity. The patient agreed with this. Risks and complications were discussed with the patient including bleeding, infection, umbilical loss, flap necrosis, asymmetry, dehiscence, seroma, VTE. The patient understood the risks and was in agreement to proceed with surgery. PROCEDURE: The incisions were appropriately marked at the preop area with the patient standing and laying down. After induction of general anesthesia, pneumatic compression devices were placed. The patient was prepped and draped in the usual sterile manner and the incisions were marked again and confirmed. The skin was infiltrated with lidocaine and epinephrine. The #10 blade scalpel was used for the large incisions and the #15 blade scalpel for the umbilicus. Cautery was used to divide the subcutaneous tissues until the fascia was identified. Then I used the cautery to separate the pannus from the fascia. The inferior incision was made initially and I mobilized the flap for a several centimeters cephalad to the umbilicus. The umbilicus was incised circumferentially and detached from the surrounding tissues all the way to the fascia while its stalk was preserved. With the patient in reflex position I confirmed that the skin flaps were appropriate and would allow for the tissues to come together with reasonable tension. At that point a horizontal incision was made 4 cm above the umbilicus. #10 blade was used for the skin, cautery for the dermis and for the remaining tissues. A subcutaneous fat flap was raised from the upper skin flap in order to fill the space under the skin and support the closure of the two flaps. In addition the inferior flap was mobilized caudally for a few centimeters to create a space for the subcutaneous fat flap as well as relieve tension from the closure. A circumferential incision was made at the area where the umbilicus would be re-implanted. The umbilicus was appropriately oriented and was delivered through the defect and was secured in place with a Roxanna. No bleeding was noted anywhere. One PHILIP drain was placed from the left corner of the horizontal incision across the wound and was secured in place with a silk suture. The subcutaneous fat flap was secured under the inferior flap with several interrupted 3.0 Monocryl sutures. The two flaps were brought together and were attached at the midline of the horizontal incision with a #3.0 Monocryl suture. At that point the umbilicus was properly oriented and was re-approximated to the skin with 8 interrupted 3.0 Monocryl sutures. In a similar fashion the skin flaps were re-approximated with multiple 3.0 Monocryl sutures. The skin was closed in all incisions and umbilicus with 4.0 Monocryl sutures. Steri-strips, xeroform gauzes and gauzes were used to cover the incisions. An abdominal binder was also placed. The was awaken and was transferred to the recover room in a stable condition. I was present and performed the entire procedure. Ms. Bryson was the surgical assistant. Ivan Bahena MD, PhD, FACS Surgeon: Gualberto Bahena MD Surgeon: Gualberto Bahena MD Anesthesia: GETA and local Was an Superintendent Stevedoring used for this Procedure?: No Superintendent Stevedoring: Yara Bryson Estimated blood loss (mL): 10 IV fluids (mL): 1,900 Urine output (mL): 0 (No Soto to record output) Pathology: other (Abdominal pannus) Condition: stable Disposition: PACU
--- NOTE | 2025-06-24 10:48 | P.F2F_ITS ---
Service Date Service Date: 06/24/25 Encounter Date of encounter: 06/24/25 Reasons for Services Signs and symptoms assessed: s/p panniculectomy with drain placement, requires detention visits 3x weekly for wound care, drain care, and wound assessments Reason for detention: wound care Homebound: Leaving the home is medically contraindicated at this time without the asist of a device and/or another person due to the listed conditions above and below. Reason homebound: unable to drive Certification: Based on the above findings, I certify that this patient is confined to the home and needs intermittent detention care, physical therapy and/or speech therapy, or continues to need occupational therapy. The patient is under my care, and I have initiated the establishment of the plan of care. The patient will be followed by a physician who will periodically review the plan of care. Time Spent With Patient Time: Total time managing care of this patient today __30__ minutes.
== END 2025-06-24 17:04 | disposition home or self-care (01) ==
PROVIDERS: PCP Internal Medicine; Visit Provider Surgery
PROC: 0JB80ZZ Excision of Abdomen Subcutaneous Tissue and Fascia, Open Approach (ICD-10-PCS; CPT 15830; principal; 2025-06-24 10:40)
DX: L98.7 Excessive and redundant skin and subcutaneous tissue (principal); K91.2 Postsurgical malabsorption, not elsewhere classified; M79.3 Panniculitis, unspecified; R23.8 Other skin changes; R26.2 Difficulty in walking, not elsewhere classified; Z90.3 Acquired absence of stomach [part of]; G89.29 Other chronic pain; M54.9 Dorsalgia, unspecified; M17.0 Bilateral primary osteoarthritis of knee; K59.01 Slow transit constipation; G47.33 Obstructive sleep apnea (adult) (pediatric); F41.9 Anxiety disorder, unspecified; Z79.85 Long-term (current) use of injectable non-insulin antidiabetic drugs; Z79.899 Other long term (current) drug therapy; Z91.041 Radiographic dye allergy status; Z88.8 Allergy status to other drugs, medicaments and biological substances; Z98.890 Other specified postprocedural states; Z87.891 Personal history of nicotine dependence
CPT/HCPCS: 15830; 15847; 36415; 80053; 85025; 85610; 85730; 86850; 86900; 86901; 88304; C9145; J0131; J0690; J1100; J2003; J2004; J2371; J2405; J2704; J3010; J3374

== ENCOUNTER → 2025-06-24 07:43 | Outpatient (BNV) | payer OTHER, SELFPAY | PROVIDERS: PCP Internal Medicine; Visit Provider Physician Assistant Surgical | DX: M79.3 Panniculitis, unspecified (principal); L98.7 Excessive and redundant skin and subcutaneous tissue; E66.3 Overweight; Z68.26 Body mass index [BMI] 26.0-26.9, adult | CPT/HCPCS: 15830; G0180 ==

== ENCOUNTER 2025-07-02 13:43 | Outpatient (AMB) | payer OTHER, SELFPAY ==
--- NOTE | 2025-07-02 13:45 | MHC.OFFVISWM ---
VS Expanded 07/02/25 13:55 BP 114/66 Blood Pressure Location Rt brachial Blood Pressure Position Sitting Pulse 74 Pulse Source Pulse Oximeter Temp 97.8 F Temperature Source Temporal Artery Scan Pulse Oximetry 98 Oxygen Delivery Method Room Air Intake Visit Reasons: (OV) s/p Panniculectomy 06/24/25 Allergies barium sulfate Allergy (Intermediate, Verified 07/02/25 13:56) pruritus Iodinated Contrast Media (CONTRAST, IV) Allergy (Intermediate, Verified 07/02/25 13:56) RASH,HIVES varenicline (From CHANTIX) Allergy (Intermediate, Verified 07/02/25 13:56) RASH, pruritus iopromide (From Ultravist) Allergy (Mild, Verified 07/02/25 13:56) HIVES HPI Comments Details: Pt is 1 week s/p panniculectomy 06/24/2025. No fevers at home. Taking abx. Following meal plan per Dr. Linda Kilpatrick binder. Drain output [facility] Medical History Depression Heartburn Chronic pain of both knees Bilateral primary osteoarthritis of knee JAKE (obstructive sleep apnea) Anxiety Osteoarthritis of knees, bilateral Insomnia Constipation by delayed colonic transit Dyslipidemia Chronic back pain Surgical History (Updated 07/02/25 @ 13:56 by Farzana Rodriguez CMA) S/P panniculectomy S/P laparoscopic sleeve gastrectomy Hx of colonoscopy History of lumbar discectomy History of tubal ligation Family History Father Diabetes Mother No problems noted. Daughter In good health Son In good health Brother No problems noted. Sister No problems noted. 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) Alcohol intake: never Comment: Uses cane when having back pain Patient Tobacco Use Status: Former Tobacco user Tobacco use type: Cigarette Years Smoked: 20+ e-Cigarette/Vaping Use: Never Used Second Hand Smoke Exposure: No service: No Current occupational status: disabled Cognitive needs: No Hearing needs: No Vision needs: No Female Reproductive History Menstrual Age of Menarche: 14 Physical Exam Const General: cooperative, comfortable and no acute distress Orientation/consciousness: patient oriented x3 GI Other: soft, nontender, nondistended steri-strips c/d/i, umbilicus viable, incisions clean without significant drainage, drain output sanguinous Neuro General: patient oriented x3 Assessment & Plan Assessment & Plan (1) S/P panniculectomy: Code(s): Z98.890 - Other specified postprocedural states Category: Surgical (2) S/P laparoscopic sleeve gastrectomy: Comment: 2021 Code(s): Z98.84 - Bariatric surgery status Category: Surgical (3) Overweight (BMI 25.0-29.9): Comment: Due gastric surgery and her efforts and use of medications has lost 130 lb. Code(s): E66.3 - Overweight Category: Medical Plan Continue high protein diet. ABX keflex 500 BID x 2 weeks, extended as needed?(at least until drain comes out plus 1 week).? Drain out after consistently 20 mL or less daily.? Abdominal binder at all times except for care x 1 month?MINIMUM. If there are concerns longer.? No driving?until drain out.? No walking outside or exercise for 6 weeks minimum. Walking in the house after 1st appt if we are satisfied with progress. Assistance getting up for 4 weeks minimum.?No lifting greater than?10 pounds x 2 months and no abdominal exercises x 3 months. RTC 1 week.
[2025-07-02 13:55] VITALS: BP 114/66; PULSE 74; TEMP 36.6; O2SAT 98
--- OUTSIDE RECORDS SUMMARY | 2025-07-02 17:27 | XMS_ITS | Clinical Summary ---
Author Organization [employer] Address [address] [facility] [address] [place] [address] Care Team Providers Care Sample Shoe Inspector And Reworker Name Role Phone Unavailable Primary Care Provider Unavailabl e Allergies Active Allergy Reactions Criticality Noted Date Comments Varenicline Hives 04/05/2023 Green Dye Anaphylaxis High 04/05/2023 All kinds of dye Medications LORazepam (Ativan) 0.5 MG tablet TAKE 1 TABLET BY MOUTH AT BEDTIME NEEDED FOR ANXIETY FOR 30 DAYS 09/28/20 23 Active oxyCODONE (Roxicodone) 5 MG immediate release tablet TAKE 1 TABLET BY MOUTH DAILY NEEDED FOR PAIN FOR 30 DAYS. 03/06/20 24 Active beta carotene (vitamin A) 3 MG (12965 UT) capsule Take by mouth Once per day. 01/08/20 24 Active Wegovy 0.25 MG/0.5ML solution auto-injector INJECT 0.25 MG (0.5 ML) SUBCUTANEOUSLY EVERY WEEK FOR 4 WEEKS WEEKS 1 THROUGH 4 OF THERAPY 04/01/20 24 Active chlorhexidine (Peridex) 0.12 % solution SWISH 15 ML MORNING AND NIGHT FOR 1 MINUTE. SPIT, DO NOT SWALLOW. DO NOT EAT OR DRINK FOR 30 MINUTES 473 mL 06/09/20 25 Active chlorhexidine (Peridex) 0.12 % solution SWISH 15 ML MORNING AND NIGHT FOR 1 MINUTE. SPIT, DO NOT SWALLOW. DO NOT EAT OR DRINK FOR 30 MINUTES 473 mL 04/04/20 25 2024 Discontinued Active Problems Problem Noted Date Diagnosed Date Advanced periodontitis 03/28/2024 Acute gingival inflammation 03/28/2024 Gingival bleeding 03/28/2024 Dental caries 03/28/2024 Dental calculus 03/28/2024 Encounters Date Type Department Care Team Description 06/09/[address] [facility] ADULT DENTAL [address] [place] [address] Nilesh Rockwell DMD 04/02/[address] [facility] ADULT DENTAL [address], [place] [phone] Nilesh Rockwell DMD from Last 3 Months Social History Tobacco [...] Additional history exists Tobacco Screening 05/23/2025 05/23/2024 Influenza Vaccine (#1) 2025 , 07/18/2022, 10/29/2021, Additional history exists Dental X-Ray: Full Mouth 04/12/2026 04/11/2023, 05/17 RSV Patients and Patients Aged 60 years or older (1 - 1-dose 75+ series) 2045 COVID-19 Vaccine Completed 08/09/2024, 12/2021, 09/23/2021, Additional history exists HIB Vaccines Aged Out [...]
--- OUTSIDE RECORDS SUMMARY | 2025-07-02 17:27 | XMS_ITS | Encounter Summary ---
Author Organization [employer] Address [address] [facility] [address] [place] [address] Care Team Providers Care Echo Tech Name Role Phone Unavailable Primary Care Provider Unavailabl e Reason for Visit * Reason Comments Med Refill Encounter Details Date Type Department Care Team (Late st Contact Info) Description 12/16/2024 Refill [facility] ADULT DENTAL [address] [place], [place] [phone] Rolando Vincent DDS [address] [place], [place] [phone] Social History Tobacco Use Types Packs/Day Years [...]
--- OUTSIDE RECORDS SUMMARY | 2025-07-02 17:27 | XMS_ITS | Encounter Summary ---
Author Organization [employer] [facility] Address [address] [facility] [address] [place] [address] Care Team Providers Care Design And Sales Consultant Name Role Phone Unavailable Primary Care [...]
--- OUTSIDE RECORDS SUMMARY | 2025-07-02 17:27 | XMS_ITS | Encounter Summary ---
Author Organization [employer] Address [address] [facility] [address] [place] [address] Care Team Providers Care Retail Operations Manager Name Role Phone Unavailable Primary Care Provider Unavailabl e Encounter Details Date Type Department Care Team (Late st Contact Info) Description 05/08/2023 Abstract [facility] ADULT DENTAL [address] [place] [address] Homer Carvalhoaris [address] [place] [address] Social History Tobacco Use Types Packs/Day Years [...]
--- OUTSIDE RECORDS SUMMARY | 2025-07-02 17:27 | XMS_ITS | Encounter Summary ---
Author Organization [employer] Address [address] [facility] [address] [place] [address] Care Team Providers Care Corporate Officer Name Role Phone Unavailable Primary Care Provider Unavailabl e Reason for Visit * Reason Comments Med Refill Encounter Details Date Type Department Care Team (Late st Contact Info) Description 04/02/2025 Refill [facility] ADULT DENTAL [address] [place] [address] Nilesh Rockwell DMD [address] [place] [address] Social History Tobacco Use Types Packs/Day Years [...]
--- OUTSIDE RECORDS SUMMARY | 2025-07-02 17:27 | XMS_ITS | Encounter Summary ---
Author Organization [employer] Address [address] [facility] 7t [place] [address] Care Team Providers Care Harp Regulator Name Role Phone Unavailable Primary Care Provider Unavailabl e Reason for Visit * Reason Comments Med Refill Encounter Details Date Type Department Care Team (Late st Contact Info) Description 06/09/2025 Refill [facility] ADULT DENTAL [address] [place] [address] Nilesh Rockwell DMD [address] [place] [address] Social History Tobacco Use Types Packs/Day Years [...] Telephone Encounter - Nilesh Rockwell DMD - 06/09/2025 2:17 PM EDT Approving, but needs appt for additional refills. documented in this encounter Plan of Treatment Not on file documented as of this encounter Visit Diagnoses Not on filedocumented in this encounter
== END 2025-07-03 15:05 | disposition home or self-care (01) ==
LOC: HO.HBS 13:44
PROVIDERS: PCP Internal Medicine; Visit Provider Physician Assistant Surgical
DX: E66.3 Overweight (principal); Z68.26 Body mass index [BMI] 26.0-26.9, adult; Z98.890 Other specified postprocedural states; Z98.84 Bariatric surgery status
CPT/HCPCS: 99024

== ENCOUNTER → 2025-07-02 13:43 | Outpatient (BNVA) | payer OTHER, SELFPAY | PROVIDERS: PCP Internal Medicine; Visit Provider Physician Assistant Surgical | DX: Z48.817 Encounter for surgical aftercare following surgery on the skin and subcutaneous tissue (principal); E66.3 Overweight; Z98.84 Bariatric surgery status | CPT/HCPCS: 99212 ==

== ENCOUNTER 2025-07-09 13:58 | Outpatient (AMB) | payer OTHER, SELFPAY ==
[2025-07-09 14:44] VITALS: BP 115/73; PULSE 76; TEMP 37.6; O2SAT 99
--- NOTE | 2025-07-09 14:44 | A.OFFVIS_ITS ---
VS Expanded 07/09/25 14:44 BP 115/73 Blood Pressure Location Rt brachial Blood Pressure Position Sitting Pulse 76 Pulse Source Pulse Oximeter Temp 99.7 F Temperature Source Temporal Artery Scan Pulse Oximetry 99 Oxygen Delivery Method Room Air Intake Visit Reasons: (OV) s/p Panniculectomy 06/24/25 Allergies barium sulfate Allergy (Intermediate, Verified 07/09/25 15:03) pruritus Iodinated Contrast Media (CONTRAST, IV) Allergy (Intermediate, Verified 07/09/25 15:03) RASH,HIVES varenicline (From CHANTIX) Allergy (Intermediate, Verified 07/09/25 15:03) RASH, pruritus iopromide (From Ultravist) Allergy (Mild, Verified 07/09/25 15:03) HIVES Medication List - Last Reconciled 07/09/25 by PRAVEEN Garrison bisacodyl (Dulcolax (bisacodyl)) 10 mg MT DAILY PRN calcium citrate-vitamin D3 315 mg-5 mcg (200 unit) (Calcium Citrate + D) 1 tab PO BID cephalexin 500 mg PO Q12H clotrimazole 1% 1 appl topical BID cyclobenzaprine 10 mg PO TID PRN docusate sodium (Colace) 100 mg PO DAILY fluocinolone acetonide oil 0.01% (DermOtic Oil) 5 drps otic (ears) BID 7 days lorazepam 0.5 mg PO BEDTIME PRN 30 days multivitamin 1 tab PO DAILY olopatadine 0.2% (Pataday Once Daily Relief) 1 drp ophthalmic (eye) DAILY PRN 30 days ondansetron 4 mg PO Q12H oxycodone 5 mg PO DAILY PRN 30 days sennosides (senna) 17.2 mg (2 x 8.6 mg) PO BEDTIME [shower chair As directed] tirzepatide (weight loss) (Zepbound) 10 mg (0.5 mL) subcut QWEEK 4 weeks triamcinolone acetonide 0.1% 1 appl topical DAILY 2 weeks walker As directed HPI Comments Details: Pt is 2 week2 s/p panniculectomy 06/24/2025. No fevers at home. Taking abx. Follo wing meal plan per Dr. Linda Kilpatrick binder. Drain output 15cc or so for last 5 days. [facility] Medical History (Updated 07/09/25 @ 15:10 by PRAVEEN Garrison) Depression Heartburn Chronic pain of both knees Bilateral primary osteoarthritis of knee JAKE (obstructive sleep apnea) Anxiety Osteoarthritis of knees, bilateral Insomnia Constipation by delayed colonic transit Dyslipidemia Chronic back pain Surgical History S/P panniculectomy S/P laparoscopic sleeve gastrectomy Hx of colonoscopy History of lumbar discectomy History of tubal ligation Family History Father Diabetes Mother No problems noted. Daughter In good health Son In good health Brother No problems noted. Sister No problems noted. 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) Alcohol intake: never Comment: Uses cane when having back pain Patient Tobacco Use Status: Former Tobacco user Tobacco use type: Cigarette Years Smoked: 20+ e-Cigarette/Vaping Use: Never Used Second Hand Smoke Exposure: No service: No Current occupational status: disabled Cognitive needs: No Hearing needs: No Vision needs: No Female Reproductive History Menstrual Age of Menarche: 14 Physical Exam Vital Signs: Last Vital Signs Temp 99.7 F 07/09/25 14:44 Pulse 76 07/09/25 14:44 BP 115/73 07/09/25 14:44 Pulse Ox 99 07/09/25 14:44 Oxygen Delivery Method Room Air 07/09/25 14:44 Const General: cooperative, comfortable and no acute distress Orientation/consciousness: patient oriented x3 GI Other: soft, nontender, nondistended steri-strips c/d/i, umbilicus viable, incisions clean without significant drainage, drain output sanguinous Neuro General: patient oriented x3 Assessment & Plan Assessment & Plan (1) Overweight (BMI 25.0-29.9): Code(s): E66.3 - Overweight Category: Medical (2) S/P laparoscopic sleeve gastrectomy: Comment: 2021 Code(s): Z98.84 - Bariatric surgery status Category: Surgical Plan Continue high protein diet. ABX keflex 500 BID x 2 weeks, extended as needed (at least until drain comes out plus 1 week). Drain out after consistently 20 mL or less daily. Should be able to come out next week. Abdominal binder at all times except for care x 1 month MINIMUM. If there are concerns longer. No driving until drain out. No walking outside or exercise for 6 weeks minimum. Walking in the house ok. Assistance getting up for 4 weeks minimum. No lifting greater than 10 pounds x 2 months and no abdominal exercises x 3 months. RTC 1 week.
--- OUTSIDE RECORDS SUMMARY | 2025-07-09 16:28 | XMS_ITS | Encounter Summary ---
Author Organization [employer] Address [address] [facility] 7t [place] [address] Care Team Providers Care Realtime Court Reporter Name Role Phone Unavailable Primary Care Provider Unavailabl e Reason for Visit * Reason Comments Med Refill Encounter Details Date Type Department Care Team (Late st Contact Info) Description 06/09/2025 Refill [facility] ADULT DENTAL [address] [place] [address] Nilesh Rockwell DMD [address] [place] [address] Social History Tobacco Use Types Packs/Day Years [...]
--- OUTSIDE RECORDS SUMMARY | 2025-07-09 16:28 | XMS_ITS | Encounter Summary ---
Author Organization [employer] Address [address] [facility] 7t [place] [address] Care Team Providers Care Data Integration Analyst Name Role Phone Unavailable Primary Care Provider Unavailabl e Reason for Visit * Reason Comments Med Refill Encounter Details Date Type Department Care Team (Late st Contact Info) Description 07/04/2025 Refill [facility] ADULT DENTAL [address] [place] [address] Nilesh Rockwell DMD [address] [place] [address] Social History Tobacco Use Types Packs/Day Years [...] Telephone Encounter - Nilesh Rockwell DMD - 07/07/2025 7:49 AM EDT Approving, but needs appt for additional refills. documented in this encounter Plan of Treatment Not on file documented as of this encounter Visit Diagnoses Not on filedocumented in this encounter
--- OUTSIDE RECORDS SUMMARY | 2025-07-09 16:28 | XMS_ITS | Encounter Summary ---
Author Organization [employer] [facility] Address [address] [facility] [address] [place] [address] Care Team Providers Care Magisterial District Judge Name Role Phone Unavailable Primary Care Provider [...]
--- OUTSIDE RECORDS SUMMARY | 2025-07-09 16:28 | XMS_ITS | Encounter Summary ---
Author Organization [employer] Address [address] [facility] 7t [place] [address] Care Team Providers Care Usability Engineer Name Role Phone Unavailable Primary Care Provider Unavailabl e Reason for Visit * Reason Comments Med Refill Encounter Details Date Type Department Care Team (Late st Contact Info) Description 12/16/2024 Refill C ADULT DENTAL [address] [place], [place] [phone] Rolando Vincent DDS [address] [place], [place] [phone] Social History Tobacco Use Types Packs/Day Years [...]
--- OUTSIDE RECORDS SUMMARY | 2025-07-09 16:28 | XMS_ITS | Clinical Summary ---
Author Organization [employer] Address [address] [facility] 7t [place] [address] Care Team Providers Care Tube Draw Helper Name Role Phone Unavailable Primary Care [...] Active beta carotene (vitamin A) 3 MG (80007 UT) capsule Take by mouth Once per [...] OR DRINK FOR 30 MINUTES 473 mL 07/07/20 25 Active chlorhexidine (Peridex) 0.12 % solution SWISH 15 ML MORNING AND NIGHT FOR 1 MINUTE. SPIT, DO NOT SWALLOW. DO NOT EAT OR DRINK FOR 30 MINUTES 473 mL 06/09/20 25 2024 Discontinued Active Problems Problem Noted Date Diagnosed Date Advanced periodontitis 03/28/2024 Acute gingival inflammation 03/28/2024 Gingival bleeding 03/28/2024 Dental caries 03/28/2024 Dental calculus 03/28/2024 Encounters Date Type Department Care Team Description 07/04/2025 Refill [facility] ADULT DENTAL [address] [place] [address] Nilesh Rockwell DMD 06/09/2025 Refill [facility] ADULT DENTAL [address] [place], [place] [phone] Nilesh Rockwlel DMD from Last 3 Months Social History [...]
--- OUTSIDE RECORDS SUMMARY | 2025-07-09 16:28 | XMS_ITS | Encounter Summary ---
Author Organization [employer] Address [address] [facility] 7t [place] [address] Care Team Providers Care Veneer Supervisor Name Role Phone Unavailable Primary Care Provider Unavailabl e Reason for Visit * Reason Comments Med Refill Encounter Details Date Type Department Care Team (Late st Contact Info) Description 04/02/2025 Refill [facility] ADULT DENTAL [address] [place] [address] Nilesh Rockwell DMD [address] [place] [address] Social History Tobacco Use Types Packs/Day Years [...]
--- OUTSIDE RECORDS SUMMARY | 2025-07-09 16:28 | XMS_ITS | Encounter Summary ---
Author Organization [employer] Address [address] [facility] 7t [place] [address] Care Team Providers Care Butter Liquefier Name Role Phone Unavailable Primary Care Provider Unavailabl e Encounter Details Date Type Department Care Team (Late st Contact Info) Description 05/08/2023 Abstract [facility] ADULT DENTAL [address] [place] [address] Homer Carvalhoaris [address] [place] [address] Social History Tobacco Use Types Packs/Day Years [...]
== END 2025-07-09 15:26 | disposition home or self-care (01) ==
LOC: HO.HBS 13:59
PROVIDERS: PCP Internal Medicine; Visit Provider Physician Assistant Surgical
DX: E66.3 Overweight (principal); Z68.26 Body mass index [BMI] 26.0-26.9, adult; Z98.84 Bariatric surgery status
CPT/HCPCS: 99024

== ENCOUNTER → 2025-07-09 13:58 | Outpatient (BNVA) | payer OTHER, SELFPAY | PROVIDERS: PCP Internal Medicine; Visit Provider Physician Assistant Surgical | DX: E66.3 Overweight (principal); Z98.890 Other specified postprocedural states; Z90.3 Acquired absence of stomach [part of] | CPT/HCPCS: 99212 ==

== ENCOUNTER 2025-07-16 13:54 | Outpatient (AMB) | payer OTHER, SELFPAY ==
[2025-07-16 14:55] VITALS: BP 107/68; PULSE 64; TEMP 36.9; O2SAT 98
--- NOTE | 2025-07-16 14:55 | A.OFFVIS_ITS ---
VS Expanded 07/16/25 14:55 BP 107/68 Blood Pressure Location Rt brachial Blood Pressure Position Sitting Pulse 64 Pulse Source Pulse Oximeter Temp 98.4 F Temperature Source Temporal Artery Scan Pulse Oximetry 98 Oxygen Delivery Method Room Air Intake Visit Reasons: (OV) s/p Panniculectomy 06/24/25 Allergies barium sulfate Allergy (Intermediate, Verified 07/16/25 14:56) pruritus Iodinated Contrast Media (CONTRAST, IV) Allergy (Intermediate, Verified 07/16/25 14:56) RASH,HIVES varenicline (From CHANTIX) Allergy (Intermediate, Verified 07/16/25 14:56) RASH, pruritus iopromide (From Ultravist) Allergy (Mild, Verified 07/16/25 14:56) HIVES Medication List - Last Reconciled 07/16/25 by PRAVEEN Garrison bisacodyl (Dulcolax (bisacodyl)) 10 mg NE DAILY PRN calcium citrate-vitamin D3 315 mg-5 mcg (200 unit) (Calcium Citrate + D) 1 tab PO BID cephalexin 500 mg PO Q12H cyclobenzaprine 10 mg PO TID PRN docusate sodium (Colace) 100 mg PO DAILY fluocinolone acetonide oil 0.01% (DermOtic Oil) 5 drps otic (ears) BID 7 days lorazepam 0.5 mg PO BEDTIME PRN 30 days multivitamin 1 tab PO DAILY olopatadine 0.2% (Pataday Once Daily Relief) 1 drp ophthalmic (eye) DAILY PRN 30 days ondansetron 4 mg PO Q12H oxycodone 5 mg PO DAILY PRN 30 days sennosides (senna) 17.2 mg (2 x 8.6 mg) PO BEDTIME [shower chair As directed] tirzepatide (weight loss) (Zepbound) 10 mg (0.5 mL) subcut QWEEK 4 weeks triamcinolone acetonide 0.1% 1 appl topical DAILY 2 weeks walker As directed HPI Comments Details: Pt is 3 weeks s/p panniculectomy 06/24/2025. No fevers at home. Taking abx. Following meal plan per Dr. Linda Kilpatrick binder. Drain output 5-10cc or so for last 7 days. [facility] Medical History (Updated 07/09/25 @ 15:10 by PRAVEEN Garrison) Depression Heartburn Chronic pain of both knees Bilateral primary osteoarthritis of knee JAKE (obstructive sleep apnea) Anxiety Osteoarthritis of knees, bilateral Insomnia Constipation by delayed colonic transit Dyslipidemia Chronic back pain Surgical History S/P panniculectomy S/P laparoscopic sleeve gastrectomy Hx of colonoscopy History of lumbar discectomy History of tubal ligation Family History Father Diabetes Mother No problems noted. Daughter In good health Son In good health Brother No problems noted. Sister No problems noted. 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) Alcohol intake: never Comment: Uses cane when having back pain Patient Tobacco Use Status: Former Tobacco user Tobacco use type: Cigarette Years Smoked: 20+ e-Cigarette/Vaping Use: Never Used Second Hand Smoke Exposure: No service: No Current occupational status: disabled Cognitive needs: No Hearing needs: No Vision needs: No Female Reproductive History Menstrual Age of Menarche: 14 Physical Exam Vital Signs: Last Vital Signs Temp 98.4 F 07/16/25 14:55 Pulse 64 07/16/25 14:55 BP 107/68 07/16/25 14:55 Pulse Ox 98 07/16/25 14:55 Oxygen Delivery Method Room Air 07/16/25 14:55 Const General: cooperative, comfortable and no acute distress Orientation/consciousness: patient oriented x3 GI Other: soft, nontender, nondistended, all incisions clean with steri-strips intact, drain output SS Neuro General: patient oriented x3 Assessment & Plan Assessment & Plan (1) S/P laparoscopic sleeve gastrectomy: Comment: 2021 Code(s): Z98.84 - Bariatric surgery status Category: Surgical (2) S/P panniculectomy: Code(s): Z98.890 - Other specified postprocedural states Category: Surgical Plan Continue high protein diet. Drain removed in office today without difficulty. ABX keflex 500 BID x 1 more week.? Abdominal binder at all times except for care x 1 month?MINIMUM. If there are concerns longer.? May drive.? No walking outside or exercise for 6 weeks minimum. Walking in the house ok. Assistance getting up for 4 weeks minimum.?No lifting greater than?10 pounds x 2 months and no abdomin al exercises x 3 months. RTC 1 week.
--- OUTSIDE RECORDS SUMMARY | 2025-07-16 15:10 | XMS_ITS | Encounter Summary ---
Author Organization [employer] Address [address] [facility] 7t [place] [address] Care Team Providers Care Survey Analyst Name Role Phone Unavailable Primary Care Provider Unavailabl e Reason for Visit * Reason Comments Med Refill Encounter Details Date Type Department Care Team (Late st Contact Info) Description 04/02/2025 Refill [facility] ADULT DENTAL [address] [place] [address] Nilesh Rockwell DMD [address] [place] [address] Social History Tobacco Use Types Packs/Day Years [...]
--- OUTSIDE RECORDS SUMMARY | 2025-07-16 15:10 | XMS_ITS | Clinical Summary ---
Author Organization [employer] Address [address] [facility] 7t [place] [address] Care Team Providers Care Ice Cream Machine Operator Name Role Phone Unavailable Primary Care [...] Active beta carotene (vitamin A) 3 MG (58424 UT) capsule Take by mouth Once per [...] Type Department Care Team Description 07/04/2025 Refill [facility] ADULT DENTAL [address] [place] [address] Nilesh Rockwell DMD 06/09/2025 Refill [facility] ADULT DENTAL [address] [place], [place] [phone] Nilesh Rockwell DMD from Last 3 Months [...]
--- OUTSIDE RECORDS SUMMARY | 2025-07-16 15:10 | XMS_ITS | Encounter Summary ---
Author Organization [employer] Address [address] [facility] [address]t [place] [address] Care Team Providers Care Timber Management Assistant Name Role Phone Unavailable Primary Care Provider Unavailabl e Reason for Visit * Reason Comments Med Refill Encounter Details Date Type Department Care Team (Late st Contact Info) Description 12/16/2024 Refill C ADULT DENTAL [address] [place], [place] [phone] Rolando Vincent DDS [address] [place], [place] [phone] Social History Tobacco Use Types Packs/Day Years [...]
--- OUTSIDE RECORDS SUMMARY | 2025-07-16 15:10 | XMS_ITS | Encounter Summary ---
Author Organization [employer] Address [address] [facility] 7t [place] [address] Care Team Providers Care Boat Rigger Name Role Phone Unavailable Primary Care Provider Unavailabl e Encounter Details Date Type Department Care Team (Late st Contact Info) Description 05/08/2023 Abstract [facility] ADULT DENTAL [address] [place] [address] Homer Carvalhoaris [address] [place] [address] Social History Tobacco Use Types Packs/Day Years [...]
--- OUTSIDE RECORDS SUMMARY | 2025-07-16 15:10 | XMS_ITS | Encounter Summary ---
Author Organization [employer] [facility] Address [address] [facility] 7t [place] [address] Care Team Providers Care Oil Well Services Field Supervisor Name Role Phone Unavailable Primary Care [...]
--- OUTSIDE RECORDS SUMMARY | 2025-07-16 15:10 | XMS_ITS | Encounter Summary ---
Author Organization [employer] Address [address] [facility] 7t [place] [address] Care Team Providers Care Extrusion Process Operator Name Role Phone Unavailable Primary Care Provider Unavailabl e Reason for Visit * Reason Comments Med Refill Encounter Details Date Type Department Care Team (Late st Contact Info) Description 07/04/[address] [facility] ADULT DENTAL [address] [place] [address] Nilesh Rockwell DMD [address] [place] [address] Social History Tobacco Use Types Packs/Day Years [...]
--- OUTSIDE RECORDS SUMMARY | 2025-07-16 15:10 | XMS_ITS | Encounter Summary ---
Author Organization [employer] Address [address] [facility] 7t [place] [address] Care Team Providers Care Corporate Controller Name Role Phone Unavailable Primary Care Provider Unavailabl e Reason for Visit * Reason Comments Med Refill Encounter Details Date Type Department Care Team (Late st Contact Info) Description 06/09/2025 Refill [facility] ADULT DENTAL [address] [place] [address] Nilesh Rockwell DMD [address] [place] [address] Social History Tobacco Use Types Packs/Day Years [...]
== END 2025-07-16 15:11 | disposition home or self-care (01) ==
LOC: HO.HBS 13:55
PROVIDERS: PCP Internal Medicine; Visit Provider Physician Assistant Surgical
DX: Z71.3 Dietary counseling and surveillance (principal); Z98.84 Bariatric surgery status; Z98.890 Other specified postprocedural states
CPT/HCPCS: 99024

== ENCOUNTER → 2025-07-16 13:54 | Outpatient (BNVA) | payer OTHER, SELFPAY | PROVIDERS: PCP Internal Medicine; Visit Provider Physician Assistant Surgical | DX: E66.9 Obesity, unspecified (principal); Z90.3 Acquired absence of stomach [part of]; Z98.890 Other specified postprocedural states | CPT/HCPCS: 99212 ==

== ENCOUNTER 2025-07-23 13:59 | Outpatient (AMB) | payer OTHER, SELFPAY ==
[2025-07-23 15:00] VITALS: BP 100/63; PULSE 71; TEMP 37.2; O2SAT 99
--- NOTE | 2025-07-23 15:00 | MHC.NURWM ---
Intake VS Expanded 07/23/25 15:00 BP 100/63 Blood Pressure Location Rt brachial Blood Pressure Position Sitting Pulse 71 Pulse Source Pulse Oximeter Temp 99.0 F Temperature Source Temporal Artery Scan Pulse Oximetry 99 Oxygen Delivery Method Room Air Intake Visit Reasons: (OV) s/p Panniculectomy 06/24/25 Allergies barium sulfate Allergy (Intermediate, Verified 07/16/25 14:56) pruritus Iodinated Contrast Media (CONTRAST, IV) Allergy (Intermediate, Verified 07/16/25 14:56) RASH,HIVES varenicline (From CHANTIX) Allergy (Intermediate, Verified 07/16/25 14:56) RASH, pruritus iopromide (From Ultravist) Allergy (Mild, Verified 07/16/25 14:56) HIVES Coding
--- NOTE | 2025-07-23 15:17 | A.OFFVIS_ITS ---
VS Expanded 07/23/25 15:00 BP 100/63 Blood Pressure Location Rt brachial Blood Pressure Position Sitting Pulse 71 Pulse Source Pulse Oximeter Temp 99.0 F Temperature Source Temporal Artery Scan Pulse Oximetry 99 Oxygen Delivery Method Room Air Intake Visit Reasons: (OV) s/p Panniculectomy 06/24/25 Allergies barium sulfate Allergy (Intermediate, Verified 07/16/25 14:56) pruritus Iodinated Contrast Media (CONTRAST, IV) Allergy (Intermediate, Verified 07/16/25 14:56) RASH,HIVES varenicline (From CHANTIX) Allergy (Intermediate, Verified 07/16/25 14:56) RASH, pruritus iopromide (From Ultravist) Allergy (Mild, Verified 07/16/25 14:56) HIVES HPI Comments Details: Pt is 4 weeks s/p panniculectomy 06/24/2025. No fevers at home. Taking abx. Following meal plan per Dr. Linda Kilpatrick binder. Drain removed last week. [facility] Medical History (Updated 07/09/25 @ 15:10 by PRAVEEN Garrison) Depression Heartburn Chronic pain of both knees Bilateral primary osteoarthritis of knee JAKE (obstructive sleep apnea) Anxiety Osteoarthritis of knees, bilateral Insomnia Constipation by delayed colonic transit Dyslipidemia Chronic back pain Surgical History S/P panniculectomy S/P laparoscopic sleeve gastrectomy Hx of colonoscopy History of lumbar discectomy History of tubal ligation Family History Father Diabetes Mother No problems noted. Daughter In good health Son In good health Brother No problems noted. Sister No problems noted. 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) Alcohol intake: never Comment: Uses cane when having back pain Patient Tobacco Use Status: Former Tobacco user Tobacco use type: Cigarette Years Smoked: 20+ e-Cigarette/Vaping Use: Never Used Second Hand Smoke Exposure: No service: No Current occupational status: disabled Cognitive needs: No Hearing needs: No Vision needs: No Female Reproductive History Menstrual Age of Menarche: 14 Physical Exam Vital Signs: Last Vital Signs Temp 99.0 F 07/23/25 15:00 Pulse 71 07/23/25 15:00 BP 100/63 07/23/25 15:00 Pulse Ox 99 07/23/25 15:00 Oxygen Delivery Method Room Air 07/23/25 15:00 Const General: cooperative, comfortable and no acute distress Orientation/consciousness: patient oriented x3 GI Other: soft, nontender, nondistended, incisions healing well, drain site clean Neuro General: patient oriented x3 Assessment & Plan Assessment & Plan (1) S/P panniculectomy: Code(s): Z98.890 - Other specified postprocedural states Category: Surgical (2) S/P laparoscopic sleeve gastrectomy: Comment: 2021 Code(s): Z98.84 - Bariatric surgery status Category: Surgical Plan Continue high protein diet. ABX to complete today.? Drain out after consistently 20 mL or less daily.? Abdominal binder at all times except for care x 6w. No walking outside or exercise for 6 weeks minimum. Walking in the house ok. Assistance getting up for 4 weeks minimum.?No lifting greater than?10 pounds x 2 months and no abdominal exercises x 3 months. RTC 2w.
== END 2025-07-23 15:19 | disposition home or self-care (01) ==
LOC: HO.HBS 14:00
PROVIDERS: PCP Internal Medicine; Visit Provider Physician Assistant Surgical
DX: Z71.3 Dietary counseling and surveillance (principal); Z98.890 Other specified postprocedural states; Z98.84 Bariatric surgery status
CPT/HCPCS: 99024

== ENCOUNTER → 2025-07-23 13:59 | Outpatient (BNVA) | payer OTHER, SELFPAY | PROVIDERS: PCP Internal Medicine; Visit Provider Physician Assistant Surgical | DX: Z48.817 Encounter for surgical aftercare following surgery on the skin and subcutaneous tissue (principal) | CPT/HCPCS: 99212 ==

== ENCOUNTER 2025-08-06 13:50 | Outpatient (AMB) | payer OTHER, SELFPAY ==
--- NOTE | 2025-08-06 14:14 | A.OFFVIS_ITS ---
VS Expanded 08/06/25 14:23 BP 110/65 Blood Pressure Location Rt brachial Blood Pressure Position Sitting Pulse 72 Pulse Source Pulse Oximeter Temp 98 F Temperature Source Temporal Artery Scan Pulse Oximetry 100 Oxygen Delivery Method Room Air Height 5 ft 5 in Weight 148 lb 12.8 oz BMI 24.8 Body Fat % 29.7 Body Fat Mass 44.0 Fat Free Mass 104.4 Visceral Fat Rating 6.0 Body Water % 49.9 Body Water Mass 74.0 Muscle Mass/Score 99.2 Basal Metabolic Rate/Score 1,397 Intake Visit Reasons: (OV) s/p Panniculectomy 06/24/25 Allergies barium sulfate Allergy (Intermediate, Verified 07/16/25 14:56) pruritus Iodinated Contrast Media (CONTRAST, IV) Allergy (Intermediate, Verified 07/16/25 14:56) RASH,HIVES varenicline (From CHANTIX) Allergy (Intermediate, Verified 07/16/25 14:56) RASH, pruritus iopromide (From Ultravist) Allergy (Mild, Verified 07/16/25 14:56) HIVES Medication List - Last Reconciled 08/06/25 by PRAVEEN Garrison bisacodyl (Dulcolax (bisacodyl)) 10 mg [place] DAILY PRN calcium citrate-vitamin D3 315 mg-5 mcg (200 unit) (Calcium Citrate + D) 1 tab PO BID cyclobenzaprine 10 mg PO TID PRN docusate sodium (Colace) 100 mg PO DAILY fluocinolone acetonide oil 0.01% (DermOtic Oil) 5 drps otic (ears) BID 7 days lorazepam 0.5 mg PO BEDTIME PRN 30 days multivitamin 1 tab PO DAILY olopatadine 0.2% (Pataday Once Daily Relief) 1 drp ophthalmic (eye) DAILY PRN 30 days ondansetron 4 mg PO Q12H oxycodone 5 mg PO DAILY PRN 30 days sennosides (senna) 17.2 mg (2 x 8.6 mg) PO BEDTIME [shower chair As directed] tirzepatide (weight loss) (Zepbound) 10 mg (0.5 mL) subcut QWEEK 4 weeks triamcinolone acetonide 0.1% 1 appl topical DAILY 2 weeks walker As directed HPI Comments Details: Pt is 6w s/p panniculectomy. No fevers at home. Wearing abdominal binder. Following meal plan closely. Pt also reports issues of excess skin of upper arms. Pt experiences chafing and rashes where skin rubs against the torso. She has to wear long sleeves at all times to protect skin from friction. Skin is heavy, and causes discomfort and limits mobility when she tries to reach her arms over her head. She also experiences shoulder pain due to heaviness of excess skin. [facility] Medical History (Updated 07/09/25 @ 15:10 by PRAVEEN Garrison) Depression Heartburn Chronic pain of both knees Bilateral primary osteoarthritis of knee JAKE (obstructive sleep apnea) Anxiety Osteoarthritis of knees, bilateral Insomnia Constipation by delayed colonic transit Dyslipidemia Chronic back pain Surgical History S/P panniculectomy S/P laparoscopic sleeve gastrectomy Hx of colonoscopy History of lumbar discectomy History of tubal ligation Family History Father Diabetes Mother No problems noted. Daughter In good health Son In good health Brother No problems noted. Sister No problems noted. 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) Alcohol intake: never Comment: Uses cane when having back pain Patient Tobacco Use Status: Former Tobacco user Tobacco use type: Cigarette Years Smoked: 20+ e-Cigarette/Vaping Use: Never Used Second Hand Smoke Exposure: No service: No Current occupational status: disabled Cognitive needs: No Hearing needs: No Vision needs: No Female Reproductive History Menstrual Age of Menarche: 14 Physical Exam Vital Signs: Last Vital Signs Temp 98 F 08/06/25 14:23 Pulse 72 08/06/25 14:23 BP 110/65 08/06/25 14:23 Pulse Ox 100 08/06/25 14:23 Oxygen Delivery Method Room Air 08/06/25 14:23 BMI result Body Mass Index 24.8 Const General: cooperative, comfortable and no acute distress Orientation/consciousness: patient oriented x3 GI Other: soft, nontender, nondistended, panniculectomy incision healing well Skin Other: maximum length of excess skin of upper arms 9cm on R, 9.5cm on left Neuro General: patient oriented x3 Assessment & Plan Assessment & Plan (1) S/P panniculectomy: Code(s): Z98.890 - Other specified postprocedural states Category: Surgical (2) Excess skin: Code(s): L98.7 - Excessive and redundant skin and subcutaneous tissue Category: Medical (3) S/P laparoscopic sleeve gastrectomy: Comment: 2021 Code(s): Z98.84 - Bariatric surgery status Category: Surgical Plan Continue high protein diet. Abx completed.? Drain out after consistently 20 mL or less daily.? Abdominal binder at all timesuntil [address]. No walking outside or exercise for 6 weeks minimum. Walking in the house ok. No lifting greater than?10 pounds x 2 months and no abdominal exercises x 3 months. Pt is experiencing issues of excess skin of the arms resulting in frequent chafing/rashes, limitation of mobility in activities of daily living, need for special clothing, and discomfort due to weight of excess skin. Recommended OTC body balm for chafing. Photos of arms taken today. RTC 1 month.
[2025-08-06 14:23] VITALS: BP 110/65; PULSE 72; TEMP 36.6; O2SAT 100; BMI 24.8
--- OUTSIDE RECORDS SUMMARY | 2025-08-06 19:58 | XMS_ITS | Encounter Summary ---
Author Organization [employer] [facility] Address [address] [place] [address] Care Team Providers Care Mobile Sales Technician Name Role Phone Unavailable Primary Care Provider [...]
--- OUTSIDE RECORDS SUMMARY | 2025-08-06 19:58 | XMS_ITS | Encounter Summary ---
Author Organization [employer] Address [address] [place] [address] Care Team Providers Care Degree Clerk Name Role Phone Unavailable Primary Care Provider Unavailabl e Reason for Visit * Reason Comments Med Refill Encounter Details Date Type Department Care Team (Late st Contact Info) Description 04/02/2025 Refill [facility] ADULT DENTAL [address] [place] [address] Nilesh Rockwell DMD [address] [place] [address] Social History Tobacco Use Types Packs/Day Years [...]
--- OUTSIDE RECORDS SUMMARY | 2025-08-06 19:59 | XMS_ITS | Clinical Summary ---
Author Organization [employer] Address [address] [facility] [address] [place] [address] Care Team Providers Care Inflatable Buildings Laminator Name Role Phone Unavailable Primary Care Provider [...] Active beta carotene (vitamin A) 3 MG (52495 UT) capsule Take by mouth Once per day. 4 Active Wegovy 0.25 MG/0.5ML solution auto-injector INJECT 0.25 MG (0.5 ML) SUBCUTANEOUSLY EVERY WEEK FOR 4 WEEKS WEEKS 1 THROUGH 4 OF THERAPY 4 Active chlorhexidine (Peridex) 0.12 % solution SWISH 15 ML MORNING AND NIGHT FOR 1 MINUTE. SPIT, DO NOT SWALLOW. DO NOT EAT OR DRINK FOR 30 MINUTES 473 mL 5 Active Active Problems Problem Noted Date Diagnosed Date Advanced periodontitis 03/28/2024 Acute gingival inflammation 03/28/2024 Gingival bleeding 03/28/2024 Dental caries 03/28/2024 Dental calculus 03/28/2024 Encounters Date Type Department Care Team Description 07/04/2025 Refill [facility] ADULT DENTAL [address], [place] [phone] Nilesh Rockwell DMD 06/09/2025 Refill [facility] ADULT DENTAL [address], [place] [phone] Nilesh Rockwell DMD from Last 3 Months [...] Most Recently Relevant to Health Maintenance Insurance [facility] MEDICAID STAND ADULT
--- OUTSIDE RECORDS SUMMARY | 2025-08-06 19:59 | XMS_ITS | Encounter Summary ---
Author Organization [employer] Address [address] [facility] [address] [place] [address] Care Team Providers Care Senior C Software Developer Name Role Phone Unavailable Primary Care Provider Unavailabl e Encounter Details Date Type Department Care Team (Late st Contact Info) Description 05/08/2023 Abstract [facility] ADULT DENTAL [address] [place] [address] Homer Carvalhoaris [address] [place] [address] Social History Tobacco Use Types Packs/Day Years [...]
--- OUTSIDE RECORDS SUMMARY | 2025-08-06 19:59 | XMS_ITS | Encounter Summary ---
Author Organization [employer] Address [address] [facility] [address] [place] [address] Care Team Providers Care Fifth Grade Teacher Name Role Phone Unavailable Primary Care Provider Unavailabl e Reason for Visit * Reason Comments Med Refill Encounter Details Date Type Department Care Team (Late st Contact Info) Description 06/09/2025 Refill [facility] ADULT DENTAL [address] [place] [address] Nilesh Rockwell DMD [address] [place] [address] Social History Tobacco Use Types Packs/Day Years [...]
--- OUTSIDE RECORDS SUMMARY | 2025-08-06 19:59 | XMS_ITS | Encounter Summary ---
Author Organization [employer] Address [address] [facility] [address] [place] [address] Care Team Providers Care Market Investigator Name Role Phone Unavailable Primary Care Provider Unavailabl e Reason for Visit * Reason Comments Med Refill Encounter Details Date Type Department Care Team (Late st Contact Info) Description 12/16/2024 Refill [facility] ADULT DENTAL [address] [place], [place] [phone] Rolando Vincent DDS [address], [place] [phone] Social History Tobacco Use Types Packs/Day Years [...]
--- OUTSIDE RECORDS SUMMARY | 2025-08-06 19:59 | XMS_ITS | Encounter Summary ---
Author Organization [employer] Address [address] [facility] [address] [place] [address] Care Team Providers Care Hide Spreader Name Role Phone Unavailable Primary Care Provider Unavailabl e Reason for Visit * Reason Comments Med Refill Encounter Details Date Type Department Care Team (Late st Contact Info) Description 07/04/2025 Refill [facility] ADULT DENTAL [address] [place] [address] Nilesh Rockwell DMD [address] [place] [address] Social History Tobacco Use Types Packs/Day Years [...]
== END 2025-08-06 15:27 | disposition home or self-care (01) ==
LOC: HO.HBS 13:51
PROVIDERS: PCP Internal Medicine; Visit Provider Physician Assistant Surgical
DX: L98.7 Excessive and redundant skin and subcutaneous tissue (principal); Z71.3 Dietary counseling and surveillance; Z98.890 Other specified postprocedural states; Z98.84 Bariatric surgery status
CPT/HCPCS: 99024

== ENCOUNTER → 2025-08-06 13:50 | Outpatient (BNVA) | payer OTHER, SELFPAY | PROVIDERS: PCP Internal Medicine; Visit Provider Physician Assistant Surgical | DX: Z48.817 Encounter for surgical aftercare following surgery on the skin and subcutaneous tissue (principal); L98.7 Excessive and redundant skin and subcutaneous tissue | CPT/HCPCS: 99212 ==

== ENCOUNTER 2025-09-02 11:34 | Outpatient (AMB) | payer OTHER, SELFPAY ==
--- NOTE | 2025-09-02 11:40 | MHC.OFFVIS ---
Intake Visit Reasons: OV-Osteoarthritis of knees, bilateral Intake Note: Urszula is a 55 year old female who presents today for her bilateral knee OA, last injections 03/06/25. Patient reports her last gel injections gave her relief for 3 months. She is wanting to repeat the cortisone injections today. Allergies barium sulfate Allergy (Intermediate, Verified 09/02/25 11:49) pruritus Iodinated Contrast Media (CONTRAST, IV) Allergy (Intermediate, Verified 09/02/25 11:49) RASH,HIVES varenicline (From CHANTIX) Allergy (Intermediate, Verified 09/02/25 11:49) RASH, pruritus iopromide (From Ultravist) Allergy (Mild, Verified 09/02/25 11:49) HIVES HPI HPI OV-Osteoarthritis of knees, bilateral: Details: Ms. Romero [facility] Medical History (Updated 07/09/25 @ 15:10 by PRAVEEN Garrison) Depression Heartburn Chronic pain of both knees Bilateral primary osteoarthritis of knee JAKE (obstructive sleep apnea) Anxiety Osteoarthritis of knees, bilateral Insomnia Constipation by delayed colonic transit Dyslipidemia Chronic back pain Surgical History S/P panniculectomy S/P laparoscopic sleeve gastrectomy Hx of colonoscopy History of lumbar discectomy History of tubal ligation Family History Father Diabetes Mother No problems noted. Daughter In good health Son In good health Brother No problems noted. Sister No problems noted. 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) Alcohol intake: never Comment: Uses cane when having back pain Patient Tobacco Use Status: Former Tobacco user Tobacco use type: Cigarette Years Smoked: 20+ e-Cigarette/Vaping Use: Never Used Second Hand Smoke Exposure: No service: No Current occupational status: disabled Cognitive needs: No Hearing needs: No Vision needs: No Female Reproductive History Menstrual Age of Menarche: 14 Office Procedures AMB Joint Injection/Aspiration Joint Injection/Aspiration Primary Site: Right Knee Secondary Site: Left Knee Prep: site was prepped using aseptic technique, ethochloride spray was applied and injection warnings given Injected: 40 mg of, Decadron, with 3 mL of, 1% plain Lidocaine, 0.25% Bupivacaine and in the joint Approach Used: anterolateral Procedure: The patient tolerated the procedure well, but had some pain with the injection and there was some relief with the local anesthesia Coding 37858 - Bilateral Large Joint Procedure code (CPT) selection complete Assessment & Plan Assessment & Plan (1) Osteoarthritis of knees, bilateral: Code(s): M17.0 - Bilateral primary osteoarthritis of knee Category: Medical Qualifiers: Osteoarthritis type: primary Qualified Code(s): M17.0 - Bilateral primary osteoarthritis of knee Plan The patient was offered a cortisone injection in bilateral knees. The patient was explained the risks, benefits, and alternatives to receiving this injection. After receiving consent for the injection, the patient had the procedure done while in the office today. The patient tolerated the procedure well with no complications. Follow-up will be PRN, or sooner if needed Coding Level of Care Code Est Pt Level 3 (27693) Diagnoses Primary osteoarthritis of both knees M17.0 Osteoarthritis type: primary CPT Codes Coding - 51294 - Bilateral Large Joint: 34797 - Bilateral Large Joint ([id number])
== END 2025-09-02 11:57 | disposition home or self-care (01) ==
LOC: HO.HOS 11:35
PROVIDERS: PCP Internal Medicine; Visit Provider Physician Assistant
DX: M17.0 Bilateral primary osteoarthritis of knee (principal)
CPT/HCPCS: 20610; 99213

== ENCOUNTER → 2025-09-02 11:34 | Outpatient (BNVA) | payer OTHER, SELFPAY | PROVIDERS: PCP Internal Medicine; Visit Provider Physician Assistant | DX: M17.0 Bilateral primary osteoarthritis of knee (principal) | CPT/HCPCS: 20610; 99212; J0665; J1100; J2003 ==

== ENCOUNTER 2025-09-23 12:43 | Outpatient (AMB) | payer OTHER, SELFPAY ==
--- NOTE | 2025-09-23 12:52 | A.OFFVIS_ITS ---
VS Expanded 09/23/25 13:01 BP 111/66 Blood Pressure Location Lt brachial Blood Pressure Position Sitting Pulse 60 Pulse Source Pulse Oximeter Temp 97.6 F Temperature Source Temporal Artery Scan Pulse Oximetry 100 Oxygen Delivery Method Room Air Height 5 ft 5 in Weight 147 lb 3.2 oz BMI 24.5 Body Fat % 31.9 Body Fat Mass 47.0 Fat Free Mass 100.0 Visceral Fat Rating 7.0 Body Water % 48.3 Body Water Mass 71.0 Muscle Mass/Score 95.0 Basal Metabolic Rate/Score 1,350 Intake Visit Reasons: OV PO LSG 08/24/22 & Panniculectomy 06/24/25 *see com Allergies barium sulfate Allergy (Intermediate, Verified 09/23/25 13:08) pruritus Iodinated Contrast Media (CONTRAST, IV) Allergy (Intermediate, Verified 09/23/25 13:08) RASH,HIVES varenicline (From CHANTIX) Allergy (Intermediate, Verified 09/23/25 13:08) RASH, pruritus iopromide (From Ultravist) Allergy (Mild, Verified 09/23/25 13:08) HIVES Medication List - Last Reconciled 09/23/25 by PRAVEEN Garrison bisacodyl (Dulcolax (bisacodyl)) 10 mg [place] DAILY PRN calcium citrate-vitamin D3 315 mg-5 mcg (200 unit) (Calcium Citrate + D) 1 tab PO BID cyclobenzaprine 10 mg PO TID PRN docusate sodium (Colace) 100 mg PO DAILY fluocinolone acetonide oil 0.01% (DermOtic Oil) 5 drps otic (ears) BID 7 days lorazepam 0.5 mg PO BEDTIME PRN 30 days multivitamin 1 tab PO DAILY olopatadine 0.2% (Pataday Once Daily Relief) 1 drp ophthalmic (eye) DAILY PRN 30 days ondansetron 4 mg PO Q12H oxycodone 5 mg PO DAILY PRN 30 days sennosides (senna) 17.2 mg (2 x 8.6 mg) PO BEDTIME [shower chair As directed] tirzepatide (weight loss) (Zepbound) 10 mg (0.5 mL) subcut QWEEK 4 weeks trazodone 50 mg PO BEDTIME PRN 90 days triamcinolone acetonide 0.1% 1 appl topical DAILY 2 weeks walker As directed HPI Comments Details: Pt is 3mo s/p panniculectomy 06/24/2025. Doing well without complications. Continues to wear supportive abdominal garment that she purchased and finds it comfortable. Current meal plan: one premade PREMIER protein shake split into two shakes each mixed with almond milk, one cottage cheese or yogurt, and dinner at 6pm (4 forks of protein and 4 forks of salad/vegetables). She has stopped the protein bars as she does not like them. Pt also reports issues of excess skin of upper arms. Pt experiences chafing and rashes where skin rubs against the torso. She has tried the topical prescription strength cream that we had given her to try to relieve this, with no improvement. She has to wear long sleeves at all times to protect skin from friction. Skin is heavy, and causes discomfort and limits mobility when she tries to reach her arms over her head. She also experiences shoulder pain due to heaviness of excess skin. [facility] Medical History (Updated 07/09/25 @ 15:10 by PRAVEEN Garrison) Depression Heartburn Chronic pain of both knees Bilateral primary osteoarthritis of knee JAKE (obstructive sleep apnea) Anxiety Osteoarthritis of knees, bilateral Insomnia Constipation by delayed colonic transit Dyslipidemia Chronic back pain Surgical History S/P panniculectomy S/P laparoscopic sleeve gastrectomy Hx of colonoscopy History of lumbar discectomy History of tubal ligation Family History Father Diabetes Mother No problems noted. Daughter In good health Son In good health Brother No problems noted. Sister No problems noted. 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) Alcohol intake: never Comment: Uses cane when having back pain Patient Tobacco Use Status: Former Tobacco user Tobacco use type: Cigarette Years Smoked: 20+ e-Cigarette/Vaping Use: Never Used Second Hand Smoke Exposure: No service: No Current occupational status: disabled Cognitive needs: No Hearing needs: No Vision needs: No Female Reproductive History Menstrual Age of Menarche: 14 Physical Exam Const General: cooperative, comfortable and no acute distress Orientation/consciousness: patient oriented x3 Skin Other: excess skin of bilateral upper arms with maximum length on L of 8.5cm, R of 10cm Neuro General: patient oriented x3 Assessment & Plan Assessment & Plan (1) S/P laparoscopic sleeve gastrectomy: Comment: 2021 Code(s): Z98.84 - Bariatric surgery status Category: Surgical (2) S/P panniculectomy: Code(s): Z98.890 - Other specified postprocedural states Category: Surgical (3) Excess skin: Code(s): L98.7 - Excessive and redundant skin and subcutaneous tissue Category: Medical Plan Pt continues to do very well with weight management after LSG, achieving healthy BMI with approx 51.5% TBWL. Healed well from panniculectomy, now 3 months out, no restrictions. Continue on high protein meal plan. Pt is experiencing issues of excess skin of the arms resulting in frequent chafing/rashes, limitation of mobility in activities of daily living, need for special clothing, and discomfort due to weight of excess skin. She has tried Rx topical treatment without improvement. She would benefit from definitive treatment of brachioplasty. Photos previously taken. Will submit to insurance.
[2025-09-23 13:01] VITALS: BP 111/66; PULSE 60; TEMP 36.4; O2SAT 100; BMI 24.5
== END 2025-09-23 13:23 | disposition home or self-care (01) ==
LOC: HO.HBS 12:44
PROVIDERS: PCP Internal Medicine; Visit Provider Physician Assistant Surgical
DX: L98.7 Excessive and redundant skin and subcutaneous tissue (principal); Z98.84 Bariatric surgery status; Z98.890 Other specified postprocedural states
CPT/HCPCS: 99214

== ENCOUNTER → 2025-09-23 12:43 | Outpatient (BNVA) | payer OTHER, SELFPAY | PROVIDERS: PCP Internal Medicine; Visit Provider Physician Assistant Surgical | DX: Z09 Encounter for follow-up examination after completed treatment for conditions other than malignant neoplasm (principal); L98.7 Excessive and redundant skin and subcutaneous tissue; Z98.84 Bariatric surgery status; Z98.890 Other specified postprocedural states | CPT/HCPCS: 99212 ==